=== PATIENT | female | born 1940 | race Caucasian/White ===

== ENCOUNTER → 2019-08-15 14:27 | Outpatient (BNVA) | payer MEDICARE, OTHER, SELFPAY | PROVIDERS: Family Provider Family Medicine; Referring Provider Family Medicine; Visit Provider Otolaryngology | DX: R22.1 Localized swelling, mass and lump, neck (principal) | CPT/HCPCS: 99203; 99214 ==

== ENCOUNTER 2019-08-20 12:14 | Outpatient (CLI) | payer MEDICARE, OTHER, SELFPAY ==
--- NOTE | 2019-08-20 12:45 | US_ITS ---
WS: [id number] ULTRASOUND RENAL TECHNIQUE: Ultrasound examination of both kidneys. CLINICAL INFORMATION: MICROSCOPIC HEMATURIA COMPARISON: None. FINDINGS: RIGHT: Right kidney is normal in size and appearance. Echogenicity: Normal. Cortical thickness: 1.3 cm; Normal. Hydronephrosis: None. Perinephric fluid: None. Right kidney measures: 7.7 cm x 4.4 cm x 4.7 cm. LEFT: Left kidney is normal in size and appearance. Echogenicity: Normal. Cortical thickness: 1.4 cm; Normal. Hydronephrosis: None. Perinephric fluid: None. Left kidney measures: 9.5 cm x 4.4 cm x 5.2 cm. Normal visualized aorta. Normal bladder emptying. US/US renal BI with bladder IMPRESSION: 1. Both kidneys are normal in appearance. No hydronephrosis. 2. Normal bladder.
== END 2019-08-20 12:15 | disposition home or self-care (01) ==
LOC: US 12:16
PROVIDERS: Family Provider Family Medicine; PCP Family Medicine; Visit Provider Family Medicine
DX: R31.29 Other microscopic hematuria (principal)
CPT/HCPCS: 76770; 76857

== ENCOUNTER 2019-08-29 09:02 | Outpatient (CLI) | payer MEDICARE, OTHER, SELFPAY ==
[2019-08-29 09:51] LABS: Blood Urea Nitrogen 9 mg/dL (8-23)
--- NOTE | 2019-08-29 10:00 | CT_ITS ---
WS: [id number] CT NECK WITH CONTRAST HISTORY: Localized mass and lump., LEFT submandibular palpable nodule and swelling. TECHNIQUE: Contiguous 5 mm axial images are performed through the neck with intravenous contrast. Sag ittal and coronal reformats are also submitted. All CT scans at [facility] use at least o ne of these dose optimization techniques: automated exposure control; mA and/or kV adjustment per pat ient size (includes targeted exams where dose is matched to clinical indication); or iterative recons truction. CONTRAST: CONTRAST: Omnipaque 300; 95 mL IV. DLP: 424.24 mGy.cm COMPARISON: 09/08/2018 Nasopharynx, oropharynx, hypopharynx and larynx are unremarkable. No soft tissue masses or abnormal e nhancement. Torus tubarius and fossa of Rosenmuller and parapharyngeal fat are normal. No significant lymphadenopathy is identified. Subcentimeter bilateral thyroid nodules and a few scattered calcifications. No interval change. No do minant mass or nodule. No mass identified in the region of the submandibular glands. There is a prominent artery superficial to the LEFT sternocleidomastoid muscle and just lateral to the cricoid which could be palpable. This vein is associated with the superficial surface of the LEFT submandibular gland. Prior anterior cervical fusion from C4 through C6 with interbody spacers. No lucency around the hardw are. Fusion across the disc spaces and the anterior body grafting. C6 anterolisthesis by 3 mm is unch anged. Multilevel bilateral foraminal stenosis throughout the cervical spine. Most significant centra l or foraminal stenosis at C5-6. No abnormality at the skull base. RIGHT A1 is hypoplastic. Intracranial atherosclerosis of the caroti d arteries. Visualized paranasal sinuses and mastoid air cells are normal. Lung apices are clear. CT/CT neck w con* [id number] IMPRESSION: 1. No neck mass or adenopathy. Palpable area over the LEFT submandibular gland may correspond to a prominent vein. 2. Advanced degenerative changes in the cervical spine and prior cervical fusi on from C4 through C6.
[2019-08-29] MEDS: iohexol 300 mg/mL 100 mL Btl IV (10:30)
== END 2019-08-29 09:03 | disposition home or self-care (01) ==
LOC: RAD 09:07
PROVIDERS: Family Provider Family Medicine; PCP Family Medicine; Visit Provider Otolaryngology
DX: R22.1 Localized swelling, mass and lump, neck (principal); Z98.1 Arthrodesis status
CPT/HCPCS: 36415; 70491; 82565; 84520

== ENCOUNTER → 2019-09-04 15:02 | Outpatient (BNVA) | payer MEDICARE, OTHER, SELFPAY | PROVIDERS: Family Provider Family Medicine; PCP Family Medicine; Visit Provider Otolaryngology | DX: R22.1 Localized swelling, mass and lump, neck (principal) | CPT/HCPCS: 99212; 99214 ==

== ENCOUNTER 2019-10-29 08:07 | Outpatient (CLI) | payer MEDICARE, OTHER, SELFPAY ==
--- NOTE | 2019-10-29 08:17 | USCV_ITS ---
Aarti Melchor Age: 79 Gender: F : 1940 Exam Date: 10/29/2019 08:24 Ordering Phys: Elyse Colin MD ([email or web address]) Technologist: Reji Whitfield Exam Location: [facility] [place] Indication: AI BP: / HR: 70 Rhythm: Sinus Technical Quality: Adequate MEASUREMENTS (Male / Female) Normal Values 2D ECHO LV Diastolic Diameter PLAX 3.6 cm 4.2 - 5.9 / 3.9 - 5.3 cm LV Systolic Diameter PLAX 2.2 cm IVS Diastolic Thickness 1.0 cm 0.6 - 1.0 / 0.6 - 0.9 cm IVS Systolic Thickness 1.0 cm LVPW Diastolic Thickness 0.9 cm 0.6 - 1.0 / 0.6 - 0.9 cm LVPW Systolic Thickness 1.2 cm LVOT Diameter 2.1 cm LV Ejection Fraction 2D Teich 70.1 % LV Ejection Fraction MOD 2C 70.0 % LV Ejection Fraction 2C AL 70.6 % LA Diameter 3.7 cm LA Width 3.0 cm LA Height 4.0 cm RA Width 3.0 cm RA Height 3.7 cm Aorta at Sinotubular Diameter 2.4 cm M-MODE LV Diastolic Diameter MM 4.1 cm 4.2 - 5.9 / 3.9 - 5.3 cm LV Systolic Diameter MM 2.5 cm LV Ejection Fraction MM Teich 71.1 % IVS Diastolic Thickness MM 0.8 cm 0.6 - 1.0 / 0.6 - 0.9 cm IVS Systolic Thickness MM 1.2 cm LVPW Diastolic Thickness MM 1.2 cm 0.6 - 1.0 / 0.6 - 0.9 cm LVPW Systolic Thickness MM 1.4 cm RV Diastolic Diameter MM 2.0 cm Aortic Annulus Diameter 2.8 cm LA Ao Ratio MM 1.3 MV E Point Septal Separation 0.9 cm DOPPLER AV Peak Velocity 132.0 cm/s LVOT Peak Velocity 109.0 cm/s AV Area Cont Eq vti 2.8 cm squared AV Area Cont Eq pk 2.8 cm squared MV Area PHT 3.5 cm squared Mitral E to A Ratio 0.6 MV E' Velocity 8.0 cm/s Mitral E to MV E' Ratio 7.4 Mitral E to LV E' Lateral Ratio 7.4 Mitral E to LV E' Septal Ratio 7.4 TR Peak Velocity 234.0 cm/s TR Peak Gradient 21.9 mmHg TV Peak E Velocity 78.0 cm/s Right Atrial Pressure 3.0 mmHg Pulmonary Artery Systolic Pressu 24.9 mmHg PV Peak Velocity 73.0 cm/s FINDINGS Left Ventricle Normal left ventricular cavity size. Normal left ventricular wall thickness. Normal left ventricular systolic function. Left ventricular ejection fraction is estimated at 75 %. No regional wall motion abnormalities. Grade I diastolic dysfunction (abnormal relaxation filling pattern), normal filling pressures. Right Ventricle Normal right ventricular size and systolic function. Right ventricular systolic pressure 24.9 mmHg. Right Atrium Normal right atrial size. Right atrial pressure estimated at 3 mmHg. Left Atrium Normal left atrial size. Mitral Valve Structurally normal mitral valve. No mitral valve stenosis. Trace mitral valve regurgitation. Aortic Valve Thickened trileaflet aortic valve. No aortic valve stenosis. Mild aortic valve regurgitation. Tricuspid Valve Structurally normal tricuspid valve. No tricuspid valve stenosis. Mild tricuspid valve regurgitation. Pulmonic Valve Structurally normal pulmonic valve. Pericardium No pericardial effusion. Aorta Normal size aortic root and proximal ascending aorta. CONCLUSIONS 1. Normal left ventricular cavity size and systolic function. Left ventricular ejection fraction is estimated at 75 %. No regional wall motion abnormalities. Grade I diastolic dysfunction (abnormal relaxation filling pattern), normal elevated filling pressures. 2. Normal right ventricular size and systolic function. 3. Pulmonary artery pressure estimated at 25 mmHg. 4. Mild aortic valve regurgitation. 5. When compared to previous echocardiogram dated 09/01/2016, there may not have been any significant change. Elyse Colin MD (Electronically Signed) Final Date: 29 October 2019 13:14 S
--- NOTE | 2019-10-29 08:17 | USCV_ITS ---
Aarti Melchor Age: 79 Gender: F : 1940 Exam Date: 10/29/2019 08:35 Ordering Phys: Elyse Colin MD ([email or web address]) Technologist: Reji Whitfield Exam Location: [facility] [place] Indication: CCA STENOSIS Risk Factors: Previous Vascular Surgery: Right Brachial BP: / Left Brachial BP: / Right Left Velocity (cm/s) Spectral Plaque Velocity (cm/s) Spectral Plaque Syst/Diast Broadening Syst/Diast Broadening 69.10/ 7.00 Prox CCA 69.20 / 14.50 67.60/ 9.30 Mid CCA 73.50 / 17.10 47.40/ 10.90 Distal CCA 62.40 / 11.10 52.00/ 10.00 Prox ICA 73.50 / 23.90 Homo 103.90/25.00 Mid ICA 83.70 / 20.50 Homo 95.30/ 15.10 Distal ICA 88.90 / 18.80 174.80 ECA 92.30 1.50 ICA/CCA 1.21 Antegrade Vertebral Antegrade 67.50/ 16.20 cm/s 65.80/ 11.10 cm/s Tri Subclavian Tri 105.1 101.7 0 0 FINDINGS Comparison:. 09/05/17. No significant elevation of systolic or diastolic velocities. Waveforms are normal. Minimal bilateral atherosclerosis at the bifurcations. CONCLUSIONS Bilateral ICA stenosis less than 50%. Minimal bilateral atherosclerosis. Dr. Katey Blank DO (Electronically Signed) Final Date: 29 October 2019 09:38 S
== END 2019-10-29 08:08 | disposition home or self-care (01) ==
LOC: RAD 08:09
PROVIDERS: Family Provider Family Medicine; PCP Family Medicine; Visit Provider Internal Medicine Cardiovascular Disease
DX: I35.1 Nonrheumatic aortic (valve) insufficiency (principal); I65.23 Occlusion and stenosis of bilateral carotid arteries
CPT/HCPCS: 93306; 93880

== ENCOUNTER → 2019-11-28 15:37 | Outpatient (BNVA) | payer MEDICARE, OTHER, SELFPAY | PROVIDERS: Family Provider Family Medicine; PCP Family Medicine; Visit Provider Nurse Practitioner Family | DX: R31.29 Other microscopic hematuria (principal) | CPT/HCPCS: 81001; 88112 ==

== ENCOUNTER 2020-01-28 13:05 | Outpatient (CLI) | payer MEDICARE, OTHER, SELFPAY ==
--- NOTE | 2020-01-28 13:16 | USCV_ITS ---
Aarti Melchor Age: 79 Gender: F : 1940 Exam Date: 01/28/2020 13:42 Ordering Phys: Eduardo Lowry MD Technologist: Sergo Bonds Exam Location: [facility] [place] Indication: BILATERAL LEG PAIN Risk Factors: Previous Vascular Surgery: RIGHT LEFT BP: 125.0 / 75.00 BP: 123.0/ 67.00 0 0 Waveform Velocity (cm/s) Velocity (cm/s) Waveform Triphasic 70.6 Iliac Prox 84.9 Triphasic Triphasic 72.1 Iliac Mid 78.9 Triphasic Triphasic 68.2 Iliac Distal 80.7 Triphasic Triphasic 113.6 MACHINE MARKER 74.6 Triphasic Triphasic 90.6 SFA Prox 69.7 Triphasic Triphasic 59.8 SFA Mid 72.2 Triphasic Triphasic SFA Dist Triphasic 61.1 50.6 Triphasic 48.6 POP 39.5 Biphasic Biphasic 46.7 BRASS WIND INSTRUMENT MAKER 52.0 Biphasic Triphasic 67.7 DPA 48.6 Biphasic 1.0 PATRICIA 1.1 FINDINGS Normal resting ABIs bilaterally. Near normal arterial Doppler waveforms. Normal Doppler flow velocity CONCLUSIONS No significant arterial obstruction, based on the above findings Dr Juana Kaplan MD [facility] (Electronically Signed) Final Date: 28 January 2020 22:01 S
== END 2020-01-28 13:06 | disposition home or self-care (01) ==
LOC: RAD 13:09
PROVIDERS: PCP Family Medicine; Visit Provider Family Medicine
DX: M79.604 Pain in right leg (principal); M79.605 Pain in left leg
CPT/HCPCS: 93925

== ENCOUNTER → 2020-03-06 10:09 | Outpatient (BNVA) | payer MEDICARE, OTHER, SELFPAY | PROVIDERS: PCP Family Medicine; Visit Provider Urology | DX: N39.41 Urge incontinence (principal); R31.29 Other microscopic hematuria; Z87.440 Personal history of urinary (tract) infections | CPT/HCPCS: 81001 ==

== ENCOUNTER 2020-04-03 12:20 | Outpatient (CLI) | payer MEDICARE, OTHER, SELFPAY ==
--- NOTE | 2020-04-03 12:57 | XR_ITS ---
WS: [id number] LUMBAR SPINE TECHNIQUE: 3 views of the lumbar spine CLINICAL INFORMATION: BACK PAIN COMPARISON: None. FINDINGS: Five [id number] lumbar vertebral bodies. Cholecystectomy clips. Pedicle screw fixation L4-5 with interconnecting rods. Interbody fusion L4-5. Disc space narrowing throughout the lumbar spine. Mild chronic anterior wedging lower thoracic spine. Aortic calcification. Moderate facet arthropathy L4-L5 and L5-S1. Slight anterolisthesis L4 on L5. XR/XR lumbar spine 2-3V* [id number] IMPRESSION: 1. Mild lumbar curve convex right. 2. Prior postoperative changes pedicle screw fixation L4-5 with interbody fusi on graft. 3. Mild disc space narrowing throughout the lumbar spine. 4. Trace anterolisthesis L4 on L5.
== END 2020-04-03 12:21 | disposition home or self-care (01) ==
PROVIDERS: PCP Family Medicine; Visit Provider Family Medicine
DX: M54.5 Low back pain (principal)
CPT/HCPCS: 72100

== ENCOUNTER 2020-05-05 11:39 | Outpatient (CLI) | payer MEDICARE, OTHER, SELFPAY ==
--- NOTE | 2020-05-05 11:47 | MM_ITS ---
WS: [id number] BILATERAL DIGITAL SCREENING MAMMOGRAPHY WITH CAD CLINICAL INFORMATION: SCREENING HISTORY: Screening mammogram. No current complaints. COMPARISON: TECHNIQUE: Bilateral CC and MLO views. FINDINGS: Scattered fibroglandular densities bilaterally. No suspicious focal mass, asymmetry, calcifications, or architectural distortion. No evidence of malignancy. A few punctate calcifications MM/[id number] IMPRESSION: BI-RADS: 2-Benign FOLLOW UP: 1 Year Follow-up Recommend return to annual screening mammography.
== END 2020-05-05 11:40 | disposition home or self-care (01) ==
PROVIDERS: PCP Family Medicine; Visit Provider Family Medicine
DX: Z12.31 Encounter for screening mammogram for malignant neoplasm of breast (principal)
CPT/HCPCS: 77067

== ENCOUNTER 2020-06-05 10:16 | Outpatient (CLI) | payer MEDICARE, OTHER, SELFPAY ==
--- NOTE | 2020-06-05 10:45 | XR_ITS ---
WS: [id number] CERVICAL SPINE TECHNIQUE: 3 views of the cervical spine CLINICAL INFORMATION: NECK PAIN COMPARISON: December 08, 2009 FINDINGS: Straightening of the normal cervical lordosis. Postoperative changes ACDF C4-C6. Grade 1 anterolisthe sis C6 on C7 measuring 3 mm. Normal C1-C2 articulation. Moderate spondylitic changes. XR/XR cervical spine 3V* [id number] IMPRESSION: 1. Postoperative changes ACDF C4-C6. Hardware appears well seated. 2. Grade 1 anterolisthesis C6 on C7 measuring 3 mm. 3. Osteopenia.
== END 2020-06-05 10:17 | disposition home or self-care (01) ==
LOC: RADWPI 10:21
PROVIDERS: PCP Family Medicine; Visit Provider Family Medicine
DX: M54.2 Cervicalgia (principal); M85.88 Other specified disorders of bone density and structure, other site
CPT/HCPCS: 72040

== ENCOUNTER → 2020-07-17 09:49 | Outpatient (BNVA) | payer MEDICARE, OTHER, SELFPAY | PROVIDERS: PCP Family Medicine; Visit Provider Surgery | DX: Z20.828 Contact with and (suspected) exposure to other viral communicable diseases (principal); K21.9 Gastro-esophageal reflux disease without esophagitis | CPT/HCPCS: 87635 ==

== ENCOUNTER 2020-07-23 07:10 | Day surgery (SDC) | payer MEDICARE, OTHER, SELFPAY ==
[2020-07-23 07:24] VITALS: BP 126/97; PULSE 66; RESP 18; TEMP 36.1; O2SAT 100
[2020-07-23] MEDS: sodium chloride 0.9% 1,000 ML 30 ML IV (07:46)
--- NOTE | 2020-07-23 07:52 | W.PM.OPSUD ---
Surgery/Procedure H&P Update DATE OF PROCEDURE: July 23, 2020 DATE H&P PERFORMED: 06/23/20 H&P UPDATE INFORMATION: I have reviewed H&P completed within last 30 days, I have examined patient prior to procedure and No changes to prior documentation PREOP DIAGNOSIS: Acid reflux disease PRIMARY INDICATION FOR PROCEDURE: The same PLANNED PROCEDURE: Operation Date: 07/23/20 08:15 Proposed Procedures p EGD 89607 K21.9(Not Applicable) - Rikki Dempsey MD
--- NOTE | 2020-07-23 08:11 | P.ANESASSM_ITS ---
Pre-Anesthetic Assessment Pre-Anesthetic Assessment: Height/Weight: Height 1.57 m Weight 56.245 kg Temp Pulse Resp BP Pulse Ox 97.0 F L 66 18 126/97 100 07/23/20 07:24 07/23/20 07:24 07/23/20 07:24 07/23/20 07:24 07/23/20 07:24 Preop Diagnosis: Acid reflux disease Proposed Procedure: Operation Date: 07/23/20 08:15 Proposed Procedures p EGD 65048 K21.9(Not Applicable) - Rikki Dempsey MD Familial anesthetic complications: None Was Beta Poppy taken within 24 hours: N/A Last intake: Intake Last Liquid Date 07/22/20 Last Liquid Time 23:00 Last Solid Date 07/22/20 Last Solid Time 18:00 Social: Social History: No alcohol and No tobacco Exam: Pre-Anes Outpt Exam: alert, oriented x 3, clear to auscultation bilat erally and regular rate & rhythm Airway: Cervical ROM: WNL MP: 3 Dentition: Full Additional comments: submandibular neck mass/gland seen by Dr Rg, CT scan obtained. No intervention was required. CV/HEM: CV/HEM: HTN Comments: Mild AVR on echo 11/04, EF 75% GI: GI: GERD Metabolic: Metabolic: Hyperlipidemia Neuropsych: Comments: B/L ANAM Anesthetic Plan: ASA status: 3 Anesthesia: MAC Risk of > 500 ml blood loss (7ml/kg in children): No Meds/Allergies Current Medications: Current Medications Generic Name Dose Route Start Last Admin Trade Name Freq PRN Reason Stop Dose Admin Sodium Chloride 1,000 mls @ 30 ml s/hr 07/23/20 07:15 07/23/20 07:46 Sodium Chloride 0.9% IV 07/24/20 07:14 30 mls/hr .Q24H CARL Administration PFSH Anesthesia PFSH: Medical History Aortic valve regurgitation Carotid artery stenosis, asymptomatic FH: cholecystectomy History of recurrent UTI (urinary tract infection) Microscopic hematuria Neck mass Urgency incontinence Surgical History H/O neck surgery H/O: hysterectomy Previous back surgery Family History Father Cancer CAD (coronary artery disease) Brother CAD (coronary artery disease) Other Diabetes Heart disease Hypertension Denies family history of Anesthesia complication Bleeding disorder Social History Smoking and tobacco status: never smoked Alcohol intake: never Adopted: No Caregiver/support person: No Lives independently: No Marital status: / Current occupational status: retired History of recent travel: No Current gender identity: Female Data Anesthesia Cardiac Studies: No Data to Display
[2020-07-23 09:05] VITALS: BP 106/61; PULSE 64; RESP 16; TEMP 36.6; O2SAT 95
--- NOTE | 2020-07-23 09:06 | ANE.PACU2 ---
Inpatient post-anesthesia follow up: Airway intact: Yes Vital signs: Temperature 97.8 F Pulse Rate 64 Respiratory Rate 16 Blood Pressure 106/61 Pulse Oximetry 95 Oxygen Delivery Me thod Room Air Oxygen Flow Rate Fraction of Inspir ed Oxygen Hydration adequate: Yes Nausea and vomiting: No Pain level: 1 Mental status: Baseline
== END 2020-07-23 09:38 | disposition home or self-care (01) ==
PROVIDERS: PCP Family Medicine; Visit Provider Surgery
PROC: 0DJ08ZZ Inspection of Upper Intestinal Tract, Via Natural or Artificial Opening Endoscopic (ICD-10-PCS; CPT 43235; principal; 2020-07-23 08:15)
DX: K21.9 Gastro-esophageal reflux disease without esophagitis (principal); K44.9 Diaphragmatic hernia without obstruction or gangrene; K29.70 Gastritis, unspecified, without bleeding; I10 Essential (primary) hypertension; E78.5 Hyperlipidemia, unspecified
CPT/HCPCS: 12345; 43235; J2704; J7030

== ENCOUNTER → 2020-08-04 17:52 | Outpatient (BNVA) | payer MEDICARE, OTHER, SELFPAY | PROVIDERS: PCP Family Medicine; Visit Provider Nurse Practitioner Family | DX: R31.29 Other microscopic hematuria (principal); N39.0 Urinary tract infection, site not specified | CPT/HCPCS: 81003 ==

== ENCOUNTER → 2020-09-17 12:50 | Outpatient (BNVA) | payer MEDICARE, OTHER, SELFPAY | PROVIDERS: PCP Family Medicine; Visit Provider Urology | DX: N39.0 Urinary tract infection, site not specified (principal); R33.9 Retention of urine, unspecified; R31.29 Other microscopic hematuria | CPT/HCPCS: 81003 ==

== ENCOUNTER 2021-01-13 08:16 | Outpatient (CLI) | payer MEDICARE, OTHER, SELFPAY ==
--- NOTE | 2021-01-13 08:49 | MR_ITS ---
WS: [id number] MRI NECK with and without CONTRAST. COMPARISON: Head CT 03/05/2013 Multiplanar, multisequence imaging is performed with and without contrast. History: Left-sided face fullness and LEFT ear pain. Chronic condition. Localized swelling and mass. No enhancing masses or inflammation noted within the neck. The parapharyngeal fat is symmetric bilate rally. Torus tubarius and the eustachian tubes are normal and symmetric. No adenopathy. The visualize d vascular structures are normal. There is some very mild slight inflammation and enhancement involvi ng the uvula. Uvula also appears slightly prominent. Extensive postsurgical changes in the cervical spine. Slight increase in the cervical lordosis. MR/MR orbit face neck wo/w* [id number] IMPRESSION: 1. No neck mass or adenopathy. 2. No abnormality noted in the LEFT face or neck. 3. Very minimal prominence and enhancement of the uvula. If direct visualizati on has not been performed this would provide additional information.
[2021-01-13] MEDS: gadobenate dimeglumine 20 mL vial IV (09:29)
== END 2021-01-13 08:17 | disposition home or self-care (01) ==
PROVIDERS: PCP Family Medicine; Visit Provider Specialist
DX: J32.9 Chronic sinusitis, unspecified (principal); R22.1 Localized swelling, mass and lump, neck
CPT/HCPCS: 70543; A9577

== ENCOUNTER → 2021-01-20 10:21 | Outpatient (BNVA) | payer MEDICARE, OTHER, SELFPAY | PROVIDERS: PCP Family Medicine; Visit Provider Urology | DX: N39.0 Urinary tract infection, site not specified (principal); R33.9 Retention of urine, unspecified; N39.41 Urge incontinence | CPT/HCPCS: 81003 ==

== ENCOUNTER 2021-02-05 11:58 | Outpatient (CLI) | payer MEDICARE, OTHER, SELFPAY ==
--- NOTE | 2021-02-05 12:45 | USCV_ITS ---
Aarti Melchor Age: 80 Gender: F : 1940 Exam Date: 02/05/2021 11:54 Ordering Phys: Elyse Colin MD ([email or web address]) Technologist: Marsha Hand Exam Location: [facility] [place] Indication: PAIN IN RIGHT LEG RIGHT LEFT Brachial 157.00 mmHg Brachial 143.00 mmHg Pressure (mmHg) Waveform Pressure (mmHg) Waveform 156.00 Above Knee 148.00 155.00 Below Knee 165.00 153.00 PETROL TANKER DRIVER 151.00 173.00 DPA 165.00 1.10 Ankle/Brachial Index 1.05 1.13 Post-Exercise Ankle Brachial Index 1.27 124.00 Pre-Exercise Toe Pressure 98.00 0.79 Pre-Exercise Toe/Brachial Index 0.62 FINDINGS Normal resting PATRICIA of 1.1 on the right side and 1.05 on the left side. Post exercise PATRICIA of 1.16 on the right side and 0.66 on the left side Resting TBI 0.79 on the right side and 0.62 on the left side CONCLUSIONS Abnormal resting TBI and post exercise PATRICIA on the left side, suggestive of moderate peripheral artery disease No significant arterial obstruction on the right side No similar previous studies are available for comparison Dr Juana Kaplan MD [facility] (Electronically Signed) Final Date: 05 February 2021 20:42 S
== END 2021-02-05 11:59 | disposition home or self-care (01) ==
LOC: RAD 12:03
PROVIDERS: PCP Family Medicine; Visit Provider Internal Medicine Cardiovascular Disease
DX: M79.604 Pain in right leg (principal)
CPT/HCPCS: 93923

== ENCOUNTER → 2021-03-16 13:24 | Outpatient (BNVA) | payer MEDICARE, OTHER, SELFPAY | PROVIDERS: PCP Family Medicine; Visit Provider Internal Medicine Cardiovascular Disease | DX: Z01.812 Encounter for preprocedural laboratory examination (principal) | CPT/HCPCS: 80048 ==

== ENCOUNTER 2021-03-17 07:58 | Outpatient (CLI) | payer MEDICARE, OTHER, SELFPAY ==
--- NOTE | 2021-03-17 08:00 | CT_ITS ---
WS: [id number] CTA ABDOMINAL AORTA WITH RUNOFF TECHNIQUE: Contrast enhanced CTA of the abdominal aorta with bilateral lower extremity runoff. Multip lanar reformatted images were obtained. MIP reformats were also reviewed. CLINICAL INFORMATION: R68.89 - Other general symptoms and signs COMPARISON: CT 12 DLP: 1195.[address] scans at [facility] use at least one of these dose optimization techniques: automat ed exposure control; mA and/or kV adjustment per patient size (includes targeted exams where dose is matched to clinical indication); or iterative reconstruction. FINDINGS: Moderate calcified aortic atheromatous disease. No aneurysm. Celiac and SMA are patent. Pro ximal renal arteries are patent. Normal renal parenchymal enhancement. JAMEY is patent. RIGHT: Mild stenosis right common iliac artery origin measuring approximately 30%. Right common iliac artery is patent. External and internal iliac arteries are patent. Common femoral artery is patent. Normal superficial femoral artery and deep femoral arteries. Normal popliteal artery. Popliteal is pa tent to the trifurcation. Three-vessel runoff to the ankle. Somewhat diminutive peroneal artery. LEFT: Mild calcified atheromatous disease left common iliac artery which is patent. Dense calcificati on of the internal iliac artery origin which is patent. External iliac artery is patent. Calcified at heromatous disease common femoral artery which is patent. Superficial femoral and deep femoral arteri es are patent. Normal popliteal artery patent to the trifurcation. Three-vessel runoff to the ankle. Somewhat diminutive peroneal artery. Diffuse fatty infiltration of the liver. Vascular anomaly right hepatic lobe likely benign. Cholecyst ectomy clips. Normal portal vein and splenic vein. Small esophageal hiatal hernia. Lung bases are wel l aerated. Normal adrenal glands. Normal renal parenchymal enhancement. No hydronephrosis. Tiny right renal cyst. Sigmoid diverticulosis. No evidence of acute diverticulitis. No evidence of high-grade s mall or large bowel obstruction. Tiny fat-containing umbilical hernia. Pedicle screw fixation L4-5. CT/CT angio abd aorta runof [id number] IMPRESSION: 1. Normal caliber abdominal aorta with moderate calcified atheromatous disease . 2. Mild stenosis right common iliac artery origin measuring approximately 30%. No flow-limiting stenosis right lower extremity. 3. No flow-limiting stenosis left lower extremity. 4. Bilateral three-vessel runoff to the ankles with somewhat diminutive perone al arteries bilaterally. 5. Nonvascular findings described above.
[2021-03-17] MEDS: iohexol 350 mg/mL 100 mL Btl IV (08:35)
== END 2021-03-17 07:59 | disposition home or self-care (01) ==
PROVIDERS: PCP Family Medicine; Visit Provider Internal Medicine Cardiovascular Disease
DX: R68.89 Other general symptoms and signs (principal); I73.9 Peripheral vascular disease, unspecified; M79.605 Pain in left leg; I70.8 Atherosclerosis of other arteries
CPT/HCPCS: 75635; Q9967

== ENCOUNTER → 2021-04-21 13:10 | Outpatient (BNVA) | payer MEDICARE, OTHER, SELFPAY | PROVIDERS: PCP Family Medicine; Visit Provider Urology | DX: N39.0 Urinary tract infection, site not specified (principal); R33.9 Retention of urine, unspecified; R31.29 Other microscopic hematuria | CPT/HCPCS: 81003 ==

== ENCOUNTER 2021-07-01 09:44 | Outpatient (CLI) | payer MEDICARE, OTHER, SELFPAY ==
--- NOTE | 2021-07-01 09:46 | MM_ITS ---
WS: [id number] BILATERAL DIGITAL SCREENING MAMMOGRAPHY WITH CAD CLINICAL INFORMATION: SCREENING HISTORY: Screening mammogram. No current complaints. COMPARISON: May 05, 2020 TECHNIQUE: Bilateral CC and MLO views. FINDINGS: Scattered fibroglandular densities bilaterally. Numerous bilateral punctate calcifications similar to the prior examination. No suspicious focal mass, asymmetry, calcifications, or architectural distort ion. No evidence of malignancy. MM/[id number] IMPRESSION: BI-RADS: 2-Benign FOLLOW UP: 1 Year Follow-up Recommend return to annual screening mammography.
== END 2021-07-01 09:45 | disposition home or self-care (01) ==
LOC: RADSHAW 09:45
PROVIDERS: PCP Family Medicine; Visit Provider Family Medicine
DX: Z12.31 Encounter for screening mammogram for malignant neoplasm of breast (principal)
CPT/HCPCS: 77067

== ENCOUNTER 2021-08-16 15:47 | Emergency (ER) | payer MEDICARE, OTHER, SELFPAY ==
[2021-08-16 15:57] VITALS: BP 160/70; PULSE 74; RESP 16; TEMP 36.7; O2SAT 99; BMI 22.0
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
[2021-08-16 17:03] VITALS: PULSE 66; RESP 16; O2SAT 98
== END 2021-08-16 17:04 | disposition home or self-care (01) ==
PROVIDERS: Emergency Provider Nurse Practitioner Family; PCP Family Medicine
DX: Z04.1 Encounter for examination and observation following transport accident (principal); Z79.82 Long term (current) use of aspirin; V49.40XA Driver injured in collision with unspecified motor vehicles in traffic accident, initial encounter
CPT/HCPCS: 72100; 99282

== ENCOUNTER 2021-11-09 20:51 | Emergency (ER) | payer MEDICARE, OTHER, SELFPAY ==
[2021-11-09 20:54] VITALS: BP 180/89; PULSE 69; RESP 18; TEMP 36.2; O2SAT 98; BMI 22.6
--- NOTE | 2021-11-09 22:18 | ECG_ITS ---
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 Measurements Intervals [place] Rate: 56 P: 22 [place]: 203 QRS: -15 QRSD: 82 T: 34 QT: 410 QTc: 398 Interpretive Statements SINUS BRADYCARDIA LOW QRS VOLTAGE IN PRECORDIAL LEADS [QRS DEFLECTION < 1.0 mV IN CHEST LEADS] No previous ECG available for comparison Electronically Signed On 11-09-2021 23:33:36 CDT by David Moran M.D. [id number]
--- NOTE | 2021-11-09 22:20 | ED_ITS ---
HPI - General Adult General: Chief complaint: General Medical Stated complaint: High Blood pressure Time Seen by Provider: 11/09/21 22:00 Source: patient and family (daughter ) Mode of arrival: ambulatory Limitations: no limitations History of Present Illness: Patient is a nice 81-year-old female who presents to ED today along with her daughter for concerns of elevated blood pressure readings at home (roughly 180s systolic). Patient states she has a history of hypertension and normally takes enalapril 2.5 mg daily. She states she has been having elevated blood pressure readings at home therefore PCP recently increased this to 2.5 mg twice daily. Patient tells me she has not been feeling well over the past several weeks. She reports fatigue. When asked about chest pain she tells me she chronically intermittent has chest pains related to a known hiatal hernia. She often states she will get acid reflux and belching with her discomfort. She is not complaining of shortness of breath or difficulty breathing. Patient does complain of a mild headache. She is not having any visual changes. She has no known cardiac disease. She states her last stress test was many many years ago. Onset (ago): hour(s) Pain Consistency: intermittent Associated symptoms: Reports chest pain (fairly normal for patient given history of hiatal hernia); Deny confusion, dyspnea, headache(s), nausea, rash, palpitations, syncope or vomiting Treatments prior to arrival: none Review of Systems Const: Reports: fatigue; Denies: fever(s), chills, body aches, change in appetite or change in weight Eyes: Denies: change in vision or blurry vision Card: Reports: chest pain (fairly normal for patient given history of hiatal hernia); Denies: palpitations, irregular heart rhythm, edema, swelling of feet/ankles, lightheadedness, syncope, pre-syncope, dyspnea on exertion, orthopnea, leg pain with exertion or acrocyanosis Resp: Denies: dyspnea, productive cough or pain on inspiration GI: Reports: abdominal pain (epigastic-states is chronic/intermittent from hiatal hernia), heartburn and belching; Denies: nausea, vomiting, hematemesis, diarrhea, GI cramping or change in bowel habits : Denies: flank pain or dysuria Musc: Denies: neck pain, back pain, extremity pain or joint pain Skin/Breast: Denies: rash Neuro: Denies: headache(s), numbness in extremities, weakness in extremities, sensory changes, difficulty walking, dizziness or confusion PFSH ED PFSH: Medical History Aortic valve regurgitation Carotid artery stenosis, asymptomatic FH: cholecystectomy Heart disease History of nonmelanoma skin cancer History of recurrent UTI (urinary tract infection) Incomplete bladder emptying Memory loss Microscopic hematuria Mitral valve disease Neck mass Recurrent UTI Urgency incontinence Surgical History H/O colonoscopy 2016 H/O esophagogastroduodenoscopy 2016 H/O neck surgery H/O: hysterectomy Hx of cholecystectomy Previous back surgery Family History Father , in his 70's Cancer CAD (coronary artery disease) Brother CAD (coronary artery disease) Mother , at age 79 Heart disease Other Diabetes Hypertension Denies family history of Anesthesia complication Bleeding disorder Social History Alcohol intake: never Adopted: No Caregiver/support person: No Lives independently: No Marital status: / Current occupational status: retired History of recent travel: No Current gender identity: Female Physical Exam Const: COMMON NORMALS: no acute distress, average body habitus, patient orien sathish x3, no limitations, healthy appearing, alert and well nourished GENERAL APPEARANCE: cooperative ORIENTATION/CONSCIOUSNESS: Yes awake, Yes oriented to person, Yes oriented to place and Yes oriented to time HENMT: COMMON NORMALS: normocephalic and atraumatic HEAD & SCALP: normocephalic and atraumatic Neck/C-Spine: COMMON NORMALS: full ROM, no lymphadenopathy, supple, no meningeal signs and no JVD Chest: COMMONS NORMALS: normal inspection of the chest and normal palpation of entire chest wall Resp: COMMON NORMALS: normal respiratory effort and clear to auscultation bilaterally AUSCULTATION: clear to auscultation bilaterally Cardio: COMMON NORMALS: no JVD, regular rate and regular rhythm RATE: regular rate RHYTHM: regular rhythm GI: COMMON NORMALS: Normal to inspection, nondistended, normoactive bowel s ounds present, Soft to palpation, No hepatosplenomegaly present and no masses PALPATION: Yes Soft to palpation, Yes Tenderness to palpation present (GI) (mild-epigastric ) and Yes No hepatosplenomegaly present Back/Pelvis: COMMON NORMALS: thoracic and lumbar spine normal to inspection Extremity: COMMON NORMALS: normal to inspection, capillary refill normal, no clubbing, cyanosis or edema, no calf tenderness and no pedal edema Neuro: PETTY COMA SCALE: document GCS findings Costa coma scale eye opening: Spontaneous [place] coma scale verbal response: Orientated Costa coma scale motor response: Obey commands Costa coma scale total score: 15 COMMON NORMALS: patient oriented x3, moves all extremities, no focal motor deficits and no sensory deficits noted SENSORIUM/ORIENTATION: Yes alert, Yes oriented to person, Yes oriented to place and Yes oriented to time MENINGEAL SIGNS: Yes no meningeal signs Skin: COMMON NORMALS: no rashes or lesions noted GENERAL SKIN EXAM: no rashes or lesions noted Course Vital Signs: Vital signs: Vital Signs Temperature 97.2 F L 11/09/21 20:54 Pulse Rate 56 L 11/10/21 00:30 Respiratory Rate 18 11/09/21 20:54 Blood Pressure 160/67 11/10/21 00:30 Pulse Oximetry 97 11/10/21 00:[address] [facility] - General Adult Medical Decision Making Patient is a nice 81-year-old female presents to ED today for elevated blood pressure readings. Patient was 180s systolic upon arrival. She had mentioned s ome chest pain but stated she felt this was most likely secondary to her known hiatal hernia as she has had similar pains previously related to this. She states her pains felt similar today. No shortness of breath or difficulty breathing. Blood work overall is unremarkable. Her baseline troponin was 14 with a negative delta. Her CXR is normal. Initial and repeat EKGs show no ischemic changes. Patient currently is taking 2.5 mg twice daily enalapril. Recommended she increase this to 5 mg in the morning and 2.5 mg in the evening continue to monitor blood pressure. This can be further titrated as needed based on response. She does tell me she has a cardiology appointment on 11/11. She can follow-up with them for any further medication adjustments. They can also order her an outpatient stress test if they feel this is necessary. Blood pressure has responded to IV dose of vasotec and currently is 150s/80s. Patient is stable from an ED standpoint at this time. Return to ED precautions given. Lab Data : 11/09/21 22:44 11/09/21 22:44 Radiology Impressions Chest X-Ray 11/09/21 22:28 IMPRESSION: No acute abnormality. Laboratory Results WBC 9.0 10^3/uL (4.0-10.0) 11/09/21 22:44 RBC 4.63 10^6/uL (4.1-5.3) 11/09/21 22:44 Hgb 12.6 g/dL (11.5-15.3) 11/09/21 22:44 Hct 38.5 % (37.0-47.0) 11/09/21 22:44 MCV 83.2 fl (81-99) 11/09/21 22:44 MCH 27.2 pg (28.0-34.0) L 11/09/21: MCHC 32.7 g/dL (30.0-36.0) 11/09/21 22:44 RDW 14.3 % (12.1-15.1) 11/09/21 22:44 Plt Count 223 10^3/cmm (130-400) 11/09/21 22:44 MPV 10.5 fL (7.4-10.4) H 11/09/21 22:44 Neut % (Auto) 58.6 % 11/09/21 22:44 Lymph % (Auto) 29.9 % 11/09/21 22:44 [place] % (Auto) 8.1 % 11/09/21:44 Eos % (Auto) 2.3 % 11/09/21:44 Baso % (Auto) 0.9 % 11/09/21:44 Neut # (Auto) 5.29 10^3/uL (1.8-7.7) 11/09/21 22:44 Lymph # (Auto) 2.7 10^3/uL (0.8-4.8) 11/09/21 22:44 [place] # (Auto) 0.7 10^3/uL (0.2-0.9) 11/09/21 22:44 Eos # (Auto) 0.2 10^3/uL (0.0-0.8) 11/09/21 22:44 Baso # (Auto) 0.1 10^3/uL (0.0-0.1) 11/09/21 22:44 Nucleated RBC % (auto) 0 % 11/09/21 22:44 Nucleated RBCs # 0.0 /100WBC 11/09/21 22:44 Sodium 134 mmol/L (136-145) L 11/09/21 22:44 Potassium 3.8 mmol/L (3.5-5.1) 11/09/21 22:44 Chloride 98 mmol/L (98-107) 11/09/21 22:44 Carbon Dioxide 24 mmol/L (22-29) 11/09/21 22:44 Anion Gap 15.8 (5-19) 11/09/21 22:44 BUN 13 mg/dL (8-23) 11/09/21 22:44 Creatinine 0.7 mg/dL (0.5-0.9) 11/09/21 22:44 GFR Calculation Not Reportable 11/09/21 22:44 Glucose 112 mg/dL (65-115) 11/09/21 22:44 Calculated Osmolality 279 mOsm/kg (285-295) L 11/09/21 22:44 Calcium 8.8 mg/dL (8.5-10.5) 11/09/21 22:44 Total Bilirubin 0.2 mg/dL (0.15-1.2) 11/09/21 22:44 AST 19 U/L (0-32) 11/09/21 22:44 ALT 15 U/L (0-33) 11/09/21 22:44 Alkaline Phosphatase 48 IU/L (35-105) 11/09/21 22:44 Troponin T Baseline 14 ng/L (0-10) H 11/09/21 22:44 Troponin T 120 Minute 13.62 ng/L (0-10) H 11/10/21 00:00 Delta Troponin T -0.38 ABS# (0-10) L 11/10/21 00:00 Total Protein 7.1 g/dL (6.6-8.7) 11/09/21 22:44 Albumin 4.3 g/dL (3.5-5.2) 11/09/21 22:44 Globulin 2.8 g/dL (1.3-4.6) 11/09/21 22:44 Urine Color Straw (Yellow) 11/09/21 22:45 Urine Appearance Clear (CLEAR) 11/09/21 22:45 Urine pH 7 (5-7) 11/09/21 22:45 Ur Specific [place] 1.005 (1.005-1.030) 11/09/21 22:45 Urine Protein Neg (Negative) 11/09/21 22:45 Urine Glucose (UA) Norm (Normal) 11/09/21 22:45 Urine Ketones Negative (Negative) 11/09/21 22:45 Urine Blood Neg (Negative) 11/09/21 22:45 Urine Nitrate Negative (Negative) 11/09/21 22:45 Urine Bilirubin Neg (Negative) 11/09/21 22:45 Urine Urobilinogen Norm mg/dL (Negative) 11/09/21 22:45 Ur Leukocyte Esterase Negative (Negative) 11/09/21 22:45 EKG Data EKG 1: EKG interpretation date: 11/09/21 Interpretation: Sinus bradycardia Rate [address] elevation or depression changes noted Computer generated interpretation: Chest X-Ray 11/09/21 22:28 IMPRESSION: No acute abnormality. EKG 2: EKG interpretation date: 11/09/21 EKG interpretation time: 22:55 Interpretation: Sinus bradycardia Rate [address] elevation or depression changes noted No acute changes were noted when compared to EKG performed earlier on same visit Computer generated interpretation: Chest X-Ray 11/09/21 22:28 IMPRESSION: No acute abnormality. Discharge Plan Discharge Patient Disposition: Home Clinical Impression: Hypertension Qualifiers: Hypertension type: unspecified Qualified Code(s): I10 - Essential (primary) hypertension Condition: Stable Prescriptions: No Action memantine 10 mg tablet 10 mg PO BID 0RF enalapril maleate [Vasotec] 2.5 mg tablet 2.5 mg PO QDAY 0RF pravastatin 80 mg tablet 80 mg PO QDAY 0RF donepezil [Aricept] 10 mg tablet 10 mg PO .bedtime 0RF aspirin 325 mg tablet 162.5 mg PO QDAY 0RF famotidine 40 mg tablet 40 mg PO BID PRN (Reason: Abdominal Discomfort) 0RF vitamin E 200 unit capsule 200 unit PO DAILY 0RF Discharge Orders: Discharge ED (Routine); Ordered 11/10/21 Ordered By: Marita Beaz Referrals: Eduardo Lowry MD [Primary Care Provider] - Coding Level of Care Code ED Treatment Specialist for Chg Fwd Exam Comprehensive
--- NOTE | 2021-11-09 22:28 | XRR_ITS ---
PROCEDURE INFORMATION: Exam: XR Chest Exam date and time: 11/09/2021 10:48 PM Age: 81 years old Clinical indication: Other: High blood pressure TECHNIQUE: Imaging protocol: XR of the chest. Views: 1 view. COMPARISON: CR Chest 2 views* [id number] 08/10/2017 9:59 AM FINDINGS: Lungs: Unremarkable. No consolidation. Pleural spaces: Unremarkable. No pleural effusion. No pneumothorax. Heart/Mediastinum: Unremarkable. No cardiomegaly. Bones/joints: Hardware in the visualized cervical spine. XR/XR chest 1V portable [id number] IMPRESSION: No acute abnormality.
[2021-11-09] MEDS: enalaprilat 1.25 mg/mL Inj 0.625 MG IVP (22:40)
[2021-11-09 22:41] VITALS: BP 166/85
[2021-11-09 22:49] LABS: Basophils # 0.1 10^3/uL (0.0-0.1); Basophils % 0.9 %; Eosinophils # 0.2 10^3/uL (0.0-0.8); Eosinophils % 2.3 %; Hematocrit 38.5 % (37.0-47.0); Hemoglobin 12.6 g/dL (11.5-15.3); Lymphocytes # 2.7 10^3/uL (0.8-4.8); Lymphocytes % 29.9 %; Mean Corpuscular HGB Conc 32.7 g/dL (30.0-36.0); Mean Corpuscular Hemoglobin 27.2 pg (28.0-34.0); Mean Corpuscular Volume 83.2 fl (81-99); Mean Platelet Volume 10.5 fL (7.4-10.4); Monocytes # 0.7 10^3/uL (0.2-0.9); Monocytes % 8.1 %; Neutrophils # 5.29 10^3/uL (1.8-7.7); Neutrophils % 58.6 %; Nucleated Red Blood Cells % 0 %; Platelet Count 223 10^3/cmm (130-400); Red Blood Count 4.63 10^6/uL (4.1-5.3); Red Cell Distribution Width 14.3 % (12.1-15.1)
[2021-11-09 22:52] LABS: Add Urine Microscopic? NO; Charge for UA Resulting for Rev
[2021-11-09 22:55] LABS: Bilirubin Urine Neg (Negative); Blood Urine Neg (Negative); Glucose Urine UA Norm (Normal); Ketones Urine Negative (Negative); Leukocyte Esterase Urine Negative (Negative); Nitrate Urine Negative (Negative); Protein Urine Neg (Negative); Specific Gravity, Urine 1.005 (1.005-1.030); Urine Appearance Clear (CLEAR); Urine Color Straw (Yellow); Urobilinogen Urine Norm (Negative); pH Urine 7 (5-7)
[2021-11-09 23:10] LABS: Alanine Aminotransferase 15 U/L (0-33); Albumin Level 4.3 g/dL (3.5-5.2); Alkaline Phosphatase 48 IU/L (35-105); Anion Gap 15.8 (5-19); Aspartate Amino Transferase 19 U/L (0-32); Blood Urea Nitrogen 13 mg/dL (8-23); Calcium 8.8 mg/dL (8.5-10.5); Carbon Dioxide 24 mmol/L (22-29); Chloride 98 mmol/L (98-107); Globulin 2.8 g/dL (1.3-4.6); Glucose 112 mg/dL (65-115); Osmolality Calculated 279 mOsm/kg (285-295); Potassium 3.8 mmol/L (3.5-5.1); Sodium 134 mmol/L (136-145); Total Bilirubin 0.2 mg/dL (0.15-1.2); Total Protein 7.1 g/dL (6.6-8.7)
[2021-11-09 23:11] LABS: Troponin(5th) Baseline 14 ng/L (0-10)
[2021-11-09 23:30] VITALS: BP 129/76
--- NOTE | 2021-11-10 00:18 | ECG_ITS ---
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 Measurements Intervals [place] Rate: 58 P: 35 [place]: 214 QRS: -7 QRSD: 72 T: 35 QT: 404 QTc: 398 Interpretive Statements SINUS BRADYCARDIA WITH FIRST DEGREE AV BLOCK LOW QRS VOLTAGE IN PRECORDIAL LEADS [QRS DEFLECTION < 1.0 mV IN CHEST LEADS] Compared to ECG 11/09/2021 22:55:02 First degree AV block now present Electronically Signed On 11-10-2021 23:23:50 CDT by Elyse Colin M.D. [id number]
[2021-11-10 00:30] VITALS: BP 160/67; PULSE 56; O2SAT 97
[2021-11-10 00:45] LABS: Troponin 5 2HR 13.62 ng/L (0-10)
[2021-11-10 01:07] LABS: Troponin 5 2HR Delta -0.38 ABS# (0-10)
[2021-11-10 01:36] VITALS: BP 146/83; PULSE 61; RESP 16; O2SAT 95
== END 2021-11-10 01:31 | disposition home or self-care (01) ==
PROVIDERS: Emergency Provider Physician Assistant; PCP Family Medicine
DX: I10 Essential (primary) hypertension (principal)
CPT/HCPCS: 71045; 80053; 81003; 84484; 85025; 93005; 96374; 99283; J3490

== ENCOUNTER → 2021-11-11 12:11 | Outpatient (BNVA) | payer MEDICARE, OTHER, SELFPAY | PROVIDERS: PCP Family Medicine; Visit Provider Internal Medicine Cardiovascular Disease | DX: I10 Essential (primary) hypertension (principal); Z87.891 Personal history of nicotine dependence | CPT/HCPCS: 99213; 99214 ==

== ENCOUNTER → 2021-11-18 14:22 | Outpatient (BNVA) | payer MEDICARE, OTHER, SELFPAY | PROVIDERS: PCP Family Medicine; Visit Provider Nurse Practitioner Family | DX: I10 Essential (primary) hypertension (principal); R53.83 Other fatigue; I73.9 Peripheral vascular disease, unspecified; Z85.828 Personal history of other malignant neoplasm of skin; K21.9 Gastro-esophageal reflux disease without esophagitis; R31.29 Other microscopic hematuria; I35.1 Nonrheumatic aortic (valve) insufficiency; Z87.891 Personal history of nicotine dependence | CPT/HCPCS: 80048; 82306; 83880; 99214 ==

== ENCOUNTER 2021-11-22 13:07 | Emergency (ER) | payer MEDICARE, OTHER, SELFPAY ==
[2021-11-22 13:10] VITALS: BP 188/88; PULSE 65; RESP 16; TEMP 36.8; O2SAT 100
--- NOTE | 2021-11-22 13:20 | ECG_ITS ---
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 Measurements Intervals [place] Rate: 58 P: 38 [place]: 206 QRS: 2 QRSD: 84 T: 43 QT: 411 QTc: 405 Interpretive Statements SINUS BRADYCARDIA LOW QRS VOLTAGE IN PRECORDIAL LEADS [QRS DEFLECTION < 1.0 mV IN CHEST LEADS] POSSIBLE ANTERIOR MYOCARDIAL INFARCTION , PROBABLY OLD [30 ms Q WAVE IN V3/V4, OR R < 0.2 mV IN V4] Compared to ECG 11/10/2021 00:07:26 Myocardial infarct finding now present First degree AV block no longer present Electronically Signed On 11-22-2021 22:45:28 CDT by Juana Kaplan M.D. [id number]
--- NOTE | 2021-11-22 13:24 | ED_ITS ---
HPI - General Adult General: Chief complaint: Weakness Stated complaint: high BP Time Seen by Provider: 11/22/21 13:18 History of Present Illness: CC: Elevated BP HPI: [81]yo patient w/ x hx of HTN on enalapril and metorpolol presenting to the ED with complaints that his BP is not well controlled. Patient is on 2 agents for BP control and is compliant with medication. Earlier today, patient and family noticed her blood pressure was over 200 systolic BP. Reports head fullness but denies any headache and transient light-headedness. Denies chest pain, SOB, palpitation, N/V/D, pain radiating to the shoulder, headache, vision changes, LOC, or focal neurological deficits. Patient also denies syncope, vertigo abdominal pain, back pain. Tolerating PO meds without issues. Onset: earlier today Duration: ongoing Location: home Severity: mild Associated symptoms: Deny chest pain, dyspnea, nausea, rash, palpitations or vomiting Review of Systems Const: Denies: fever(s) or chills Eyes: Denies: change in vision ENMT: Denies: mouth pain Card: Denies: chest pain or palpitations Resp: Denies: dyspnea or non-productive cough GI: Denies: abdominal pain, nausea, vomiting or diarrhea : Denies: dysuria Musc: Denies: extremity pain Skin/Breast: Denies: rash or new lesions Neuro: Reports: other (+light-headedness); Denies: weakness in extremities Psych: Reports: other (Normal mood) Rafi/Lymph: Denies: easy bruising PFSH ED PFSH: Medical History Aortic valve regurgitation Carotid artery stenosis, asymptomatic FH: cholecystectomy Heart disease History of nonmelanoma skin cancer History of recurrent UTI (urinary tract infection) Hypertension Incomplete bladder emptying Memory loss Microscopic hematuria Mitral valve disease Neck mass Recurrent UTI Urgency incontinence Surgical History H/O colonoscopy 2016 H/O esophagogastroduodenoscopy 2016 H/O neck surgery H/O: hysterectomy Hx of cholecystectomy Previous back surgery Family History Father , in his 70's Cancer CAD (coronary artery disease) Brother CAD (coronary artery disease) Mother , at age 79 Heart disease Other Diabetes Hypertension Denies family history of Anesthesia complication Bleeding disorder Social History Smoking and tobacco status: former smoker Alcohol intake: never Adopted: No Caregiver/support person: No Lives independently: No Marital status: / Current occupational status: retired History of recent travel: No Current gender identity: Female Physical Exam Const: COMMON NORMALS: alert HENMT: COMMON NORMALS: atraumatic HEAD & SCALP: atraumatic MOUTH: moist mucous membranes not abnormal Eye: COMMON NORMALS: EOMs intact bilaterally and conjunctivae normal CONJUNCTIVA: Yes conjunctivae normal Neck/C-Spine: COMMON NORMALS: full ROM and supple Resp: COMMON NORMALS: normal respiratory effort and clear to auscultation bilaterally AUSCULTATION: clear to auscultation bilaterally Cardio: COMMON NORMALS: regular rate RATE: regular rate OTHER: 2+ radial pulses GI: COMMON NORMALS: Soft to palpation and non-tender PALPATION: Yes Soft to palpation Extremity: COMMON NORMALS: full ROM OTHER: no lower extremity edema b/l Neuro: SENSORIUM/ORIENTATION: Yes alert MOTOR EXAM: No Abnormal motor strength present and Other motor observations present (no focal motor deficits) OTHER: Mental status? Awake, alert, and oriented to self, year, month, location, and situation.? Following simple axial and appendicular commands.? Has appropriate fund of knowledge, comprehension, and insight.? Able to recall and understands pertinent aspects of medical history and current treatment status.? ? Language? Speech is fluent without word-finding difficulties.? Intact naming, expression, outreach librarian, and repetition.? ? Cranial nerves? 2,3,4,6: PERRL, EOMI with no nystagmus. 5: Intact sensation to light touch, symmetric? 7: Smile symmetrical, no facial droop.? 8: Hearing grossly intact.? 9,10: Normal palate movement.? 11: Normal strength in trapezius bilaterally 12: Tongue protrudes midline.? ? Motor examination? Normal bulk & tone. Strength as follows (R/L): Delts (5/5), Biceps (5/5), Triceps (5/5), Wrist ext (5/5), hip flexors (5/5), plantarflexors (5/5), dorsiflexors (5/5). Sensation? Light Touch: Grossly intact and equal in upper and lower extremities bilaterally? Romberg: Negative.? Distal joint position sense intact ? Coordination? Nppcyx-hn-qyuf-finger movements intact without dysmetria or past-pointing.? Rapid fingertaps: preserved amplitude without decriment.? No tremor, myoclonus or truncal ataxia.? ? Gait/stance? Steady, normal narrow base gait with appropriate arm swing and turning.? Tandem gait without hesitation or loss of balance. Psych: COMMON NORMALS: speech normal SPEECH: Yes normal speech MOOD & AFFECT: Yes euthymic mood Course Vital Signs: Vital signs: Vital Signs Temperature 98 F 11/22/21 16:46 Pulse Rate 60 11/22/21 16:46 Respiratory Rate 16 11/22/21 16:46 Blood Pressure 136/81 11/22/21 16:46 Pulse Oximetry 96 11/22/21 16:46 MDM - General Adult Medical Decision Making [81]yo patient w/ hx of HTN on metoprolol and enalapril presenting to the ED with high BP readings x 1 day without other medical complaints. BP in the ED of 188/88. Rest of exam including full neuro exam intact. Given presentation, history and exam, I do not suspect aortic dissection, hypertensive encephalopathy, intracranial hemorrhage, ACS, TIA/CVA, flash pulmonary edema. Intervention: amlodipine 5mg elevated BP [4:00pm] On reassessment, BP improved. Patient continues to be symptom-free at this time. Do not suspect an emergent cause. Discussed with the patient the importance of logging BPs and following up with his PCP for adjustment of BP if BP continues to be persistently high. Given return instructions. Patient received NS and amlodipine. Patient reports that her sensation of lightheadedness and head fullness has improved. Troponin delta < 5 with nonischemic EKG. Do not suspect ACS at this time. Rx: Amlodipine 5mg QDaily x 14 days Based on history, exam, vital signs, and work up (as indicated) I do not suspect an ongoing emergent medical condition, and I believe the patient is safe for discharge and outpatient follow-up. The plan of care was discussed with the patient and all questions were answered. The patient agrees with the plan of care and is discharged in stable condition with verbal and written instructions, and verbalized understanding and ability to comply. I discussed the diagnosis and treatment plan at length with the patient. The patient understands signs and symptoms (including those which are new or worsening) which should prompt return to the ED. The patient is to seek prompt outpatient follow-up as noted verbally and/or in the discharge instructions. At the time of discharge the patient is well-appearing, well-hydrated, non-toxic, and assures appropriate follow-up as an outpatient. Lab Data : 11/22/21 13:35 11/22/21 13:35 Laboratory Results WBC 9.2 10^3/uL (4.0-10.0) 11/22/21 13:35 RBC 4.72 10^6/uL (4.1-5.3) 11/22/21 13:35 Hgb 12.9 g/dL (11.5-15.3) 11/22/21 13:35 Hct 39.9 % (37.0-47.0) 11/22/21 13:35 MCV 84.5 fl (81-99) 11/22/21 13:35 MCH 27.3 pg (28.0-34.0) L 11/22/21 13:35 MCHC 32.3 g/dL (30.0-36.0) 11/22/21 13:35 RDW 14.5 % (12.1-15.1) 11/22/21 13:35 Plt Count 222 10^3/cmm (130-400) 11/22/21 13:35 MPV 11.5 fL (7.4-10.4) H 11/22/21 13:35 Neut % (Auto) 60.8 % 11/22/21 13:35 Lymph % (Auto) 30.9 % 11/22/21 13:35 Fajardo % (Auto) 6.0 % 11/22/21 13:35 Eos % (Auto) 1.4 % 11/22/21 13:35 Baso % (Auto) 0.8 % 11/22/21 13:35 Neut # (Auto) 5.58 10^3/uL (1.8-7.7) 11/22/21 13:35 Lymph # (Auto) 2.8 10^3/uL (0.8-4.8) 11/22/21 13:35 Fajardo # (Auto) 0.6 10^3/uL (0.2-0.9) 11/22/21 13:35 Eos # (Auto) 0.1 10^3/uL (0.0-0.8) 11/22/21 13:35 Baso # (Auto) 0.1 10^3/uL (0.0-0.1) 11/22/21 13:35 Nucleated RBC % (auto) 0 % 11/22/21 13:35 Nucleated RBCs # 0.0 /100WBC 11/22/21 13:35 Sodium 135 mmol/L (136-145) L 11/22/21 13:35 Potassium 4.3 mmol/L (3.5-5.1) 11/22/21 13:35 Chloride 99 mmol/L (98-107) 11/22/21 13:35 Carbon Dioxide 22 mmol/L (22-29) 11/22/21 13:35 Anion Gap 18.3 (5-19) 11/22/21 13:35 BUN 9 mg/dL (8-23) 11/22/21 13:35 Creatinine 0.5 mg/dL (0.5-0.9) 11/22/21 13:35 GFR Calculation Not Reportable 11/22/21 13:35 Glucose 96 mg/dL (65-115) 11/22/21 13:35 Calculated Osmolality 279 mOsm/kg (285-295) L 11/22/21 13:35 Calcium 9.9 mg/dL (8.5-10.5) 11/22/21 13:35 Total Bilirubin 0.3 mg/dL (0.15-1.2) 11/22/21 13:35 AST 25 U/L (0-32) 11/22/21 13:35 ALT 17 U/L (0-33) 11/22/21 13:35 Alkaline Phosphatase 41 IU/L (35-105) 11/22/21 13:35 Troponin T Baseline 17 ng/L (0-10) H 11/22/21 13:35 Troponin T 120 Minute 16.35 ng/L (0-10) H 11/22/21 15:50 Delta Troponin T -0.65 ABS# (0-10) L 11/22/21 15:50 Total Protein 7.1 g/dL (6.6-8.7) 11/22/21 13:35 Albumin 4.3 g/dL (3.5-5.2) 11/22/21 13:35 Globulin 2.8 g/dL (1.3-4.6) 11/22/21 13:35 Lipase 30 U/L (13-60) 11/22/21 13:35 Discharge Plan Discharge Patient Disposition: Home Clinical Impression: Elevated blood pressure reading Condition: Stable Prescriptions: New amlodipine 5 mg tablet 5 mg PO DAILY 14 Days Qty: 14 0RF No Action enalapril maleate [Vasotec] 2.5 mg tablet 2.5 mg PO QDAY 0RF pravastatin 80 mg tablet 80 mg PO QDAY 0RF donepezil [Aricept] 10 mg tablet 10 mg PO .bedtime 0RF aspirin 325 mg tablet 325 mg PO QDAY 0RF memantine 10 mg tablet 10 mg PO DAILY 0RF famotidine 40 mg tablet 40 mg PO DAILY 0RF loperamide [Anti-Diarrheal (loperamide)] 2 mg tablet 2 mg PO Q6H PRN0RF cholecalciferol (vitamin D3) 25 mcg (1,000 unit) capsule 25 mcg PO DAILY 0RF Tart Steven Extract 1,000 mg capsule PO 0RF calcium citrate-vitamin D3 [Citracal + D Maximum] 315 mg-6.25 mcg (250 unit) tablet 1 tab PO DAILY 0RF metoprolol succinate 25 mg tablet extended release 24 hr 12.5 mg PO DAILY PRN (Reason: hypertension) Qty: 30 3RF Discharge Orders: Discharge ED (Routine); Ordered 11/22/21 Ordered By: Amor House Referrals: Eduardo Lowry MD [Primary Care Provider] - Discharge Diet: Advance as tolerated Discharge Activity: Increase activity as tolerated Patient Instructions: Chronic Hypertension (ED), Hypertension (ED) Activity Restrictions/Additional Instructions: You need to follow-up with your primary care provider for further adjustment of your blood pressure. Your blood pressure puts you at risk for developing strokes and heart attack. Therefore it is very important for you to follow-up with this number to see if the numbers improve gradually. Because blood pressure adjustment is a gradual process, were not able to change it in 1 visit. Therefore please log your blood pressure and follow-up with your primary care provider in the next 72 hours for further adjustment of your blood pressures. Here's a copy of your carotid US report: [facility] [place] [address] Ultrasound Report Signed Patient: Aarti Melchor Unit #: [id number] : 1940 Age/Sex: 81 / F ADM Date: 11/22/21 Loc: ER Room/Bed: Attending Dr: Ordering Provider/Ordering MD: Amor House MD Date of Service: 11/22/21 Procedure(s): CV carotid duplex BI* [id number] Accession Number(s): [id number] Report Number: [id number] ?Aarti Melchor ?Age:? ? 81 ? ? Gender: ? ? F ?:? ? 1940 ?Exam Date: ? ? 11/22/2021 13:46 ?Ordering Phys: ? ? Amor House? ?Technologist:? ? ? Reji Whitfield ?Exam Location:? ? ? [facility] ?MRN:? ? [id number] ?Account Number: ? ? ? [id number] ?Indication:? ? ? cca disease ?Risk Factors:? None ?Previous Vascular Surgery: ?Right Brachial BP:? / ?Left Brachial BP: ? / ?Right? Left ?Velocity (cm/s)? ? Spectral ? ? Plaque? Velocity (cm/s) ? ? Spectral ? ? Plaque ?Syst/Diast ? Broadening ? Syst/Diast? Br oadening ?? 40.80/ 11.00? Prox CCA ? ? 58.30 / 10.50 ?? 45.40/ 8.50 ? Mid CCA? ? ? 62.60 / 8.70 ?? 44.30/ 7.50 ? Distal CCA ? 48.40 / 13.60 ?? 57.20/ 15.10? Prox ICA ? ? 49.00 / 9.90 ?? 74.90/ 17.70? Mid ICA? ? ? 66.35 / 16.40 ?? 78.80/ 23.60? Distal ICA ? 66.50 / 16.10 ? ? ? 88.20? ECA ? 52.70 ? 1.74? ICA/CCA ? 1.03 ?? Antegrade ? Vertebral ? ? Antegrade ?? 49.00/ 19.80? cm/s? 58.90/ 12.90 cm/s ?? ? Bi? Subclavian? ? ? Tri ? ? ? 52.70 ? 73.00 ?FINDINGS ?Mild to moderate plaque at the right bifurcation. ?Minimal plaques of the left bifurcation and proximal internal ?carotid artery. ?Intimal thickening in the common carotid arteries bilaterally. ?Antegrade flow in the vertebral arteries bilaterally. ?Normal Doppler flow velocities in the subclavian arteries ?bilaterally ?CONCLUSIONS ?Mild to moderate plaque at the right bifurcation, suggesting ?less than 50% stenosis ?Minimal plaques at the left bifurcation and proximal internal ?carotid artery, suggesting less than 50% stenosis ?Intimal thickening in the common carotid arteries bilaterally. ?No significant stenosis in the vertebral, subclavian or external ?carotid arteries, based on the above findings. ?Dr Juana Kaplan MD [facility] ?(Electronically Signed) ?Final Date:? ? ? 22 Nov 2021 15:36 S Coding Level of Care Code ED Handicapped Teacher for Chg Fwd Exam Comprehensive
--- NOTE | 2021-11-22 13:38 | USCV_ITS ---
Aarti Melchor Age: 81 Gender: F : 1940 Exam Date: 11/22/2021 13:46 Ordering Phys: Amor House MD Technologist: Reji Whitfield Exam Location: [facility] [place] Indication: cca disease Risk Factors: None Previous Vascular Surgery: Right Brachial BP: / Left Brachial BP: / Right Left Velocity (cm/s) Spectral Plaque Velocity (cm/s) Spectral Plaque Syst/Diast Broadening Syst/Diast Broadening 40.80/ 11.00 Prox CCA 58.30 / 10.50 45.40/ 8.50 Mid CCA 62.60 / 8.70 44.30/ 7.50 Distal CCA 48.40 / 13.60 57.20/ 15.10 Prox ICA 49.00 / 9.90 74.90/ 17.70 Mid ICA 66.35 / 16.40 78.80/ 23.60 Distal ICA 66.50 / 16.10 88.20 ECA 52.70 1.74 ICA/CCA 1.03 Antegrade Vertebral Antegrade 49.00/ 19.80 cm/s 58.90/ 12.90 cm/s Bi Subclavian Tri 52.70 73.00 FINDINGS Mild to moderate plaque at the right bifurcation. Minimal plaques of the left bifurcation and proximal internal carotid artery. Intimal thickening in the common carotid arteries bilaterally. Antegrade flow in the vertebral arteries bilaterally. Normal Doppler flow velocities in the subclavian arteries bilaterally CONCLUSIONS Mild to moderate plaque at the right bifurcation, suggesting less than 50% stenosis Minimal plaques at the left bifurcation and proximal internal carotid artery, suggesting less than 50% stenosis Intimal thickening in the common carotid arteries bilaterally. No significant stenosis in the vertebral, subclavian or external carotid arteries, based on the above findings. Dr Juana Kaplan MD [facility] (Electronically Signed) Final Date: 22 Nov 2021 15:36 S
--- NOTE | 2021-11-22 13:41 | ECG_ITS ---
[facility] Test Date: 2022-02-15 Pat Name: Aarti Melchor Department: Room: Gender: Female Mail Messenger: : 1940 Requested By: Amor House Order Number: [id number] Mita MD: Tello Schmidt M.D. Measurements Intervals [place] Rate: 71 P: 29 NH: 190 QRS: -16 QRSD: 75 T: 53 QT: 380 QTc: 414 Interpretive Statements SINUS RHYTHM WITH SINUS ARRHYTHMIA LOW QRS VOLTAGE IN PRECORDIAL LEADS [QRS DEFLECTION < 1.0 mV IN CHEST LEADS] POSSIBLE ANTERIOR MYOCARDIAL INFARCTION , PROBABLY OLD [30 ms Q WAVE IN V3/V4, OR R < 0.2 mV IN V4] INTERPRETATION BASED ON A DEFAULT AGE OF 40 YEARS Compared to ECG 12/28/2021 15:32:07 No significant changes Electronically Signed On 02-16-2022 7:08:15 CDT by Tello Schmidt M.D. [email or web address]
[2021-11-22] MEDS: amlodipine 5 mg Tablet PO (13:43)
[2021-11-22] MEDS: sodium chloride 0.9% 500 ML IV (13:45)
[2021-11-22 14:00] VITALS: BP 139/81; PULSE 59; RESP 16; O2SAT 99
[2021-11-22 14:03] LABS: Basophils # 0.1 10^3/uL (0.0-0.1); Basophils % 0.8 %; Eosinophils # 0.1 10^3/uL (0.0-0.8); Eosinophils % 1.4 %; Hematocrit 39.9 % (37.0-47.0); Hemoglobin 12.9 g/dL (11.5-15.3); Lymphocytes # 2.8 10^3/uL (0.8-4.8); Lymphocytes % 30.9 %; Mean Corpuscular HGB Conc 32.3 g/dL (30.0-36.0); Mean Corpuscular Hemoglobin 27.3 pg (28.0-34.0); Mean Corpuscular Volume 84.5 fl (81-99); Mean Platelet Volume 11.5 fL (7.4-10.4); Monocytes # 0.6 10^3/uL (0.2-0.9); Neutrophils # 5.58 10^3/uL (1.8-7.7); Neutrophils % 60.8 %; Nucleated Red Blood Cells % 0 %; Platelet Count 222 10^3/cmm (130-400); Red Blood Count 4.72 10^6/uL (4.1-5.3); Red Cell Distribution Width 14.5 % (12.1-15.1); White Blood Count 9.2 10^3/uL (4.0-10.0)
[2021-11-22 14:11] VITALS: BP 149/73; PULSE 59; RESP 16; O2SAT 96
[2021-11-22 14:24] LABS: Alanine Aminotransferase 17 U/L (0-33); Albumin Level 4.3 g/dL (3.5-5.2); Alkaline Phosphatase 41 IU/L (35-105); Blood Urea Nitrogen 9 mg/dL (8-23); Calcium 9.9 mg/dL (8.5-10.5); Carbon Dioxide 22 mmol/L (22-29); Chloride 99 mmol/L (98-107); Globulin 2.8 g/dL (1.3-4.6); Glucose 96 mg/dL (65-115); Lipase 30 U/L (13-60); Osmolality Calculated 279 mOsm/kg (285-295); Sodium 135 mmol/L (136-145); Total Bilirubin 0.3 mg/dL (0.15-1.2); Total Protein 7.1 g/dL (6.6-8.7)
[2021-11-22 14:25] LABS: Troponin(5th) Baseline 17 ng/L (0-10)
[2021-11-22 14:26] LABS: Anion Gap 18.3 (5-19); Aspartate Amino Transferase 25 U/L (0-32); Potassium 4.3 mmol/L (3.5-5.1)
[2021-11-22 15:08] VITALS: BP 136/69; PULSE 60; RESP 18; O2SAT 97
[2021-11-22 15:38] VITALS: BP 139/77; PULSE 58; RESP 16; O2SAT 96
--- NOTE | 2021-11-22 15:41 | ECG_ITS ---
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 Measurements Intervals [place] Rate: 66 P: 34 GA: 196 QRS: -15 QRSD: 76 T: 69 QT: 388 QTc: 408 Interpretive Statements SINUS RHYTHM LOW QRS VOLTAGE IN PRECORDIAL LEADS [QRS DEFLECTION < 1.0 mV IN CHEST LEADS] POSSIBLE ANTERIOR MYOCARDIAL INFARCTION , PROBABLY OLD [30 ms Q WAVE IN V3/V4, OR R < 0.2 mV IN V4] Compared to ECG 02/15/2022 16:14:01 No significant changes Electronically Signed On 02-19-2022 12:53:26 CDT by Elyse Colin M.D. [id number]
[2021-11-22 16:22] LABS: Troponin 5 2HR 16.35 ng/L (0-10)
[2021-11-22 16:23] LABS: Troponin 5 2HR Delta -0.65 ABS# (0-10)
[2021-11-22 16:46] VITALS: BP 136/81; PULSE 60; RESP 16; TEMP 36.6; O2SAT 96
== END 2021-11-22 16:47 | disposition home or self-care (01) ==
PROVIDERS: Emergency Provider Emergency Medicine; PCP Family Medicine
DX: R03.0 Elevated blood-pressure reading, without diagnosis of hypertension (principal); R42 Dizziness and giddiness; I10 Essential (primary) hypertension; Z82.49 Family history of ischemic heart disease and other diseases of the circulatory system; Z79.899 Other long term (current) drug therapy; Z79.82 Long term (current) use of aspirin; Z87.891 Personal history of nicotine dependence
CPT/HCPCS: 80053; 83690; 84484; 85025; 93005; 93880; 96360; 99285; J7040

== ENCOUNTER 2021-11-27 19:25 | Emergency (ER) | payer MEDICARE, OTHER, SELFPAY ==
[2021-11-27 19:37] VITALS: BP 177/90; PULSE 64; RESP 18; O2SAT 98; BMI 22.4
--- NOTE | 2021-11-27 19:39 | ED_ITS ---
HPI - General Adult General: Chief complaint: Headache Stated complaint: High BP Time Seen by Provider: 11/27/21 19:38 History of Present Illness: Ms. Melchor is an 81-year-old lady with history of hypertension, hyperlipidemia, peripheral arterial disease, carotid artery stenosis, aortic valve regurg presenting to the emergency department due to shakiness and headache associated with high blood pressure. Her blood pressure was previously well controlled on her medication regimen however over the past few months it has been increasingly uncontrolled. She has had multiple ER visit s and was trialed with addition of amlodipine however did not tolerate this. She saw her primary care provider few days ago who plans to adjust her medications and have patient keep blood pressure log however she presents today due to symptoms. Symptom onset was subacute approximately 2 to 3 hours ago. She denies known specific provoking factors. She reports headache which is throbbing in nature as well as generalized weakness which is nonfocal. Intensity symptoms is moderate. Course has persisted. She tried taking an extra enalapril without significant relief. No other specific changes in health, exacerbating, or alleviating factors identified. Onset (ago): hour(s) Location: head Severity: moderate Quality: other Relieving factors: none Exacerbating factors: none Associated symptoms: Reports weakness Review of Systems General: Reports: 10 or more systems reviewed and unremarkable except in HPI and below PFSH ED PFSH: Medical History Anxiety about health Aortic valve regurgitation Carotid artery stenosis, asymptomatic Heart disease Hiatal hernia with GERD History of nonmelanoma skin cancer Hypertension Incomplete bladder emptying Memory loss Mitral valve disease Recurrent UTI Surgical History H/O colonoscopy 2016 H/O esophagogastroduodenoscopy 2016 H/O neck surgery H/O: hysterectomy Hx of cholecystectomy Previous back surgery Family History Father , in his 70's Cancer CAD (coronary artery disease) Brother CAD (coronary artery disease) Mother , at age 79 Heart disease Other Diabetes Hypertension Denies family history of Anesthesia complication Bleeding disorder Social History Smoking and tobacco status: never smoked Alcohol intake: never Adopted: No Caregiver/support person: No Lives independently: No Marital status: / Current occupational status: retired History of recent travel: No Current gender identity: Female Physical Exam Const: COMMON NORMALS: patient oriented x3 and alert GENERAL APPEARANCE: cooperative and well developed HENMT: COMMON NORMALS: normocephalic and atraumatic HEAD & SCALP: normocephalic and atraumatic THROAT: posterior oropharynx normal Eye: COMMON NORMALS: conjunctivae normal CONJUNCTIVA: Yes conjunctivae normal SCLERA: sclerae normal Neck/C-Spine: COMMON NORMALS: supple GENERAL: Yes trachea midline Resp: COMMON NORMALS: clear to auscultation bilaterally EFFORT & INSPECTION: Yes able to speak in complete sentences AUSCULTATION: clear to auscultation bilaterally Cardio: COMMON NORMALS: regular rate and regular rhythm RATE: regular rate RHYTHM: regular rhythm GI: COMMON NORMALS: Soft to palpation PALPATION: Yes Soft to palpation and No Tenderness to palpation present (GI) PERCUSSION: normal to percussion Extremity: GENERAL: Yes normal exam except as noted and No edema Neuro: COMMON NORMALS: patient oriented x3, CN's II-XII intact bilaterally, moves all extremities, no focal motor deficits and no sensory deficits noted SENSORIUM/ORIENTATION: Yes alert and No Orientation impaired Psych: COMMON NORMALS: mental status grossly normal and Normal thought process present THOUGHT PROCESS: Normal thought process present Course ED course: - Patient was seen and evaluated by me at bedside - Patient placed on cardiac monitors, IV access obtained - Initial evaluation notable for exam as above. No focal neurologic deficits. - Labs personally interpreted by me. EKG with sinus bradycardia, no STEMI. - Labs notable for minimal leukocytosis, normal hemoglobin. Metabolic panel with likely intravascular dehydration. Small fluid bolus ordered. Delta troponin negative. - Imaging notable for no acute abnormality on CT scan to explain symptoms. -Antihypertensive given - Upon serial reexamination after treatment the patient was improved - Based on patient history, evaluation, and testing as interpreted the most likely cause of the patient's condition is hypertension and headache without e vidence of endorgan damage - The results of ED evaluation were discussed with the patient including prescriptions and/or symptomatic cares (if applicable) including appropriate and responsible use, followup plan, and return precautions. The patient verbalized understanding and felt safe for discharge. - Patient discharged in satisfactory condition. Note: Click bubbles or prepopulated rutherford in note writing are used for assistance with data collection and billing and are inherently more limited than narrative and other text portions of this note. Please use narrative for additional clinic al history and defer to narrative/free test for any case of contradictory information. If information appears in only free text or click bubble it should be considered present or absent as reported. Please contact note group underwriter for clarifications of clinical information or contradictory information. MDM is a brief summary, contradictory or erroneous seeming information should be clarified and full note should be reviewed. Vital Signs: Vital signs: Vital Signs Pulse Rate 65 11/27/21 22:55 Respiratory Rate 15 11/27/21 22:55 Blood Pressure 107/65 11/27/21 22:55 Pulse Oximetry 96 11/27/21 22:55 MDM - General Adult Medical Decision Making 81-year-old lady presenting with headache and high blood pressure. Patient had improvement with 1 dose of hydralazine and no evidence of endorgan dysfunction on laboratory studies. Satisfactory for outpatient management with medication adjustment. Strict return precautions given. Medical Records I reviewed the patient's medical records. Lab Data I reviewed the patient's lab results. : 11/27/21 20:06 11/27/21 20:[address] 11/27/21 20:43 IMPRESSION: No acute intracranial pathology identified by CT. Laboratory Results WBC 10.1 10^3/uL (4.0-10.0) H 11/27/21 20:06 RBC 4.23 10^6/uL (4.1-5.3) 11/27/21 20:06 Hgb 11.7 g/dL (11.5-15.3) 11/27/21 20:06 Hct 35.8 % (37.0-47.0) L 11/27/21 20:06 MCV 84.6 fl (81-99) 11/27/21 20:06 MCH 27.7 pg (28.0-34.0) L 11/27/21 20:06 MCHC 32.7 g/dL (30.0-36.0) 11/27/21 20:06 RDW 14.4 % (12.1-15.1) 11/27/21 20:06 Plt Count 227 10^3/cmm (130-400) 11/27/21 20:06 MPV 11.2 fL (7.4-10.4) H 11/27/21 20:06 Neut % (Auto) 56.7 % 11/27/21 20:06 Lymph % (Auto) 32.7 % 11/27/21 20:06 [place] % (Auto) 7.4 % 11/27/21 20:06 Eos % (Auto) 2.2 % 11/27/21 20:06 Baso % (Auto) 0.7 % 11/27/21 20:06 Neut # (Auto) 5.74 10^3/uL (1.8-7.7) 11/27/21 20:06 Lymph # (Auto) 3.3 10^3/uL (0.8-4.8) 11/27/21 20:06 [place] # (Auto) 0.8 10^3/uL (0.2-0.9) 11/27/21 20:06 Eos # (Auto) 0.2 10^3/uL (0.0-0.8) 11/27/21 20:06 Baso # (Auto) 0.1 10^3/uL (0.0-0.1) 11/27/21 20:06 Nucleated RBC % (auto) 0 % 11/27/21 20:06 Nucleated RBCs # 0.0 /100WBC 11/27/21 20:06 Sodium 129 mmol/L (136-145) L 11/27/21 20:06 Potassium 3.6 mmol/L (3.5-5.1) 11/27/21 20:06 Chloride 96 mmol/L (98-107) L 11/27/21 20:06 Carbon Dioxide 19 mmol/L (22-29) L 11/27/21 20:06 Anion Gap 17.6 (5-19) 11/27/21 20:06 BUN 17 mg/dL (8-23) 11/27/21 20:06 Creatinine 0.6 mg/dL (0.5-0.9) 11/27/21 20:06 GFR Calculation Not Reportable 11/27/21 20:06 Glucose 89 mg/dL (65-115) 11/27/21 20:06 Calculated Osmolality 269 mOsm/kg (285-295) L 11/27/21 20:06 Calcium 9.0 mg/dL (8.5-10.5) 11/27/21 20:06 Magnesium 1.9 mg/dL (1.7-2.3) 11/27/21 20:06 Total Bilirubin 0.2 mg/dL (0.15-1.2) 11/27/21 20:06 AST 19 U/L (0-32) 11/27/21 20:06 ALT 18 U/L (0-33) 11/27/21 20:06 Alkaline Phosphatase 38 IU/L (35-105) 11/27/21 20:06 Troponin T Baseline 17 ng/L (0-10) H 11/27/21 20:06 Troponin T 120 Minute 18.24 ng/L (0-10) H 11/27/21 21:57 Delta Troponin T 1.24 ABS# (0-10) 11/27/21 21:57 Total Protein 6.6 g/dL (6.6-8.7) 11/27/21 20:06 Albumin 4.1 g/dL (3.5-5.2) 11/27/21 20:06 Globulin 2.5 g/dL (1.3-4.6) 11/27/21 20:06 TSH 2.23 uIU/mL (0.27-4.20) 11/27/21 20:06 Discharge Plan Discharge Patient Disposition: Home Clinical Impression: Hypertension, Headache Condition: Stable Prescriptions: New Vasotec 2.5 mg tablet 2.5 mg PO BID Qty: 60 0RF hydralazine 10 mg tablet 10 mg PO TID PRN (Reason: hypertension) Qty: 60 0RF Discontinued enalapril maleate [Vasotec] 2.5 mg tablet 2.5 mg PO QDAY 0RF No Action pravastatin 80 mg tablet 80 mg PO QDAY 0RF donepezil [Aricept] 10 mg tablet 10 mg PO .bedtime 0RF Hold Instructions: Doctor's Order aspirin 325 mg tablet 325 mg PO QDAY 0RF memantine 10 mg tablet 10 mg PO DAILY 0RF Hold Instructions: Doctor's Order famotidine 40 mg tablet 40 mg PO DAILY 0RF loperamide [Anti-Diarrheal (loperamide)] 2 mg tablet 2 mg PO Q6H PRN0RF cholecalciferol (vitamin D3) 25 mcg (1,000 unit) capsule 25 mcg PO DAILY 0RF Tart Steven Extract 1,000 mg capsule PO 0RF calcium citrate-vitamin D3 [Citracal + D Maximum] 315 mg-6.25 mcg (250 unit) tablet 1 tab PO DAILY 0RF baclofen 10 mg tablet 10 mg PO DAILY 0RF buspirone 5 mg tablet 5 mg PO .q6 PRN (Reason: anxiety) Qty: 60 0RF Rx Instructions: 1/2 to 1 tab q 6 hr prn for anxiety attacks. pantoprazole [Protonix] 40 mg tablet,delayed release (DR/EC) 40 mg PO DAILY Qty: 30 3RF guaifenesin 600 mg tablet extended release 12hr 600 mg PO .am Qty: 30 3RF Discharge Orders: Discharge ED (Routine); Ordered 11/27/21 Ordered By: Srinivas Morillo Referrals: Patric Martinez MD [Primary Care Provider] - Discharge Diet: Usual diet Discharge Activity: Increase activity as tolerated Patient Instructions: Enalapril (By mouth), Hydralazine (By mouth) (Apresoline), Acute Headache (ED), Hypertension (ED) Activity Restrictions/Additional Instructions: Thank you for visiting the emergency department. You are seen and evaluated for headache associated with high blood pressure and generalized malaise. The exact cause of your symptoms is unclear as discussed. Your medication will be adjusted to enalapril 2.5 mg twice daily with hydralazine as needed up to 3 times per day spaced out. Please follow-up Tuesday with your primary care provider. Return to the emergency department for worsening symptoms or anything else that you are concerned about a feel needs emergency department evaluation. Coding Level of Care Code ED Poultryman for Aliya Coelho
[2021-11-27 19:44] VITALS: BP 168/72
--- NOTE | 2021-11-27 20:09 | ECG_ITS ---
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 Measurements Intervals [place] Rate: 59 P: 16 MA: 209 QRS: -12 QRSD: 75 T: 25 QT: 397 QTc: 394 Interpretive Statements SINUS BRADYCARDIA LOW QRS VOLTAGE IN PRECORDIAL LEADS [QRS DEFLECTION < 1.0 mV IN CHEST LEADS] ANTEROSEPTAL MYOCARDIAL INFARCTION , OF INDETERMINATE AGE [40+ ms Q WAVE IN V1-V4] Compared to ECG 11/22/2021 14:05:00 No significant changes Electronically Signed On 11-27-2021 20:40:17 CDT by David Moran M.D. [id number]
[2021-11-27 20:26] LABS: Basophils # 0.1 10^3/uL (0.0-0.1); Basophils % 0.7 %; Eosinophils # 0.2 10^3/uL (0.0-0.8); Eosinophils % 2.2 %; Hematocrit 35.8 % (37.0-47.0); Hemoglobin 11.7 g/dL (11.5-15.3); Lymphocytes # 3.3 10^3/uL (0.8-4.8); Lymphocytes % 32.7 %; Mean Corpuscular HGB Conc 32.7 g/dL (30.0-36.0); Mean Corpuscular Hemoglobin 27.7 pg (28.0-34.0); Mean Corpuscular Volume 84.6 fl (81-99); Mean Platelet Volume 11.2 fL (7.4-10.4); Monocytes # 0.8 10^3/uL (0.2-0.9); Monocytes % 7.4 %; Neutrophils # 5.74 10^3/uL (1.8-7.7); Neutrophils % 56.7 %; Nucleated Red Blood Cells % 0 %; Platelet Count 227 10^3/cmm (130-400); Red Blood Count 4.23 10^6/uL (4.1-5.3); Red Cell Distribution Width 14.4 % (12.1-15.1); White Blood Count 10.1 10^3/uL (4.0-10.0)
[2021-11-27] MEDS: hyDRALAzine 20 mg/mL INJ 1 mL 10 MG IVP (20:29)
--- NOTE | 2021-11-27 20:43 | CTR_ITS ---
PROCEDURE INFORMATION: Exam: CT Head Without Contrast Exam date and time: 11/27/2021 9:04 PM Age: 81 years old Clinical indication: Pain; Headache; Vascular; Prior surgery; Surgery type: Cervical fusion; Patient HX: C/O headahce with hypertension. TECHNIQUE: Imaging protocol: Computed tomography of the head without contrast. Radiation optimization: All CT scans at this facility use at least one of these dose optimization techniques: automated exposure control; mA and/or kV adjustment per patient size (includes targeted exams where dose is matched to clinical indication); or iterative reconstruction. COMPARISON: CT head wo con* [id number] 09/05/2017 7:30 AM RADIATION DOSE METRICS: Total DLP (mGy-cm): 762.87 FINDINGS: Brain: There are global involutional changes of the brain which are in keeping with the patient's age. Periventricular hypodensities are nonspecific but most likely reflect chronic microvascular ischemic disease. There is no acute intracranial hemorrhage or abnormal extra-axial fluid collection identified. There is no intracranial mass effect or shift of midline structures. The skaggs-white differentiation is preserved throughout. There is no sulcal effacement. The basilar cisterns are open. Cerebral ventricles: No hydrocephalus or ventricular effacement. Paranasal sinuses: The visualized sinuses are unremarkable. Mastoid air cells: There is no mastoid effusion detected. Bones/joints: No calvarial fracture or destructive osseous lesions are seen. Soft tissues: Unremarkable. CT/CT head wo con* [id number] IMPRESSION: No acute intracranial pathology identified by CT.
[2021-11-27 20:54] LABS: Troponin(5th) Baseline 17 ng/L (0-10)
[2021-11-27 21:05] LABS: Alanine Aminotransferase 18 U/L (0-33); Albumin Level 4.1 g/dL (3.5-5.2); Alkaline Phosphatase 38 IU/L (35-105); Anion Gap 17.6 (5-19); Aspartate Amino Transferase 19 U/L (0-32); Blood Urea Nitrogen 17 mg/dL (8-23); Carbon Dioxide 19 mmol/L (22-29); Chloride 96 mmol/L (98-107); Globulin 2.5 g/dL (1.3-4.6); Glucose 89 mg/dL (65-115); Magnesium 1.9 mg/dL (1.7-2.3); Osmolality Calculated 269 mOsm/kg (285-295); Potassium 3.6 mmol/L (3.5-5.1); Sodium 129 mmol/L (136-145); Thyroid Stimulating Hormone 2.23 uIU/mL (0.27-4.20); Total Bilirubin 0.2 mg/dL (0.15-1.2); Total Protein 6.6 g/dL (6.6-8.7)
[2021-11-27 21:27] VITALS: BP 133/72; PULSE 67; RESP 15; O2SAT 97
[2021-11-27] MEDS: acetaminophen 500 mg Tablet 1000 MG PO (21:29)
[2021-11-27] MEDS: sodium chloride 0.9% 500 ML 999 ML IV (21:29)
--- NOTE | 2021-11-27 22:09 | ECG_ITS ---
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 Measurements Intervals [place] Rate: 57 P: 21 RI: 217 QRS: -15 QRSD: 65 T: 38 QT: 405 QTc: 395 Interpretive Statements SINUS BRADYCARDIA WITH FIRST DEGREE AV BLOCK LOW QRS VOLTAGE IN PRECORDIAL LEADS [QRS DEFLECTION < 1.0 mV IN CHEST LEADS] ANTEROSEPTAL MYOCARDIAL INFARCTION , OF INDETERMINATE AGE [40+ ms Q WAVE IN V1-V4] Compared to ECG 11/27/2021 20:20:11 First degree AV block now present Myocardial infarct finding still present Electronically Signed On 11-28-2021 12:50:05 CDT by Elyse Colin M.D. [id number]
[2021-11-27 22:18] LABS: Troponin 5 2HR 18.24 ng/L (0-10)
[2021-11-27 22:20] LABS: Troponin 5 2HR Delta 1.24 ABS# (0-10)
[2021-11-27 22:28] VITALS: BP 108/66; PULSE 67; RESP 15; O2SAT 95
[2021-11-27 22:55] VITALS: BP 107/65; PULSE 65; RESP 15; O2SAT 96
== END 2021-11-27 22:57 | disposition home or self-care (01) ==
PROVIDERS: Emergency Provider Emergency Medicine; PCP Family Medicine Adult Medicine
DX: I10 Essential (primary) hypertension (principal); R51.9 Headache, unspecified
CPT/HCPCS: 70450; 80053; 83735; 84443; 84484; 85025; 93005; 96374; 99284; J0360; J7040

== ENCOUNTER → 2021-12-02 10:22 | Outpatient (BNVA) | payer MEDICARE, OTHER, SELFPAY | PROVIDERS: PCP Family Medicine Adult Medicine; Referring Provider Family Medicine Adult Medicine; Visit Provider Surgery | DX: K44.9 Diaphragmatic hernia without obstruction or gangrene (principal); K21.9 Gastro-esophageal reflux disease without esophagitis; I73.9 Peripheral vascular disease, unspecified | CPT/HCPCS: 99213 ==

== ENCOUNTER 2021-12-20 20:27 | Emergency (ER) | payer MEDICARE, OTHER, SELFPAY ==
[2021-12-20 20:39] VITALS: BP 137/78; PULSE 89; RESP 18; TEMP 37; O2SAT 97; BMI 21.5
--- NOTE | 2021-12-20 21:17 | XRR_ITS ---
PROCEDURE INFORMATION: Exam: XR Chest Exam date and time: 12/20/2021 9:24 PM Age: 81 years old Clinical indication: Other: Weakness; Additional info: Fatigue TECHNIQUE: Imaging protocol: XR of the chest. Views: 1 view. COMPARISON: CR (CHEST, ) 11/09/2021 10:48 PM FINDINGS: Lungs: Unremarkable. No consolidation. Pleural spaces: Unremarkable. No pleural effusion. No pneumothorax. Heart/Mediastinum: Unremarkable. No cardiomegaly. Bones/joints: Stable postoperative metallic fixation of the cervical spine with or without metallic artifact. Organs: Stable cholecystectomy. XR/XR chest 1V portable [id number] IMPRESSION: No acute findings.
--- NOTE | 2021-12-20 21:17 | ECG_ITS ---
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 Measurements Intervals [place] Rate: 74 P: 44 [place]: 198 QRS: -11 QRSD: 81 T: 61 QT: 376 QTc: 418 Interpretive Statements SINUS RHYTHM POSSIBLE ANTERIOR MYOCARDIAL INFARCTION , PROBABLY OLD [30 ms Q WAVE IN V3/V4, OR R < 0.2 mV IN V4] Compared to ECG 11/27/2021 22:12:00 Sinus bradycardia no longer present First degree AV block no longer present Myocardial infarct finding still present Electronically Signed On 12-21-2021 16:21:16 CDT by Tello Schmidt M.D. [id number]
--- NOTE | 2021-12-20 21:18 | W.ED.WEAKNES ---
HPI - Weakness General: Chief complaint: Weakness Stated complaint: Weakness Time Seen by Provider: 12/20/21 21:12 PFSH ED PFSH: Medical History (Updated 12/15/21 @ 12:47 by Patric Martinez MD) Anxiety about health Aortic valve regurgitation Carotid artery stenosis, asymptomatic Dementia Frequent headaches Heart disease Hiatal hernia with GERD History of nonmelanoma skin cancer Hypertension Incomplete bladder emptying Mitral valve disease Recurrent UTI Surgical History H/O colonoscopy 2015 H/O esophagogastroduodenoscopy 2016 H/O neck surgery H/O: hysterectomy Hx of cholecystectomy Previous back surgery Family History Father , in his 70's Cancer CAD (coronary artery disease) Brother CAD (coronary artery disease) Mother , at age 79 Heart disease Other Diabetes Hypertension Denies family history of Anesthesia complication Bleeding disorder Social History Smoking and tobacco status: never smoked Alcohol intake: never Adopted: No Caregiver/support person: No Lives independently: No Marital status: / Current occupational status: retired History of recent travel: No Current gender identity: Female Course Vital Signs: Vital signs: Vital Signs Temperature 98.6 F 12/20/21 20:39 Pulse Rate 77 12/20/21 21:58 Respiratory Rate 20 H 12/20/21 21:58 Blood Pressure 136/73 12/20/21 21:58 Pulse Oximetry 96 12/20/21 21:58 MDM - Weakness Lab Data : 12/20/21 21:25 12/20/21 21:25 Laboratory Results WBC 10.8 10^3/uL (4.0-10.0) H 12/20/21 21:25 RBC 4.50 10^6/uL (4.1-5.3) 12/20/21 21:25 Hgb 12.3 g/dL (11.5-15.3) 12/20/21 21:25 Hct 37.2 % (37.0-47.0) 12/20/21 21:25 MCV 82.7 fl (81-99) 12/20/21 21:25 MCH 27.3 pg (28.0-34.0) L 12/20/21: MCHC 33.1 g/dL (30.0-36.0) 12/20/21: RDW 13.7 % (12.1-15.1) 12/20/21: Plt Count 228 10^3/cmm (130-400) 12/20/21 21: MPV 10.9 fL (7.4-10.4) H 12/20/21 21: Neut % (Auto) 64.3 % 12/20/21 21:25 Lymph % (Auto) 25.8 % 12/20/21: [place] % (Auto) 7.3 % 12/20/21: Eos % (Auto) 1.7 % 12/20/21: Baso % (Auto) 0.6 % 12/20/21: Neut # (Auto) 6.95 10^3/uL (1.8-7.7) 12/20/21: Lymph # (Auto) 2.8 10^3/uL (0.8-4.8) 12/20/21: [place] # (Auto) 0.8 10^3/uL (0.2-0.9) 12/20/21: Eos # (Auto) 0.2 10^3/uL (0.0-0.8) 12/20/21: Baso # (Auto) 0.1 10^3/uL (0.0-0.1) 12/20/21: Nucleated RBC % (auto) 0 % 12/20/21: Nucleated RBCs # 0.0 /100WBC 12/20/21 21: Sodium 131 mmol/L (136-145) L 12/20/21 21: Potassium 3.8 mmol/L (3.5-5.1) 12/20/21: Chloride 97 mmol/L (98-107) L 12/20/21: Carbon Dioxide 20 mmol/L (22-29) L 12/20/21: Anion Gap 17.8 (5-19) 12/20/21 21:25 BUN 15 mg/dL (8-23) 12/20/21: Creatinine 0.6 mg/dL (0.5-0.9) 12/20/21 21:25 GFR Calculation Not Reportable 12/20/21 21:25 Glucose 125 mg/dL (65-115) H 12/20/21 21:25 Calculated Osmolality 274 mOsm/kg (285-295) L 12/20/21 21:25 Calcium 8.9 mg/dL (8.5-10.5) 12/20/21 21:25 Total Bilirubin 0.2 mg/dL (0.15-1.2) 12/20/21 21:25 AST 17 U/L (0-32) 12/20/21 21:25 ALT 15 U/L (0-33) 12/20/21 21:25 Alkaline Phosphatase 48 IU/L (35-105) 12/20/21 21:25 Troponin T Baseline 12 ng/L (0-10) H 12/20/21 21:25 Total Protein 6.6 g/dL (6.6-8.7) 12/20/21 21:25 Albumin 4.1 g/dL (3.5-5.2) 12/20/21 21:25 Globulin 2.5 g/dL (1.3-4.6) 12/20/21 21:25 Lipase 39 U/L (13-60) 12/20/21 21:25 Discharge Plan Discharge Condition: Stable Prescriptions: No Action pravastatin 80 mg tablet 80 mg PO QDAY 0RF aspirin 325 mg tablet 325 mg PO QDAY 0RF loperamide [Anti-Diarrheal (loperamide)] 2 mg tablet 2 mg PO Q6H PRN0RF cholecalciferol (vitamin D3) 25 mcg (1,000 unit) capsule 25 mcg PO DAILY 0RF Tart Steven Extract 1,000 mg capsule PO 0RF calcium citrate-vitamin D3 [Citracal + D Maximum] 315 mg-6.25 mcg (250 unit) tablet 1 tab PO DAILY 0RF baclofen 10 mg tablet 10 mg PO DAILY 0RF buspirone 5 mg tablet 5 mg PO .q6 PRN (Reason: anxiety) Qty: 60 0RF Rx Instructions: 1/2 to 1 tab q 6 hr prn for anxiety attacks. pantoprazole [Protonix] 40 mg tablet,delayed release (DR/EC) 40 mg PO DAILY Qty: 30 3RF hydralazine 10 mg tablet 10 mg PO TID Qty: 90 2RF guaifenesin 600 mg tablet extended release 12hr 600 mg PO .am Qty: 30 3RF Vasotec 2.5 mg tablet 2.5 mg PO BID Qty: 60 0RF Referrals: Patric Martinez MD [Primary Care Provider] - Coding Level of Care Code ED Pollution Control Chemist for g Laquita
[2021-12-20] MEDS: sodium chloride 0.9% 500 ML IV (21:42)
[2021-12-20 21:43] LABS: Basophils # 0.1 10^3/uL (0.0-0.1); Basophils % 0.6 %; Eosinophils # 0.2 10^3/uL (0.0-0.8); Eosinophils % 1.7 %; Hematocrit 37.2 % (37.0-47.0); Hemoglobin 12.3 g/dL (11.5-15.3); Lymphocytes # 2.8 10^3/uL (0.8-4.8); Lymphocytes % 25.8 %; Mean Corpuscular HGB Conc 33.1 g/dL (30.0-36.0); Mean Corpuscular Hemoglobin 27.3 pg (28.0-34.0); Mean Corpuscular Volume 82.7 fl (81-99); Mean Platelet Volume 10.9 fL (7.4-10.4); Monocytes # 0.8 10^3/uL (0.2-0.9); Monocytes % 7.3 %; Neutrophils # 6.95 10^3/uL (1.8-7.7); Neutrophils % 64.3 %; Nucleated Red Blood Cells % 0 %; Platelet Count 228 10^3/cmm (130-400); Red Cell Distribution Width 13.7 % (12.1-15.1); White Blood Count 10.8 10^3/uL (4.0-10.0)
[2021-12-20 21:58] VITALS: BP 136/73; PULSE 77; RESP 20; O2SAT 96
[2021-12-20 21:59] LABS: Alanine Aminotransferase 15 U/L (0-33); Albumin Level 4.1 g/dL (3.5-5.2); Alkaline Phosphatase 48 IU/L (35-105); Anion Gap 17.8 (5-19); Aspartate Amino Transferase 17 U/L (0-32); Blood Urea Nitrogen 15 mg/dL (8-23); Calcium 8.9 mg/dL (8.5-10.5); Carbon Dioxide 20 mmol/L (22-29); Chloride 97 mmol/L (98-107); Globulin 2.5 g/dL (1.3-4.6); Glucose 125 mg/dL (65-115); Lipase 39 U/L (13-60); Osmolality Calculated 274 mOsm/kg (285-295); Potassium 3.8 mmol/L (3.5-5.1); Sodium 131 mmol/L (136-145); Total Bilirubin 0.2 mg/dL (0.15-1.2); Total Protein 6.6 g/dL (6.6-8.7)
[2021-12-20 22:02] LABS: Troponin(5th) Baseline 12 ng/L (0-10)
--- NOTE | 2021-12-20 22:11 | W.ED.GENADLT ---
Documented by User: Amor House MD 12/20/21 23:06 HPI - General Adult General: Chief complaint: Weakness Stated complaint: Weakness Time Seen by Provider: 12/20/21 21:12 History of Present Illness: Patient is an 81-year-old female with a history of hypertension, fibromyalgia who presents to the emergency room for evaluation of generalized weakness, fatigue x4 days. Patient tells me that she has not been feeling well for the last 3 days. Denies any chest pain, shortness breath, palpitation, nausea/vomiting fever/chills, diarrhea melena/hematochezia. Patient denies any decreased p.o. intake. Patient has no other focal complaints and fatigue. Onset:4 days ago Duration:4 days Location:home Severity:moderate Associated symptoms: Deny chest pain, dyspnea, nausea, rash, palpitations or vomiting Review of Systems Const: Denies: fever(s) or chills Eyes: Denies: change in vision ENMT: Denies: mouth pain Card: Denies: chest pain or palpitations Resp: Denies: dyspnea or non-productive cough GI: Denies: abdominal pain, nausea, vomiting or diarrhea : Denies: dysuria Musc: Denies: extremity pain Skin/Breast: Denies: rash or new lesions Neuro: Denies: weakness in extremities Psych: Reports: other (Normal mood) Rafi/Lymph: Denies: easy bruising PFSH ED PFSH: Medical History Anxiety about health Aortic valve regurgitation Carotid artery stenosis, asymptomatic Dementia Frequent headaches Heart disease Hiatal hernia with GERD History of nonmelanoma skin cancer Hypertension Incomplete bladder emptying Mitral valve disease Recurrent UTI Surgical History H/O colonoscopy 2016 H/O esophagogastroduodenoscopy 2016 H/O neck surgery H/O: hysterectomy Hx of cholecystectomy Previous back surgery Family History Father , in his 70's Cancer CAD (coronary artery disease) Brother CAD (coronary artery disease) Mother , at age 79 Heart disease Other Diabetes Hypertension Denies family history of Anesthesia complication Bleeding disorder Social History Smoking and tobacco status: never smoked Alcohol intake: never Adopted: No Caregiver/support person: No Lives independently: No Marital status: / Current occupational status: retired History of recent travel: No Current gender identity: Female Physical Exam Const: COMMON NORMALS: alert HENMT: COMMON NORMALS: atraumatic HEAD & SCALP: atraumatic MOUTH: moist mucous membranes not abnormal Eye: COMMON NORMALS: EOMs intact bilaterally and conjunctivae normal CONJUNCTIVA: Yes conjunctivae normal Neck/C-Spine: COMMON NORMALS: full ROM and supple Resp: COMMON NORMALS: normal respiratory effort and clear to auscultation bilaterally AUSCULTATION: clear to auscultation bilaterally Cardio: COMMON NORMALS: regular rate RATE: regular rate GI: COMMON NORMALS: Soft to palpation and non-tender PALPATION: Yes Soft to palpation Extremity: COMMON NORMALS: full ROM Neuro: SENSORIUM/ORIENTATION: Yes alert MOTOR EXAM: No Abnormal motor strength present and Other motor observations present (no focal motor deficits) Psych: COMMON NORMALS: speech normal SPEECH: Yes normal speech MOOD & AFFECT: Yes euthymic mood Course Vital Signs: Vital signs: Vital Signs Temperature 98.1 F 12/21/21 02:26 Pulse Rate 71 12/21/21 02:26 Respiratory Rate 16 12/21/21 02:26 Blood Pressure 126/72 12/21/21 02:26 Pulse Oximetry 99 12/21/21 02:26 [facility] - General Adult Medical Decision Making 81-year-old female with a history of fibromyalgia, hypertension presenting to the emergency room for evaluation of generalized weakness x4 days. On physical exam, patient is hemodynamically stable without any focal findings. Lab work showed white count 10.8, sodium 131, troponin of 12, rest of lab within normal limit. EKG is nonischemic. Pending repeat troponin at this time. Patient received IVF and GI cocktail the emergency room. She is able to tolerate PO. Case signed out to Dr. Jones pending reassessment. Lab Data : 12/20/21 21:25 12/20/21 21:25 Radiology Impressions Chest X-Ray 12/20/21 21:17 IMPRESSION: No acute findings. Laboratory Results WBC 10.8 10^3/uL (4.0-10.0) H 12/20/21 21:25 RBC 4.50 10^6/uL (4.1-5.3) 12/20/21: Hgb 12.3 g/dL (11.5-15.3) 12/20/21: Hct 37.2 % (37.0-47.0) 12/20/21: MCV 82.7 fl (81-99) 12/20/21: MCH 27.3 pg (28.0-34.0) L 12/20/21: MCHC 33.1 g/dL (30.0-36.0) 12/20/21: RDW 13.7 % (12.1-15.1) 12/20/21: Plt Count 228 10^3/cmm (130-400) 12/20/21: MPV 10.9 fL (7.4-10.4) H 12/20/21: Neut % (Auto) 64.3 % 12/20/21: Lymph % (Auto) 25.8 % 12/20/21: [place] % (Auto) 7.3 % 12/20/21: Eos % (Auto) 1.7 % 12/20/21: Baso % (Auto) 0.6 % 12/20/21: Neut # (Auto) 6.95 10^3/uL (1.8-7.7) 12/20/21: Lymph # (Auto) 2.8 10^3/uL (0.8-4.8) 12/20/21: [place] # (Auto) 0.8 10^3/uL (0.2-0.9) 12/20/21: Eos # (Auto) 0.2 10^3/uL (0.0-0.8) 12/20/21: Baso # (Auto) 0.1 10^3/uL (0.0-0.1) 12/20/21: Nucleated RBC % (auto) 0 % 12/20/21: Nucleated RBCs # 0.0 /100WBC 12/20/21: Sodium 131 mmol/L (136-145) L 12/20/21: Potassium 3.8 mmol/L (3.5-5.1) 12/20/21 21:25 Chloride 97 mmol/L (98-107) L 12/20/21 21:25 Carbon Dioxide 20 mmol/L (22-29) L 12/20/21 21:25 Anion Gap 17.8 (5-19) 12/20/21 21:25 BUN 15 mg/dL (8-23) 12/20/21 21:25 Creatinine 0.6 mg/dL (0.5-0.9) 12/20/21 21:25 GFR Calculation Not Reportable 12/20/21 21:25 Glucose 125 mg/dL (65-115) H 12/20/21 21:25 Calculated Osmolality 274 mOsm/kg (285-295) L 12/20/21 21:25 Calcium 8.9 mg/dL (8.5-10.5) 12/20/21 21:25 Total Bilirubin 0.2 mg/dL (0.15-1.2) 12/20/21 21:25 AST 17 U/L (0-32) 12/20/21 21:25 ALT 15 U/L (0-33) 12/20/21 21:25 Alkaline Phosphatase 48 IU/L (35-105) 12/20/21 21:25 Troponin T Baseline 12 ng/L (0-10) H 12/20/21 21:25 Troponin T 120 Minute 9.78 ng/L (0-10) 12/20/21 23:40 Delta Troponin T -2.22 ABS# (0-10) L 12/20/21 23:40 Total Protein 6.6 g/dL (6.6-8.7) 12/20/21 21:25 Albumin 4.1 g/dL (3.5-5.2) 12/20/21 21:25 Globulin 2.5 g/dL (1.3-4.6) 12/20/21 21:25 Lipase 39 U/L (13-60) 12/20/21 21:25 TSH 0.85 uIU/mL (0.27-4.20) 12/20/21 21:25 Free T4 1.12 ng/dL (0.82-1.77) 12/20/21 21:25 Urine Color Yellow (Yellow) 12/21/21 01:42 Urine Appearance Clear (CLEAR) 12/21/21 01:42 Urine pH 6 (5-7) 12/21/21 01:42 Ur Specific [place] 1.005 (1.005-1.030) 12/21/21 01:42 Urine Protein Neg (Negative) 12/21/21 01:42 Urine Glucose (UA) Norm (Normal) 12/21/21 01:42 Urine Ketones Negative (Negative) 12/21/21 01:42 Urine Blood Neg (Negative) 12/21/21 01:42 Urine Nitrate Negative (Negative) 12/21/21 01:42 Urine Bilirubin Neg (Negative) 12/21/21 01:42 Urine Urobilinogen Norm mg/dL (Negative) 12/21/21 01:42 Ur Leukocyte Esterase Negative (Negative) 12/21/21 01:42 Discharge Plan Discharge Patient Disposition: Home Clinical Impression: Generalized weakness Condition: Stable Prescriptions: No Action aspirin 325 mg tablet 325 mg PO QDAY 0RF loperamide [Anti-Diarrheal (loperamide)] 2 mg tablet 2 mg PO Q6H PRN0RF cholecalciferol (vitamin D3) 25 mcg (1,000 unit) capsule 25 mcg PO DAILY 0RF Tart Steven Extract 1,000 mg capsule PO 0RF calcium citrate-vitamin D3 [Citracal + D Maximum] 315 mg-6.25 mcg (250 unit) tablet 1 tab PO DAILY 0RF bupropion HCl 100 mg tablet sustained-release 12 hr 100 mg PO QAM Qty: 30 1RF sodium chloride 1 gram tablet 1,000 mg PO DAILY Qty: 30 0RF pantoprazole [Protonix] 40 mg tablet,delayed release (DR/EC) 40 mg PO DAILY Qty: 30 3RF hydralazine 10 mg tablet 10 mg PO TID Qty: 90 2RF pravastatin 80 mg tablet 80 mg PO QDAY 90 Days Qty: 90 0RF Hold Instructions: Home Medication placed on hold at Doctor's office Vasotec 2.5 mg tablet 2.5 mg PO BID Qty: 60 0RF Discharge Orders: Discharge ED (Routine); Ordered 12/21/21 Ordered By: Zoltan Jones Referrals: Patric Martinez MD [Primary Care Provider] - 1-3 days Patient Instructions: Weakness (ED) Activity Restrictions/Additional Instructions: Return for fever greater than 100, worsening mental status, language problems, vision problems, other concerning symptoms. follow-up with your doctor early this week. Coding Level of Care Code ED District Commercial Superintendent for Chg Fwd Exam Comprehensive Documented by User: Zoltan Jones DO 12/25/21 00:54 HPI - General Adult General: Chief complaint: Weakness Stated complaint: Weakness Time Seen by Provider: 12/20/21 21:12 PFSH ED PFSH: Medical History Anxiety about health Aortic valve regurgitation Carotid artery stenosis, asymptomatic Dementia Frequent headaches Heart disease Hiatal hernia with GERD History of nonmelanoma skin cancer Hypertension Incomplete bladder emptying Mitral valve disease Recurrent UTI Surgical History H/O colonoscopy 2015 H/O esophagogastroduodenoscopy 2016 H/O neck surgery H/O: hysterectomy Hx of cholecystectomy Previous back surgery Family History Father , in his 70's Cancer CAD (coronary artery disease) Brother CAD (coronary artery disease) Mother , at age 79 Heart disease Other Diabetes Hypertension Denies family history of Anesthesia complication Bleeding disorder Social History Smoking and tobacco status: never smoked Alcohol intake: never Adopted: No Caregiver/support person: No Lives independently: No Marital status: / Current occupational status: retired History of recent travel: No Current gender identity: Female Course Vital Signs: Vital signs: Vital Signs Temperature 98.1 F 12/21/21 02:26 Pulse Rate 71 12/21/21 02:26 Respiratory Rate 16 12/21/21 02:26 Blood Pressure 126/72 12/21/21 02:26 Pulse Oximetry 99 12/21/21 02:26 MDM - General Adult Medical Decision Making 81-year-old female with a history of fibromyalgia, hypertension presenting to the emergency room for evaluation of generalized weakness x4 days. On physical exam, patient is hemodynamically stable without any focal findings. Lab work showed white count 10.8, sodium 131, troponin of 12, rest of lab within normal limit. EKG is nonischemic. Pending repeat troponin at this time. Patient received IVF and GI cocktail the emergency room. She is able to tolerate PO. Case signed out to Dr. Jones pending reassessment. Received in checkout from Dr. House. This patient is generally weak without much in terms of specific symptoms. Serum labs are essentially negative. Troponin did not change at 2h, and remained normal. CXR is negative. She is feeling somewhat improved. Urinalysis is normal. She is counseled on her lab findings, stable condition, and need for outpt fu. She wishes to go home. Lab Data : 12/20/21 21:25 12/20/21 21: Radiology Impressions Chest X-Ray 12/20/21:17 IMPRESSION: No acute findings. Laboratory Results WBC 10.8 10^3/uL (4.0-10.0) H 12/20/21 21: RBC 4.50 10^6/uL (4.1-5.3) 12/20/21 21: Hgb 12.3 g/dL (11.5-15.3) 12/20/21: Hct 37.2 % (37.0-47.0) 12/20/21 21: MCV 82.7 fl (81-99) 12/20/21 21: MCH 27.3 pg (28.0-34.0) L 12/20/21: MCHC 33.1 g/dL (30.0-36.0) 12/20/21 21: RDW 13.7 % (12.1-15.1) 12/20/21: Plt Count 228 10^3/cmm (130-400) 12/20/21: MPV 10.9 fL (7.4-10.4) H 12/20/21 21:25 Neut % (Auto) 64.3 % 12/20/21: Lymph % (Auto) 25.8 % 12/20/21: [place] % (Auto) 7.3 % 12/20/21 21: Eos % (Auto) 1.7 % 12/20/21 21:25 Baso % (Auto) 0.6 % 12/20/21 21:25 Neut # (Auto) 6.95 10^3/uL (1.8-7.7) 12/20/21 21:25 Lymph # (Auto) 2.8 10^3/uL (0.8-4.8) 12/20/21 21:25 [place] # (Auto) 0.8 10^3/uL (0.2-0.9) 12/20/21 21:25 Eos # (Auto) 0.2 10^3/uL (0.0-0.8) 12/20/21 21:25 Baso # (Auto) 0.1 10^3/uL (0.0-0.1) 12/20/21 21:25 Nucleated RBC % (auto) 0 % 12/20/21 21: Nucleated RBCs # 0.0 /100WBC 12/20/21 21:25 Sodium 131 mmol/L (136-145) L 12/20/21 21:25 Potassium 3.8 mmol/L (3.5-5.1) 12/20/21 21:25 Chloride 97 mmol/L (98-107) L 12/20/21 21:25 Carbon Dioxide 20 mmol/L (22-29) L 12/20/21 21:25 Anion Gap 17.8 (5-19) 12/20/21 21:25 BUN 15 mg/dL (8-23) 12/20/21 21:25 Creatinine 0.6 mg/dL (0.5-0.9) 12/20/21 21:25 GFR Calculation Not Reportable 12/20/21 21:25 Glucose 125 mg/dL (65-115) H 12/20/21 21:25 Calculated Osmolality 274 mOsm/kg (285-295) L 12/20/21:25 Calcium 8.9 mg/dL (8.5-10.5) 12/20/21 21:25 Total Bilirubin 0.2 mg/dL (0.15-1.2) 12/20/21 21:25 AST 17 U/L (0-32) 12/20/21 21:25 ALT 15 U/L (0-33) 12/20/21 21:25 Alkaline Phosphatase 48 IU/L (35-105) 12/20/21 21:25 Troponin T Baseline 12 ng/L (0-10) H 12/20/21 21:25 Troponin T 120 Minute 9.78 ng/L (0-10) 12/20/21 23:40 Delta Troponin T -2.22 ABS# (0-10) L 12/20/21 23:40 Total Protein 6.6 g/dL (6.6-8.7) 12/20/21 21:25 Albumin 4.1 g/dL (3.5-5.2) 12/20/21 21:25 Globulin 2.5 g/dL (1.3-4.6) 12/20/21 21:25 Lipase 39 U/L (13-60) 12/20/21 21:25 TSH 0.85 uIU/mL (0.27-4.20) 12/20/21 21:25 Free T4 1.12 ng/dL (0.82-1.77) 12/20/21 21:25 Urine Color Yellow (Yellow) 12/21/21 01:42 Urine Appearance Clear (CLEAR) 12/21/21 01:42 Urine pH 6 (5-7) 12/21/21 01:42 Ur Specific [place] 1.005 (1.005-1.030) 12/21/21 01:42 Urine Protein Neg (Negative) 12/21/21 01:42 Urine Glucose (UA) Norm (Normal) 12/21/21 01:42 Urine Ketones Negative (Negative) 12/21/21 01:42 Urine Blood Neg (Negative) 12/21/21 01:42 Urine Nitrate Negative (Negative) 12/21/21 01:42 Urine Bilirubin Neg (Negative) 12/21/21 01:42 Urine Urobilinogen Norm mg/dL (Negative) 12/21/21 01:42 Ur Leukocyte Esterase Negative (Negative) 12/21/21 01:42 Discharge Plan Discharge Patient Disposition: Home Clinical Impression: Generalized weakness Condition: Stable Prescriptions: No Action aspirin 325 mg tablet 325 mg PO QDAY 0RF loperamide [Anti-Diarrheal (loperamide)] 2 mg tablet 2 mg PO Q6H PRN0RF cholecalciferol (vitamin D3) 25 mcg (1,000 unit) capsule 25 mcg PO DAILY 0RF Tart Steven Extract 1,000 mg capsule PO 0RF calcium citrate-vitamin D3 [Citracal + D Maximum] 315 mg-6.25 mcg (250 unit) tablet 1 tab PO DAILY 0RF bupropion HCl 100 mg tablet sustained-release 12 hr 100 mg PO QAM Qty: 30 1RF sodium chloride 1 gram tablet 1,000 mg PO DAILY Qty: 30 0RF pantoprazole [Protonix] 40 mg tablet,delayed release (DR/EC) 40 mg PO DAILY Qty: 30 3RF hydralazine 10 mg tablet 10 mg PO TID Qty: 90 2RF pravastatin 80 mg tablet 80 mg PO QDAY 90 Days Qty: 90 0RF Hold Instructions: Home Medication placed on hold at Doctor's office Vasotec 2.5 mg tablet 2.5 mg PO BID Qty: 60 0RF Discharge Orders: Discharge ED (Routine); Ordered 12/21/21 Ordered By: Zoltan Jones Referrals: Patric Martinez MD [Primary Care Provider] - 1-3 days Patient Instructions: Weakness (ED) Activity Restrictions/Additional Instructions: Return for fever greater than 100, worsening mental status, language problems, vision problems, other concerning symptoms. follow-up with your doctor early this week. Coding Level of Care Code ED District Commercial Superintendent for Chg Fwd Exam Comprehensive
[2021-12-20 23:32] LABS: Free T4 Free Thyroxine 1.12 ng/dL (0.82-1.77); Thyroid Stimulating Hormone 0.85 uIU/mL (0.27-4.20)
[2021-12-20] MEDS: lidocaine 2% viscous 15 ML, aluminum-mag hydrox-simethicon 30 ML, sucralfate oral liq 1 GM PO (23:41)
[2021-12-20 23:44] VITALS: BP 126/69; PULSE 85; RESP 18; O2SAT 97
[2021-12-21 00:06] LABS: Troponin 5 2HR 9.78 ng/L (0-10)
[2021-12-21 00:13] LABS: Troponin 5 2HR Delta -2.22 ABS# (0-10)
[2021-12-21 01:46] LABS: Add Urine Microscopic? NO; Charge for UA Resulting for Rev
[2021-12-21 01:54] LABS: Bilirubin Urine Neg (Negative); Blood Urine Neg (Negative); Glucose Urine UA Norm (Normal); Ketones Urine Negative (Negative); Leukocyte Esterase Urine Negative (Negative); Nitrate Urine Negative (Negative); Protein Urine Neg (Negative); Specific Gravity, Urine 1.005 (1.005-1.030); Urine Appearance Clear (CLEAR); Urine Color Yellow (Yellow); Urobilinogen Urine Norm (Negative); pH Urine 6 (5-7)
[2021-12-21 02:26] VITALS: BP 126/72; PULSE 71; RESP 16; TEMP 36.7; O2SAT 99
== END 2021-12-21 02:27 | disposition home or self-care (01) ==
PROVIDERS: Emergency Medicine; Emergency Provider Emergency Medicine; PCP Family Medicine Adult Medicine
DX: R53.1 Weakness (principal); I10 Essential (primary) hypertension; Z79.82 Long term (current) use of aspirin
CPT/HCPCS: 36415; 71045; 80053; 81003; 83690; 84439; 84443; 84484; 85025; 93005; 96360; 99284; J7040

== ENCOUNTER 2021-12-28 08:27 | Observation (INO) | payer MEDICARE, OTHER, SELFPAY ==
[2021-12-28 08:39] VITALS: BP 167/77; PULSE 76; RESP 18; O2SAT 99; BMI 23.2
--- NOTE | 2021-12-28 09:13 | XRR_ITS ---
PROCEDURE INFORMATION: Exam: XR Chest Exam date and time: 12/28/2021 9:29 AM Age: 81 years old Clinical indication: Other: Weakness TECHNIQUE: Imaging protocol: XR of the chest. Views: 1 view. COMPARISON: CR (CHEST, ) 12/20/2021 9:24 PM FINDINGS: Lungs: Unremarkable. No consolidation. Pleural spaces: Unremarkable. No pleural effusion. No pneumothorax. Heart/Mediastinum: Unremarkable. No cardiomegaly. Bones/joints: Unremarkable. XR/XR chest 1V portable [id number] IMPRESSION: No acute findings.
--- NOTE | 2021-12-28 09:13 | CT_ITS ---
WS: [id number] CT HEAD NONCONTRAST HISTORY: generalized weakness TECHNIQUE: Contiguous axial imaging performed through the brain in 2.5 mm imaging. Bone and soft tiss ue windows. Sagittal and coronal reformats reviewed. All CT scans at [facility] use at least one of these dose optimization techniques: automated exposure control; mA and/or kV adjustment per pa tient size (includes targeted exams where dose is matched to clinical indication); or iterative recon struction. DLP: 754.96 mGy.cm COMPARISON: 11/27/2021 No acute intracranial hemorrhage, midline shift or mass effect. Mild atrophy and mild to moderate small vessel ischemic changes. Ischemic changes are diffuse and indra aterally. No prior large territory infarct. Small lacunar type infarcts in the external capsules bila terally are similar to the prior study. Ventricles: Normal size with no hydrocephalus. Paranasal sinuses: As visualized are clear. Mastoid air cells: Well pneumatized. Calvarium and scalp: Skull is intact with no soft tissue edema or swelling. CT/CT head wo con* [id number] IMPRESSION: 1. No acute intracranial hemorrhage or edema. 2. Mild atrophy and mild to moderate small vessel ischemic type changes are si milar to the prior study. No acute interval change.
--- NOTE | 2021-12-28 09:17 | ECG_ITS ---
[facility] Test Date: 2021-12-28 Pat Name: Aarti Melchor Department: Room: Gender: Female Public Health Director: : 1940 Requested By: Marita Baez Order Number: [id number] Fan MD: Juana Kaplan M.D. Measurements Intervals [place] Rate: 73 P: 37 IA: 210 QRS: 18 QRSD: 70 T: 49 QT: 370 QTc: 410 Interpretive Statements SINUS RHYTHM WITH FIRST DEGREE AV BLOCK LOW QRS VOLTAGE IN PRECORDIAL LEADS [QRS DEFLECTION < 1.0 mV IN CHEST LEADS] Compared to ECG 12/20/2021 21:47:59 First degree AV block now present Low QRS voltage now present Myocardial infarct finding no longer present Electronically Signed On 12-28-2021 19:40:45 CDT by Juana Kaplan M.D. [id number]
--- NOTE | 2021-12-28 09:18 | ED_ITS ---
Documented by User: ANTONIO Burns 12/28/21 12:30 HPI - Weakness General: Chief complaint: Weakness Stated complaint: Weakness, Cannot walk Time Seen by Provider: 12/28/21 08:45 Source: patient and family (daughters) Mode of arrival: ambulatory Limitations: no limitations History of Present Illness: Patient is an 81-year-old female who presents to ED today along with two of her daughters for complaints of progressive weakness. Daughters state that this has been a progressive issue for patient over the past few months but states over the last 2 weeks it has profoundly worsened. The daughter states that the patient is normally extremely active and goes 90 to nothing all day long and states it is very difficult to keep her down but states over the past week she has been so weak that she cannot even ambulate or dress herself. Patient normally lives alone and performs all ADLs and is extremely active around her home however over the past 2 weeks she has been having to live with her daughters because she essentially cannot care for herself at home. Patient has had multiple multiple work-ups for her generalized weakness. He has had multiple outpatient/PCP and ED visits. She was being managed by her PCP Dr. Martinez however daughters were dissatisfied with his treatment stating there has to be something that is being missed and recently switched providers. Patient does not complain of pain anywhere. She has not had any recent injuries or trauma. She is not having any vomiting or diarrhea. No urinary complaints. She does have a known hiatal hernia and admittedly cannot eat large amounts. He has not been running fevers. MD Complaint: generalized weakness Associated symptoms: Denies chest pain, chills, diaphoresis, dysuria, fever(s), headache(s), nausea, syncope or vomiting Review of Systems Const: Reports: fatigue and malaise; Denies: fever(s), chills, body aches, night sweats or diaphoresis Eyes: Denies: change in vision or blurry vision ENMT: Denies: throat pain, odynophagia, nasal discharge or nasal congestion Card: Denies: chest pain, palpitations, irregular heart rhythm, edema, swelling of feet/ankles, lightheadedness, syncope, pre-syncope, dyspnea on exertion, orthopnea, leg pain with exertion or acrocyanosis Resp: Denies: dyspnea, productive cough or pain on inspiration GI: Reports: other (decreased appetite/intake stating this is secondary to a hiatal hernia); Denies: abdominal pain, nausea, vomiting, heartburn or diarrhea : Denies: dysuria Musc: Reports: muscle weakness; Denies: neck pain, back pain, extremity pain, extremity swelling, joint pain, joint swelling, joint redness, joint warmth, joint stiffness or limited range of motion Skin/Breast: Denies: rash Neuro: Reports: weakness in extremities and difficulty walking (secondary to weakness); Denies: headache(s), numbness in extremities, sensory changes, lack of coordination, frequent falls, dizziness, Slurred speech present, difficulty communicating thoughts or seizure-like activity Psych: Reports: anxiety PFSH ED PFSH: Medical History Anxiety about health Aortic valve regurgitation Carotid artery stenosis, asymptomatic Dementia Frequent headaches Heart disease Hiatal hernia with GERD History of nonmelanoma skin cancer Hypertension Incomplete bladder emptying Mitral valve disease Recurrent UTI Surgical History H/O colonoscopy 2016 H/O esophagogastroduodenoscopy 2016 H/O neck surgery H/O: hysterectomy Hx of cholecystectomy Previous back surgery Family History Father , in his 70's Cancer CAD (coronary artery disease) Brother CAD (coronary artery disease) Mother , at age 79 Heart disease Other Diabetes Hypertension Denies family history of Anesthesia complication Bleeding disorder Social History Smoking and tobacco status: never smoked Alcohol intake: never Adopted: No Caregiver/support person: No Lives independently: No Marital status: / Current occupational status: retired History of recent travel: No Current gender identity: Female Physical Exam Const: COMMON NORMALS: no acute distress, average body habitus, patient oriented x3, no limitations and alert GENERAL APPEARANCE: cooperative ORIENTATION/CONSCIOUSNESS: Yes awake, Yes oriented to person, Yes oriented to place and Yes oriented to time HENMT: COMMON NORMALS: normocephalic and atraumatic HEAD & SCALP: normal to inspection, normocephalic and atraumatic Neck/C-Spine: COMMON NORMALS: full ROM, no lymphadenopathy and no meningeal signs Resp: COMMON NORMALS: normal respiratory effort and clear to auscultation bilaterally AUSCULTATION: clear to auscultation bilaterally Cardio: COMMON NORMALS: regular rate and regular rhythm RATE: regular rate RHYTHM: regular rhythm GI: COMMON NORMALS: Normal to inspection, nondistended, normoactive bowel sounds present, Soft to palpation and non-tender PALPATION: Yes Soft to palpation : COMMON NORMALS: Yes no CVA tenderness BLADDER/KIDNEY EXAM: Yes no CVA tenderness Back/Pelvis: COMMON NORMALS: no CVA tenderness, thoracic and lumbar spine normal to inspection, no thoracic nor lumbar tenderness and thoraco-lumbar ROM normal Extremity: COMMON NORMALS: full ROM, capillary refill normal, no joint enlargement, no clubbing, cyanosis or edema, no calf tenderness and no pedal edema GENERAL: Yes normal exam except as noted Neuro: MADHU COMA SCALE: document GCS findings [place] coma scale eye opening: Spontaneous Madhu coma scale verbal response: Orientated [place] coma scale motor response: Obey commands Madhu coma scale total score: 15 COMMON NORMALS: patient oriented x3, CN's II-XII intact bilaterally, moves all extremities and no sensory deficits noted SENSORIUM/ORIENTATION: Yes alert, Yes oriented to person, Yes oriented to place and Yes oriented to time MENINGEAL SIGNS: Yes no meningeal signs SPEECH: speech normal GAIT: Yes Unable to assess gait OTHER: strength testing could not be performed as patient displayed very minimal efforts stating she could not even pick her legs or arms off the bed secondary to weakness Skin: COMMON NORMALS: no rashes or lesions noted GENERAL SKIN EXAM: no rashes or lesions noted Course Consultations: Consultation #1: Dr. Pickard-recommends B12, ammonia, and TSH; will admit Vital Signs: Vital signs: Vital Signs Temperature 98.3 F 12/28/21 20:00 Pulse Rate 78 12/28/21 20:00 Respiratory Rate 17 12/28/21 20:00 Blood Pressure 143/74 12/28/21 20:00 Pulse Oximetry 97 12/28/21 20:00 MDM - Weakness Medical Decision Making Spoke to Dr. Morillo who is agreeable to admission for patient. I spoke to Dr. Pickard who will admit. Lab Data : 12/28/21 09:30 12/28/21 09:30 Radiology Impressions Chest X-Ray 12/28/21: IMPRESSION: No acute findings. Head CT 12/28/21:13 IMPRESSION: 1. No acute intracranial hemorrhage or edema. 2. Mild atrophy and mild to moderate small vessel ischemic type changes are similar to the prior study. No acute interval change. Laboratory Results WBC 8.7 10^3/uL (4.0-10.0) 12/28/21 09:30 RBC 4.75 10^6/uL (4.1-5.3) 12/28/21 09:30 Hgb 12.9 g/dL (11.5-15.3) 12/28/21:30 Hct 38.1 % (37.0-47.0) 12/28/21:30 MCV 80.2 fl (81-99) L 12/28/21:30 MCH 27.2 pg (28.0-34.0) L 12/28/21: MCHC 33.9 g/dL (30.0-36.0) 12/28/21: RDW 13.9 % (12.1-15.1) 12/28/21 09: Plt Count 272 10^3/cmm (130-400) 12/28/21:30 MPV 10.4 fL (7.4-10.4) 12/28/21: Neut % (Auto) 63.9 % 12/28/21:30 Lymph % (Auto) 27.1 % 12/28/21:30 [place] % (Auto) 7.6 % 12/28/21: Eos % (Auto) 0.8 % 12/28/21: Baso % (Auto) 0.5 % 12/28/21:30 Neut # (Auto) 5.55 10^3/uL (1.8-7.7) 12/28/21:30 Lymph # (Auto) 2.4 10^3/uL (0.8-4.8) 12/28/21 09:30 [place] # (Auto) 0.7 10^3/uL (0.2-0.9) 12/28/21 09:30 Eos # (Auto) 0.1 10^3/uL (0.0-0.8) 12/28/21 09:30 Baso # (Auto) 0.0 10^3/uL (0.0-0.1) 12/28/21 09:30 Nucleated RBC % (auto) 0 % 12/28/21 09:30 Nucleated RBCs # 0.0 /100WBC 12/28/21 09:30 Sodium 136 mmol/L (136-145) 12/28/21 09:30 Potassium 3.9 mmol/L (3.5-5.1) 12/28/21 09:30 Chloride 99 mmol/L (98-107) 12/28/21 09:30 Carbon Dioxide 23 mmol/L (22-29) 12/28/21 09:30 Anion Gap 17.9 (5-19) 12/28/21 09:30 BUN 13 mg/dL (8-23) 12/28/21 09:30 Creatinine 0.6 mg/dL (0.5-0.9) 12/28/21 09:30 GFR Calculation Not Reportable 12/28/21 09:30 Glucose 95 mg/dL (65-115) 12/28/21 09:30 Calculated Osmolality 282 mOsm/kg (285-295) L 12/28/21 09:30 Calcium 9.8 mg/dL (8.5-10.5) 12/28/21 09:30 Phosphorus 2.8 mg/dL (2.5-4.5) 12/28/21 09:30 Magnesium 2.1 mg/dL (1.7-2.3) 12/28/21 09:30 Total Bilirubin 0.3 mg/dL (0.15-1.2) 12/28/21 09:30 AST 17 U/L (0-32) 12/28/21 09:30 ALT 17 U/L (0-33) 12/28/21 09:30 Alkaline Phosphatase 42 IU/L (35-105) 12/28/21 09:30 Troponin T Baseline 13 ng/L (0-10) H 12/28/21 09:30 Troponin T 120 Minute 13.47 ng/L (0-10) H 12/28/21 11:12 Delta Troponin T 0.47 ABS# (0-10) 12/28/21 11:12 NT-Pro-B Natriuret Pep 48 pg/mL (0-450) 12/28/21 09:30 Total Protein 6.9 g/dL (6.6-8.7) 12/28/21 09:30 Albumin 4.3 g/dL (3.5-5.2) 12/28/21 09:30 Globulin 2.6 g/dL (1.3-4.6) 12/28/21 09:30 Vitamin B12 426 pg/mL (232-1245) 12/28/21 09:30 Procalcitonin 0.13 ng/mL (0-0.5) 12/28/21 09:30 TSH 1.97 uIU/mL (0.27-4.20) 12/28/21 09:30 Urine Color Yellow (Yellow) 12/28/21 10:11 Urine Appearance Clear (CLEAR) 12/28/21 10:11 Urine pH 9 (5-7) H 12/28/21 10:11 Ur Specific [place] 1.015 (1.005-1.030) 12/28/21 10:11 Urine Protein Neg (Negative) 12/28/21 10:11 Urine Glucose (UA) Norm (Normal) 12/28/21 10:11 Urine Ketones Negative (Negative) 12/28/21 10:11 Urine Blood Neg (Negative) 12/28/21 10:11 Urine Nitrate Negative (Negative) 12/28/21 10:11 Urine Bilirubin Neg (Negative) 12/28/21 10:11 Prot Sulfosalicylic Acd Negative (Negative) 12/28/21 10:11 Urine Urobilinogen Norm mg/dL (Negative) 12/28/21 10:11 Ur Leukocyte Esterase Negative (Negative) 12/28/21 10:11 Discharge Plan Discharge Patient Disposition: Admitted As Inpatient Admit Provider: Micaela Pickard Clinical Impression: Generalized weakness Condition: Stable Coding Level of Care Code ED Business Account Executive for Chg Fwd Exam Comprehensive Documented by User: Srinivas Morillo MD 12/28/21 23:48 HPI - Weakness General: Chief complaint: Weakness Stated complaint: Weakness, Cannot walk Time Seen by Provider: 12/28/21 08:45 PFSH ED PFSH: Medical History Anxiety about health Aortic valve regurgitation Carotid artery stenosis, asymptomatic Dementia Frequent headaches Heart disease Hiatal hernia with GERD History of nonmelanoma skin cancer Hypertension Incomplete bladder emptying Mitral valve disease Recurrent UTI Surgical History H/O colonoscopy 2015 H/O esophagogastroduodenoscopy 2016 H/O neck surgery H/O: hysterectomy Hx of cholecystectomy Previous back surgery Family History Father , in his 70's Cancer CAD (coronary artery disease) Brother CAD (coronary artery disease) Mother , at age 79 Heart disease Other Diabetes Hypertension Denies family history of Anesthesia complication Bleeding disorder Social History Smoking and tobacco status: never smoked Alcohol intake: never Adopted: No Caregiver/support person: No Lives independently: No Marital status: / Current occupational status: retired History of recent travel: No Current gender identity: Female Physical Exam Neuro: MADHU COMA SCALE: document GCS findings [place] coma scale total score: 15 Course Vital Signs: Vital signs: Vital Signs Temperature 98.3 F 12/28/21 20:00 Pulse Rate 78 12/28/21 20:00 Respiratory Rate 17 12/28/21 20:00 Blood Pressure 143/74 12/28/21 20:00 Pulse Oximetry 97 12/28/21 20:00 MDM - Weakness Medical Decision Making Spoke to Dr. Morillo who is agreeable to admission for patient. I spoke to Dr. Pickard who will admit. I discussed this case with ANTONIO Burns. I reviewed documentation. Challenging situation as there does not appear to obvious cause of patient's symptoms based on ED evaluation however given progression of symptoms to the point of inability to perform ADLs patient likely is unsafe for discharge from ED at this time. Srinivas Morillo MD Emergency Medicine Lab Data : 12/28/21 09:30 12/28/21 09:30 Radiology Impressions Chest X-Ray 12/28/21 09:13 IMPRESSION: No acute findings. Head CT 12/28/21 09:13 IMPRESSION: 1. No acute intracranial hemorrhage or edema. 2. Mild atrophy and mild to moderate small vessel ischemic type changes are similar to the prior study. No acute interval change. Laboratory Results WBC 8.7 10^3/uL (4.0-10.0) 12/28/21 09:30 RBC 4.75 10^6/uL (4.1-5.3) 12/28/21 09:30 Hgb 12.9 g/dL (11.5-15.3) 12/28/21 09:30 Hct 38.1 % (37.0-47.0) 12/28/21:30 MCV 80.2 fl (81-99) L 12/28/21:30 MCH 27.2 pg (28.0-34.0) L 12/28/21:30 MCHC 33.9 g/dL (30.0-36.0) 12/28/21: RDW 13.9 % (12.1-15.1) 12/28/21 09:30 Plt Count 272 10^3/cmm (130-400) 12/28/21 09:30 MPV 10.4 fL (7.4-10.4) 12/28/21 09:30 Neut % (Auto) 63.9 % 12/28/21 09:30 Lymph % (Auto) 27.1 % 12/28/21 09:30 [place] % (Auto) 7.6 % 12/28/21:30 Eos % (Auto) 0.8 % 12/28/21:30 Baso % (Auto) 0.5 % 12/28/21 09:30 Neut # (Auto) 5.55 10^3/uL (1.8-7.7) 12/28/21 09:30 Lymph # (Auto) 2.4 10^3/uL (0.8-4.8) 12/28/21 09:30 [place] # (Auto) 0.7 10^3/uL (0.2-0.9) 12/28/21 09:30 Eos # (Auto) 0.1 10^3/uL (0.0-0.8) 12/28/21 09:30 Baso # (Auto) 0.0 10^3/uL (0.0-0.1) 12/28/21 09:30 Nucleated RBC % (auto) 0 % 12/28/21 09:30 Nucleated RBCs # 0.0 /100WBC 12/28/21 09:30 Sodium 136 mmol/L (136-145) 12/28/21 09:30 Potassium 3.9 mmol/L (3.5-5.1) 12/28/21 09:30 Chloride 99 mmol/L (98-107) 12/28/21 09:30 Carbon Dioxide 23 mmol/L (22-29) 12/28/21 09:30 Anion Gap 17.9 (5-19) 12/28/21 09:30 BUN 13 mg/dL (8-23) 12/28/21 09:30 Creatinine 0.6 mg/dL (0.5-0.9) 12/28/21 09:30 GFR Calculation Not Reportable 12/28/21 09:30 Glucose 95 mg/dL (65-115) 12/28/21 09:30 Calculated Osmolality 282 mOsm/kg (285-295) L 12/28/21 09:30 Calcium 9.8 mg/dL (8.5-10.5) 12/28/21 09:30 Phosphorus 2.8 mg/dL (2.5-4.5) 12/28/21 09:30 Magnesium 2.1 mg/dL (1.7-2.3) 12/28/21 09:30 Total Bilirubin 0.3 mg/dL (0.15-1.2) 12/28/21 09:30 AST 17 U/L (0-32) 12/28/21 09:30 ALT 17 U/L (0-33) 12/28/21 09:30 Alkaline Phosphatase 42 IU/L (35-105) 12/28/21 09:30 Troponin T Baseline 13 ng/L (0-10) H 12/28/21 09:30 Troponin T 120 Minute 13.47 ng/L (0-10) H 12/28/21 11:12 Delta Troponin T 0.47 ABS# (0-10) 12/28/21 11:12 NT-Pro-B Natriuret Pep 48 pg/mL (0-450) 12/28/21 09:30 Total Protein 6.9 g/dL (6.6-8.7) 12/28/21 09:30 Albumin 4.3 g/dL (3.5-5.2) 12/28/21 09:30 Globulin 2.6 g/dL (1.3-4.6) 12/28/21 09:30 Vitamin B12 426 pg/mL (232-1245) 12/28/21 09:30 Procalcitonin 0.13 ng/mL (0-0.5) 12/28/21 09:30 TSH 1.97 uIU/mL (0.27-4.20) 12/28/21 09:30 Urine Color Yellow (Yellow) 12/28/21 10:11 Urine Appearance Clear (CLEAR) 12/28/21 10:11 Urine pH 9 (5-7) H 12/28/21 10:11 Ur Specific [place] 1.015 (1.005-1.030) 12/28/21 10:11 Urine Protein Neg (Negative) 12/28/21 10:11 Urine Glucose (UA) Norm (Normal) 12/28/21 10:11 Urine Ketones Negative (Negative) 12/28/21 10:11 Urine Blood Neg (Negative) 12/28/21 10:11 Urine Nitrate Negative (Negative) 12/28/21 10:11 Urine Bilirubin Neg (Negative) 12/28/21 10:11 Prot Sulfosalicylic Acd Negative (Negative) 12/28/21 10:11 Urine Urobilinogen Norm mg/dL (Negative) 12/28/21 10:11 Ur Leukocyte Esterase Negative (Negative) 12/28/21 10:11 Discharge Plan Discharge Patient Disposition: Admitted As Inpatient Admit Provider: Micaela Pickard Clinical Impression: Generalized weakness Condition: Stable Coding Level of Care Code ED Business Account Executive for Chg Fwd Exam Comprehensive
--- NOTE | 2021-12-28 09:33 | PC.NURSE ---
EKG done at 0930 and shown to ER doctor
[2021-12-28 09:40] LABS: Basophils % 0.5 %; Eosinophils # 0.1 10^3/uL (0.0-0.8); Eosinophils % 0.8 %; Hematocrit 38.1 % (37.0-47.0); Hemoglobin 12.9 g/dL (11.5-15.3); Lymphocytes # 2.4 10^3/uL (0.8-4.8); Lymphocytes % 27.1 %; Mean Corpuscular HGB Conc 33.9 g/dL (30.0-36.0); Mean Corpuscular Hemoglobin 27.2 pg (28.0-34.0); Mean Corpuscular Volume 80.2 fl (81-99); Mean Platelet Volume 10.4 fL (7.4-10.4); Monocytes # 0.7 10^3/uL (0.2-0.9); Monocytes % 7.6 %; Neutrophils # 5.55 10^3/uL (1.8-7.7); Neutrophils % 63.9 %; Nucleated Red Blood Cells % 0 %; Platelet Count 272 10^3/cmm (130-400); Red Blood Count 4.75 10^6/uL (4.1-5.3); Red Cell Distribution Width 13.9 % (12.1-15.1); White Blood Count 8.7 10^3/uL (4.0-10.0)
--- NOTE | 2021-12-28 10:01 | PC.PHAR ---
pt and pts family verified pts medications-pts family states the pt is not taking bupropion sr 100mg qam filled on 12/23/21 30d/s-donepezil 10mg daily filled 11/22/21 90d/s,buspar 5mg 2.5-5mg po q6h prn filled 12/01/21,memantine 10mg bid filled 11/02/21 90d/s, or oxybutynin 5mg daily filled 10/29/21 30d/s-notes are made in the pharmacy comments
[2021-12-28 10:04] LABS: Troponin(5th) Baseline 13 ng/L (0-10)
[2021-12-28 10:13] LABS: Alanine Aminotransferase 17 U/L (0-33); Albumin Level 4.3 g/dL (3.5-5.2); Alkaline Phosphatase 42 IU/L (35-105); Anion Gap 17.9 (5-19); Aspartate Amino Transferase 17 U/L (0-32); Blood Urea Nitrogen 13 mg/dL (8-23); Calcium 9.8 mg/dL (8.5-10.5); Carbon Dioxide 23 mmol/L (22-29); Chloride 99 mmol/L (98-107); Globulin 2.6 g/dL (1.3-4.6); Glucose 95 mg/dL (65-115); NT Pro B Type Natriuretic Pept 48 pg/mL (0-450); Osmolality Calculated 282 mOsm/kg (285-295); Potassium 3.9 mmol/L (3.5-5.1); Sodium 136 mmol/L (136-145); Total Bilirubin 0.3 mg/dL (0.15-1.2); Total Protein 6.9 g/dL (6.6-8.7)
[2021-12-28 10:18] LABS: Add Urine Microscopic? NO; Charge for UA Resulting for Rev
[2021-12-28 10:54] LABS: Bilirubin Urine Neg (Negative); Blood Urine Neg (Negative); Glucose Urine UA Norm (Normal); Ketones Urine Negative (Negative); Leukocyte Esterase Urine Negative (Negative); Nitrate Urine Negative (Negative); Protein Urine Neg (Negative); Specific Gravity, Urine 1.015 (1.005-1.030); Sulfosalicylic Acid Urine Negative (Negative); Urine Appearance Clear (CLEAR); Urine Color Yellow (Yellow); Urobilinogen Urine Norm (Negative); pH Urine 9 (5-7)
--- NOTE | 2021-12-28 11:17 | ECG_ITS ---
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 Measurements Intervals [place] Rate: 67 P: 48 CO: 205 QRS: 29 QRSD: 84 T: 67 QT: 396 QTc: 419 Interpretive Statements SINUS RHYTHM LOW QRS VOLTAGE IN PRECORDIAL LEADS [QRS DEFLECTION < 1.0 mV IN CHEST LEADS] POSSIBLE ANTERIOR MYOCARDIAL INFARCTION , PROBABLY OLD [30 ms Q WAVE IN V3/V4, OR R < 0.2 mV IN V4] Compared to ECG 12/28/2021 09:29:03 Myocardial infarct finding now present First degree AV block no longer present Electronically Signed On 12-28-2021 19:45:47 CDT by Juana Kaplan M.D. [id number]
--- NOTE | 2021-12-28 11:22 | PC.NURSE ---
EKG done at 1115 and shown to ER doctor
[2021-12-28 11:40] LABS: Troponin 5 2HR 13.47 ng/L (0-10)
[2021-12-28 11:41] LABS: Troponin 5 2HR Delta 0.47 ABS# (0-10)
--- NOTE | 2021-12-28 12:24 | PM.HP ---
Providers/Chief Complaint Primary Care Provider: Patric Martinez MD Chief Complaint: Weakness, Cannot walk History of Present Illness Aarti Melchor is a 81 year old female who has recently changed her PCP because she was not happy with the antidepressant medications related side effects, was scheduled to see Dr. Dempsey for hiatal hernia upper GI endoscopy, presented from Dr. Wong's clinic for chief complaint generalized weakness and lethargy. Daughter is at the bedside who is stating that her mother is very active about 2 months ago she would outrun her anytime of the day. She is considered very active for her age but this has changed in last 2 months. She has not noticed any strokelike symptoms, chest pain, shortness of breath, diarrhea, dysuria. Patient is stating that she was never told she has moderate peripheral vascular disease she has had multiple admissions and investigations for her generalized weakness and lethargy in the last 2 months. She feels extremely cold especially when others are feeling fine even in December she is using centralized heating at home. Patient is stating that she was on dementia medications which were discontinued by Dr. Martinez 2 months ago because of diarrhea and since then she has been feeling extremely fatigued and lethargic. Her TSH has been fine. 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% grade 1 diastolic dysfunction EF 75% Recent Doppler showed less than 50% stenosis January 2021 she was diagnosed with moderate peripheral arterial disease however patient is not endorsing resting or exertional pain of her legs She does endorse heaviness in her head however she would not call her headache, no runny nose or runny eyes, she is denying deafness but endorsing tinnitus No recent travel No tick bite No skin rash No signs of fever No previous diagnosis of HIV or hepatitis She does have advanced degenerative changes cervical spine C4-C6 She also has hiatal hernia Review of Systems Const: Reports: body aches, fatigue, malaise and daytime sleepiness Eyes: Denies: change in vision ENMT: Denies: throat pain Card: Denies: chest pain Resp: Denies: dyspnea GI: Reports: diarrhea : Denies: flank pain Musc: Denies: neck pain Skin/Breast: Denies: rash Neuro: Denies: headache(s) Psych: Denies: anxiety Endo: Reports: cold intolerance; Denies: polyuria Rafi/Lymph: Denies: easy bruising All/Imm: Denies: urticaria Medications/Allergies Home Medications Medication Instructions Recorded Confirmed Last Taken Type aspirin 325 mg tablet 325 mg PO DAILY tab 11/11/21 12/28/21 Unknown History calcium citrate 315 mg 1 tab PO DAILY 11/11/21 12/28/21 Unknown History calcium-vitamin D3 6.25 mcg (250 unit) tablet (Citracal + Vitamin D Maximum) cholecalciferol (vitamin D3) 25 25 mcg PO DAILY 11/11/21 12/28/21 Unknown History mcg (1,000 unit) capsule loperamide 2 mg tablet 2 mg PO Q6H PRN 11/11/21 12/28/21 Unknown History (Anti-Diarrheal (loperamide)) enalapril maleate 2.5 mg tablet 2.5 mg PO BID #60 tab 11/27/21 12/28/21 Unknown Rx (Vasotec) pantoprazole 40 mg tablet,delayed 40 mg PO DAILY #30 tab 12/02/21 12/28/21 Unknown Rx release (Protonix) hydralazine 10 mg tablet 10 mg PO TID #90 tab 12/08/21 12/28/21 Unknown Rx pravastatin 80 mg tablet 80 mg PO QDAY 90 Days #90 tab 12/22/21 12/28/21 Unknown Rx sodium chloride 1 gram tablet 1,000 mg PO DAILY #30 tab 12/23/21 12/28/21 Unknown Rx amlodipine 2.5 mg tablet 2.5 mg PO DAILY 12/28/21 12/28/21 Unknown History famotidine 40 mg tablet 40 mg PO BID 12/28/21 12/28/21 Unknown History metoprolol succinate 25 mg 12.5 mg PO DAILY PRN 12/28/21 12/28/21 Unknown History tablet,extended release 24 hr vit C 30 mg-s.steven 250 mg-celery 1 cap PO DAILY 12/28/21 12/28/21 Unknown History seed 75 mg-grape seed extrt capsule (Tart Steven) Allergies Allergy/AdvReac Type Severity Reaction Status Date / Time Sulfa (Sulfonamide Allergy feels Verified 12/28/21 09:54 Antibiotics) strange all over morphine AdvReac ADR-Nausea Verified 12/28/21 09:54 PFSH Acute PFSH: Medical History Anxiety about health Aortic valve regurgitation Carotid artery stenosis, asymptomatic Dementia Frequent headaches Heart disease Hiatal hernia with GERD History of nonmelanoma skin cancer Hypertension Incomplete bladder emptying Mitral valve disease Recurrent UTI Surgical History H/O colonoscopy 2015 H/O esophagogastroduodenoscopy 2015 H/O neck surgery H/O: hysterectomy Hx of cholecystectomy Previous back surgery Family History Father , in his 70's Cancer CAD (coronary artery disease) Brother CAD (coronary artery disease) Mother , at age 79 Heart disease Other Diabetes Hypertension Denies family history of Anesthesia complication Bleeding disorder Social History Smoking and tobacco status: never smoked Alcohol intake: never Adopted: No Caregiver/support person: No Lives independently: No Marital status: / Current occupational status: retired History of recent travel: No Current gender identity: Female Vitals/I&O/Wt Last Vital Signs Pulse 76 12/28/21 08:39 Resp 18 12/28/21 08:39 BP 167/77 12/28/21 08:39 Pulse Ox 99 12/28/21 08:39 Weight last 48 hrs Weight 53.977 kg Physical Exam Narrative: Very pleasant cooperative female NIH 0 Hand pad machine feeder bilaterally is weak Otherwise no active signs of focal deficit EOMI, PERRLA S1, S2 Hemodynamically stable Heart rate is in 80s Looks euvolemic No ptosis No carotid bruit Abdomen soft Lower extremity no edema Good strength of lower extremities No signs of ulcers Data : 12/28/21 09:30 12/28/21 09:30 A&P Assessment and plan (1) Generalized weakness: Status: Acute (2) Dementia: Status: Acute (3) Frequent headaches: Status: Acute (4) Hypertension: Status: Acute (5) Hiatal hernia with GERD: Status: Acute (6) Anxiety about health: Status: Acute (7) Fatigue: Status: Acute (8) PAD (peripheral artery disease): Status: Acute Plan Gradual decline in functional status Generalized weakness Check B12 and TSH Carotid Doppler showed less than 50% stenosis She is not endorsing resting or exertional pain of her legs Cold intolerance, no signs of UTI Her symptoms correlate with discontinuation of Alzheimer's medication patient is stating that she would like to a trial of donepezil and memantine, I will request PT evaluation Admit as observation She looks euvolemic She takes salt tablets at home currently sodium level is normal Sinus bradycardia with first-degree AV block noted on previous EKGs on 11/22 currently heart rate is in 80s registered nurse cardiac telemetry for now plan to discharge her on event monitor She takes enalapril, hydralazine and amlodipine for now systolic blood pressure 125 diastolic 65 mmhg avoid beta-sundar for first-degree AV block No tick bite No recent travel Attestations Medical Necessity Statement*: Discharge in less than 48 hours will need work-up for generalized weakness Time Spent in Patient Care: 45 Coding Level of Care Code Acute Ultrasound Manager for Chg Fwd Diagnoses Generalized weakness R53.1 Dementia F03.90 Frequent headaches R51.9 Hypertension I10 Hiatal hernia with GERD K44.9; K21.9 Anxiety about health F41.8 Fatigue R53.83 PAD (peripheral artery disease) I73.9
[2021-12-28 12:32] VITALS: BP 113/66; PULSE 69; RESP 19; O2SAT 95
[2021-12-28 13:23] LABS: Ammonia 17 umol/L (11-51)
[2021-12-28 13:40] LABS: Procalcitonin 0.13 ng/mL (0-0.5); Thyroid Stimulating Hormone 1.97 uIU/mL (0.27-4.20); Vitamin B12 426 pg/mL (232-1245)
--- NOTE | 2021-12-28 15:17 | ECG_ITS ---
[facility] Test Date: 2021-12-28 Pat Name: Aarti Melchor Department: Room: Gender: Female Horse Race Timer: : 1940 Requested By: Marita Baez Order Number: [id number] Mita MD: Juana Kaplan M.D. Measurements Intervals [place] Rate: 79 P: 62 TX: 198 QRS: 61 QRSD: 82 T: 61 QT: 357 QTc: 410 Interpretive Statements SINUS RHYTHM LOW QRS VOLTAGE IN PRECORDIAL LEADS [QRS DEFLECTION < 1.0 mV IN CHEST LEADS] POSSIBLE ANTERIOR MYOCARDIAL INFARCTION , PROBABLY OLD [30 ms Q WAVE IN V3/V4, OR R < 0.2 mV IN V4] Compared to ECG 12/28/2021 10:16:24 No significant changes Electronically Signed On 12-28-2021 19:46:51 CDT by Juana Kaplan M.D. [email or web address]
[2021-12-28 16:02] VITALS: BP 114/70; PULSE 80; RESP 18; O2SAT 96
[2021-12-28 16:15] LABS: Troponin 5 6HR 14.81 ng/L (0-10)
[2021-12-28 16:33] LABS: Troponin 5 6HR Delta 1.81 ng/L (0-12)
[2021-12-28 16:41] VITALS: BMI 23.2
[2021-12-28] MEDS: enoxaparin 40 mg/0.4 mL Syringe SUBCUT (17:23)
[2021-12-28] MEDS: memantine 5 mg tablet PO (17:24)
[2021-12-28 18:04] LABS: Magnesium 2.1 mg/dL (1.7-2.3); Phosphorus 2.8 mg/dL (2.5-4.5)
[2021-12-28 18:16] VITALS: PULSE 65; RESP 18; O2SAT 95
[2021-12-28 20:00] VITALS: BP 143/74; PULSE 78; RESP 17; TEMP 36.8; O2SAT 97
[2021-12-28] MEDS: hyDROXYzine 25 mg Capsule PO (20:27)
[2021-12-28] MEDS: donepezil 5 MG Tablet PO (21:21)
[2021-12-29] VITALS: BP 107/59; PULSE 67; RESP 17; TEMP 36.4; O2SAT 97
[2021-12-29 04:00] VITALS: BP 125/75; PULSE 70; RESP 17; TEMP 36.6; O2SAT 97
[2021-12-29 05:37] LABS: Basophils # 0.1 10^3/uL (0.0-0.1); Basophils % 0.7 %; Eosinophils # 0.2 10^3/uL (0.0-0.8); Hemoglobin 12.1 g/dL (11.5-15.3); Lymphocytes % 36.8 %; Mean Corpuscular HGB Conc 31.8 g/dL (30.0-36.0); Mean Corpuscular Hemoglobin 26.5 pg (28.0-34.0); Mean Corpuscular Volume 83.2 fl (81-99); Mean Platelet Volume 10.3 fL (7.4-10.4); Monocytes # 0.7 10^3/uL (0.2-0.9); Monocytes % 8.7 %; Neutrophils # 4.19 10^3/uL (1.8-7.7); Neutrophils % 51.6 %; Nucleated Red Blood Cells % 0 %; Platelet Count 240 10^3/cmm (130-400); Red Blood Count 4.57 10^6/uL (4.1-5.3); Red Cell Distribution Width 14.2 % (12.1-15.1); White Blood Count 8.1 10^3/uL (4.0-10.0)
[2021-12-29 06:01] LABS: Blood Urea Nitrogen 12 mg/dL (8-23); Carbon Dioxide 21 mmol/L (22-29); Chloride 100 mmol/L (98-107); Glucose 105 mg/dL (65-115); Osmolality Calculated 276 mOsm/kg (285-295); Sodium 133 mmol/L (136-145)
[2021-12-29 07:25] LABS: Glucose Point of Care 98 mg/dL (70-110)
[2021-12-29 07:52] VITALS: BP 123/73; PULSE 69; RESP 16; TEMP 37; O2SAT 97
--- NOTE | 2021-12-29 09:30 | FL_ITS ---
WS: [id number] UPPER GI TECHNICAL: Single contrast upper GI. Limited examination performed due to patient's condition and dif ficulty standing for prolonged periods FLUOROSCOPY TIME: 1min [id number] # of spot films: 10 CLINICAL INFORMATION: hiatal hernia COMPARISON: 2018 FINDINGS: Swallowing: Normal oropharyngeal phase. No aspiration. Esophagus: Mild esophageal dysmotility. Mild reflux esophagitis distal esophagus. No high-grade stric ture. Moderate partially reducible reducible esophageal hiatal hernia similar to 2018. Gastroesophageal reflux: Moderate reflux in the supine position. Stomach: Normal stomach emptying. Gastritis. Duodenum: Normal duodenal C-loop. Other findings: Partially visualized postoperative changes in the lumbar spine. Thoracic kyphosis. FL/MS upper GI series [id number] IMPRESSION: 1. Mild esophageal dysmotility with reflux esophagitis in the distal esophagus . 2. Moderate partially reducible reducible esophageal hiatal hernia with modera te reflux in the supine position. 3. No evidence of high-grade stricture or obstructing mass. 4. Normal stomach emptying and duodenal C-loop. 5. Gastritis visualized in the stomach with rugal fold thickening.
--- NOTE | 2021-12-29 10:25 | PC.CHAP ---
Pastoral Care Encounter/Spiritual Assessment Type of Contact [] Declined pack master visit [] Patient/Family/Request visit [] Outpatient visit [] Follow-up visit [] Physician referral [] Code/Alert [x] Routine visit [] Staff referral [] Actively dying [] Patient sleeping [] Family support [] [] Out of room [] Palliative care [] [] Receiving care in room [] Pre-surgical visit [] Trauma [] Long length of stay [] ICU visit [] Other: Relational/Emotional Strength [] Patient feels connected with others/family/visitors/staff [] Distress [] Loneliness/isolation [] Abandonment Spirituality of Patient [x] Person of Rossy [] Attends Orthodoxy of their Rossy [x] Believes in Prayer [] Reads Bible or Cheondoism materials [] There are Spiritual issues to be addressed Cheese Supervisor Interventions [x] Prayer [x] Active listening [x] Non-anxious presence [] Spiritual/emotional support [] Crisis/trauma care [] Spiritual counseling [] Bereavement support [] Provided bereavement packet [] Provided Bible/devotional materials [] Provided toy/stuffed animal, coloring book to patient or family member [] Provided Communion [] Anointing/Britton [] Salvation [x] Completed spiritual assessment [] Other: Impact on Illness or Injury [] Angry [] Fearful [] Anxious [] Often cries [] Exhaustion [] Unable to work [] Unable to attend confucianist [] Unable to walk/stand [] Unable to read [] Unable to drive [] Unable to eat/drink [] Unable to sleep [] Unable to be with family [] Patient intubated [] Other: Summary Time spent with patient 10 min
[2021-12-29] MEDS: pantoprazole DR 40 mg Tablet PO (10:27)
[2021-12-29] MEDS: memantine 5 mg tablet PO (10:27)
[2021-12-29] MEDS: aspirin 325 mg Tablet PO (10:27)
[2021-12-29] MEDS: sodium chloride 1 gm Tablet PO (10:27)
[2021-12-29] MEDS: loperamide 2 mg Capsule PO (11:29)
--- NOTE | 2021-12-29 11:56 | PM.PN ---
Subjective Subjective: I did notify the patient that her symptoms could be related to low blood pressure as earlier this year her blood pressure was ranging between 1 30-1 40s and now it is staying between 110-1 20s Currently she is only getting enalapril once a day She started getting diarrhea again with initiation of donepezil and memantine Which I have discontinued Upper GI series study done Patient is still feeling weak, PT evaluation today Vitals/I&O/Wt Last Vital Signs Temp 98.6 F 12/29/21 07:52 Pulse 69 12/29/21 07:52 Resp 16 12/29/21 07:52 BP 123/73 12/29/21 07:52 Pulse Ox 97 12/29/21 07:52 12/28/21 12/29/21 12/29/21 22:59 06:59 14:59 Intake Total 300 / 300 Balance 300 / 300 Weight last 48 hrs Weight 53.977 kg Weight 53.977 kg Physical Exam Narrative: Nonfocal neuro exam Patient is comfortable in her bed Abdomen soft Euvolemic Normotensive Abdomen is soft Saturating well on room air EOMI, PERRLA Data : 12/29/21 05:20 12/29/21 05:20 A&P Assessment and plan (1) Generalized weakness: Status: Acute (2) Dementia: Status: Acute (3) Frequent headaches: Status: Acute (4) Hypertension: Status: Acute (5) Hiatal hernia with GERD: Status: Acute (6) Anxiety about health: Status: Acute (7) Fatigue: Status: Acute (8) PAD (peripheral artery disease): Status: Acute (9) Acid reflux disease: Status: Acute Plan Generalized weakness I do believe patient would benefit from a blood pressure range of 130s to 140s We should avoid aggressive antihypertensive regimen I have discontinued her hydralazine, amlodipine and only Enalapril once a day I did convey my findings to the patient and she somewhat agreed We will follow-up with upper GI series she has hiatal hernia Continue Protonix PT evaluation today and planning to discharge her tomorrow She seems to be very anxious, would recommend outpatient psych eval for possible generalized anxiety disorder Patient full code I would hold her memantine and donepezil as she started having diarrhea again Continue salt tablets DVT prophylaxis Lovenox For her diarrhea check C. difficile and then use loperamide once C. difficile ruled out Attestations Medical Necessity Statement*: Discharge tomorrow Time Spent in Patient Care: 30 Coding Level of Care Code Acute Nut Dehydrator Operator for Chg Fwd Diagnoses Generalized weakness R53.1 Dementia F03.90 Frequent headaches R51.9 Hypertension I10 Hiatal hernia with GERD K44.9; K21.9 Anxiety about health F41.8 Fatigue R53.83 PAD (peripheral artery disease) I73.9 Acid reflux disease K21.9
[2021-12-29 12:00] VITALS: BP 127/74; PULSE 67; RESP 16; TEMP 36.9; O2SAT 94
[2021-12-29 16:00] VITALS: BP 134/67; PULSE 67; RESP 16; TEMP 36.7; O2SAT 98
[2021-12-29] MEDS: enoxaparin 40 mg/0.4 mL Syringe SUBCUT (17:25)
[2021-12-29 20:00] VITALS: BP 134/67; PULSE 78; RESP 18; TEMP 36.6; O2SAT 95
[2021-12-29] MEDS: LORazepam 0.5 mg Tablet 0.25 MG PO (20:15)
[2021-12-30] VITALS: BP 125/69; PULSE 68; RESP 16; TEMP 36.9; O2SAT 98
[2021-12-30 04:00] VITALS: BP 126/75; PULSE 74; RESP 18; TEMP 36.8; O2SAT 95
[2021-12-30 05:04] LABS: Anion Gap 14.1 (5-19); Blood Urea Nitrogen 15 mg/dL (8-23); Calcium 8.4 mg/dL (8.5-10.5); Carbon Dioxide 21 mmol/L (22-29); Chloride 105 mmol/L (98-107); Glucose 112 mg/dL (65-115); Osmolality Calculated 284 mOsm/kg (285-295); Potassium 4.1 mmol/L (3.5-5.1); Sodium 136 mmol/L (136-145)
[2021-12-30 07:05] VITALS: BP 136/79; PULSE 64; RESP 16; O2SAT 97
[2021-12-30] MEDS: sodium chloride 1 gm Tablet PO (08:44)
[2021-12-30] MEDS: aspirin 325 mg Tablet PO (08:44)
[2021-12-30] MEDS: pantoprazole DR 40 mg Tablet PO (08:44)
[2021-12-30] MEDS: LORazepam 0.5 mg Tablet 0.25 MG PO (08:44)
[2021-12-30 10:00] VITALS: PULSE 82; RESP 18; O2SAT 96
[2021-12-30 11:11] VITALS: BP 123/62; PULSE 62; RESP 16; O2SAT 96
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
== END 2021-12-30 12:56 | disposition home or self-care (01) ==
LOC: ER 12:30 → MEDSURG 15:49
PROVIDERS: Admitting Provider Internal Medicine; Emergency Provider Physician Assistant; PCP Family Medicine Adult Medicine; Visit Provider Internal Medicine
DX: R53.1 Weakness (principal); F03.90 Unspecified dementia, unspecified severity, without behavioral disturbance, psychotic disturbance, mood disturbance, and anxiety; R51.9 Headache, unspecified; I10 Essential (primary) hypertension; K44.9 Diaphragmatic hernia without obstruction or gangrene; K21.9 Gastro-esophageal reflux disease without esophagitis; F41.8 Other specified anxiety disorders; R53.83 Other fatigue; I73.9 Peripheral vascular disease, unspecified; I25.10 Atherosclerotic heart disease of native coronary artery without angina pectoris; R00.1 Bradycardia, unspecified; I44.0 Atrioventricular block, first degree
CPT/HCPCS: 36415; 36416; 70450; 71045; 74240; 80048; 80053; 81003; 82140; 82607; 82962; 83735; 83880; 84100; 84145; 84443; 84484; 85025; 86140; 93005; 96372; 99285; G0378; J1650

== ENCOUNTER 2022-01-04 08:50 | Outpatient (CLI) | payer MEDICARE, OTHER, SELFPAY ==
--- NOTE | 2022-01-04 09:15 | USCV_ITS ---
Aarti Melchor Age: 81 Gender: F : 1940 Exam Date: 01/04/2022 09:30 Ordering Phys: Therese Gorman Technologist: Exam Location: [facility] [place] Indication: weakness dizzy BP: 180 / 100 HR: 72 Rhythm: Sinus Technical Quality: Adequate MEASUREMENTS (Male / Female) Normal Values 2D ECHO LV Diastolic Diameter PLAX 3.5 cm 4.2 - 5.9 / 3.9 - 5.3 cm LV Systolic Diameter PLAX 2.3 cm IVS Diastolic Thickness 1.0 cm 0.6 - 1.0 / 0.6 - 0.9 cm IVS Systolic Thickness 1.1 cm LVPW Diastolic Thickness 1.2 cm 0.6 - 1.0 / 0.6 - 0.9 cm LVPW Systolic Thickness 1.2 cm LVOT Diameter 2.0 cm LV Ejection Fraction 2D Teich 66.3 % LV Ejection Fraction MOD 2C 72.4 % LV Ejection Fraction 2C AL 71.1 % LA Diameter 2.9 cm Aorta at Sinotubular Diameter 2.5 cm IVC Diameter 1.7 cm M-MODE Aortic Annulus Diameter 2.5 cm LA Ao Ratio MM 1.3 DOPPLER AV Peak Velocity 127.0 cm/s LVOT Peak Velocity 96.0 cm/s AV Area Cont Eq vti 2.3 cm squared AV Area Cont Eq pk 2.3 cm squared MV Area PHT 5.0 cm squared Mitral E to A Ratio 0.6 MV E' Velocity 38.0 cm/s Mitral E to MV E' Ratio 9.2 Mitral E to LV E' Lateral Ratio 11.6 Mitral E to LV E' Septal Ratio 7.7 TR Peak Velocity 191.0 cm/s TR Peak Gradient 14.6 mmHg TV Peak E Velocity 88.0 cm/s Right Atrial Pressure 3.0 mmHg Pulmonary Artery Systolic Pressu 17.6 mmHg PV Peak Velocity 84.0 cm/s FINDINGS Left Ventricle Normal left ventricular size and systolic function, EF 67 %. No regional wall motion abnormalities.mild left ventricular hypertrophy. Grade I/IV diastolic dysfunction (abnormal relaxation filling pattern), normal to mildly elevated filling pressures. Right Ventricle The right ventricle is normal in size and function. Right Atrium The right atrium is normal in size. Left Atrium The left atrium is normal in size. Mitral Valve Thickened mitral valve. Mild mitral annular calcification. Aortic Valve Thickened aortic valve. Trace aortic valve regurgitation. Tricuspid Valve Trace tricuspid valve regurgitation. Estimated pulmonary artery peak systolic pressure 18 mmHg Pulmonic Valve Pulmonic valve not well visualized. Pericardium Normal pericardium without effusion. Aorta Dense plaques in the ascending aorta IVC The inferior vena cava pulmonary and hepatic veins appear normal. CONCLUSIONS Normal left ventricular size and systolic function, EF 67 %. No regional wall motion abnormalities.mild left ventricular hypertrophy. Grade I/IV diastolic dysfunction (abnormal relaxation filling pattern), normal to mildly elevated filling pressures. Thickened mitral valve. Mild mitral annular calcification. Thickened aortic valve. Trace aortic valve regurgitation. Trace tricuspid valve regurgitation. Estimated pulmonary artery peak systolic pressure 18 mmHg. There is no pericardial effusion. There are no intracardiac masses. Compared to the study from 10/29/2019, there may not be a significant change Dr Juana Kaplan MD [facility] (Electronically Signed) Final Date: 05 January 2022 06:13 S
== END 2022-01-04 08:51 | disposition home or self-care (01) ==
LOC: RAD 08:51
PROVIDERS: PCP Family Medicine Adult Medicine; Visit Provider Nurse Practitioner Family
DX: I08.3 Combined rheumatic disorders of mitral, aortic and tricuspid valves (principal)
CPT/HCPCS: 93306

== ENCOUNTER 2022-01-06 10:11 | Emergency (ER) | payer MEDICARE, OTHER, SELFPAY ==
[2022-01-06 10:45] VITALS: BP 171/91; PULSE 70; RESP 16; TEMP 36.7; O2SAT 99; BMI 21.5
--- NOTE | 2022-01-06 11:02 | ED_ITS ---
HPI - Weakness General: Chief complaint: Weakness Stated complaint: Weakness Time Seen by Provider: 01/06/22 10:20 Source: patient and family Mode of arrival: ambulatory Limitations: no limitations History of Present Illness: Patient is an 81-year-old female presents to ED today along with her son-in-law for complaints of generalized weakness. This has been an ongoing issue for patient over the last several months. I personally saw her on her last ED visit recently and admitted her to the hospital. She was discharged approximately a week ago. Patient states she had follow-up with her neurologist in [place] yesterday who put her back on a low-dose of her Namenda (this was discontinued while in hospital). She has not had any follow-up with primary care. She was also discharged home with a prescription for lorazepam. They also did some adjustments to her blood pressure medications. Patient states her blood pressures at home have been running 150s/60s. States she has been ambulating and fulfilling ADLs at home which seems to be an improvement since the last time I saw her. Patient's daughter, Courtney, was contacted via phone. She has POA over patient. She feels a lot of patient's symptoms are related to her dementia and anxiety. Daughter states the lorazepam was working well however patient read the side effects of label and began fixating on this blaming the medication for all of her symptoms. MD Complaint: generalized weakness Duration: constant Location: generalized Context: other (recent hospitalization for same) Associated symptoms: Denies chest pain, chills, fever(s), headache(s), syncope or vomiting Review of Systems Const: Denies: fever(s), chills, body aches, fatigue or malaise Eyes: Denies: change in vision or blurry vision Card: Denies: chest pain, palpitations, irregular heart rhythm, edema, swelling of feet/ankles, lightheadedness, syncope, pre-syncope or dyspnea on ex ertion Resp: Denies: dyspnea GI: Denies: abdominal pain, vomiting or diarrhea Musc: Denies: neck pain, back pain, extremity pain or joint pain Skin/Breast: Denies: rash Neuro: Reports: other (reports weakness, shakiness); Denies: headache(s), numbness in extremities, weakness in extremities, sensory changes or dizziness Psych: Reports: anxiety PFSH ED PFSH: Medical History Acid reflux disease Anxiety about health Aortic valve regurgitation Carotid artery stenosis, asymptomatic Dementia Fatigue Frequent headaches Heart disease Hiatal hernia with GERD History of nonmelanoma skin cancer Hypertension Hyponatremia Incomplete bladder emptying Mitral valve disease PAD (peripheral artery disease) Recurrent UTI Surgical History H/O colonoscopy 2015 H/O esophagogastroduodenoscopy 2015 H/O neck surgery H/O: hysterectomy Hx of cholecystectomy Previous back surgery Family History Father , in his 70's Cancer CAD (coronary artery disease) Brother CAD (coronary artery disease) Mother , at age 79 Heart disease Other Diabetes Hypertension Denies family history of Anesthesia complication Bleeding disorder Social History Smoking and tobacco status: never smoked Alcohol intake: never Adopted: No Caregiver/support person: No Lives independently: No Marital status: / Current occupational status: retired History of recent travel: No Current gender identity: Female Physical Exam Const: COMMON NORMALS: no acute distress, average body habitus, patient oriented x3, no limitations, healthy appearing, alert and well nourished GENERAL APPEARANCE: cooperative ORIENTATION/CONSCIOUSNESS: Yes awake, Yes oriented to person, Yes oriented to place and Yes oriented to time HENMT: COMMON NORMALS: normocephalic and atraumatic HEAD & SCALP: normal to inspection, normocephalic and atraumatic Resp: COMMON NORMALS: normal respiratory effort and clear to auscultation bilaterally AUSCULTATION: clear to auscultation bilaterally Cardio: COMMON NORMALS: regular rate and regular rhythm RATE: regular rate RHYTHM: regular rhythm GI: COMMON NORMALS: Normal to inspection, nondistended, normoactive bowel sounds present, Soft to palpation and non-tender PALPATION: Yes Soft to palpation Extremity: COMMON NORMALS: normal to inspection GENERAL: Yes normal exam except as noted Neuro: MADHU COMA SCALE: document GCS findings Madhu coma scale eye opening: Spontaneous [place] coma scale verbal response: Orientated [place] coma scale motor response: Obey commands Madhu coma scale total score: 15 COMMON NORMALS: patient oriented x3, CN's II-XII intact bilaterally, moves all extremities, no focal motor deficits and no sensory deficits noted SENSORIUM/ORIENTATION: Yes alert, Yes oriented to person, Yes oriented to place and Yes oriented to time Skin: COMMON NORMALS: no rashes or lesions noted GENERAL SKIN EXAM: no rashes or lesions noted Course Vital Signs: Vital signs: Vital Signs Temperature 98.1 F 01/06/22 10:45 Pulse Rate 70 01/06/22 10:45 Respiratory Rate 16 01/06/22 10:45 Blood Pressure 171/91 01/06/22 10:45 Pulse Oximetry 99 01/06/22 10:45 MDM - Weakness Medical Decision Making Patient is an 81-year-old female here for generalized weakness. Blood pressure upon repeat examination and upon discharge is 120s/70s. No intervention was given during her ED stay for this. Blood work overall is unremarkable. She has chronic hyponatremia. Daughter states she does have an appointment with endo crinology to follow-up regarding this. Certainly think there is a large component of anxiety/dementia to patient's symptomology. Daughter states she was doing really well while she was on her Namenda and Ativan prescribed upon discharge from the hospital. Her Namenda unfortunately was continued while in the hospital. She was restarted on this medication by her neurologist yesterday. According to daughter patient had googled lorazepam side effects and had convinced herself all of her symptoms were related to this medication however daughter states all of the symptoms were present even before starting the medication. 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 Have contacted [facility] and they stated they would recommend patient come for a walk-in assessment that they can assess need for services and get her set up with a medication provider. I have also placed information with case management so they can get her a sooner appointment with her primary care provider for further evaluation. Recommend continuing following up with her neurologist in [place]. Spoken to daughter via phone several times in regards to her mother's care-she is agreeable to current plan. Lab Data : 01/06/22 11:12 01/06/22 11:12 Laboratory Results WBC 8.9 10^3/uL (4.0-10.0) 01/06/22 11:12 RBC 4.55 10^6/uL (4.1-5.3) 01/06/22 11:12 Hgb 12.5 g/dL (11.5-15.3) 01/06/22 11:12 Hct 36.5 % (37.0-47.0) L 01/06/22 11:12 MCV 80.2 fl (81-99) L 01/06/22 11:12 MCH 27.5 pg (28.0-34.0) L 01/06/22 11:12 MCHC 34.2 g/dL (30.0-36.0) 01/06/22 11:12 RDW 14.1 % (12.1-15.1) 01/06/22 11:12 Plt Count 270 10^3/cmm (130-400) 01/06/22 11:12 MPV 10.3 fL (7.4-10.4) 01/06/22 11:12 Neut % (Auto) 60.9 % 01/06/22 11:12 Lymph % (Auto) 29.5 % 01/06/22 11:12 Reynolds % (Auto) 7.9 % 01/06/22 11:12 Eos % (Auto) 0.9 % 01/06/22 11:12 Baso % (Auto) 0.6 % 01/06/22 11:12 Neut # (Auto) 5.43 10^3/uL (1.8-7.7) 01/06/22 11:12 Lymph # (Auto) 2.6 10^3/uL (0.8-4.8) 01/06/22 11:12 Reynolds # (Auto) 0.7 10^3/uL (0.2-0.9) 01/06/22 11:12 Eos # (Auto) 0.1 10^3/uL (0.0-0.8) 01/06/22 11:12 Baso # (Auto) 0.1 10^3/uL (0.0-0.1) 01/06/22 11:12 Nucleated RBC % (auto) 0 % 01/06/22 11:12 Nucleated RBCs # 0.0 /100WBC 01/06/22 11:12 Sodium 130 mmol/L (136-145) L 01/06/22 11:12 Potassium 4.0 mmol/L (3.5-5.1) 01/06/22 11:12 Chloride 96 mmol/L (98-107) L 01/06/22 11:12 Carbon Dioxide 22 mmol/L (22-29) 01/06/22 11:12 Anion Gap 16.0 (5-19) 01/06/22 11:12 BUN 11 mg/dL (8-23) 01/06/22 11:12 Creatinine 0.6 mg/dL (0.5-0.9) 01/06/22 11:12 GFR Calculation Not Reportable 01/06/22 11:12 Glucose 93 mg/dL (65-115) 01/06/22 11:12 Calculated Osmolality 269 mOsm/kg (285-295) L 01/06/22 11:12 Calcium 9.4 mg/dL (8.5-10.5) 01/06/22 11:12 Total Bilirubin 0.4 mg/dL (0.15-1.2) 01/06/22 11:12 AST 16 U/L (0-32) 01/06/22 11:12 ALT 16 U/L (0-33) 01/06/22 11:12 Alkaline Phosphatase 43 IU/L (35-105) 01/06/22 11:12 Total Protein 7.0 g/dL (6.6-8.7) 01/06/22 11:12 Albumin 4.4 g/dL (3.5-5.2) 01/06/22 11:12 Globulin 2.6 g/dL (1.3-4.6) 01/06/22 11:12 Urine Color Yellow (Yellow) 01/06/22 11:10 Urine Appearance Clear (CLEAR) 01/06/22 11:10 Urine pH 7 (5-7) 01/06/22 11:10 Ur Specific [place] 1.005 (1.005-1.030) 01/06/22 11:10 Urine Protein Neg (Negative) 01/06/22 11:10 Urine Glucose (UA) Norm (Normal) 01/06/22 11:10 Urine Ketones Negative (Negative) 01/06/22 11:10 Urine Blood Neg (Negative) 01/06/22 11:10 Urine Nitrate Negative (Negative) 01/06/22 11:10 Urine Bilirubin Neg (Negative) 01/06/22 11:10 Urine Urobilinogen Norm mg/dL (Negative) 01/06/22 11:10 Ur Leukocyte Esterase Negative (Negative) 01/06/22 11:10 Discharge Plan Discharge Patient Disposition: Home Clinical Impression: Generalized weakness, Anxiety Condition: Stable Prescriptions: New lorazepam 0.5 mg tablet 0.25 mg PO Q12H PRN (Reason: anxiety) Qty: 20 0RF No Action aspirin 325 mg tablet 325 mg PO QAM 0RF loperamide [Anti-Diarrheal (loperamide)] 2 mg tablet 2 mg PO Q6H PRN (Reason: Diarrhea) 0RF cholecalciferol (vitamin D3) 25 mcg (1,000 unit) capsule 25 mcg PO DAILY 0RF calcium citrate-vitamin D3 [Citracal + D Maximum] 315 mg-6.25 mcg (250 unit) tablet 1 tab PO DAILY 0RF sodium chloride 1 gram tablet 1,000 mg PO DAILY Qty: 30 0RF pantoprazole [Protonix] 40 mg tablet,delayed release (DR/EC) 40 mg PO DAILY Qty: 30 3RF famotidine 40 mg tablet 40 mg PO BID 0RF Tart Steven [id number] mg Capsule 1 cap PO DAILY 0RF enalapril maleate [Vasotec] 2.5 mg tablet 2.5 mg PO DAILY Qty: 60 0RF memantine 5 mg tablet 5 mg PO BEDTIME 0RF pravastatin 80 mg tablet 80 mg PO DAILY 0RF Discharge Orders: Discharge ED (Routine); Ordered 01/06/22 Ordered By: Marita Baez Referrals: Patric Martinez MD [Primary Care Provider] - Patient Instructions: Opioid Safety Activity Restrictions/Additional Instructions: As we discussed patient can go to [facility] Tuesday-Tuesday from 7:30-3:00 for a walk-in assessment. This will be the fastest way to get her services through them. She may also speak to her primary care provider as well as her neurologist in regards to her anxiety. I will have case management try and get her a sooner appointment with her primary care provider/nurse practitioner. I spoke to patient and she is agreeable at this time to continue the lorazepam for anxiety. Coding Level of Care Code ED Hospitalist Physician for Chg Fwd Exam Comprehensive
[2022-01-06 11:20] LABS: Add Urine Microscopic? NO; Charge for UA Resulting for Rev
[2022-01-06 11:22] LABS: Basophils # 0.1 10^3/uL (0.0-0.1); Basophils % 0.6 %; Eosinophils # 0.1 10^3/uL (0.0-0.8); Eosinophils % 0.9 %; Hematocrit 36.5 % (37.0-47.0); Hemoglobin 12.5 g/dL (11.5-15.3); Lymphocytes # 2.6 10^3/uL (0.8-4.8); Lymphocytes % 29.5 %; Mean Corpuscular HGB Conc 34.2 g/dL (30.0-36.0); Mean Corpuscular Hemoglobin 27.5 pg (28.0-34.0); Mean Corpuscular Volume 80.2 fl (81-99); Mean Platelet Volume 10.3 fL (7.4-10.4); Monocytes # 0.7 10^3/uL (0.2-0.9); Monocytes % 7.9 %; Neutrophils # 5.43 10^3/uL (1.8-7.7); Neutrophils % 60.9 %; Nucleated Red Blood Cells % 0 %; Platelet Count 270 10^3/cmm (130-400); Red Blood Count 4.55 10^6/uL (4.1-5.3); Red Cell Distribution Width 14.1 % (12.1-15.1); White Blood Count 8.9 10^3/uL (4.0-10.0)
[2022-01-06 11:26] LABS: Bilirubin Urine Neg (Negative); Blood Urine Neg (Negative); Glucose Urine UA Norm (Normal); Ketones Urine Negative (Negative); Leukocyte Esterase Urine Negative (Negative); Nitrate Urine Negative (Negative); Protein Urine Neg (Negative); Specific Gravity, Urine 1.005 (1.005-1.030); Urine Appearance Clear (CLEAR); Urine Color Yellow (Yellow); Urobilinogen Urine Norm (Negative); pH Urine 7 (5-7)
[2022-01-06 11:51] LABS: Alanine Aminotransferase 16 U/L (0-33); Albumin Level 4.4 g/dL (3.5-5.2); Alkaline Phosphatase 43 IU/L (35-105); Aspartate Amino Transferase 16 U/L (0-32); Blood Urea Nitrogen 11 mg/dL (8-23); Calcium 9.4 mg/dL (8.5-10.5); Carbon Dioxide 22 mmol/L (22-29); Chloride 96 mmol/L (98-107); Globulin 2.6 g/dL (1.3-4.6); Glucose 93 mg/dL (65-115); Osmolality Calculated 269 mOsm/kg (285-295); Sodium 130 mmol/L (136-145); Total Bilirubin 0.4 mg/dL (0.15-1.2)
--- NOTE | 2022-01-06 11:55 | PC.PHAR ---
PT STATES SHE TAKES CARE OF HER OWN MEDICATIONS-pt states she is not taking lorazepam 0.25mg q12h prn filled 12/30/21 20d/s pt states it makes her loopy-hydralazine 10mg tid filled 12/25/21 30d/s-metoprolol succinate er 12.5mg daily prn filled 11/19/21 60d/s-amlodipine 2.5mg daily filled 12/15/21 90d/s 5mg daily filled 12/09/21 90d/s-bupropion sr 100mg qam filled on 12/23/21 30d/s-donepezil 10mg daily filled 11/22/21 90d/s,buspar 5mg 2.5-5mg po q6h prn filled 12/01/21,memantine 10mg bid filled 11/02/21 90d/s, or oxybutynin 5mg daily filled 10/29/21 30d/s-notes are made in the pharmacy comments
--- NOTE | 2022-01-07 10:07 | PC.SOCIAL ---
F/u Appointment Appointment scheduled with LISA Cardoso tomorrow, 01/08 at 1030. Spoke with patient's daughter Myrna/COTY and updated her of appointment time. She states that she will make it work and get patient to appointment.
== END 2022-01-06 12:17 | disposition home or self-care (01) ==
PROVIDERS: Emergency Provider Physician Assistant; PCP Family Medicine Adult Medicine
DX: R53.1 Weakness (principal); F41.9 Anxiety disorder, unspecified; Z79.82 Long term (current) use of aspirin; F03.90 Unspecified dementia, unspecified severity, without behavioral disturbance, psychotic disturbance, mood disturbance, and anxiety; I10 Essential (primary) hypertension
CPT/HCPCS: 80053; 81003; 85025; 99283

== ENCOUNTER → 2022-01-13 14:03 | Outpatient (BNVA) | payer MEDICARE, OTHER, SELFPAY | PROVIDERS: PCP Family Medicine; Visit Provider Surgery | DX: Z09 Encounter for follow-up examination after completed treatment for conditions other than malignant neoplasm (principal); K21.9 Gastro-esophageal reflux disease without esophagitis | CPT/HCPCS: 99213 ==

== ENCOUNTER → 2022-01-27 13:20 | Outpatient (BNVA) | payer MEDICARE, OTHER, SELFPAY | PROVIDERS: PCP Family Medicine; Visit Provider Surgery | DX: K21.9 Gastro-esophageal reflux disease without esophagitis (principal) | CPT/HCPCS: 99213 ==

== ENCOUNTER 2022-02-15 12:22 | Observation (INO) | payer MEDICARE, OTHER, SELFPAY ==
[2022-02-15] VITALS (9 sets, daily range): BP systolic 118–158; BP diastolic 68–85; PULSE 66–74; RESP 16–20; TEMP 36.5–36.8; O2SAT 92–99; BMI 21.5; BMI 22.0
--- NOTE | 2022-02-15 12:57 | ED_ITS ---
HPI - General Adult General: Chief complaint: Arrhythmia/Palpitations Stated complaint: weakness Time Seen by Provider: 02/15/22 12:53 History of Present Illness: Patient is a 81-year-old female with a history of GERD, dementia, CAD, aortic regurgitation presenting to the emergency room for concerns of generalized weakness, diarrhea palpitation was started at 1147 this morning. Patient tells me that she has been having shortness of breath with body aches all over. Patient denies any sick contact. Patient denies any fever/chills, reports ongoing cough for the last few days. Patient denies any melena/hematochezia. Patient has a radiating abdominal pain from the right upper quadrant to the mid epigastric area. Patient denies any urinary complaints. Onset:1147am Duration:ongoing Location:home Severity:moderate Associated symptoms: Reports dyspnea and malaise; Deny chest pain, nausea, rash, palpitations or vomiting Review of Systems Const: Reports: body aches, fatigue, malaise and other (+generalized weakness); Denies: fever(s) or chills Eyes: Denies: change in vision ENMT: Denies: mouth pain Card: Denies: chest pain or palpitations Resp: Reports: dyspnea; Denies: non-productive cough GI: Reports: abdominal pain (+RUQ abd pain radiating to the midepigastric area) and diarrhea (+loose stools); Denies: nausea or vomiting : Denies: dysuria Musc: Denies: extremity pain Skin/Breast: Denies: rash or new lesions Neuro: Denies: weakness in extremities Psych: Reports: other (Normal mood) Rafi/Lymph: Denies: easy bruising PFSH ED PFSH: Medical History Acid reflux disease Allergic rhinitis due to allergen Anxiety about health Aortic valve regurgitation Bladder spasm Carotid artery stenosis, asymptomatic Dementia Fatigue Frequent headaches Heart disease Hiatal hernia with GERD History of nonmelanoma skin cancer Hypertension Hyponatremia Incomplete bladder emptying Mitral valve disease PAD (peripheral artery disease) Recurrent UTI bladder spasms Surgical History H/O colonoscopy 2016 H/O esophagogastroduodenoscopy 2016 H/O neck surgery H/O: hysterectomy Hx of cholecystectomy Previous back surgery Family History Father , in his 70's Cancer CAD (coronary artery disease) Brother CAD (coronary artery disease) Mother , at age 79 Heart disease Other Diabetes Hypertension Denies family history of Anesthesia complication Bleeding disorder Social History Smoking and tobacco status: never smoked Alcohol intake: never Adopted: No Caregiver/support person: No Lives independently: No Marital status: / Current occupational status: retired History of recent travel: No Current gender identity: Female Physical Exam Const: COMMON NORMALS: alert HENMT: COMMON NORMALS: atraumatic HEAD & SCALP: atraumatic MOUTH: moist mucous membranes not abnormal Eye: COMMON NORMALS: EOMs intact bilaterally and conjunctivae normal CONJUNCTIVA: Yes conjunctivae normal Neck/C-Spine: COMMON NORMALS: full ROM and supple Resp: COMMON NORMALS: normal respiratory effort and clear to auscultation bilaterally AUSCULTATION: clear to auscultation bilaterally Cardio: COMMON NORMALS: regular rate RATE: regular rate GI: COMMON NORMALS: Soft to palpation PALPATION: Yes Soft to palpation OTHER: No focal TTP. NO guarding rebound, guarding, rigidity. No CVA tenderness to percussion. Neg Arias/Neg McBurney's point tenderness, no suprabupic tenderness to palpation. Extremity: COMMON NORMALS: full ROM Neuro: SENSORIUM/ORIENTATION: Yes alert MOTOR EXAM: No Abnormal motor strength present and Other motor observations present (no focal motor deficits) Psych: COMMON NORMALS: speech normal SPEECH: Yes normal speech MOOD & AFFECT: Yes euthymic mood Course Vital Signs: Vital signs: Vital Signs Temperature 98.1 F 02/15/22 12:43 Pulse Rate 73 02/15/22 17:45 Respiratory Rate 18 02/15/22 17:45 Blood Pressure 130/75 02/15/22 17:45 Pulse Oximetry 92 02/15/22 17:45 Oxygen Delivery Me thod 02/15/22 17:45 MDM - General Adult Medical Decision Making 81-year-old female with history of CAD, hypertension, aortic regurgitation presenting to the emergency room for concerns of generalized weakness, diarrhea, palpitation was started at 1147AM. On exam, patient is afebrile. Lungs appears to be clear. No focal abdominal tenderness palpation. Negative for Arias sign. No guarding or rebound tenderness. XR appears to be clear. Troponin x 2 wnl. Patient continues to have intermittent palpitation will observe the emergency room. Patient will admitted to the hospital for further work-up. Disposition: admission Lab Data : 02/15/22 14:25 02/15/22 14:25 Radiology Impressions Chest X-Ray 02/15/22 13:19 IMPRESSION: No acute findings. Laboratory Results WBC 8.3 10^3/uL (4.0-10.0) 02/15/22 14:25 RBC 4.27 10^6/uL (4.1-5.3) 02/15/22 14:25 Hgb 11.6 g/dL (11.5-15.3) 02/15/22 14:25 Hct 38.1 % (37.0-47.0) 02/15/22 14:25 MCV 89.2 fl (81-99) 02/15/22 14:25 MCH 27.2 pg (28.0-34.0) L 02/15/22 14:25 MCHC 30.4 g/dL (30.0-36.0) 02/15/22 14:25 RDW 14.0 % (12.1-15.1) 02/15/22 14:25 Plt Count 235 10^3/cmm (130-400) 02/15/22 14:25 MPV 10.8 fL (7.4-10.4) H 02/15/22 14:25 Neut % (Auto) 59.0 % 02/15/22 14:25 Lymph % (Auto) 30.2 % 02/15/22 14:25 [place] % (Auto) 9.3 % 02/15/22 14:25 Eos % (Auto) 0.6 % 02/15/22 14:25 Baso % (Auto) 0.7 % 02/15/22 14:25 Neut # (Auto) 4.89 10^3/uL (1.8-7.7) 02/15/22 14:25 Lymph # (Auto) 2.5 10^3/uL (0.8-4.8) 02/15/22 14:25 [place] # (Auto) 0.8 10^3/uL (0.2-0.9) 02/15/22 14:25 Eos # (Auto) 0.1 10^3/uL (0.0-0.8) 02/15/22 14:25 Baso # (Auto) 0.1 10^3/uL (0.0-0.1) 02/15/22 14:25 Nucleated RBC % (auto) 0 % 02/15/22 14:25 Nucleated RBCs # 0.0 /100WBC 02/15/22 14:25 Sodium 140 mmol/L (136-145) 02/15/22 14:25 Potassium 3.4 mmol/L (3.5-5.1) L 02/15/22 14:25 Chloride 105 mmol/L (98-107) 02/15/22 14:25 Carbon Dioxide 24 mmol/L (22-29) 02/15/22 14:25 Anion Gap 14.4 (5-19) 02/15/22 14:25 BUN 8 mg/dL (8-23) 02/15/22 14:25 Creatinine 0.5 mg/dL (0.5-0.9) 02/15/22 14:25 GFR Calculation Not Reportable 02/15/22 14:25 Glucose 82 mg/dL (65-115) 02/15/22 14:25 Calculated Osmolality 287 mOsm/kg (285-295) 02/15/22 14:25 Calcium 8.7 mg/dL (8.5-10.5) 02/15/22 14:25 Magnesium 1.9 mg/dL (1.7-2.3) 02/15/22 14:25 Total Bilirubin 0.2 mg/dL (0.15-1.2) 02/15/22 14:25 AST 12 U/L (0-32) 02/15/22 14:25 ALT 13 U/L (0-33) 02/15/22 14:25 Alkaline Phosphatase 42 IU/L (35-105) 02/15/22 14:25 Troponin T Baseline 12 ng/L (0-10) H 02/15/22 13:18 Troponin T 120 Minute 13.52 ng/L (0-10) H 02/15/22 15:37 Delta Troponin T 1.52 ABS# (0-10) 02/15/22 15:37 Total Protein 6.1 g/dL (6.6-8.7) L 02/15/22 14:25 Albumin 3.6 g/dL (3.5-5.2) 02/15/22 14:25 Globulin 2.5 g/dL (1.3-4.6) 02/15/22 14:25 Lipase 22 U/L (13-60) 02/15/22 14:25 Urine Color Straw (Yellow) 02/15/22 13:18 Urine Appearance Clear (CLEAR) 02/15/22 13:18 Urine pH 7 (5-7) 02/15/22 13:18 Ur Specific [place] 1.005 (1.005-1.030) 02/15/22 13:18 Urine Protein Neg (Negative) 02/15/22 13:18 Urine Glucose (UA) Norm (Normal) 02/15/22 13:18 Urine Ketones Negative (Negative) 02/15/22 13:18 Urine Blood Neg (Negative) 02/15/22 13:18 Urine Nitrate Negative (Negative) 02/15/22 13:18 Urine Bilirubin Neg (Negative) 02/15/22 13:18 Urine Urobilinogen Norm mg/dL (Negative) 02/15/22 13:18 Ur Leukocyte Esterase Negative (Negative) 02/15/22 13:18 Influenza Type A Ag Negative (Negative) 02/15/22 13:25 Influenza Type B Ag Negative (Negative) 02/15/22 13:25 SARS-CoV-2 Ag (Rapid) Negative (Negative) 02/15/22 13:25 Imaging Data Other Imaging: Radiologist's impression: [address] [address] XRay Report Signed Patient: Aarti Melchor Unit #: [id number] : 1940 Age/Sex: 81 / F ADM Date: 02/15/22 Loc: ER Room/Bed: Attending Dr: Ordering Provider/Ordering MD: Amor House MD Date of Service: 02/15/22 Procedure(s): XR chest 1V portable [id number] Accession Number(s): [id number] Report Number: [id number] PROCEDURE INFORMATION: Exam: XR Chest Exam date and time: 02/15/2022 1:37 PM Age: 81 years old Clinical indication: Other: Abd pain; Patient HX: Weakness TECHNIQUE: Imaging protocol: Radiologic exam of the chest. Views: 1 view. COMPARISON: CR XR chest 1V portable [id number] 12/28/2021 9:29 AM FINDINGS: Lungs: Unremarkable. No consolidation. Pleural spaces: Unremarkable. No pleural effusion. No pneumothorax. Heart/Mediastinum: Unremarkable. No cardiomegaly. Bones/joints: Unremarkable. XR/XR chest 1V portable [id number] IMPRESSION: No acute findings. ? Dictated By: Isra Lambert Signed By: Isra Lambert Signed Date/Time: 02/15/22 1406 DD/ 1337 Discharge Plan Discharge Admit Provider: Luis Hanks Condition: Stable Coding Level of Care Code ED Disability Insurance Hearing Officer for Chg Fwd Exam Comprehensive
--- NOTE | 2022-02-15 13:19 | XRR_ITS ---
PROCEDURE INFORMATION: Exam: XR Chest Exam date and time: 02/15/2022 1:37 PM Age: 81 years old Clinical indication: Other: Abd pain; Patient HX: Weakness TECHNIQUE: Imaging protocol: Radiologic exam of the chest. Views: 1 view. COMPARISON: CR XR chest 1V portable [id number] 12/28/2021 9:29 AM FINDINGS: Lungs: Unremarkable. No consolidation. Pleural spaces: Unremarkable. No pleural effusion. No pneumothorax. Heart/Mediastinum: Unremarkable. No cardiomegaly. Bones/joints: Unremarkable. XR/XR chest 1V portable [id number] IMPRESSION: No acute findings.
[2022-02-15 13:27] LABS: Add Urine Microscopic? NO; Charge for UA Resulting for Rev
[2022-02-15] MEDS: sodium chloride 0.9% 500 ML IV (13:36)
[2022-02-15 13:40] LABS: Bilirubin Urine Neg (Negative); Blood Urine Neg (Negative); Glucose Urine UA Norm (Normal); Ketones Urine Negative (Negative); Leukocyte Esterase Urine Negative (Negative); Nitrate Urine Negative (Negative); Protein Urine Neg (Negative); Specific Gravity, Urine 1.005 (1.005-1.030); Urine Appearance Clear (CLEAR); Urine Color Straw (Yellow); Urobilinogen Urine Norm (Negative); pH Urine 7 (5-7)
[2022-02-15 14:08] LABS: SARS Covid-2 Antigen Negative (Negative)
[2022-02-15 14:09] LABS: Influenza A by IFA Negative (Negative); Influenza B by IFA Negative (Negative)
[2022-02-15] MEDS: LORazepam 0.5 mg Tablet PO ×2 (14:32→16:30)
[2022-02-15 14:55] LABS: Basophils # 0.1 10^3/uL (0.0-0.1); Basophils % 0.7 %; Eosinophils # 0.1 10^3/uL (0.0-0.8); Eosinophils % 0.6 %; Hematocrit 38.1 % (37.0-47.0); Hemoglobin 11.6 g/dL (11.5-15.3); Lymphocytes # 2.5 10^3/uL (0.8-4.8); Lymphocytes % 30.2 %; Mean Corpuscular HGB Conc 30.4 g/dL (30.0-36.0); Mean Corpuscular Hemoglobin 27.2 pg (28.0-34.0); Mean Corpuscular Volume 89.2 fl (81-99); Mean Platelet Volume 10.8 fL (7.4-10.4); Monocytes # 0.8 10^3/uL (0.2-0.9); Monocytes % 9.3 %; Neutrophils # 4.89 10^3/uL (1.8-7.7); Nucleated Red Blood Cells % 0 %; Platelet Count 235 10^3/cmm (130-400); Red Blood Count 4.27 10^6/uL (4.1-5.3); White Blood Count 8.3 10^3/uL (4.0-10.0)
--- NOTE | 2022-02-15 14:55 | ECG_ITS ---
[facility] Test Date: 2022-02-15 Pat Name: Aarti Melchor Department: Room: Gender: Female Spanish Tutor: : 1940 Requested By: Amor House Order Number: [id number] Mita MD: Juana Kaplan M.D. Measurements Intervals [place] Rate: 60 P: 26 SD: 210 QRS: -13 QRSD: 77 T: 36 QT: 415 QTc: 416 Interpretive Statements SINUS RHYTHM WITH FIRST DEGREE AV BLOCK LOW QRS VOLTAGE IN PRECORDIAL LEADS [QRS DEFLECTION < 1.0 mV IN CHEST LEADS] POSSIBLE ANTERIOR MYOCARDIAL INFARCTION , PROBABLY OLD [30 ms Q WAVE IN V3/V4, OR R < 0.2 mV IN V4] Compared to ECG 02/15/2022 12:51:57 First degree AV block now present Sinus arrhythmia no longer present Myocardial infarct finding still present Electronically Signed On 02-16-2022 21:21:53 CDT by Juana Kaplan M.D. [id number]
[2022-02-15 15:00] LABS: Troponin(5th) Baseline 12 ng/L (0-10)
[2022-02-15 15:39] LABS: Alanine Aminotransferase 13 U/L (0-33); Albumin Level 3.6 g/dL (3.5-5.2); Alkaline Phosphatase 42 IU/L (35-105); Anion Gap 14.4 (5-19); Aspartate Amino Transferase 12 U/L (0-32); Blood Urea Nitrogen 8 mg/dL (8-23); Calcium 8.7 mg/dL (8.5-10.5); Carbon Dioxide 24 mmol/L (22-29); Chloride 105 mmol/L (98-107); Globulin 2.5 g/dL (1.3-4.6); Glucose 82 mg/dL (65-115); Lipase 22 U/L (13-60); Magnesium 1.9 mg/dL (1.7-2.3); Osmolality Calculated 287 mOsm/kg (285-295); Potassium 3.4 mmol/L (3.5-5.1); Sodium 140 mmol/L (136-145); Total Bilirubin 0.2 mg/dL (0.15-1.2); Total Protein 6.1 g/dL (6.6-8.7)
--- NOTE | 2022-02-15 16:14 | ECG_ITS ---
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 Measurements Intervals [place] Rate: 72 P: [place]: QRS: -12 QRSD: 78 T: 28 QT: 385 QTc: 422 Interpretive Statements Sinus RHYTHM LOW QRS VOLTAGE IN PRECORDIAL LEADS [QRS DEFLECTION < 1.0 mV IN CHEST LEADS] POSSIBLE ANTERIOR MYOCARDIAL INFARCTION , PROBABLY OLD [30 ms Q WAVE IN V3/V4, OR R < 0.2 mV IN V4] ABNORMAL RHYTHM ECG Compared to ECG 02/15/2022 14:55:03 First degree AV block no longer present Myocardial infarct finding still present Electronically Signed On 02-16-2022 7:09:57 CDT by Tello Schmidt M.D. [id number]
[2022-02-15 16:25] LABS: Troponin 5 2HR 13.52 ng/L (0-10)
[2022-02-15 16:27] LABS: Troponin 5 2HR Delta 1.52 ABS# (0-10)
--- NOTE | 2022-02-15 19:49 | P.HP_ITS ---
Providers/Chief Complaint Admitting Physician: Luis Hanks Chief Complaint: weakness History of Present Illness Came in for evaluation to ER due to episodes of palpitations, although says these have been going on for years, but worse this morning, generalized weakness, had an episode of diarrhea, transient episode of right upper quadrant pain. States she is normally very healthy and not having any issues. Reports that she does not have a PCP and unable to get into see 1 for a month. Due to her symptoms and inability to see PCP she is requested for observation in the hospital. Review of Systems Const: Denies: fever(s), chills, body aches or malaise Eyes: Denies: change in vision, eye discomfort or eye redness ENMT: Denies: throat pain, oral sores or ear or mastoid pain Card: Denies: chest pain, edema, pre-syncope or dyspnea on exertion Resp: Denies: dyspnea, productive cough, change in phlegm color or hemoptysis GI: Reports: abdominal pain and diarrhea; Denies: nausea, vomiting, constipation, hematochezia or melena : Denies: flank pain, urinary frequency or hematuria Musc: Denies: back pain, joint swelling or joint redness Skin/Breast: Denies: rash or new lesions Neuro: Reports: dizziness; Denies: headache(s), numbness in extremities, weakness in extremities, confusion or seizure-like activity Endo: Denies: polyuria or polydipsia Rafi/Lymph: Denies: easy bleeding or tender lymph nodes All/Imm: Denies: urticaria or tongue swelling Medications/Allergies Home Medications Medication Instructions Recorded Confirmed Last Taken Type aspirin 325 mg tablet 325 mg PO QA 11/11/21 02/15/22 02/15/22 History calcium citrate 315 mg 1 tab PO DAILY 11/11/21 02/15/22 02/15/22 History calcium-vitamin D3 6.25 mcg (250 unit) tablet (Citracal + Vitamin D Maximum) cholecalciferol (vitamin D3) 25 25 mcg PO DAILY 11/11/21 02/15/22 02/15/22 History mcg (1,000 unit) capsule loperamide 2 mg tablet 2 mg PO Q6H PRN Diarrhea 11/11/21 02/15/22 Unknown History (Anti-Diarrheal (loperamide)) sodium chloride 1 gram tablet 1,000 mg PO DAILY For sodium #30 12/23/21 02/15/22 02/15/22 Rx tabs famotidine 40 mg tablet 40 mg PO BID 12/28/21 02/15/22 02/15/22 History lorazepam 0.5 mg tablet 0.25 mg PO Q12H PRN anxiety #20 01/06/22 02/15/22 Unknown Rx tabs memantine 5 mg tablet 5 mg PO BEDTIME 01/06/22 02/15/22 02/14/22 History pravastatin 80 mg tablet 80 mg PO DAILY 01/06/22 02/15/22 02/15/22 History pantoprazole 40 mg tablet,delayed 40 mg PO BID #30 tabs 01/14/22 02/15/22 02/14/22 Rx release (Protonix) cyanocobalamin (vitamin B-12) 1,000 mcg PO DAILY 02/15/22 02/15/22 02/15/22 History 1,000 mcg tablet (Vitamin B-12) enalapril maleate 5 mg tablet 2.5 mg PO DAILY 02/15/22 02/15/22 02/15/22 History Allergies Allergy/AdvReac Type Severity Reaction Status Date / Time prednisone Allergy ADR-Nausea Verified 02/15/22 13:33 Sulfa (Sulfonamide Allergy feels Verified 02/15/22 13:33 Antibiotics) strange all over morphine AdvReac ADR-Nausea Verified 02/15/22 13:33 PFSH Acute PFSH: Medical History Acid reflux disease Allergic rhinitis due to allergen Anxiety about health Aortic valve regurgitation Bladder spasm Carotid artery stenosis, asymptomatic Dementia Fatigue Frequent headaches Heart disease Hiatal hernia with GERD History of nonmelanoma skin cancer Hypertension Hyponatremia Incomplete bladder emptying Mitral valve disease PAD (peripheral artery disease) Recurrent UTI bladder spasms Surgical History H/O colonoscopy 2016 H/O esophagogastroduodenoscopy 2016 H/O neck surgery H/O: hysterectomy Hx of cholecystectomy Previous back surgery Family History Father , in his 70's Cancer CAD (coronary artery disease) Brother CAD (coronary artery disease) Mother , at age 79 Heart disease Other Diabetes Hypertension Denies family history of Anesthesia complication Bleeding disorder Social History Smoking and tobacco status: never smoked Alcohol intake: never Adopted: No Caregiver/support person: No Lives independently: No Marital status: / Current occupational status: retired History of recent travel: No Current gender identity: Female Vitals/I&O/Wt Last Vital Signs Temp 98.2 F 02/15/22 18:29 Pulse 69 02/15/22 18:29 Resp 16 02/15/22 18:29 BP 147/85 02/15/22 18:29 Pulse Ox 97 02/15/22 18:29 O2 Del Method 02/15/22 18:29 Weight last 48 hrs Weight 54.749 kg Weight 53.524 kg Physical Exam Const: COMMON NORMALS: patient oriented x3 and alert GENERAL APPEARANCE: cooperative ORIENTATION/CONSCIOUSNESS: Yes awake HENMT: COMMON NORMALS: oropharynx normal Neck/C-Spine: COMMON NORMALS: no JVD Resp: COMMON NORMALS: normal respiratory effort and clear to auscultation bilaterally AUSCULTATION: clear to auscultation bilaterally Cardio: COMMON NORMALS: no JVD, regular rhythm, S1 normal heart sound present, S2 normal heart sound present and No murmurs present (Cardio) RHYTHM: regular rhythm HEART SOUNDS: S1 normal heart sound present and S2 normal heart sound present GI: COMMON NORMALS: Normal to inspection, nondistended, normoactive bowel sounds present, Soft to palpation and non-tender PALPATION: Yes Soft to palpation Extremity: COMMON NORMALS: no joint enlargement and no pedal edema Neuro: COMMON NORMALS: patient oriented x3 and moves all extremities SENSORIUM/ORIENTATION: Yes alert Skin: COMMON NORMALS: no rashes or lesions noted GENERAL SKIN EXAM: no rashes or lesions noted Data : 02/15/22 14:25 02/15/22 14:25 A&P Assessment and plan (1) Palpitations: Check TSH. Monitor telemetry. Replace hypokalemia. Recheck magnesium. Consider wheel truing machine tender after discharge. Will need a PCP. Status: Acute (2) Lightheadedness: Some lightheadedness, some generalized weakness. Had an episode of diarrhea, although so far not recurrent. Monitor diarrhea for any further, JETT. Additional assessment of palpitations as above. Check orthostatics. With generalized weakness, statin, check CK, hold statin for now. Status: Acute (3) Hypokalemia: Replace Status: Acute (4) Diarrhea: Reassess Status: Acute (5) Right upper quadrant pain: Liver parameters normal. So far no pain or tenderness. Arias sign negative. Reassess. Status: Acute Attestations Medical Necessity Statement*: Place in observation for additional assessment of episode of palpitations, lightheadedness, generalized weakness, right upper quadrant pain and diarrhea in a lady who will be able to see a PCP for the next month. Coding Level of Care Code Acute Boss Miner for Aliya Coelho Diagnoses Palpitations R00.2 Lightheadedness R42 Hypokalemia E87.6 Diarrhea R19.7 Right upper quadrant pain R10.11
[2022-02-15 20:15] LABS: Creatine Phosphokinase 93 U/L (26-192)
[2022-02-15] MEDS: memantine 5 mg tablet PO (20:24)
[2022-02-15] MEDS: potassium chloride ER 20 mEq Tablet 40 MEQ PO (20:24)
[2022-02-15] MEDS: heparin 5,000 unit/mL INJ 1 mL 5000 UNIT SUBCUT (20:26)
[2022-02-16] VITALS: BP 122/76; PULSE 65; RESP 16; TEMP 37; O2SAT 98
[2022-02-16 04:00] VITALS: BP 135/74; PULSE 67; RESP 16; TEMP 37; O2SAT 96
[2022-02-16] MEDS: aspirin 325 mg Tablet PO (05:15)
[2022-02-16 05:24] LABS: Basophils # 0.1 10^3/uL (0.0-0.1); Basophils % 0.8 %; Eosinophils # 0.2 10^3/uL (0.0-0.8); Eosinophils % 2.1 %; Hematocrit 35.5 % (37.0-47.0); Lymphocytes % 40.2 %; Mean Corpuscular Hemoglobin 26.6 pg (28.0-34.0); Mean Platelet Volume 10.7 fL (7.4-10.4); Monocytes # 0.7 10^3/uL (0.2-0.9); Monocytes % 9.8 %; Neutrophils # 3.56 10^3/uL (1.8-7.7); Nucleated Red Blood Cells % 0 %; Platelet Count 228 10^3/cmm (130-400); Red Blood Count 4.13 10^6/uL (4.1-5.3); Red Cell Distribution Width 14.2 % (12.1-15.1); White Blood Count 7.6 10^3/uL (4.0-10.0)
[2022-02-16 06:00] VITALS: PULSE 66
[2022-02-16 06:01] LABS: Alanine Aminotransferase 13 U/L (0-33); Albumin Level 3.7 g/dL (3.5-5.2); Alkaline Phosphatase 37 IU/L (35-105); Anion Gap 14.2 (5-19); Aspartate Amino Transferase 14 U/L (0-32); Blood Urea Nitrogen 8 mg/dL (8-23); Calcium 8.5 mg/dL (8.5-10.5); Carbon Dioxide 23 mmol/L (22-29); Chloride 106 mmol/L (98-107); Glucose 97 mg/dL (65-115); Osmolality Calculated 286 mOsm/kg (285-295); Potassium 4.2 mmol/L (3.5-5.1); Sodium 139 mmol/L (136-145); Thyroid Stimulating Hormone 2.43 uIU/mL (0.27-4.20); Total Bilirubin 0.2 mg/dL (0.15-1.2); Total Protein 5.7 g/dL (6.6-8.7)
[2022-02-16 07:16] VITALS: BP 169/73; PULSE 69; RESP 18; TEMP 36.8; O2SAT 98
[2022-02-16] MEDS: sodium chloride 1 gm Tablet PO (08:28)
[2022-02-16] MEDS: famotidine 20 mg Tablet 40 MG PO (08:29)
[2022-02-16] MEDS: LORazepam 0.5 mg Tablet 0.25 MG PO (08:31)
--- NOTE | 2022-02-16 09:39 | PC.CHAP ---
Pastoral Care Encounter/Spiritual Assessment Type of Contact [] Declined general claims agent visit [] Patient/Family/Request visit [] Outpatient visit [] Follow-up visit [] Physician referral [] Code/Alert [x] Routine visit [] Staff referral [] Actively dying [] Patient sleeping [] Family support [] [] Out of room [] Palliative care [] [] Receiving care in room [] Pre-surgical visit [] Trauma [] Long length of stay [] ICU visit [] Other: Relational/Emotional Strength [x] Patient feels connected with others/family/visitors/staff [] Distress [] Loneliness/isolation [] Abandonment Spirituality of Patient []xPerson of Rossy [x] Attends Sabianism of their [place] [x Believes in Prayer [] Reads Bible or Scientology materials [] There are Spiritual issues to be addressed Merchandise Worker Interventions [x] Prayer [x] Active listening [x [] Spiritual counseling [] Bereavement support [] Provided bereavement packet [] Provided Bible/devotional materials [] Provided toy/stuffed animal, coloring book to patient or family member [] Provided Communion [] Anointing/[place] [] Salvation [x] Completed spiritual assessment [] Other: Impact on Illness or Injury [] Angry [] Fearful [] Anxious [] Often cries [] Exhaustion [] Unable to work [] Unable to attend islam [] Unable to walk/stand [] Unable to read [] Unable to drive [] Unable to eat/drink [] Unable to sleep [] Unable to be with family [] Patient intubated [] Other: Summary Time spent with patient 10 min
[2022-02-16 11:14] VITALS: BP 153/81; PULSE 68; RESP 16; TEMP 36.7; O2SAT 96
--- NOTE | 2022-02-16 11:52 | P.DS_ITS ---
Discharge Providers Date of Admission: 02/15/22 16:40 Date of Discharge: February 16, 2022 Attending Provider at Admission: Luis Hanks Attending Provider at Discharge: Luis Hanks Diagnoses at Discharge Discharge Diagnosis (1) Palpitations: Status: Acute (2) Lightheadedness: Status: Acute (3) Hypokalemia: Status: Acute (4) Diarrhea: Status: Acute (5) Right upper quadrant pain: Status: Acute Reason for Visit Reason for Visit: weakness Hospital Course Hospital Course Pleasant 81-year-old lady who presented to ER for assessment due to generalized weakness, after having had an episode of transient right upper quadrant pain, diarrhea, palpitations. She was noted to have mild hypokalemia which was replaced. She otherwise was not found to have fever or leukocytosis or other findings suggestive of active infection or sepsis. Her other electrolytes, renal and liver function was within normal limits. She had no recurrence of diarrhea, no recurrence of right upper quadrant pain. Her cardiac enzymes were minimally elevated, without suggestion of acute ischemia on EKG. Her thyroid function was normal. Lipase not elevated. CK was checked and was normal as well. She was monitored on telemetry, without finding of arrhythmia prescription with telemetry staff. She remained afebrile. Her rapid COVID-19 and influenza antigens were negative. Urinalysis unremarkable. Her chest x-ray showed no acute findings. Her orthostatic vitals were unremarkable. She is doing well, although is still feeling under the weather, weaker than usual, mild tremulousness. Due to concern for possible statin induced myopathy she is asked to discontinue pravastatin at this time. She is asked to follow-up for reassessment with primary provider. She is currently in process of establishing with one. She states will return to the hospital in case of any concerning symptoms. She feels that anxiety may be contributing to her symptoms as well, in case of persistence and no other causes for her symptoms consider referral for additional assessment at [facility]. Physical Exam Const: COMMON NORMALS: patient oriented x3 and alert GENERAL APPEARANCE: cooperative ORIENTATION/CONSCIOUSNESS: Yes awake HENMT: COMMON NORMALS: oropharynx normal Neck/C-Spine: COMMON NORMALS: no JVD Resp: COMMON NORMALS: normal respiratory effort and clear to auscultation bilaterally AUSCULTATION: clear to auscultation bilaterally Cardio: COMMON NORMALS: no JVD, regular rhythm, S1 normal heart sound present, S2 normal heart sound present and No murmurs present (Cardio) RHYTHM: regular rhythm HEART SOUNDS: S1 normal heart sound present and S2 normal heart sound present GI: COMMON NORMALS: Normal to inspection, nondistended, normoactive bowel sounds present, Soft to palpation and non-tender PALPATION: Yes Soft to palpation Extremity: COMMON NORMALS: no joint enlargement and no pedal edema Neuro: COMMON NORMALS: patient oriented x3 and moves all extremities SENSORIUM/ORIENTATION: Yes alert Skin: COMMON NORMALS: no rashes or lesions noted GENERAL SKIN EXAM: no rashes or lesions noted Discharge Data Studies Completed and Pending Completed Studies During Hospitalization Category Date Time Status XR chest 1V portable [id number] Stat Exams 02/15/22 13:19 Completed Pending at discharge Category Date Time Status Complete Blood Count w/Auto AM LABS Lab 02/17/22 04:00 Ordered Complete Blood Count w/Auto AM LABS Lab 02/18/22 04:00 Ordered Comprehensive Metabolic Panel AM LABS Lab 02/17/22 04:00 Ordered Comprehensive Metabolic Panel AM LABS Lab 02/18/22 04:00 Ordered Radiology Impressions Chest X-Ray 02/15/22 13:19 IMPRESSION: No acute findings. Laboratory Results WBC 7.6 10^3/uL (4.0-10.0) 02/16/22 05:15 RBC 4.13 10^6/uL (4.1-5.3) 02/16/22 05:15 Hgb 11.0 g/dL (11.5-15.3) L 02/16/22 05:15 Hct 35.5 % (37.0-47.0) L 02/16/22 05:15 MCV 86.0 fl (81-99) 02/16/22 05:15 MCH 26.6 pg (28.0-34.0) L 02/16/22 05:15 MCHC 31.0 g/dL (30.0-36.0) 02/16/22 05:15 RDW 14.2 % (12.1-15.1) 02/16/22 05:15 Plt Count 228 10^3/cmm (130-400) 02/16/22 05:15 MPV 10.7 fL (7.4-10.4) H 02/16/22 05:15 Neut % (Auto) 47.0 % 02/16/22 05:15 Lymph % (Auto) 40.2 % 02/16/22 05:15 [place] % (Auto) 9.8 % 02/16/22 05:15 Eos % (Auto) 2.1 % 02/16/22 05:15 Baso % (Auto) 0.8 % 02/16/22 05:15 Neut # (Auto) 3.56 10^3/uL (1.8-7.7) 02/16/22 05:15 Lymph # (Auto) 3.0 10^3/uL (0.8-4.8) 02/16/22 05:15 [place] # (Auto) 0.7 10^3/uL (0.2-0.9) 02/16/22 05:15 Eos # (Auto) 0.2 10^3/uL (0.0-0.8) 02/16/22 05:15 Baso # (Auto) 0.1 10^3/uL (0.0-0.1) 02/16/22 05:15 Nucleated RBC % (auto) 0 % 02/16/22 05:15 Nucleated RBCs # 0.0 /100WBC 02/16/22 05:15 Sodium 139 mmol/L (136-145) 02/16/22 05:15 Potassium 4.2 mmol/L (3.5-5.1) 02/16/22 05:15 Chloride 106 mmol/L (98-107) 02/16/22 05:15 Carbon Dioxide 23 mmol/L (22-29) 02/16/22 05:15 Anion Gap 14.2 (5-19) 02/16/22 05:15 BUN 8 mg/dL (8-23) 02/16/22 05:15 Creatinine 0.5 mg/dL (0.5-0.9) 02/16/22 05:15 GFR Calculation Not Reportable 02/16/22 05:15 Glucose 97 mg/dL (65-115) 02/16/22 05:15 Calculated Osmolality 286 mOsm/kg (285-295) 02/16/22 05:15 Calcium 8.5 mg/dL (8.5-10.5) 02/16/22 05:15 Magnesium 2.0 mg/dL (1.7-2.3) 02/16/22 05:15 Total Bilirubin 0.2 mg/dL (0.15-1.2) 02/16/22 05:15 AST 14 U/L (0-32) 02/16/22 05:15 ALT 13 U/L (0-33) 02/16/22 05:15 Alkaline Phosphatase 37 IU/L (35-105) 02/16/22 05:15 Creatine Kinase 93 U/L (26-192) 02/15/22 15:37 Troponin T Baseline 12 ng/L (0-10) H 02/15/22 13:18 Troponin T 120 Minute 13.52 ng/L (0-10) H 02/15/22 15:37 Delta Troponin T 1.52 ABS# (0-10) 02/15/22 15:37 Total Protein 5.7 g/dL (6.6-8.7) L 02/16/22 05:15 Albumin 3.7 g/dL (3.5-5.2) 02/16/22 05:15 Globulin 2.0 g/dL (1.3-4.6) 02/16/22 05:15 Lipase 22 U/L (13-60) 02/15/22 14:25 TSH 2.43 uIU/mL (0.27-4.20) 02/16/22 05:15 Urine Color Straw (Yellow) 02/15/22 13:18 Urine Appearance Clear (CLEAR) 02/15/22 13:18 Urine pH 7 (5-7) 02/15/22 13:18 Ur Specific [place] 1.005 (1.005-1.030) 02/15/22 13:18 Urine Protein Neg (Negative) 02/15/22 13:18 Urine Glucose (UA) Norm (Normal) 02/15/22 13:18 Urine Ketones Negative (Negative) 02/15/22 13:18 Urine Blood Neg (Negative) 02/15/22 13:18 Urine Nitrate Negative (Negative) 02/15/22 13:18 Urine Bilirubin Neg (Negative) 02/15/22 13:18 Urine Urobilinogen Norm mg/dL (Negative) 02/15/22 13:18 Ur Leukocyte Esterase Negative (Negative) 02/15/22 13:18 Influenza Type A Ag Negative (Negative) 02/15/22 13:25 Influenza Type B Ag Negative (Negative) 02/15/22 13:25 SARS-CoV-2 Ag (Rapid) Negative (Negative) 02/15/22 13:25 Vitals Last Vital Signs Temp 98.1 F 02/16/22 11:14 Pulse 68 02/16/22 11:14 Resp 16 02/16/22 11:14 BP 153/81 02/16/22 11:14 Pulse Ox 96 02/16/22 11:14 O2 Del Method 02/15/22 18:29 Discharge Plan Discharge Patient Disposition: Home Condition: Stable Prescriptions: Continued aspirin 325 mg tablet 325 mg PO QAM pantoprazole [Protonix] 40 mg tablet,delayed release (DR/EC) 40 mg PO BID Qty: 30 0RF loperamide [Anti-Diarrheal (loperamide)] 2 mg tablet 2 mg PO Q6H PRN (Reason: Diarrhea) cholecalciferol (vitamin D3) 25 mcg (1,000 unit) capsule 25 mcg PO DAILY calcium citrate-vitamin D3 [Citracal + D Maximum] 315 mg-6.25 mcg (250 unit) tablet 1 tab PO DAILY sodium chloride 1 gram tablet 1,000 mg PO DAILY Qty: 30 0RF famotidine 40 mg tablet 40 mg PO BID memantine 5 mg tablet 5 mg PO BEDTIME lorazepam 0.5 mg tablet 0.25 mg PO Q12H PRN (Reason: anxiety) Qty: 20 0RF enalapril maleate 5 mg Tablet 2.5 mg PO DAILY Vitamin B-12 1,000 mcg Tablet 1,000 mcg PO DAILY Discontinued pravastatin 80 mg tablet 80 mg PO DAILY Discharge Orders: Discharge Order (Routine); Ordered 02/16/22 Ordered By: Luis Hanks Referrals: Primary, provider [Other] (As per appointment Sep if no sooner slot is available.) Activity Restrictions/Additional Instructions: Please hold pravastatin until you can be reassessed by your primary care doctor due to concern of statin induced myopathy. Return to ER in case you experience any new concerning symptoms, otherwise please make sure to follow-up with your primary provider. In case of recurrence of palpitations, discussed with your primary doctor for consideration of tray line worker. In case anxiety is also contributing or is persistent, discuss also with your primary doctor consideration of additional assessment by behavioral health care. Please monitor your blood pressures twice daily, write down values. Your blood pressure may benefit from additional optimization. Target blood pressures 120/80. Discharge Attestations Time Spent in Discharge Care*: greater than 30 min Quality Metrics Clinical Quality Measures [ No reported AMI, CVA or VTE this stay] Coding Level of Care Code Acute g FW DC note Diagnoses Palpitations R00.2 Lightheadedness R42 Hypokalemia E87.6 Diarrhea R19.7 Right upper quadrant pain R10.11
--- NOTE | 2022-02-16 13:40 | PC.NURSE ---
Patient daughter is requesting to speak to social service. Jay in case management notified.
[2022-02-16] MEDS: acetaminophen 325 mg Tablet 650 MG PO (14:09)
--- NOTE | 2022-02-16 14:14 | PC.NURSE ---
Patient states, I have a headache that I had before lunch but I forgot to ask for the Tylenol. Patient's daughter would like us not to discharge the patient because she states that the patient will just go home and take whatever medications she wants and then I am going to be right back here with her. She asked you for Tylenol and says has a head which she probably does but she wants it more for her anxiety. I think she needs something more to calm her down. I mean she is giving me anxiety. This nurse notified Jay with case management that the daughter wanted to speak with her.
[2022-02-16 14:49] VITALS: BP 153/81; PULSE 68; RESP 16; TEMP 36.7; O2SAT 96
== END 2022-02-16 14:50 | disposition home or self-care (01) ==
LOC: ER 12:57 → MEDSURG 17:43
PROVIDERS: Admitting Provider Internal Medicine; Emergency Provider Emergency Medicine; Visit Provider Internal Medicine
DX: R00.2 Palpitations (principal); R42 Dizziness and giddiness; E87.6 Hypokalemia; R19.7 Diarrhea, unspecified; R10.11 Right upper quadrant pain; Z79.82 Long term (current) use of aspirin; K21.9 Gastro-esophageal reflux disease without esophagitis; I25.10 Atherosclerotic heart disease of native coronary artery without angina pectoris; F03.90 Unspecified dementia, unspecified severity, without behavioral disturbance, psychotic disturbance, mood disturbance, and anxiety; I11.0 Hypertensive heart disease with heart failure; I50.9 Heart failure, unspecified
CPT/HCPCS: 36415; 71045; 80053; 81003; 82550; 83690; 83735; 84443; 84484; 85025; 87426; 87804; 93005; 96360; 96372; 99285; G0378; J1644; J7040

== ENCOUNTER 2022-02-18 15:51 | Emergency (ER) | payer MEDICARE, OTHER, SELFPAY ==
[2022-02-18 16:20] VITALS: BP 132/75; PULSE 76; RESP 16; TEMP 36.6; O2SAT 97
[2022-02-18 17:52] LABS: Basophils # 0.1 10^3/uL (0.0-0.1); Basophils % 0.5 %; Eosinophils # 0.1 10^3/uL (0.0-0.8); Eosinophils % 1.1 %; Hematocrit 38.2 % (37.0-47.0); Hemoglobin 11.8 g/dL (11.5-15.3); Lymphocytes # 2.9 10^3/uL (0.8-4.8); Lymphocytes % 27.3 %; Mean Corpuscular HGB Conc 30.9 g/dL (30.0-36.0); Mean Corpuscular Hemoglobin 26.8 pg (28.0-34.0); Mean Corpuscular Volume 86.8 fl (81-99); Mean Platelet Volume 10.7 fL (7.4-10.4); Monocytes # 0.8 10^3/uL (0.2-0.9); Monocytes % 7.4 %; Neutrophils # 6.65 10^3/uL (1.8-7.7); Neutrophils % 63.4 %; Nucleated Red Blood Cells % 0 %; Platelet Count 258 10^3/cmm (130-400); Red Cell Distribution Width 14.2 % (12.1-15.1); White Blood Count 10.5 10^3/uL (4.0-10.0)
[2022-02-18 18:26] LABS: Alanine Aminotransferase 15 U/L (0-33); Albumin Level 4.2 g/dL (3.5-5.2); Alkaline Phosphatase 43 IU/L (35-105); Anion Gap 14.3 (5-19); Aspartate Amino Transferase 17 U/L (0-32); Blood Urea Nitrogen 13 mg/dL (8-23); Calcium 9.2 mg/dL (8.5-10.5); Carbon Dioxide 26 mmol/L (22-29); Chloride 102 mmol/L (98-107); Globulin 2.3 g/dL (1.3-4.6); Glucose 112 mg/dL (65-115); Magnesium 2.1 mg/dL (1.7-2.3); Osmolality Calculated 289 mOsm/kg (285-295); Potassium 3.3 mmol/L (3.5-5.1); Sodium 139 mmol/L (136-145); Total Bilirubin 0.2 mg/dL (0.15-1.2); Total Protein 6.5 g/dL (6.6-8.7)
== END 2022-02-18 19:11 | disposition left against medical advice (07) ==
PROVIDERS: Emergency Medicine; Emergency Provider Family Medicine
DX: Z53.21 Procedure and treatment not carried out due to patient leaving prior to being seen by health care provider (principal)
CPT/HCPCS: 36415; 80053; 83735; 85025; 99284

== ENCOUNTER → 2022-02-19 11:00 | Outpatient (BNVA) | payer MEDICARE, OTHER, SELFPAY | PROVIDERS: Visit Provider Internal Medicine Cardiovascular Disease | DX: R00.2 Palpitations (principal); I35.1 Nonrheumatic aortic (valve) insufficiency; I77.9 Disorder of arteries and arterioles, unspecified; E78.5 Hyperlipidemia, unspecified; I11.9 Hypertensive heart disease without heart failure | CPT/HCPCS: 93005; 99214 ==

== ENCOUNTER → 2022-03-12 10:17 | Outpatient (BNVA) | payer MEDICARE, OTHER, SELFPAY | PROVIDERS: Visit Provider Surgery | DX: K21.9 Gastro-esophageal reflux disease without esophagitis (principal) | CPT/HCPCS: 99213 ==

== ENCOUNTER 2022-03-12 12:02 | Outpatient (CLI) | payer MEDICARE, OTHER, SELFPAY ==
[2022-03-12 13:25] LABS: Basophils # 0.1 10^3/uL (0.0-0.1); Basophils % 0.6 %; Eosinophils # 0.1 10^3/uL (0.0-0.8); Eosinophils % 1.4 %; Hematocrit 41.1 % (37.0-47.0); Hemoglobin 12.6 g/dL (11.5-15.3); Lymphocytes # 2.9 10^3/uL (0.8-4.8); Lymphocytes % 30.5 %; Mean Corpuscular HGB Conc 30.7 g/dL (30.0-36.0); Mean Corpuscular Hemoglobin 26.6 pg (28.0-34.0); Mean Corpuscular Volume 86.9 fl (81-99); Mean Platelet Volume 10.4 fL (7.4-10.4); Monocytes # 0.6 10^3/uL (0.2-0.9); Monocytes % 6.3 %; Neutrophils # 5.71 10^3/uL (1.8-7.7); Neutrophils % 60.9 %; Nucleated Red Blood Cells % 0 %; Platelet Count 253 10^3/cmm (130-400); Red Blood Count 4.73 10^6/uL (4.1-5.3); White Blood Count 9.4 10^3/uL (4.0-10.0)
[2022-03-12 13:36] LABS: Add Urine Culture? No; Bilirubin Urine Neg (Negative); Blood Urine Neg (Negative); Glucose Urine UA Norm (Normal); Ketones Urine Negative (Negative); Leukocyte Esterase Urine Negative (Negative); Nitrate Urine Negative (Negative); Protein Urine Neg (Negative); Specific Gravity, Urine 1.005 (1.005-1.030); Squamous Epithelial Cell Urine 0-4 /hpf (0-5); Urine Appearance Clear (CLEAR); Urine Color Yellow (Yellow); Urobilinogen Urine Norm (Negative); pH Urine 6 (5-7)
[2022-03-12 13:41] LABS: Urine Creatinine 22 mg/dL (28-217); Urine Random Sodium 41 mmol/L
[2022-03-12 13:48] LABS: Alanine Aminotransferase 13 U/L (0-33); Albumin Level 4.5 g/dL (3.5-5.2); Alkaline Phosphatase 51 U/L (35-105); Aspartate Amino Transferase 19 U/L (0-32); Blood Urea Nitrogen 9 mg/dL (8-23); Calcium 9.5 mg/dL (8.5-10.5); Carbon Dioxide 20 mmol/L (22-29); Chloride 101 mmol/L (98-107); Globulin 2.6 g/dL (1.3-4.6); Glucose 81 mg/dL (65-115); Iron 48 ug/dL (37-145); Osmolality Calculated 280 mOsm/kg (285-295); Percent Saturation 10.3 % (20-50); Sodium 136 mmol/L (136-145); Total Bilirubin 0.3 mg/dL (0.15-1.2); Total Iron Binding Capacity 466 mcg/dl; Total Protein 7.1 g/dL (6.6-8.7); Unsaturated Iron Binding 418 ug/dL (112-347); Uric Acid 4.7 mg/dL (2.4-5.7)
[2022-03-12 13:56] LABS: Anion Gap 19.4 (5-19); Potassium 4.4 mmol/L (3.5-5.1)
[2022-03-12 14:00] LABS: Calcium 9.8 mg/dL (8.5-10.5)
[2022-03-12 14:19] LABS: Parathyroid Hormone 44.4 pg/mL (15-65)
[2022-03-17 10:07] LABS: Vit D 1,25 (Oh)2, Total 43 pg/mL (18-72); Vit D2 1,25 (Oh)2 <8 pg/mL; Vit D3 1,25 (Oh)2 43 pg/mL
== END 2022-03-12 12:03 | disposition home or self-care (01) ==
PROVIDERS: Visit Provider Internal Medicine Nephrology
DX: E87.1 Hypo-osmolality and hyponatremia (principal)
CPT/HCPCS: 80053; 81001; 82310; 82570; 82652; 83540; 83550; 83970; 84300; 84550; 85025

== ENCOUNTER → 2022-03-25 11:29 | Outpatient (BNVA) | payer MEDICARE, OTHER, SELFPAY | PROVIDERS: PCP Family Medicine; Visit Provider Family Medicine | DX: R47.81 Slurred speech (principal); R53.1 Weakness | CPT/HCPCS: 80053; 81000; 83735; 84443; 85025 ==

== ENCOUNTER 2022-03-26 11:20 | Emergency (ER) | payer MEDICARE, OTHER, SELFPAY ==
--- NOTE | 2022-03-26 11:25 | ECG_ITS ---
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 Measurements Intervals [place] Rate: 68 P: 44 [place]: 194 QRS: -5 QRSD: 88 T: 57 QT: 370 QTc: 396 Interpretive Statements SINUS RHYTHM LOW QRS VOLTAGE IN PRECORDIAL LEADS [QRS DEFLECTION < 1.0 mV IN CHEST LEADS] POSSIBLE ANTERIOR MYOCARDIAL INFARCTION , PROBABLY OLD [30 ms Q WAVE IN V3/V4, OR R < 0.2 mV IN V4] Compared to ECG 02/18/2022 16:19:32 No significant changes Electronically Signed On 03-26-2022 14:38:14 CDT by David Moran M.D. [email or web address].[employer]/store/[id number]
[2022-03-26 11:35] VITALS: BP 159/67; PULSE 76; RESP 16; TEMP 36.6; O2SAT 98; BMI 21.9
[2022-03-26 11:46] VITALS: BP 162/90
--- NOTE | 2022-03-26 11:48 | ED_ITS ---
HPI - Recheck/Abnormal Lab/Rx General: Chief Complaint: Recheck/Abnormal Lab/Rx Stated Complaint: sent in for low sodium Time Seen by Provider: 03/26/22 11:48 History of Present Illness: Ms. Melchor is an 81-year-old lady with complex past medical history including history of hyponatremia on sodium supplementation who presents to the emergency department due to low sodium. She reports number of days ago beginning at half diarrhea and accidentally taking too many of her blood pressure medication. She presented to clinic with weakness, speech slur, and generalized malaise. These symptoms have largely improved however labs yesterday revealed low sodium. Intensity symptoms is currently mild. Course is improved. No other specific changes in health, exacerbating, or alleviating factors identified. Initial visit (ago): day(s) Initial visit for: other Returns today for: other Description of abnormal result: Abnormal sodium Symptoms since prior visit: improved Context: called for abnormal lab result Review of Systems General: Reports: 10 or more systems reviewed and unremarkable except in HPI and below PFSH ED PFSH: Medical History (Updated 04/01/22 @ 19:47 by Amor House MD) Abnormal ankle brachial index (PATRICIA) 02/05/21 Acid reflux disease Allergic rhinitis due to allergen Anxiety Aortic valve regurgitation Carotid artery stenosis, asymptomatic Dementia Diverticulosis Fatty infiltration of liver Heart disease Hiatal hernia with GERD History of nonmelanoma skin cancer Hypertension Hyponatremia Incomplete bladder emptying Mitral valve disease Osteopenia PAD (peripheral artery disease) Postmenopausal Psychiatric care Umbilical hernia Surgical History (Updated 03/31/22 @ 10:50 by Judith Dennis MD) History of cholecystectomy History of colonoscopy History of esophagogastroduodenoscopy (EGD) History of fusion of cervical spine acdf c4-6 History of fusion of lumbar spine L4-5 History of hysterectomy Family History Father , in his 70's Cancer CAD (coronary artery disease) Brother CAD (coronary artery disease) Mother , at age 79 Heart disease Other Diabetes Hypertension Denies family history of Anesthesia complication Bleeding disorder Social History (Updated 03/31/22 @ 10:43 by Judith Dennis MD) Smoking and tobacco status: never smoked Alcohol intake: never Lives independently: No Household members: none Marital status: / Current occupational status: retired Female Reproductive History: Spontaneous abortions: No Physical Exam Const: COMMON NORMALS: patient oriented x3 and alert GENERAL APPEARANCE: cooperative and well developed HENMT: COMMON NORMALS: normocephalic and atraumatic HEAD & SCALP: normocephalic and atraumatic THROAT: posterior oropharynx normal Eye: COMMON NORMALS: conjunctivae normal CONJUNCTIVA: Yes conjunctivae normal SCLERA: sclerae normal Neck/C-Spine: COMMON NORMALS: supple GENERAL: Yes trachea midline Resp: COMMON NORMALS: normal respiratory effort and clear to auscultation bilaterally EFFORT & INSPECTION: Yes able to speak in complete sentences AUSCULTATION: clear to auscultation bilaterally Cardio: COMMON NORMALS: regular rate and regular rhythm RATE: regular rate RHYTHM: regular rhythm GI: COMMON NORMALS: Soft to palpation PALPATION: Yes Soft to palpation and No Tenderness to palpation present (GI) Extremity: GENERAL: Yes normal exam except as noted and No edema Neuro: COMMON NORMALS: patient oriented x3, CN's II-XII intact bilaterally, moves all extremities, no focal motor deficits and no sensory deficits noted SENSORIUM/ORIENTATION: Yes alert and No Orientation impaired Psych: COMMON NORMALS: mental status grossly normal and Normal thought process present THOUGHT PROCESS: Normal thought process present Course ED course: - Patient was seen and evaluated by me at bedside - Patient placed on cardiac monitors, IV access obtained - Initial evaluation notable for exam as above - Labs and xrays personally interpreted by me. EKG shows sinus rhythm with no STEMI -Fluid bolus given - Labs notable for no leukocytosis, normal hemoglobin. Metabolic panel with sodium 127, renal function is preserved. No UTI. -No indication for imaging at this time - Upon serial reexamination after treatment the patient was improved - Based on patient history, evaluation, and testing as interpreted the most likely cause of the patient's condition is mild hyponatremia not requiring hospitalization at this time - The results of ED evaluation were discussed with the patient including prescriptions and/or symptomatic cares (if applicable) including appropriate and responsible use, followup plan, and return precautions. The patient verbalized understanding and felt safe for discharge. - Patient discharged in satisfactory condition. Note: Click bubbles or prepopulated rutherford in note writing are used for assistance with data collection and billing and are inherently more limited than narrative and other text portions of this note. Please use narrative for additional clinical history and defer to narrative/free test for any case of contradictory information. If information appears in only free text or click bubble it should be considered present or absent as reported. Please contact note telegraphic typewriter repairer for clarifications of clinical information or contradictory information. MDM is a brief summary, contradictory or erroneous seeming information should be clarified and full note should be reviewed. Vital Signs: Vital signs: Vital Signs Temperature 97.9 F 03/26/22 11:35 Pulse Rate 76 03/26/22 13:51 Respiratory Rate 18 03/26/22 13:51 Blood Pressure 162/90 03/26/22 13:51 Pulse Oximetry 98 03/26/22 13:51 Oxygen Delivery Me thod 03/26/22 11:35 MDM - Recheck/Abnormal Lab/Rx Medical Decision Making 81-year-old lady presenting with abnormal labs. Sodium mildly low and no improved with IV fluids. Does not require admission at this time. Return precautions and follow-up plan discussed. Medical Records I reviewed the patient's medical records. Lab Data I reviewed the patient's lab results. : 03/26/22 12:00 03/26/22 12:00 Laboratory Results WBC 9.9 10^3/uL (4.0-10.0) 03/26/22 12:00 RBC 4.94 10^6/uL (4.1-5.3) 03/26/22 12:00 Hgb 13.0 g/dL (11.5-15.3) 03/26/22 12:00 Hct 41.6 % (37.0-47.0) 03/26/22 12:00 MCV 84.2 fl (81-99) D 03/26/22 12:00 MCH 26.3 pg (28.0-34.0) L 03/26/22 12:00 MCHC 31.3 g/dL (30.0-36.0) D 03/26/22 12:00 RDW 14.1 % (12.1-15.1) 03/26/22 12:00 Plt Count 265 10^3/cmm (130-400) 03/26/22 12:00 MPV 10.3 fL (7.4-10.4) 03/26/22 12:00 Neut % (Auto) 66.8 % 03/26/22 12:00 Lymph % (Auto) 23.7 % 03/26/22 12:00 Marshall % (Auto) 7.6 % 03/26/22 12:00 Eos % (Auto) 0.9 % 03/26/22 12:00 Baso % (Auto) 0.7 % 03/26/22 12:00 Neut # (Auto) 6.59 10^3/uL (1.8-7.7) 03/26/22 12:00 Lymph # (Auto) 2.3 10^3/uL (0.8-4.8) 03/26/22 12:00 Marshall # (Auto) 0.8 10^3/uL (0.2-0.9) 03/26/22 12:00 Eos # (Auto) 0.1 10^3/uL (0.0-0.8) 03/26/22 12:00 Baso # (Auto) 0.1 10^3/uL (0.0-0.1) 03/26/22 12:00 Nucleated RBC % (auto) 0 % 03/26/22 12:00 Nucleated RBCs # 0.0 /100WBC 03/26/22 12:00 Sodium 133 mmol/L (136-145) L 03/26/22 12:00 Potassium 4.0 mmol/L (3.5-5.1) 03/26/22 12:00 Chloride 98 mmol/L (98-107) 03/26/22 12:00 Carbon Dioxide 20 mmol/L (22-29) L 03/26/22 12:00 Anion Gap 19.0 (5-19) 03/26/22 12:00 BUN 10 mg/dL (8-23) 03/26/22 12:00 Creatinine 0.7 mg/dL (0.5-0.9) 03/26/22 12:00 GFR Calculation Not Reportable 03/26/22 12:00 Glucose 105 mg/dL (65-115) 03/26/22 12:00 Calculated Osmolality 275 mOsm/kg (285-295) L 03/26/22 12:00 Calcium 9.4 mg/dL (8.5-10.5) 03/26/22 12:00 Magnesium 2.0 mg/dL (1.7-2.3) 03/26/22 12:00 Discharge Plan Discharge Patient Disposition: Home Clinical Impression: Hyponatremia Condition: Stable Prescriptions: No Action aspirin 325 mg tablet 325 mg PO QAM potassium chloride 8 mEq capsule, extended release 8 meq PO DAILY Qty: 30 1RF pantoprazole [Protonix] 40 mg tablet,delayed release (DR/EC) 40 mg PO BID 42 Days Qty: 84 0RF enalapril maleate 5 mg tablet 5 mg PO DAILY memantine 5 mg tablet 5 mg PO QAM lorazepam 0.5 mg tablet 0.5 mg PO DAILY PRN (Reason: anxiety) Qty: 42 0RF Rx Instructions: 1 tab tid x 1 week then 1 tab bid x 1 week then 1 tab daily x 1 week then stop calcium citrate-vitamin D3 [Citracal + D Maximum] 315 mg-6.25 mcg (250 unit) tablet 1 tab PO DAILY sertraline 100 mg tablet 100 mg PO DAILY 30 Days Qty: 21 1RF Rx Instructions: 1/2 tab once daily for 2 weeks then 1 tab daily famotidine 40 mg tablet 40 mg PO BID pravastatin 80 mg Tablet 80 mg PO BEDTIME Discharge Orders: Discharge ED (Routine); Ordered 03/26/22 Ordered By: Srinivas Morillo Referrals: Judith Dennis MD [Primary Care Provider] - Discharge Diet: Usual diet Discharge Activity: Resume usual activity Patient Instructions: Hyponatremia (ED) Activity Restrictions/Additional Instructions: Thank you for visiting the emergency department. You were seen and evaluated for abnormal lab. The exact cause of your persistent hyponatremia is unclear though likely exacerbated by recent diarrhea as discussed. We are pleased that you feel improved. I recommend follow-up with your primary care provider for further investigation of the underlying cause of your low sodium. Return to the emergency department for anything that you are concerned about a feel needs emergency department evaluation. Coding Level of Care Code ED Etl Application Developer for Aliya Fwkatie Exam Comprehensive
[2022-03-26 12:04] LABS: Basophils # 0.1 10^3/uL (0.0-0.1); Basophils % 0.7 %; Eosinophils # 0.1 10^3/uL (0.0-0.8); Eosinophils % 0.9 %; Hematocrit 41.6 % (37.0-47.0); Lymphocytes # 2.3 10^3/uL (0.8-4.8); Lymphocytes % 23.7 %; Mean Corpuscular HGB Conc 31.3 g/dL (30.0-36.0); Mean Corpuscular Hemoglobin 26.3 pg (28.0-34.0); Mean Corpuscular Volume 84.2 fl (81-99); Mean Platelet Volume 10.3 fL (7.4-10.4); Monocytes # 0.8 10^3/uL (0.2-0.9); Monocytes % 7.6 %; Neutrophils # 6.59 10^3/uL (1.8-7.7); Neutrophils % 66.8 %; Nucleated Red Blood Cells % 0 %; Platelet Count 265 10^3/cmm (130-400); Red Blood Count 4.94 10^6/uL (4.1-5.3); Red Cell Distribution Width 14.1 % (12.1-15.1); White Blood Count 9.9 10^3/uL (4.0-10.0)
[2022-03-26] MEDS: sodium chloride 0.9% 1,000 ML 999 ML IV (12:19)
[2022-03-26 12:24] LABS: Blood Urea Nitrogen 10 mg/dL (8-23); Calcium 9.4 mg/dL (8.5-10.5); Carbon Dioxide 20 mmol/L (22-29); Chloride 98 mmol/L (98-107); Glucose 105 mg/dL (65-115); Osmolality Calculated 275 mOsm/kg (285-295); Sodium 133 mmol/L (136-145)
--- NOTE | 2022-03-26 12:40 | PC.NURSE ---
Patient is AOx3, resting in bed with bilateral non labored equal breathing.
[2022-03-26 13:51] VITALS: BP 162/90; PULSE 76; RESP 18; O2SAT 98
== END 2022-03-26 13:53 | disposition home or self-care (01) ==
PROVIDERS: Emergency Provider Emergency Medicine; PCP Family Medicine
DX: E87.1 Hypo-osmolality and hyponatremia (principal); Z79.82 Long term (current) use of aspirin; F03.90 Unspecified dementia, unspecified severity, without behavioral disturbance, psychotic disturbance, mood disturbance, and anxiety; I10 Essential (primary) hypertension
CPT/HCPCS: 80048; 83735; 85025; 93005; 96360; 99284; J7030

== ENCOUNTER → 2022-03-31 10:44 | Outpatient (BNVA) | payer MEDICARE, OTHER, SELFPAY | PROVIDERS: PCP Family Medicine; Visit Provider Family Medicine | DX: N39.0 Urinary tract infection, site not specified (principal); F41.9 Anxiety disorder, unspecified; R30.0 Dysuria; K59.00 Constipation, unspecified | CPT/HCPCS: 81000; 87077; 87086; 87184 ==

== ENCOUNTER 2022-04-01 17:07 | Emergency (ER) | payer MEDICARE, OTHER, SELFPAY ==
[2022-04-01 17:21] VITALS: BP 131/71; PULSE 83; RESP 18; TEMP 36.8; O2SAT 94; BMI 21.7
--- NOTE | 2022-04-01 17:24 | XRR_ITS ---
PROCEDURE INFORMATION: Exam: XR Chest Exam date and time: 04/01/2022 5:38 PM Age: 81 years old Clinical indication: Other: AMS TECHNIQUE: Imaging protocol: Radiologic exam of the chest. Views: 1 view. COMPARISON: CR XR chest 1V portable [id number] 02/15/2022 1:37 PM FINDINGS: Lungs: Unremarkable. No consolidation. Pleural spaces: Unremarkable. No pleural effusion. No pneumothorax. Heart/Mediastinum: Unremarkable. No cardiomegaly. Bones/joints: Metallic surgical hardware is seen in the cervical spine XR/XR chest 1V portable [id number] IMPRESSION: No acute findings. Surgical hardware cervical spine
--- NOTE | 2022-04-01 17:41 | ED.C_ITS ---
HPI - Psych General: Chief Complaint: Psychiatric Symptoms Stated Complaint: MHE Time Seen by Provider: 04/01/22 17:11 [facility] ED PFSH: Medical History (Updated 04/01/22 @ 14:33 by Lillian Osullivan) Abnormal ankle brachial index (PATRICIA) 02/05/21 Acid reflux disease Allergic rhinitis due to allergen Anxiety Aortic valve regurgitation Carotid artery stenosis, asymptomatic Dementia Diverticulosis Fatty infiltration of liver Heart disease Hiatal hernia with GERD History of nonmelanoma skin cancer Hypertension Hyponatremia Incomplete bladder emptying Mitral valve disease Osteopenia PAD (peripheral artery disease) Postmenopausal Psychiatric care Umbilical hernia Surgical History (Updated 03/31/22 @ 10:50 by Judith Dennis MD) History of cholecystectomy History of colonoscopy History of esophagogastroduodenoscopy (EGD) History of fusion of cervical spine acdf c4-6 History of fusion of lumbar spine L4-5 History of hysterectomy Family History Father , in his 70's Cancer CAD (coronary artery disease) Brother CAD (coronary artery disease) Mother , at age 79 Heart disease Other Diabetes Hypertension Denies family history of Anesthesia complication Bleeding disorder Social History (Updated 03/31/22 @ 10:43 by Judith Dennis MD) Smoking and tobacco status: never smoked Alcohol intake: never Lives independently: No Household members: none Marital status: / Current occupational status: retired Female Reproductive History: Spontaneous abortions: No Course Vital Signs: Vital signs: Vital Signs Temperature 98.3 F 04/01/22 17:21 Pulse Rate 83 04/01/22 17:21 Respiratory Rate 18 04/01/22 17:21 Blood Pressure 131/71 04/01/22 17:21 Pulse Oximetry 94 04/01/22 17:21 Oxygen Delivery Me thod 04/01/22 17:21 MDM - Psych Lab Data : 04/01/22 17:32 04/01/22 17:32 Discharge Plan Discharge Condition: Stable Prescriptions: No Action aspirin 325 mg tablet 325 mg PO QAM potassium chloride 8 mEq capsule, extended release 8 meq PO DAILY Qty: 30 1RF pantoprazole [Protonix] 40 mg tablet,delayed release (DR/EC) 40 mg PO BID 42 Days Qty: 84 0RF enalapril maleate 5 mg tablet 5 mg PO DAILY memantine 5 mg tablet 5 mg PO QAM lorazepam 0.5 mg tablet 0.5 mg PO DAILY PRN (Reason: anxiety) Qty: 42 0RF Rx Instructions: 1 tab tid x 1 week then 1 tab bid x 1 week then 1 tab daily x 1 week then stop calcium citrate-vitamin D3 [Citracal + D Maximum] 315 mg-6.25 mcg (250 unit) tablet 1 tab PO DAILY sertraline 100 mg tablet 100 mg PO DAILY 30 Days Qty: 21 1RF Rx Instructions: 1/2 tab once daily for 2 weeks then 1 tab daily famotidine 40 mg tablet 40 mg PO BID pravastatin 80 mg Tablet 80 mg PO BEDTIME Referrals: Judith Dennis MD [Primary Care Provider] - Coding Level of Care Code ED Mechanical Engineering Teacher for Aliya Coelho
--- NOTE | 2022-04-01 17:42 | W.ED.GENADLT ---
Documented by User: Amor House MD 04/01/22 21:50 HPI - General Adult General: Chief complaint: Psychiatric Symptoms Stated complaint: MHE Time Seen by Provider: 04/01/22 17:11 History of Present Illness: HPI: [81]yo patient w/ hx of dementia, aortic regurgitation, hypertension, PAD who presents to the emergency room for evaluation of increased aggressive behavior at home and altered mental status. Per family, over the last few weeks, patient has been hiding her medicine and refusing to take some of the medicine. Patient has been lying to family members and being very verbally aggressive with them. On arrival, the patient is AAOx3 and cooperative with my evaluation. No focal complaints of chest pain, shortness of breath, palpitations, N/V, focal GI/ complaints. Currently denies SI/HI. No complaints of hallucinations. Onset: acute on chronic Duration: ongoing Location: home Severity: severe Associated symptoms: Deny chest pain, dyspnea, nausea, rash, palpitations or vomiting Review of Systems Const: Denies: fever(s) or chills Eyes: Denies: change in vision ENMT: Denies: mouth pain Card: Denies: chest pain or palpitations Resp: Denies: dyspnea or non-productive cough GI: Denies: abdominal pain, nausea, vomiting or diarrhea : Denies: dysuria Musc: Denies: extremity pain Skin/Breast: Denies: rash or new lesions Neuro: Denies: weakness in extremities Psych: Reports: other (+aggressive behaviors at home) Rafi/Lymph: Denies: easy bruising PFSH ED PFSH: Medical History (Updated 04/13/22 @ 10:43 by Antonio Rogel MD) Abnormal ankle brachial index (PATRICIA) 02/05/21 Acid reflux disease Allergic rhinitis due to allergen Anxiety Aortic valve regurgitation Carotid artery stenosis, asymptomatic Dementia Diverticulosis Fatty infiltration of liver Heart disease Hiatal hernia with GERD History of nonmelanoma skin cancer Hypertension Hyponatremia Incomplete bladder emptying Mitral valve disease Osteopenia PAD (peripheral artery disease) Postmenopausal Psychiatric care Umbilical hernia Surgical History (Updated 03/31/22 @ 10:50 by Judith Dennis MD) History of cholecystectomy History of colonoscopy History of esophagogastroduodenoscopy (EGD) History of fusion of cervical spine acdf c4-6 History of fusion of lumbar spine L4-5 History of hysterectomy Family History Father , in his 70's Cancer CAD (coronary artery disease) Brother CAD (coronary artery disease) Mother , at age 79 Heart disease Other Diabetes Hypertension Denies family history of Anesthesia complication Bleeding disorder Social History (Updated 04/13/22 @ 09:01 by Srinivas Izaguirre LPN) Smoking and tobacco status: never smoked Second hand smoke exposure: No Smoking risk assessment/counseling performed?: No Alcohol intake: never Desire information about alcohol rehabilitation?: No Counseling given: No Desire information about substance/drug rehabilitation?: No Counseling given: No Lives independently: No Household members: none Marital status: / Current occupational status: retired Physical Exam Const: COMMON NORMALS: alert HENMT: COMMON NORMALS: atraumatic HEAD & SCALP: atraumatic MOUTH: moist mucous membranes not abnormal Eye: COMMON NORMALS: EOMs intact bilaterally and conjunctivae normal CONJUNCTIVA: Yes conjunctivae normal Neck/C-Spine: COMMON NORMALS: full ROM and supple Resp: COMMON NORMALS: normal respiratory effort and clear to auscultation bilaterally AUSCULTATION: clear to auscultation bilaterally Cardio: COMMON NORMALS: regular rate RATE: regular rate GI: COMMON NORMALS: Soft to palpation and non-tender PALPATION: Yes Soft to palpation Extremity: COMMON NORMALS: full ROM Neuro: SENSORIUM/ORIENTATION: Yes alert MOTOR EXAM: No Abnormal motor strength present and Other motor observations present (no focal motor deficits) OTHER: AAOx3(self, location, and place), no extremity, cranial nerves II through XII grossly intact Psych: COMMON NORMALS: speech normal SPEECH: Yes normal speech MOOD & AFFECT: Yes euthymic mood Course Vital Signs: Vital signs: Vital Signs Temperature 98.3 F 04/01/22 17:21 Pulse Rate 74 04/01/22 23:32 Respiratory Rate 16 04/01/22 23:32 Blood Pressure 109/58 04/01/22 23:32 Pulse Oximetry 98 04/01/22 23:32 Oxygen Delivery Me thod 04/01/22 17:21 MDM - General Adult Medical Decision Making [81]yo patient w/ hx of dementia presenting for worsening dementia and increased agitation.. HDS, exam within normal limit Thoughts are linear and organized, and the patient has no AH/VH, or HI. Clinically the patient displays no overt toxidrome; they are well appearing, with low suspicion for toxic ingestion given history and exam. Symptoms unlikely 2/2 anemia, hypothyroidism, infection, or ICH. Workup: CBC, CMP, Lipase, salicylate/tylenol, TSH/free T4, EKG, covid antigen, XR chest, CT head, UA serum ethanol, UDS Lab findings: wnl, +marijuana and benzo in urine [8:30pm] On reassessment, labs and workup wnl. Patient is hemodynamically stable with no acute medical complaints. Case discussed with psychiatric provider Dr. Kingsley at [facility] inpatient with recommendation for transfer for geriatric psychiatric psychiatry evaluation. Disposition: Xfer to [facility] Lab Data : 04/01/22 17:32 04/01/22 17:32 Radiology Impressions Chest X-Ray 04/01/22 17:24 IMPRESSION: No acute findings. Surgical hardware cervical spine Head CT 04/01/22 18:17 IMPRESSION: Negative for acute intracranial abnormality. Laboratory Results WBC 10.1 10^3/uL (4.0-10.0) H 04/01/22 17:32 RBC 4.34 10^6/uL (4.1-5.3) 04/01/22 17:32 Hgb 11.6 g/dL (11.5-15.3) 04/01/22 17:32 Hct 36.5 % (37.0-47.0) L 04/01/22 17:32 MCV 84.1 fl (81-99) 04/01/22 17:32 MCH 26.7 pg (28.0-34.0) L 04/01/22 17:32 MCHC 31.8 g/dL (30.0-36.0) 04/01/22 17:32 RDW 14.0 % (12.1-15.1) 04/01/22 17:32 Plt Count 268 10^3/cmm (130-400) 04/01/22 17:32 MPV 11.1 fL (7.4-10.4) H 04/01/22 17:32 Neut % (Auto) 61.2 % 04/01/22 17:32 Lymph % (Auto) 28.9 % 04/01/22 17:32 [place] % (Auto) 7.2 % 04/01/22 17:32 Eos % (Auto) 1.8 % 04/01/22 17:32 Baso % (Auto) 0.7 % 04/01/22 17:32 Neut # (Auto) 6.16 10^3/uL (1.8-7.7) 04/01/22 17:32 Lymph # (Auto) 2.9 10^3/uL (0.8-4.8) 04/01/22 17:32 [place] # (Auto) 0.7 10^3/uL (0.2-0.9) 04/01/22 17:32 Eos # (Auto) 0.2 10^3/uL (0.0-0.8) 04/01/22 17:32 Baso # (Auto) 0.1 10^3/uL (0.0-0.1) 04/01/22 17:32 Nucleated RBC % (auto) 0 % 04/01/22 17: Nucleated RBCs # 0.0 /100WBC 04/01/22 17:32 Sodium 136 mmol/L (136-145) 04/01/22 17:32 Potassium 4.1 mmol/L (3.5-5.1) 04/01/22 17:32 Chloride 102 mmol/L (98-107) 04/01/22 17:32 Carbon Dioxide 18 mmol/L (22-29) L 04/01/22 17:32 Anion Gap 20.1 (5-19) H 04/01/22 17:32 BUN 13 mg/dL (8-23) 04/01/22 17:32 Creatinine 0.6 mg/dL (0.5-0.9) 04/01/22 17:32 GFR Calculation Not Reportable 04/01/22 17:32 Glucose 125 mg/dL (65-115) H 04/01/22 17:32 Calculated Osmolality 284 mOsm/kg (285-295) L 04/01/22 17:32 Calcium 9.2 mg/dL (8.5-10.5) 04/01/22 17:32 Total Bilirubin 0.2 mg/dL (0.15-1.2) 04/01/22 17:32 AST 23 U/L (0-32) 04/01/22 17:32 ALT 22 U/L (0-33) 04/01/22 17:32 Alkaline Phosphatase 56 U/L (35-105) 04/01/22 17:32 Troponin T Baseline 15 ng/L (0-10) H 04/01/22 17:32 Troponin T 120 Minute 13.97 ng/L (0-10) H 04/01/22 18:04 Delta Troponin T -1.03 ABS# (0-10) L 04/01/22 18:04 Total Protein 6.6 g/dL (6.6-8.7) 04/01/22 17:32 Albumin 4.3 g/dL (3.5-5.2) 04/01/22 17:32 Globulin 2.3 g/dL (1.3-4.6) 04/01/22 17:32 Lipase 37 U/L (13-60) 04/01/22 17:32 Lipase 37 U/L (13-60) 04/01/22 17:32 TSH 1.85 uIU/mL (0.27-4.20) 04/01/22 17:32 Free T4 1.26 ng/dL (0.82-1.77) 04/01/22 17:32 Urine Color Yellow (Yellow) 04/01/22 20:56 Urine Appearance Clear (CLEAR) 04/01/22 20:56 Urine pH 5 (5-7) 04/01/22 20:56 Ur Specific [place] 1.015 (1.005-1.030) 04/01/22 20:56 Urine Protein Neg (Negative) 04/01/22 20:56 Urine Glucose (UA) Norm (Normal) 04/01/22 20:56 Urine Ketones Negative (Negative) 04/01/22 20:56 Urine Blood Neg (Negative) 04/01/22 20:56 Urine Nitrate Negative (Negative) 04/01/22 20:56 Urine Bilirubin Neg (Negative) 04/01/22 20:56 Urine Urobilinogen Norm mg/dL (Negative) 04/01/22 20:56 Ur Leukocyte Esterase 1+ (Negative) H 04/01/22 20:56 Urine RBC None /hpf (0-2) 04/01/22 20:56 Urine WBC 5-10 /hpf (0-5) H 04/01/22 20:56 Ur Squamous Epith Cells 0-4 /hpf (0-5) H 04/01/22 20:56 Amorphous Sediment Not Reportable 04/01/22 20:56 Urine Bacteria Trace /hpf (NONE) 04/01/22 20:56 Salicylates < 0.3 mg/dL (3-10) L 04/01/22 17:32 Urine Opiates Screen Negative ng/mL (Negative) 04/01/22 18:01 Acetaminophen < 5.0 ug/mL (10-30) L 04/01/22 17:32 Ur Barbiturates Screen Negative ng/mL (Negative) 04/01/22 18:01 Ur Phencyclidine Scrn Negative ng/mL (Negative) 04/01/22 18:01 Ur Amphetamines Screen Negative ng/mL (Negative) 04/01/22 18:01 U Benzodiazepines Scrn Positive ng/mL (Negative) H 04/01/22 18:01 Urine Cocaine Screen Negative ng/mL (Negative) 04/01/22 18:01 U Marijuana (THC) Screen Positive ng/mL (Negative) H 04/01/22 18:01 Ethyl Alcohol < 10 mg/dL (0-10) 04/01/22 17:32 SARS-CoV-2 Ag (Rapid) Negative (Negative) 04/01/22 18:09 Imaging Data Other Imaging: Radiologist's impression: [place] [address] CT Scan Report Signed Patient: Aarti Melchor Unit #: [id number] : 1940 Age/Sex: 81 / F ADM Date: 04/01/22 Loc: ER Room/Bed: Attending Dr: Ordering Provider/Ordering MD: Amor House MD Date of Service: 04/01/22 Procedure(s): CT head wo con* [id number] Accession Number(s): [id number] Report Number: [id number] PROCEDURE INFORMATION: Exam: CT Head Without Contrast Exam date and time: 04/01/2022 7:08 PM Age: 81 years old Clinical indication: Altered mental status/memory loss and other: Some confusion upon arrival from EMS; Additional info: AMS TECHNIQUE: Imaging protocol: Computed tomography of the head without contrast. Radiation optimization: All CT scans at this facility use at least one of these dose optimization techniques: automated exposure control; mA and/or kV adjustment per patient size (includes targeted exams where dose is matched to clinical indication); or iterative reconstruction. COMPARISON: CT head wo con* [id number] 11/27/2021 9:04 PM RADIATION DOSE METRICS: Total DLP (mGy-cm): 1005.18 FINDINGS: Brain: There is mild cerebral atrophy. There is mild diffuse heterogeneity of the white matter attenuation, consistent with chronic white matter ischemic changes. Negative for intracranial hemorrhage. Negative for intracranial mass. Negative for midline shift of the brain. Alejandro matter and white matter differentiation is unremarkable. Cerebral ventricles: No ventriculomegaly. Paranasal sinuses: Visualized sinuses are unremarkable. No fluid levels. Mastoid air cells: Visualized mastoid air cells are well aerated. Bones/joints: Unremarkable. No acute fracture. Soft tissues: Unremarkable. CT/CT head wo con* [id number] IMPRESSION: Negative for acute intracranial abnormality. ? Dictated By: Tello Parham Signed By: Tello Parham Signed Date/Time: 04/01/221938 DD/ [address] [address] XRay Report Signed Patient: Aarti Melchor Unit #: [id number] : 1940 Age/Sex: 81 / F ADM Date: 04/01/22 Loc: ER Room/Bed: Attending Dr: Ordering Provider/Ordering MD: Amor House MD Date of Service: 04/01/22 Procedure(s): XR chest 1V portable [id number] Accession Number(s): [id number] Report Number: [id number] PROCEDURE INFORMATION: Exam: XR Chest Exam date and time: 04/01/2022 5:38 PM Age: 81 years old Clinical indication: Other: AMS TECHNIQUE: Imaging protocol: Radiologic exam of the chest. Views: 1 view. COMPARISON: CR XR chest 1V portable [id number] 02/15/2022 1:37 PM FINDINGS: Lungs: Unremarkable. No consolidation. Pleural spaces: Unremarkable. No pleural effusion. No pneumothorax. Heart/Mediastinum: Unremarkable. No cardiomegaly. Bones/joints:? Metallic surgical hardware is seen in the cervical spine XR/XR chest 1V portable [id number] IMPRESSION: No acute findings. Surgical hardware cervical spine ? Dictated By: Isra Lambert Signed By: Isra Lambert Signed Date/Time: 04/01/22 180 Discharge Plan Discharge Patient Disposition: Transfer to ED Clinical Impression: Aggressive behavior, Agitation Condition: Stable Prescriptions: No Action aspirin 325 mg tablet 325 mg PO QAM potassium chloride 8 mEq capsule, extended release 8 meq PO DAILY Qty: 30 1RF memantine 5 mg tablet 10 mg PO BID enalapril maleate 5 mg tablet 2.5 mg PO DAILY sodium chloride 1 gram tablet 500 mg PO BID pantoprazole [Protonix] 40 mg tablet,delayed release (DR/EC) 40 mg PO QAM trazodone 50 mg tablet 50 mg PO .HS PRN (Reason: insomnia) Qty: 30 1RF risperidone 0.5 mg tablet 0.5 mg PO BID Qty: 60 1RF calcium citrate-vitamin D3 [Citracal + D Maximum] 315 mg-6.25 mcg (250 unit) tablet 1 tab PO DAILY sertraline 100 mg tablet 100 mg PO DAILY 30 Days Qty: 21 1RF Rx Instructions: 1/2 tab once daily for 2 weeks then 1 tab daily famotidine 40 mg tablet 40 mg PO BID Referrals: Judith Dennis MD [Primary Care Provider] - Sign Out Sign Out Data: Patient Sign Out occurred on 04/01/22 at 22:13. Patient's care was discussed, and care was transferred from to Srinivas Morillo MD. Coding Level of Care Code ED Completion Engineer for Chg Fwd Exam Comprehensive Documented by User: Srinivas Morillo MD 04/13/22 18:31 HPI - General Adult General: Chief complaint: Psychiatric Symptoms Stated complaint: MHE Time Seen by Provider: 04/01/22 17:11 [facility] ED PFSH: Medical History (Updated 04/13/22 @ 10:43 by Antonio Rogel MD) Abnormal ankle brachial index (PATRICIA) 02/05/21 Acid reflux disease Allergic rhinitis due to allergen Anxiety Aortic valve regurgitation Carotid artery stenosis, asymptomatic Dementia Diverticulosis Fatty infiltration of liver Heart disease Hiatal hernia with GERD History of nonmelanoma skin cancer Hypertension Hyponatremia Incomplete bladder emptying Mitral valve disease Osteopenia PAD (peripheral artery disease) Postmenopausal Psychiatric care Umbilical hernia Surgical History (Updated 03/31/22 @ 10:50 by Judith Dennis MD) History of cholecystectomy History of colonoscopy History of esophagogastroduodenoscopy (EGD) History of fusion of cervical spine acdf c4-6 History of fusion of lumbar spine L4-5 History of hysterectomy Family History Father , in his 70's Cancer CAD (coronary artery disease) Brother CAD (coronary artery disease) Mother , at age 79 Heart disease Other Diabetes Hypertension Denies family history of Anesthesia complication Bleeding disorder Social History (Updated 04/13/22 @ 09:01 by Srinivas Izaguirre LPN) Smoking and tobacco status: never smoked Second hand smoke exposure: No Smoking risk assessment/counseling performed?: No Alcohol intake: never Desire information about alcohol rehabilitation?: No Counseling given: No Desire information about substance/drug rehabilitation?: No Counseling given: No Lives independently: No Household members: none Marital status: / Current occupational status: retired Course Vital Signs: Vital signs: Vital Signs Temperature 98.3 F 04/01/22 17:21 Pulse Rate 74 04/01/22 23:32 Respiratory Rate 16 04/01/22 23:32 Blood Pressure 109/58 04/01/22 23:32 Pulse Oximetry 98 04/01/22 23:32 Oxygen Delivery Me thod 04/01/22 17:21 MDM - General Adult Medical Decision Making [81]yo patient w/ hx of dementia presenting for worsening dementia and increased agitation.. HDS, exam within normal limit Thoughts are linear and organized, and the patient has no AH/VH, or HI. Clinically the patient displays no overt toxidrome; they are well appearing, with low suspicion for toxic ingestion given history and exam. Symptoms unlikely 2/2 anemia, hypothyroidism, infection, or ICH. Workup: CBC, CMP, Lipase, salicylate/tylenol, TSH/free T4, EKG, covid antigen, XR chest, CT head, UA serum ethanol, UDS Lab findings: wnl, +marijuana and benzo in urine [8:30pm] On reassessment, labs and workup wnl. Patient is hemodynamically stable with no acute medical complaints. Case discussed with psychiatric provider Dr. Kingsley at [facility] inpatient with recommendation for transfer for geriatric psychiatric psychiatry evaluation. Disposition: Xfer to [facility] Patient care discussed with Dr. House pending transfer to inpatient [facility] facility. No acute events during my care of the patient. Srinivas Morillo MD Emergency Medicine Lab Data : 04/01/22 17:32 04/01/22 17:32 Radiology Impressions Chest X-Ray 04/01/22 17:24 IMPRESSION: No acute findings. Surgical hardware cervical spine Head CT 04/01/22 18:17 IMPRESSION: Negative for acute intracranial abnormality. Laboratory Results WBC 10.1 10^3/uL (4.0-10.0) H 04/01/22 17:32 RBC 4.34 10^6/uL (4.1-5.3) 04/01/22 17:32 Hgb 11.6 g/dL (11.5-15.3) 04/01/22 17:32 Hct 36.5 % (37.0-47.0) L 04/01/22 17:32 MCV 84.1 fl (81-99) 04/01/22 17:32 MCH 26.7 pg (28.0-34.0) L 04/01/22 17:32 MCHC 31.8 g/dL (30.0-36.0) 04/01/22 17:32 RDW 14.0 % (12.1-15.1) 04/01/22 17:32 Plt Count 268 10^3/cmm (130-400) 04/01/22 17:32 MPV 11.1 fL (7.4-10.4) H 04/01/22 17:32 Neut % (Auto) 61.2 % 04/01/22 17:32 Lymph % (Auto) 28.9 % 04/01/22 17:32 [place] % (Auto) 7.2 % 04/01/22 17:32 Eos % (Auto) 1.8 % 04/01/22 17:32 Baso % (Auto) 0.7 % 04/01/22 17:32 Neut # (Auto) 6.16 10^3/uL (1.8-7.7) 04/01/22 17:32 Lymph # (Auto) 2.9 10^3/uL (0.8-4.8) 04/01/22 17:32 [place] # (Auto) 0.7 10^3/uL (0.2-0.9) 04/01/22 17:32 Eos # (Auto) 0.2 10^3/uL (0.0-0.8) 04/01/22 17:32 Baso # (Auto) 0.1 10^3/uL (0.0-0.1) 04/01/22 17:32 Nucleated RBC % (auto) 0 % 04/01/22 17:32 Nucleated RBCs # 0.0 /100WBC 04/01/22 17:32 Sodium 136 mmol/L (136-145) 04/01/22 17:32 Potassium 4.1 mmol/L (3.5-5.1) 04/01/22 17:32 Chloride 102 mmol/L (98-107) 04/01/22 17:32 Carbon Dioxide 18 mmol/L (22-29) L 04/01/22 17:32 Anion Gap 20.1 (5-19) H 04/01/22 17:32 BUN 13 mg/dL (8-23) 04/01/22 17:32 Creatinine 0.6 mg/dL (0.5-0.9) 04/01/22 17:32 GFR Calculation Not Reportable 04/01/22 17:32 Glucose 125 mg/dL (65-115) H 04/01/22 17:32 Calculated Osmolality 284 mOsm/kg (285-295) L 04/01/22 17:32 Calcium 9.2 mg/dL (8.5-10.5) 04/01/22 17:32 Total Bilirubin 0.2 mg/dL (0.15-1.2) 04/01/22 17:32 AST 23 U/L (0-32) 04/01/22 17:32 ALT 22 U/L (0-33) 04/01/22 17:32 Alkaline Phosphatase 56 U/L (35-105) 04/01/22 17:32 Troponin T Baseline 15 ng/L (0-10) H 04/01/22 17:32 Troponin T 120 Minute 13.97 ng/L (0-10) H 04/01/22 18:04 Delta Troponin T -1.03 ABS# (0-10) L 04/01/22 18:04 Total Protein 6.6 g/dL (6.6-8.7) 04/01/22 17:32 Albumin 4.3 g/dL (3.5-5.2) 04/01/22 17:32 Globulin 2.3 g/dL (1.3-4.6) 04/01/22 17:32 Lipase 37 U/L (13-60) 04/01/22 17:32 Lipase 37 U/L (13-60) 04/01/22 17:32 TSH 1.85 uIU/mL (0.27-4.20) 04/01/22 17:32 Free T4 1.26 ng/dL (0.82-1.77) 04/01/22 17:32 Urine Color Yellow (Yellow) 04/01/22 20:56 Urine Appearance Clear (CLEAR) 04/01/22 20:56 Urine pH 5 (5-7) 04/01/22 20:56 Ur Specific [place] 1.015 (1.005-1.030) 04/01/22 20:56 Urine Protein Neg (Negative) 04/01/22 20:56 Urine Glucose (UA) Norm (Normal) 04/01/22 20:56 Urine Ketones Negative (Negative) 04/01/22 20:56 Urine Blood Neg (Negative) 04/01/22 20:56 Urine Nitrate Negative (Negative) 04/01/22 20:56 Urine Bilirubin Neg (Negative) 04/01/22 20:56 Urine Urobilinogen Norm mg/dL (Negative) 04/01/22 20:56 Ur Leukocyte Esterase 1+ (Negative) H 04/01/22 20:56 Urine RBC None /hpf (0-2) 04/01/22 20:56 Urine WBC 5-10 /hpf (0-5) H 04/01/22 20:56 Ur Squamous Epith Cells 0-4 /hpf (0-5) H 04/01/22 20:56 Amorphous Sediment Not Reportable 04/01/22 20:56 Urine Bacteria Trace /hpf (NONE) 04/01/22 20:56 Salicylates < 0.3 mg/dL (3-10) L 04/01/22 17:32 Urine Opiates Screen Negative ng/mL (Negative) 04/01/22 18:01 Acetaminophen < 5.0 ug/mL (10-30) L 04/01/22 17:32 Ur Barbiturates Screen Negative ng/mL (Negative) 04/01/22 18:01 Ur Phencyclidine Scrn Negative ng/mL (Negative) 04/01/22 18:01 Ur Amphetamines Screen Negative ng/mL (Negative) 04/01/22 18:01 U Benzodiazepines Scrn Positive ng/mL (Negative) H 04/01/22 18:01 Urine Cocaine Screen Negative ng/mL (Negative) 04/01/22 18:01 U Marijuana (THC) Screen Positive ng/mL (Negative) H 04/01/22 18:01 Ethyl Alcohol < 10 mg/dL (0-10) 04/01/22 17:32 SARS-CoV-2 Ag (Rapid) Negative (Negative) 04/01/22 18:09 Discharge Plan Discharge Patient Disposition: Transfer to ED Clinical Impression: Aggressive behavior, Agitation Condition: Stable Prescriptions: No Action aspirin 325 mg tablet 325 mg PO QAM potassium chloride 8 mEq capsule, extended release 8 meq PO DAILY Qty: 30 1RF memantine 5 mg tablet 10 mg PO BID enalapril maleate 5 mg tablet 2.5 mg PO DAILY sodium chloride 1 gram tablet 500 mg PO BID pantoprazole [Protonix] 40 mg tablet,delayed release (DR/EC) 40 mg PO QAM trazodone 50 mg tablet 50 mg PO .HS PRN (Reason: insomnia) Qty: 30 1RF risperidone 0.5 mg tablet 0.5 mg PO BID Qty: 60 1RF calcium citrate-vitamin D3 [Citracal + D Maximum] 315 mg-6.25 mcg (250 unit) tablet 1 tab PO DAILY sertraline 100 mg tablet 100 mg PO DAILY 30 Days Qty: 21 1RF Rx Instructions: 1/2 tab once daily for 2 weeks then 1 tab daily famotidine 40 mg tablet 40 mg PO BID Referrals: Judith Dennis MD [Primary Care Provider] - Sign Out Sign Out Data: Patient Sign Out occurred on 04/01/22 at 22:13. Patient's care was discussed, and care was transferred from to Srinivas Morillo MD. Coding Level of Care Code ED Completion Engineer for g Fwd Exam Comprehensive
[2022-04-01 17:55] LABS: Troponin(5th) Baseline 15 ng/L (0-10)
[2022-04-01 17:56] LABS: Lipase 37 U/L (13-60)
[2022-04-01 17:57] LABS: Alcohol Level < 10 mg/dL (0-10)
--- NOTE | 2022-04-01 18:03 | ECG_ITS ---
[facility] Test Date: 2022-04-01 Pat Name: Aarti Melchor Department: Room: Gender: Female Paper Carrier: : 1940 Requested By: Amor House Order Number: [id number] Mita MD: David Moran M.D. Measurements Intervals [place] Rate: 76 P: 38 [place]: 196 QRS: -16 QRSD: 80 T: 30 QT: 366 QTc: 413 Interpretive Statements SINUS RHYTHM POSSIBLE LEFT ATRIAL ENLARGEMENT [-0.1mV P-WAVE IN V1/V2] LOW QRS VOLTAGE IN PRECORDIAL LEADS [QRS DEFLECTION < 1.0 mV IN CHEST LEADS] POSSIBLE ANTERIOR MYOCARDIAL INFARCTION , PROBABLY OLD [30 ms Q WAVE IN V3/V4, OR R < 0.2 mV IN V4] Compared to ECG 03/26/2022 12:15:30 No significant changes Electronically Signed On 04-02-2022 0:17:59 CDT by David Moran M.D. [email or web address]
[2022-04-01 18:10] LABS: Basophils # 0.1 10^3/uL (0.0-0.1); Basophils % 0.7 %; Eosinophils # 0.2 10^3/uL (0.0-0.8); Eosinophils % 1.8 %; Hematocrit 36.5 % (37.0-47.0); Hemoglobin 11.6 g/dL (11.5-15.3); Lymphocytes # 2.9 10^3/uL (0.8-4.8); Lymphocytes % 28.9 %; Mean Corpuscular HGB Conc 31.8 g/dL (30.0-36.0); Mean Corpuscular Hemoglobin 26.7 pg (28.0-34.0); Mean Corpuscular Volume 84.1 fl (81-99); Mean Platelet Volume 11.1 fL (7.4-10.4); Monocytes # 0.7 10^3/uL (0.2-0.9); Monocytes % 7.2 %; Neutrophils # 6.16 10^3/uL (1.8-7.7); Neutrophils % 61.2 %; Nucleated Red Blood Cells % 0 %; Platelet Count 268 10^3/cmm (130-400); Red Blood Count 4.34 10^6/uL (4.1-5.3); White Blood Count 10.1 10^3/uL (4.0-10.0)
--- NOTE | 2022-04-01 18:17 | CTR_ITS ---
PROCEDURE INFORMATION: Exam: CT Head Without Contrast Exam date and time: 04/01/2022 7:08 PM Age: 81 years old Clinical indication: Altered mental status/memory loss and other: Some confusion upon arrival from EMS; Additional info: AMS TECHNIQUE: Imaging protocol: Computed tomography of the head without contrast. Radiation optimization: All CT scans at this facility use at least one of these dose optimization techniques: automated exposure control; mA and/or kV adjustment per patient size (includes targeted exams where dose is matched to clinical indication); or iterative reconstruction. COMPARISON: CT head wo con* [id number] 11/27/2021 9:04 PM RADIATION DOSE METRICS: Total DLP (mGy-cm): 1005.18 FINDINGS: Brain: There is mild cerebral atrophy. There is mild diffuse heterogeneity of the white matter attenuation, consistent with chronic white matter ischemic changes. Negative for intracranial hemorrhage. Negative for intracranial mass. Negative for midline shift of the brain. Alejandro matter and white matter differentiation is unremarkable. Cerebral ventricles: No ventriculomegaly. Paranasal sinuses: Visualized sinuses are unremarkable. No fluid levels. Mastoid air cells: Visualized mastoid air cells are well aerated. Bones/joints: Unremarkable. No acute fracture. Soft tissues: Unremarkable. CT/CT head wo con* [id number] IMPRESSION: Negative for acute intracranial abnormality.
[2022-04-01 18:45] LABS: Amphetamines Screen Urine Negative (Negative); Barbiturates Screen Urine Negative (Negative); Benzodiazepines Screen Urine Positive (Negative); Cocaine Screen Urine Negative (Negative); Opiate Screen Urine Negative (Negative); PCP Screen Urine Negative (Negative); THC Screen Urine Positive (Negative)
[2022-04-01 18:46] LABS: Alanine Aminotransferase 22 U/L (0-33); Albumin Level 4.3 g/dL (3.5-5.2); Alkaline Phosphatase 56 U/L (35-105); Blood Urea Nitrogen 13 mg/dL (8-23); Calcium 9.2 mg/dL (8.5-10.5); Carbon Dioxide 18 mmol/L (22-29); Chloride 102 mmol/L (98-107); Globulin 2.3 g/dL (1.3-4.6); Glucose 125 mg/dL (65-115); Lipase 37 U/L (13-60); Osmolality Calculated 284 mOsm/kg (285-295); Sodium 136 mmol/L (136-145); Thyroid Stimulating Hormone 1.85 uIU/mL (0.27-4.20); Total Bilirubin 0.2 mg/dL (0.15-1.2); Total Protein 6.6 g/dL (6.6-8.7)
[2022-04-01 18:47] LABS: Acetaminophen < 5.0 ug/mL (10-30); Anion Gap 20.1 (5-19); Potassium 4.1 mmol/L (3.5-5.1); Salicylate < 0.3 mg/dL (3-10)
[2022-04-01 18:48] LABS: Aspartate Amino Transferase 23 U/L (0-32)
[2022-04-01 19:01] LABS: SARS Covid-2 Antigen Negative (Negative)
[2022-04-01 19:28] LABS: Troponin 5 2HR 13.97 ng/L (0-10)
[2022-04-01 19:34] LABS: Troponin 5 2HR Delta -1.03 ABS# (0-10)
[2022-04-01] MEDS: LORazepam 0.5 mg Tablet PO (20:55)
[2022-04-01 21:16] LABS: Add Urine Microscopic? YES; Bilirubin Urine Neg (Negative); Blood Urine Neg (Negative); Glucose Urine UA Norm (Normal); Ketones Urine Negative (Negative); Leukocyte Esterase Urine 1+ (Negative); Nitrate Urine Negative (Negative); Protein Urine Neg (Negative); Specific Gravity, Urine 1.015 (1.005-1.030); Urine Appearance Clear (CLEAR); Urine Color Yellow (Yellow); Urobilinogen Urine Norm (Negative); pH Urine 5 (5-7)
[2022-04-01 21:29] LABS: Bacteria Urine TRACE /hpf; Squamous Epithelial Cell Urine 0-4 /hpf (0-5)
[2022-04-01 21:30] LABS: Add Urine Culture? No
[2022-04-01 23:32] VITALS: BP 109/58; PULSE 74; RESP 16; O2SAT 98
--- NOTE | 2022-04-01 23:33 | PC.NURSE ---
called report to Kalen De Santiago RN
[2022-04-02 00:11] LABS: Free T4 Free Thyroxine 1.26 ng/dL (0.82-1.77)
== END 2022-04-02 00:30 ==
PROVIDERS: Emergency Medicine; Emergency Provider Emergency Medicine; PCP Family Medicine
DX: R45.1 Restlessness and agitation (principal); R45.6 Violent behavior; F03.90 Unspecified dementia, unspecified severity, without behavioral disturbance, psychotic disturbance, mood disturbance, and anxiety; I10 Essential (primary) hypertension
CPT/HCPCS: 36415; 70450; 71045; 80053; 80306; 80307; 81001; 83690; 84439; 84443; 84484; 85025; 87426; 93005; 99285

== ENCOUNTER 2022-04-16 07:53 | Day surgery (SDC) | payer MEDICARE, OTHER, SELFPAY ==
[2022-04-15 12:27] VITALS: BMI 22.4
[2022-04-16 08:18] VITALS: BP 155/81; PULSE 87; RESP 18; TEMP 36.2; O2SAT 96
[2022-04-16] MEDS: sodium chloride 0.9% 1,000 ML 30 ML IV (08:25)
--- NOTE | 2022-04-16 08:34 | ANES.PREANE2 ---
Pre-Anesthetic Assessment Height/Weight: Height 1.57 m Weight 55.792 kg Temp Pulse Resp BP Pulse Ox O2 Del Method 97.1 F L 87 18 155/81 96 04/16/22 08:18 04/16/22 08:18 04/16/22 08:18 04/16/22 08:18 04/16/22 08:18 04/16/22 08:18 Preop Diagnosis: Acid reflux disease Operation Date: 04/16/22 09:15 Proposed Procedures p EGD with biopsy K21.9(Not Applicable) - Jarrod Weeks DO Familial anesthetic complications: none Was Beta Poppy taken within 24 hours: N/A Was Clonidine taken within 24 hours: N/A Last intake: Intake Last Liquid Date 04/15/22 Last Liquid Time 22:30 Last Solid Date 04/15/22 Last Solid Time 17:00 Last Intake: 22:30 Social No alcohol and No tobacco Exam alert, oriented x 3, clear to auscultation bilaterally and regular rate & rhythm (murmor noted) Airway Submandibular: within normal limits Cervical ROM: within normal limits Mallampati: Class II Dentition: full Pulmonary None reported CV/HEM Hypertension and Murmur (aortic regurgitation) None reported Hepatic None reported GI Gastroesophageal Reflux Disease Metabolic None reported Musc/skel Lower Back Pain and Osteoarthritis/DJD Neuropsych Anxiety Anesthetic Plan ASA status: 3 Anesthesia: MAC Medications/Allergies Home Medications Medication Instructions Recorded Confirmed Last Taken Type aspirin 325 mg tablet 325 mg PO QAM 11/11/21 04/16/22 04/12/22 History calcium citrate 315 mg 1 tab PO DAILY 11/11/21 04/15/22 03/26/22 History calcium-vitamin D3 6.25 mcg (250 unit) tablet (Citracal + Vitamin D Maximum) famotidine 40 mg tablet 40 mg PO BID 12/28/21 04/15/22 04/15/22 History potassium chloride 8 mEq 8 meq PO DAILY #30 caps 03/18/22 04/15/22 04/15/22 Rx capsule,extended release sertraline 100 mg tablet 100 mg PO DAILY 30 days #21 tabs 04/01/22 04/15/22 04/15/22 Rx enalapril maleate 5 mg tablet 2.5 mg PO DAILY 04/13/22 04/15/22 04/15/22 History memantine 5 mg tablet 10 mg PO BID 04/13/22 04/15/22 04/15/22 History pantoprazole 40 mg tablet,delayed 40 mg PO QAM 04/13/22 04/15/22 04/15/22 History release (Protonix) risperidone 0.5 mg tablet 0.5 mg PO BID #60 tabs 04/13/22 04/16/22 04/16/22 Rx sodium chloride 1 gram tablet 500 mg PO BID 04/13/22 04/15/22 04/15/22 History trazodone 50 mg tablet 50 mg PO .HS PRN insomnia #30 tabs 04/13/22 04/15/22 04/15/22 Rx Allergies Allergy/AdvReac Type Severity Reaction Status Date / Time prednisone Allergy ADR-Nausea Verified 04/15/22 12:13 Sulfa (Sulfonamide Allergy feels Verified 04/15/22 12:13 Antibiotics) strange all over morphine AdvReac ADR-Nausea Verified 04/15/22 12:13 Current Medications Generic Name Dose Route Start Last Admin Trade Name Freq PRN Reason Stop Dose Admin Sodium Chloride 1,000 mls @ 30 mls/hr 04/16/22 08:00 04/16/22 08:25 Sodium Chloride 0.9% IV 04/17/22 07:59 30 mls/hr .Q24H CARL Administration PFSH Anesthesia Medical History (Updated 04/13/22 @ 10:43 by Antonio Rogel MD) Abnormal ankle brachial index (PATRICIA) 02/05/21 Acid reflux disease Allergic rhinitis due to allergen Anxiety Aortic valve regurgitation Carotid artery stenosis, asymptomatic Dementia Diverticulosis Fatty infiltration of liver Heart disease Hiatal hernia with GERD History of nonmelanoma skin cancer Hypertension Hyponatremia Incomplete bladder emptying Mitral valve disease Osteopenia PAD (peripheral artery disease) Postmenopausal Psychiatric care Umbilical hernia Surgical History (Updated 03/31/22 @ 10:50 by Judith Dennis MD) History of cholecystectomy History of colonoscopy History of esophagogastroduodenoscopy (EGD) History of fusion of cervical spine acdf c4-6 History of fusion of lumbar spine L4-5 History of hysterectomy Family History Father , in his 70's Cancer CAD (coronary artery disease) Brother CAD (coronary artery disease) Mother , at age 79 Heart disease Other Diabetes Hypertension Denies family history of Anesthesia complication Bleeding disorder Social History (Updated 04/13/22 @ 09:01 by Srinivas Izaguirre LPN) Smoking and tobacco status: never smoked Second hand smoke exposure: No Smoking risk assessment/counseling performed?: No Alcohol intake: never Desire information about alcohol rehabilitation?: No Counseling given: No Desire information about substance/drug rehabilitation?: No Counseling given: No Lives independently: No Household members: none Marital status: / Current occupational status: retired Data Anesthesia Cardiac Studies: Echocardiogram 01/04/22 Echocardiogram Ultrasound 10/29/19 Cardiac Event Monitor 02/19/22
--- NOTE | 2022-04-16 09:07 | P.HP_ITS ---
Providers/Chief Complaint Primary Care Provider: Judith Dennis MD Chief Complaint: Abdominal pain History of Present Illness Aarti Melchor is a 81 year old female here for EGD Medications/Allergies Home Medications Medication Instructions Recorded Confirmed Last Taken Type aspirin 325 mg tablet 325 mg PO QAM 11/11/21 04/16/22 04/12/22 History calcium citrate 315 mg 1 tab PO DAILY 11/11/21 04/15/22 03/26/22 History calcium-vitamin D3 6.25 mcg (250 unit) tablet (Citracal + Vitamin D Maximum) famotidine 40 mg tablet 40 mg PO BID 12/28/21 04/15/22 04/15/22 History potassium chloride 8 mEq 8 meq PO DAILY #30 caps 03/18/22 04/15/22 04/15/22 Rx capsule,extended release sertraline 100 mg tablet 100 mg PO DAILY 30 days #21 tabs 04/01/22 04/15/22 04/15/22 Rx enalapril maleate 5 mg tablet 2.5 mg PO DAILY 04/13/22 04/15/22 04/15/22 History memantine 5 mg tablet 10 mg PO BID 04/13/22 04/15/22 04/15/22 History pantoprazole 40 mg tablet,delayed 40 mg PO QAM 04/13/22 04/15/22 04/15/22 History release (Protonix) risperidone 0.5 mg tablet 0.5 mg PO BID #60 tabs 04/13/22 04/16/22 04/16/22 Rx sodium chloride 1 gram tablet 500 mg PO BID 04/13/22 04/15/22 04/15/22 History trazodone 50 mg tablet 50 mg PO .HS PRN insomnia #30 tabs 04/13/22 04/15/22 04/15/22 Rx Allergies Allergy/AdvReac Type Severity Reaction Status Date / Time prednisone Allergy ADR-Nausea Verified 04/15/22 12:13 Sulfa (Sulfonamide Allergy feels Verified 04/15/22 12:13 Antibiotics) strange all over morphine AdvReac ADR-Nausea Verified 04/15/22 12:13 PFSH Acute PFSH: Medical History (Updated 04/13/22 @ 10:43 by Antonio Rogel MD) Abnormal ankle brachial index (PATRICIA) 02/05/21 Acid reflux disease Allergic rhinitis due to allergen Anxiety Aortic valve regurgitation Carotid artery stenosis, asymptomatic Dementia Diverticulosis Fatty infiltration of liver Heart disease Hiatal hernia with GERD History of nonmelanoma skin cancer Hypertension Hyponatremia Incomplete bladder emptying Mitral valve disease Osteopenia PAD (peripheral artery disease) Postmenopausal Psychiatric care Umbilical hernia Surgical History (Updated 03/31/22 @ 10:50 by Judith Dennis MD) History of cholecystectomy History of colonoscopy History of esophagogastroduodenoscopy (EGD) History of fusion of cervical spine acdf c4-6 History of fusion of lumbar spine L4-5 History of hysterectomy Family History Father , in his 70's Cancer CAD (coronary artery disease) Brother CAD (coronary artery disease) Mother , at age 79 Heart disease Other Diabetes Hypertension Denies family history of Anesthesia complication Bleeding disorder Social History (Updated 04/13/22 @ 09:01 by Srinivas Izaguirre LPN) Smoking and tobacco status: never smoked Second hand smoke exposure: No Smoking risk assessment/counseling performed?: No Alcohol intake: never Desire information about alcohol rehabilitation?: No Counseling given: No Desire information about substance/drug rehabilitation?: No Counseling given: No Lives independently: No Household members: none Marital status: / Current occupational status: retired Vitals/I&O/Wt Last Vital Signs Temp 97.1 F L 04/16/22 08:18 Pulse 87 04/16/22 08:18 Resp 18 04/16/22 08:18 BP 155/81 04/16/22 08:18 Pulse Ox 96 04/16/22 08:18 O2 Del Method 04/16/22 08:18 Weight last 48 hrs Weight 123 lb A&P Assessment and plan (1) Acid reflux disease: Plan EGD Attestations Medical Necessity Statement*: home Coding Level of Care Code Acute Skimmer [employer] for Chg Fwd Diagnoses Acid reflux disease K21.9
[2022-04-16 09:27] VITALS: BP 125/67; PULSE 66; RESP 16; TEMP 36.1; O2SAT 98
[2022-04-16 09:44] VITALS: BP 153/78; PULSE 70; RESP 16; O2SAT 98
--- NOTE | 2022-04-16 14:07 | ANE.PACU2 ---
Inpatient post-anesthesia follow up: Airway intact: Yes Vital signs: Temperature 97 F Pulse Rate 70 Respiratory Rate 16 Blood Pressure 153/78 Pulse Oximetry 98 Oxygen Delivery Me thod Room Air Oxygen Flow Rate 3 Fraction of Inspir ed Oxygen Hydration adequate: Yes Nausea and vomiting: No Pain level: 1 Mental status: Baseline
== END 2022-04-16 09:52 | disposition home or self-care (01) ==
PROVIDERS: PCP Family Medicine; Visit Provider Surgery
PROC: 0DJ08ZZ Inspection of Upper Intestinal Tract, Via Natural or Artificial Opening Endoscopic (ICD-10-PCS; CPT 43235; principal; 2022-04-16 09:15)
DX: R10.9 Unspecified abdominal pain (principal); K29.50 Unspecified chronic gastritis without bleeding; B96.81 Helicobacter pylori [H. pylori] as the cause of diseases classified elsewhere; Z79.82 Long term (current) use of aspirin; K21.9 Gastro-esophageal reflux disease without esophagitis; F41.9 Anxiety disorder, unspecified; F03.90 Unspecified dementia, unspecified severity, without behavioral disturbance, psychotic disturbance, mood disturbance, and anxiety; I11.0 Hypertensive heart disease with heart failure; I50.9 Heart failure, unspecified; Z98.1 Arthrodesis status; K44.9 Diaphragmatic hernia without obstruction or gangrene
CPT/HCPCS: 43239; 88305; J2704; J7030

== ENCOUNTER 2022-04-20 22:10 | Emergency (ER) | payer MEDICARE, OTHER, SELFPAY ==
[2022-04-20 22:17] VITALS: BP 173/79; PULSE 76; RESP 16; TEMP 36.6; O2SAT 95
[2022-04-20 22:40] VITALS: BP 153/87; PULSE 67; RESP 16; O2SAT 97
[2022-04-20] MEDS: lidocaine 2% viscous 15 ML, aluminum-mag hydrox-simethicon 30 ML, sucralfate oral liq 1 GM PO (22:53)
[2022-04-20 23:30] VITALS: BP 149/91; O2SAT 96
--- NOTE | 2022-04-20 23:32 | PC.NURSE ---
This RN and [place] Quintero at bedside to speak with mother. Mother still refuses to go by ambulance at this point. IV will be DC'd prior to pt being let go via private vehicle. Vane Everett, updated. Pt will go to ER to check in, per Vane. This was explained to mother.
[2022-04-20] MEDS: CLONazepam 0.5 mg Tablet 0.25 MG PO (23:52)
--- NOTE | 2022-04-21 02:05 | W.ED.GENADLT ---
Documented by User: SARAH Dennison 04/21/22 02:11 HPI - General Adult General: Chief complaint: General Medical Stated complaint: High B/P Time Seen by Provider: 04/20/22 22:25 History of Present Illness: Patient is in today for complaints of burning in her throat and high blood pressure. Patient's daughter brings her in. Patient and daughter state that she has been on trazodone for couple of weeks at 50 mg per night. Just today the doctor had increased her trazodone to 100 mg per night. Patient did doze off in the chair daughter woke her up to move her to the bed and the patient started coughing and having burning throat pain. The daughter took her blood pressure and it was very elevated which is atypical for the patient. Daughter reports that her blood pressure is normally stabilized on current medication regimen. They do offer that patient recently had an EGD and does have esophagitis and reflux. Daughter reports that she normally is stable with that however she normally is not eating out and her diet is controlled at home. Daughter reports today; however, the patient went out to eat. Associated symptoms: Deny chest pain, dyspnea or palpitations Review of Systems Const: Denies: fever(s), chills or body aches ENMT: Reports: throat pain Card: Denies: chest pain or palpitations Resp: Denies: dyspnea GI: Reports: heartburn PFSH ED PFSH: Medical History Abnormal ankle brachial index (PATRICIA) 02/05/21 Acid reflux disease Allergic rhinitis due to allergen Anxiety Aortic valve regurgitation Carotid artery stenosis, asymptomatic Dementia Diverticulosis Fatty infiltration of liver Heart disease Hiatal hernia with GERD History of nonmelanoma skin cancer Hypertension Hyponatremia Incomplete bladder emptying Mitral valve disease Osteopenia PAD (peripheral artery disease) Postmenopausal Psychiatric care Umbilical hernia Surgical History History of cholecystectomy History of colonoscopy History of esophagogastroduodenoscopy (EGD) History of fusion of cervical spine acdf c4-6 History of fusion of lumbar spine L4-5 History of hysterectomy Family History Father , in his 70's Cancer CAD (coronary artery disease) Brother CAD (coronary artery disease) Mother , at age 79 Heart disease Other Diabetes Hypertension Denies family history of Anesthesia complication Bleeding disorder Social History Smoking and tobacco status: never smoked Second hand smoke exposure: No Smoking risk assessment/counseling performed?: No Alcohol intake: never Desire information about alcohol rehabilitation?: No Counseling given: No Desire information about substance/drug rehabilitation?: No Counseling given: No Lives independently: No Household members: none Marital status: / Current occupational status: retired Physical Exam Const: COMMON NORMALS: no acute distress and alert OTHER: Patient has dementia HENMT: THROAT: posterior oropharynx normal Resp: COMMON NORMALS: normal respiratory effort, No use of accessory muscles and clear to auscultation bilaterally AUSCULTATION: clear to auscultation bilaterally Cardio: COMMON NORMALS: regular rate, regular rhythm, S1 normal heart sound present and S2 normal heart sound present RATE: regular rate RHYTHM: regular rhythm HEART SOUNDS: S1 normal heart sound present, S2 normal heart sound present and Murmur heart sound present systolic Neuro: COMMON NORMALS: CN's II-XII intact bilaterally SENSORIUM/ORIENTATION: Yes alert Course Vital Signs: Vital signs: Vital Signs Temperature 97.8 F 04/20/22 22:17 Pulse Rate 67 04/20/22 22:40 Respiratory Rate 16 04/20/22 22:40 Blood Pressure 149/91 04/20/22 23:30 Pulse Oximetry 96 04/20/22 23:30 Oxygen Delivery Me thod 04/20/22 23:30 MDM - General Adult Medical Decision Making 81-year-old patient in [facility] for esophageal burning after waking up and coughing. Patient has a history of acid reflux and a recent EGD. Patient has concerns because her blood pressure was elevated after her coughing fit. In the ER, patient is in no acute distress. She does still report a burning sensation in the back of her throat typical of when she has acid reflux. Her blood pressures are stable in the ER. She is struggling at home to sleep which is why they just increased her trazodone. Patient is very anxious that may be the trazodone because this all to happen. GI cocktail is administered and patient had some resolution of burning throat/esophageal pain. Blood pressures are stable patient is stable for discharge 0.25 mg of Klonopin administered x1 to help patient relax and be able to rest this evening. She has been pretty anxious about the events of tonight. Follow-up with her primary care provider tomorrow. Daughter and patient are both agreeable with plan of care. All questions answered to satisfaction. Patient discharged home stable. Advised her to return to ER for any new or worsening symptoms. Discharge Plan Discharge Patient Disposition: Home Clinical Impression: Acid reflux disease, Hypertension, Anxiety Condition: Stable Prescriptions: No Action aspirin 325 mg tablet 325 mg PO QAM Hold Instructions: Resume on 04/19/22. loperamide 2 mg capsule 2 mg PO Q6H PRN sertraline 100 mg tablet 50 mg PO DAILY Rx Instructions: 1/2 tab once daily for 2 weeks then 1 tab daily sodium chloride 1 gram tablet 500 mg PO BID Qty: 90 0RF potassium chloride 8 mEq capsule, extended release 8 meq PO DAILY Qty: 90 0RF memantine 5 mg tablet 10 mg PO BID enalapril maleate 5 mg tablet 2.5 mg PO DAILY pantoprazole [Protonix] 40 mg tablet,delayed release (DR/EC) 40 mg PO QAM risperidone 0.5 mg tablet 0.5 mg PO BID Qty: 60 1RF calcium citrate-vitamin D3 [Citracal + D Maximum] 315 mg-6.25 mcg (250 unit) tablet 1 tab PO DAILY trazodone 100 mg tablet 200 mg PO .HS PRN (Reason: insomnia) Qty: 60 1RF famotidine 40 mg tablet 40 mg PO BID Discharge Orders: Discharge ED (Routine); Ordered 04/20/22 Ordered By: Carey Sandhu Referrals: Judith Dennis MD [Primary Care Provider] - Discharge Diet: Usual diet Discharge Activity: Resume usual activity Patient Instructions: Clonazepam (By mouth), GERD (Gastroesophageal Reflux Disease) (ED) Activity Restrictions/Additional Instructions: 1 dose of clonazepam was administered tonight to help you with sleep and anxiety. Follow-up with your primary doctor tomorrow. Pay close attention to your diet in order to help reduce acid reflux. Return to the ER as needed for any new or worsening symptoms. Coding Level of Care Code ED Roadway Engineer for Chg Fwd Exam Detailed Documented by User: Demetris Khan DO 04/22/22 17:24 HPI - General Adult General: Chief complaint: General Medical Stated complaint: High B/P Time Seen by Provider: 04/20/22 22:25 PFSH ED PFSH: Medical History Abnormal ankle brachial index (PATRICIA) 02/05/21 Acid reflux disease Allergic rhinitis due to allergen Anxiety Aortic valve regurgitation Carotid artery stenosis, asymptomatic Dementia Diverticulosis Fatty infiltration of liver Heart disease Hiatal hernia with GERD History of nonmelanoma skin cancer Hypertension Hyponatremia Incomplete bladder emptying Mitral valve disease Osteopenia PAD (peripheral artery disease) Postmenopausal Psychiatric care Umbilical hernia Surgical History History of cholecystectomy History of colonoscopy History of esophagogastroduodenoscopy (EGD) History of fusion of cervical spine acdf c4-6 History of fusion of lumbar spine L4-5 History of hysterectomy Family History Father , in his 70's Cancer CAD (coronary artery disease) Brother CAD (coronary artery disease) Mother , at age 79 Heart disease Other Diabetes Hypertension Denies family history of Anesthesia complication Bleeding disorder Social History Smoking and tobacco status: never smoked Second hand smoke exposure: No Smoking risk assessment/counseling performed?: No Alcohol intake: never Desire information about alcohol rehabilitation?: No Counseling given: No Desire information about substance/drug rehabilitation?: No Counseling given: No Lives independently: No Household members: none Marital status: / Current occupational status: retired Course Vital Signs: Vital signs: Vital Signs Temperature 97.8 F 04/20/22 22:17 Pulse Rate 67 04/20/22 22:40 Respiratory Rate 16 04/20/22 22:40 Blood Pressure 149/91 04/20/22 23:30 Pulse Oximetry 96 04/20/22 23:30 Oxygen Delivery Me thod 04/20/22 23:30 MDM - General Adult Medical Decision Making 81-year-old patient in tonight for esophageal burning after waking up and coughing. Patient has a history of acid reflux and a recent EGD. Patient has concerns because her blood pressure was elevated after her coughing fit. In the ER, patient is in no acute distress. She does still report a burning sensation in the back of her throat typical of when she has acid reflux. Her blood pressures are stable in the ER. She is struggling at home to sleep which is why they just increased her trazodone. Patient is very anxious that may be the trazodone because this all to happen. GI cocktail is administered and patient had some resolution of burning throat/esophageal pain. Blood pressures are stable patient is stable for discharge 0.25 mg of Klonopin administered x1 to help patient relax and be able to rest this evening. She has been pretty anxious about the events of tonight. Follow-up with her primary care provider tomorrow. Daughter and patient are both agreeable with plan of care. All questions answered to satisfaction. Patient discharged home stable. Advised her to return to ER for any new or worsening symptoms. Chart reviewed and patient discussed with midlevel. Agree with assessment and plan. Discharge Plan Discharge Patient Disposition: Home Clinical Impression: Acid reflux disease, Hypertension, Anxiety Condition: Stable Prescriptions: No Action aspirin 325 mg tablet 325 mg PO QAM Hold Instructions: Resume on 04/19/22. loperamide 2 mg capsule 2 mg PO Q6H PRN sertraline 100 mg tablet 50 mg PO DAILY Rx Instructions: 1/2 tab once daily for 2 weeks then 1 tab daily sodium chloride 1 gram tablet 500 mg PO BID Qty: 90 0RF potassium chloride 8 mEq capsule, extended release 8 meq PO DAILY Qty: 90 0RF memantine 5 mg tablet 10 mg PO BID enalapril maleate 5 mg tablet 2.5 mg PO DAILY pantoprazole [Protonix] 40 mg tablet,delayed release (DR/EC) 40 mg PO QAM risperidone 0.5 mg tablet 0.5 mg PO BID Qty: 60 1RF calcium citrate-vitamin D3 [Citracal + D Maximum] 315 mg-6.25 mcg (250 unit) tablet 1 tab PO DAILY trazodone 100 mg tablet 200 mg PO .HS PRN (Reason: insomnia) Qty: 60 1RF famotidine 40 mg tablet 40 mg PO BID Discharge Orders: Discharge ED (Routine); Ordered 04/20/22 Ordered By: Carey Sandhu Referrals: Judith Dennis MD [Primary Care Provider] - Discharge Diet: Usual diet Discharge Activity: Resume usual activity Patient Instructions: Clonazepam (By mouth), GERD (Gastroesophageal Reflux Disease) (ED) Activity Restrictions/Additional Instructions: 1 dose of clonazepam was administered tonight to help you with sleep and anxiety. Follow-up with your primary doctor tomorrow. Pay close attention to your diet in order to help reduce acid reflux. Return to the ER as needed for any new or worsening symptoms. Coding Level of Care Code ED Roadway Engineer for Chg Fwd Exam Detailed
== END 2022-04-20 23:59 | disposition home or self-care (01) ==
PROVIDERS: Emergency Provider Nurse Practitioner Family; PCP Family Medicine
DX: K21.9 Gastro-esophageal reflux disease without esophagitis (principal); I11.0 Hypertensive heart disease with heart failure; I50.9 Heart failure, unspecified; F03.90 Unspecified dementia, unspecified severity, without behavioral disturbance, psychotic disturbance, mood disturbance, and anxiety; F41.9 Anxiety disorder, unspecified; Z79.82 Long term (current) use of aspirin
CPT/HCPCS: 99283

== ENCOUNTER 2022-04-28 12:59 | Outpatient (CLI) | payer MEDICARE, OTHER, SELFPAY ==
--- NOTE | 2022-04-28 13:30 | XR_ITS ---
WS: [id number] DEXA (DUAL ENERGY X-RAY ABSORPTIOMETRY) Bone mineral density was performed using a [employer] machine. HISTORY: osteopenia, postmenopausal COMPARISON: 02/08/2019 Left forearm BMD: 0.674 g/cm2. T score: -2.3 Z score: 0.7 Total hip BMD: Left: 0.804 g/cm2. T score: -1.6 Z score: 0.8 Right: 0.828 g/cm2. T score: -1.4 Z score: 0.9 10 year probability of a major osteoporotic fracture is 19.9%. Compared to the prior study from 02/08/2019. Bilateral hips bone mineral density has decreased by 5.7%. XR/XR DEXA axial skeleton* [id number] IMPRESSION: OSTEOPENIA based upon the WHO classification for females. Significant decrease in bone mineral density within the hips since the prior .
== END 2022-04-28 13:00 | disposition home or self-care (01) ==
PROVIDERS: PCP Family Medicine; Visit Provider Family Medicine
DX: M85.80 Other specified disorders of bone density and structure, unspecified site (principal); Z78.0 Asymptomatic menopausal state
CPT/HCPCS: 77080

== ENCOUNTER → 2022-04-30 11:42 | Outpatient (BNVA) | payer MEDICARE, OTHER, SELFPAY | PROVIDERS: PCP Family Medicine; Visit Provider Surgery | DX: Z09 Encounter for follow-up examination after completed treatment for conditions other than malignant neoplasm (principal); K29.70 Gastritis, unspecified, without bleeding; B96.81 Helicobacter pylori [H. pylori] as the cause of diseases classified elsewhere | CPT/HCPCS: 99212 ==

== ENCOUNTER → 2022-05-06 13:11 | Outpatient (BNVA) | payer MEDICARE, OTHER, SELFPAY | PROVIDERS: PCP Family Medicine; Visit Provider Family Medicine | DX: R19.7 Diarrhea, unspecified (principal); K29.70 Gastritis, unspecified, without bleeding; B96.81 Helicobacter pylori [H. pylori] as the cause of diseases classified elsewhere | CPT/HCPCS: 80048 ==

== ENCOUNTER 2022-05-07 23:13 | Inpatient (IN) | payer MEDICARE, OTHER, SELFPAY ==
[2022-05-07 23:16] VITALS: BP 137/72; PULSE 83; RESP 19; TEMP 36.9; O2SAT 93; BMI 23.4
--- NOTE | 2022-05-07 23:53 | ED_ITS ---
Documented by User: ANTONIO Perry 05/08/22 03:31 HPI - Nausea/Vomiting/Diarrhea General: Chief complaint: Abdominal Pain Stated complaint: FEVER/WEAKNESS Time Seen by Provider: 05/07/22 23:14 History of Present Illness: Patient is an 81-year-old female comes to the ED with generalized weakness and diarrhea. Past medical history of hypertension, heart disease, PAD aortic valve regurg and dementia. Patient is currently being treated for H. pylori and is taking antibiotics to treat it. She has been having a lot of diarrhea for the past couple days. She reports having close to 8 episodes of diarrhea a day. Stool is watery. She denies any abdominal pain or cramping in the abdomen. She is able to tolerate p.o. fluids and has been trying to keep up with her fluid intake. Today patient has had increased weakness and it is harder for her to get up and ambulate. Tonight she went to the bathroom and fell asleep on the toilet. Patient's daughter who is her data entry email processor is present here in the ED as well and helping provide history. Her daughter says patient was probably in the bathroom for over an hour. Or her daughter went into the bathroom to check on her she was unable to stand up ambulate. Daughter then called EMS and they brought her here to the ED for evaluation. Denies any chest pain or shortness of breath. Associated nausea: No Associated symtoms: Reports fatigue; Denies change in vision, chest pain, dysuria, headache(s), nausea or palpitations Review of Systems Const: Reports: fatigue; Denies: fever(s) or chills Eyes: Denies: change in vision or eye discomfort ENMT: Denies: throat pain, odynophagia, nasal discharge or nasal congestion Card: Denies: chest pain, palpitations, edema, swelling of feet/ankles, dyspnea on exertion or orthopnea Resp: Denies: dyspnea, productive cough or non-productive cough GI: Reports: diarrhea; Denies: abdominal pain, nausea, vomiting, constipation or hematochezia : Denies: flank pain, dysuria or hematuria Musc: Denies: neck pain, back pain or extremity swelling Skin/Breast: Denies: rash or new lesions Neuro: Denies: headache(s), numbness in extremities or weakness in extremities PFS ED PFSH: Medical History Abnormal ankle brachial index (PATRICIA) 02/05/21 Acid reflux disease Allergic rhinitis due to allergen Anxiety Aortic valve regurgitation Carotid artery stenosis, asymptomatic Dementia Diverticulosis Fatty infiltration of liver Heart disease Helicobacter pylori gastritis Hiatal hernia with GERD History of nonmelanoma skin cancer Hypertension Hyponatremia Incomplete bladder emptying Mitral valve disease Osteopenia PAD (peripheral artery disease) Postmenopausal Psychiatric care Umbilical hernia Surgical History History of cholecystectomy History of colonoscopy History of esophagogastroduodenoscopy (EGD) History of fusion of cervical spine acdf c4-6 History of fusion of lumbar spine L4-5 History of hysterectomy Family History Father , in his 70's Cancer CAD (coronary artery disease) Brother CAD (coronary artery disease) Mother , at age 79 Heart disease Other Diabetes Hypertension Denies family history of Anesthesia complication Bleeding disorder Social History Smoking and tobacco status: never smoked Second hand smoke exposure: No Smoking risk assessment/counseling performed?: No Alcohol intake: never Desire information about alcohol rehabilitation?: No Counseling given: No Desire information about substance/drug rehabilitation?: No Counseling given: No Lives independently: No Household members: none Marital status: / Current occupational status: retired Physical Exam Const: COMMON NORMALS: patient oriented x3 and alert GENERAL APPEARANCE: cooperative HENMT: COMMON NORMALS: normocephalic HEAD & SCALP: normocephalic MOUTH: Normal oral and palatal mucosa present THROAT: posterior oropharynx normal and uvula midline Neck/C-Spine: COMMON NORMALS: supple GENERAL: Yes normal visual inspection Resp: COMMON NORMALS: normal respiratory effort, No retractions, No use of accessory muscles and clear to auscultation bilaterally AUSCULTATION: clear to auscultation bilaterally Cardio: COMMON NORMALS: regular rate, regular rhythm, S1 normal heart sound p resent, S2 normal heart sound present, No gallops present (Cardio), No clicks present (Cardio), No murmurs present (Cardio) and Peripheral pulses 2+ throughout RATE: regular rate RHYTHM: regular rhythm HEART SOUNDS: S1 normal heart sound present and S2 normal heart sound present PERIPHERAL PULSES: Peripheral pulses 2+ throughout GI: COMMON NORMALS: Normal to inspection, nondistended, normoactive bowel sounds present, Soft to palpation, non-tender and no masses PALPATION: Yes Soft to palpation : COMMON NORMALS: Yes no CVA tenderness BLADDER/KIDNEY EXAM: Yes no CVA tenderness Back/Pelvis: COMMON NORMALS: no CVA tenderness Extremity: COMMON NORMALS: normal to inspection Neuro: COMMON NORMALS: patient oriented x3 SENSORIUM/ORIENTATION: Yes alert GAIT: Yes Normal gait present Skin: GENERAL SKIN EXAM: dry skin Course Vital Signs: Vital signs: Vital Signs Temperature 98.5 F 05/07/22 23:16 Pulse Rate 83 05/07/22 23:16 Respiratory Rate 19 H 05/07/22 23:16 Blood Pressure 137/72 05/07/22 23:16 Pulse Oximetry 93 05/07/22 23:16 Oxygen Delivery Me thod 05/07/22 23:16 MDM - Nausea/Vomiting/Diarrhea Medical Decision Making Patient is an 81-year-old female comes to the ED with generalized weakness and diarrhea. Patient was recently diagnosed with chronic H. pylori and was put on 2 antibiotics to treat H. pylori. Since starting the antibiotic she has been having severe diarrhea with over 8 episodes of diarrhea a day for the past couple days. She endorses having some generalized weakness. Vitals are stable. Exam is benign. White blood cell count is 11, hemoglobin of 9.8 and the rest of CBC and CMP were unremarkable. Stool labs are pending. CT of abdomen pending. Patient care signed over to Dr. Jones for further management and dispo of patient. Lab Data I reviewed the patient's lab results. : 05/07/22 23:35 05/07/22 23:35 Radiology Impressions Abdomen/Pelvis CT 05/08/22 02:45 IMPRESSION: 1. Fluid in the ascending colon, transverse colon and descending colon. Poor distension of the sigmoid colon and rectum with relative mild wall prominence. Segmental mild proctocolitis cannot be excluded. Recommend correlation with clinical findings. 2. Other chronic changes, as noted above. Laboratory Results WBC 11.0 10^3/uL (4.0-10.0) H 05/07/22 23:35 RBC 3.90 10^6/uL (4.1-5.3) L 05/07/22 23:35 Hgb 9.8 g/dL (11.5-15.3) L 05/07/22 23:35 Hct 31.8 % (37.0-47.0) L 05/07/22 23:35 MCV 81.5 fl (81-99) 05/07/22 23:35 MCH 25.1 pg (28.0-34.0) L 05/07/22 23:35 MCHC 30.8 g/dL (30.0-36.0) 05/07/22 23:35 RDW 14.7 % (12.1-15.1) 05/07/22 23:35 Plt Count 237 10^3/cmm (130-400) 05/07/22 23:35 MPV 10.9 fL (7.4-10.4) H 05/07/22 23:35 Neut % (Auto) 80.8 % 05/07/22 23:35 Lymph % (Auto) 10.4 % 05/07/22 23:35 [place] % (Auto) 7.3 % 05/07/22 23:35 Eos % (Auto) 0.7 % 05/07/22 23:35 Baso % (Auto) 0.5 % 05/07/22 23:35 Neut # (Auto) 8.90 10^3/uL (1.8-7.7) H 05/07/22 23:35 Lymph # (Auto) 1.1 10^3/uL (0.8-4.8) 05/07/22 23:35 [place] # (Auto) 0.8 10^3/uL (0.2-0.9) 05/07/22 23:35 Eos # (Auto) 0.1 10^3/uL (0.0-0.8) 05/07/22 23:35 Baso # (Auto) 0.1 10^3/uL (0.0-0.1) 05/07/22 23:35 Nucleated RBC % (auto) 0 % 05/07/22:35 Nucleated RBCs # 0.0 /100WBC 05/07/22 23:35 Sodium 134 mmol/L (136-145) L 05/07/22 23:35 Potassium 3.8 mmol/L (3.5-5.1) 05/07/22 23:35 Chloride 101 mmol/L (98-107) 05/07/22 23:35 Carbon Dioxide 19 mmol/L (22-29) L 05/07/22 23:35 Anion Gap 17.8 (5-19) 05/07/22 23:35 BUN 12 mg/dL (8-23) 05/07/22 23:35 Creatinine 0.8 mg/dL (0.5-0.9) 05/07/22 23:35 GFR Calculation Not Reportable 05/07/22 23:35 Glucose 153 mg/dL (65-115) H 05/07/22 23:35 Calculated Osmolality 281 mOsm/kg (285-295) L 05/07/22 23:35 Calcium 9.2 mg/dL (8.5-10.5) 05/07/22 23:35 Total Bilirubin 0.2 mg/dL (0.15-1.2) 05/07/22 23:35 AST 21 U/L (0-32) 05/07/22 23:35 ALT 31 U/L (0-33) 05/07/22 23:35 Alkaline Phosphatase 54 U/L (35-105) 05/07/22 23:35 Total Protein 6.6 g/dL (6.6-8.7) 05/07/22 23:35 Albumin 3.9 g/dL (3.5-5.2) 05/07/22 23:35 Globulin 2.7 g/dL (1.3-4.6) 05/07/22 23:35 Lipase 27 U/L (13-60) 05/07/22 23:35 Urine Color Yellow (Yellow) 05/08/22 00:23 Urine Appearance Clear (CLEAR) 05/08/22 00:23 Urine pH 5 (5-7) 05/08/22 00:23 Ur Specific [place] 1.010 (1.005-1.030) 05/08/22 00:23 Urine Protein Neg (Negative) 05/08/22 00:23 Urine Glucose (UA) Norm (Normal) 05/08/22 00:23 Urine Ketones Negative (Negative) 05/08/22 00:23 Urine Blood Neg (Negative) 05/08/22 00: Urine Nitrate Negative (Negative) 05/08/22 00: Urine Bilirubin Neg (Negative) 05/08/22 00:23 Urine Urobilinogen Norm mg/dL (Negative) 05/08/22 00:23 Ur Leukocyte Esterase Negative (Negative) 05/08/22 00:23 Discharge Plan Discharge Patient Disposition: Admitted As Inpatient Clinical Impression: Colitis Condition: Fair Prescriptions: No Action aspirin 325 mg tablet 325 mg PO QAM Hold Instructions: Resume on 04/19/22. loperamide 2 mg capsule 2 mg PO Q6H PRN sertraline 100 mg tablet 50 mg PO DAILY Rx Instructions: 1/2 tab once daily for 2 weeks then 1 tab daily sodium chloride 1 gram tablet 500 mg PO BID Qty: 90 0RF potassium chloride 8 mEq capsule, extended release 8 meq PO DAILY Qty: 90 0RF memantine 5 mg tablet 10 mg PO BID enalapril maleate 5 mg tablet 2.5 mg PO DAILY risperidone 0.5 mg tablet 0.5 mg PO BID Qty: 60 1RF calcium citrate-vitamin D3 [Citracal + D Maximum] 315 mg-6.25 mcg (250 unit) tablet 1 tab PO DAILY amoxicillin 500 mg capsule 1,000 mg PO BID 14 Days Qty: 56 0RF clarithromycin 500 mg tablet 500 mg PO BID 14 Days Qty: 28 0RF pantoprazole [Protonix] 40 mg tablet,delayed release (DR/EC) 40 mg PO BID 14 Days Qty: 28 0RF trazodone 100 mg tablet 200 mg PO .HS PRN (Reason: insomnia) Qty: 60 1RF famotidine 40 mg tablet 40 mg PO BID Referrals: Judith Dennis MD [Primary Care Provider] - Coding Level of Care Code ED Inventory Assistant for Chg Fwd Exam Comprehensive Documented by User: Zoltan Jones DO 05/08/22 05:58 HPI - Nausea/Vomiting/Diarrhea General: Chief complaint: Abdominal Pain Stated complaint: FEVER/WEAKNESS Time Seen by Provider: 05/07/22 23:14 PFSH ED PFSH: Medical History Abnormal ankle brachial index (PATRICIA) 02/05/21 Acid reflux disease Allergic rhinitis due to allergen Anxiety Aortic valve regurgitation Carotid artery stenosis, asymptomatic Dementia Diverticulosis Fatty infiltration of liver Heart disease Helicobacter pylori gastritis Hiatal hernia with GERD History of nonmelanoma skin cancer Hypertension Hyponatremia Incomplete bladder emptying Mitral valve disease Osteopenia PAD (peripheral artery disease) Postmenopausal Psychiatric care Umbilical hernia Surgical History History of cholecystectomy History of colonoscopy History of esophagogastroduodenoscopy (EGD) History of fusion of cervical spine acdf c4-6 History of fusion of lumbar spine L4-5 History of hysterectomy Family History Father , in his 70's Cancer CAD (coronary artery disease) Brother CAD (coronary artery disease) Mother , at age 79 Heart disease Other Diabetes Hypertension Denies family history of Anesthesia complication Bleeding disorder Social History Smoking and tobacco status: never smoked Second hand smoke exposure: No Smoking risk assessment/counseling performed?: No Alcohol intake: never Desire information about alcohol rehabilitation?: No Counseling given: No Desire information about substance/drug rehabilitation?: No Counseling given: No Lives independently: No Household members: none Marital status: / Current occupational status: retired Course Vital Signs: Vital signs: Vital Signs Temperature 98.5 F 05/07/22 23:16 Pulse Rate 83 05/07/22 23:16 Respiratory Rate 19 H 05/07/22 23:16 Blood Pressure 137/72 05/07/22 23:16 Pulse Oximetry 93 05/07/22 23:16 Oxygen Delivery Me thod 05/07/22 23:16 MDM - Nausea/Vomiting/Diarrhea Medical Decision Making Patient is an 81-year-old female comes to the ED with generalized weakness and diarrhea. Patient was recently diagnosed with chronic H. pylori and was put on 2 antibiotics to treat H. pylori. Since starting the antibiotic she has been having severe diarrhea with over 8 episodes of diarrhea a day for the past couple days. She endorses having some generalized weakness. Vitals are stable. Exam is benign. White blood cell count is 11, hemoglobin of 9.8 and the rest of CBC and CMP were unremarkable. Stool labs are pending. CT of abdomen pending. Patient care signed over to Dr. Jones for further management and dispo of patient. This patient was originally seen by Mr. Georges PA-C.? I agree with his history, evaluation, and treatment. This lady continues to have diarrhea in the ER. She is very weak. She cannot stand on her own. CT shows fluid in a sending transverse and descending colon. Segmental mild proctocolitis cannot be excluded, and is likely the cause given her lactoferrin positive stool. She is negative for C. difficile. She will be covered with Zosyn, IV fluid resuscitated as an inpatient. Hospitalist will see the patient. Lab Data : 05/07/22 23:35 05/07/22 23:35 Radiology Impressions Abdomen/Pelvis CT 05/08/22 02:45 IMPRESSION: 1. Fluid in the ascending colon, transverse colon and descending colon. Poor distension of the sigmoid colon and rectum with relative mild wall prominence. Segmental mild proctocolitis cannot be excluded. Recommend correlation with clinical findings. 2. Other chronic changes, as noted above. Laboratory Results WBC 11.0 10^3/uL (4.0-10.0) H 05/07/22 23:35 RBC 3.90 10^6/uL (4.1-5.3) L 05/07/22 23:35 Hgb 9.8 g/dL (11.5-15.3) L 05/07/22 23:35 Hct 31.8 % (37.0-47.0) L 05/07/22 23:35 MCV 81.5 fl (81-99) 05/07/22 23:35 MCH 25.1 pg (28.0-34.0) L 05/07/22 23:35 MCHC 30.8 g/dL (30.0-36.0) 05/07/22 23:35 RDW 14.7 % (12.1-15.1) 05/07/22 23:35 Plt Count 237 10^3/cmm (130-400) 05/07/22 23:35 MPV 10.9 fL (7.4-10.4) H 05/07/22 23:35 Neut % (Auto) 80.8 % 05/07/22 23:35 Lymph % (Auto) 10.4 % 05/07/22 23:35 [place] % (Auto) 7.3 % 05/07/22 23:35 Eos % (Auto) 0.7 % 05/07/22 23:35 Baso % (Auto) 0.5 % 05/07/22 23:35 Neut # (Auto) 8.90 10^3/uL (1.8-7.7) H 05/07/22 23:35 Lymph # (Auto) 1.1 10^3/uL (0.8-4.8) 05/07/22 23:35 [place] # (Auto) 0.8 10^3/uL (0.2-0.9) 05/07/22 23:35 Eos # (Auto) 0.1 10^3/uL (0.0-0.8) 05/07/22 23:35 Baso # (Auto) 0.1 10^3/uL (0.0-0.1) 05/07/22 23:35 Nucleated RBC % (auto) 0 % 05/07/22 23:35 Nucleated RBCs # 0.0 /100WBC 05/07/22 23:35 Sodium 134 mmol/L (136-145) L 05/07/22 23:35 Potassium 3.8 mmol/L (3.5-5.1) 05/07/22 23:35 Chloride 101 mmol/L (98-107) 05/07/22 23:35 Carbon Dioxide 19 mmol/L (22-29) L 05/07/22 23:35 Anion Gap 17.8 (5-19) 05/07/22 23:35 BUN 12 mg/dL (8-23) 05/07/22 23:35 Creatinine 0.8 mg/dL (0.5-0.9) 05/07/22 23:35 GFR Calculation Not Reportable 05/07/22 23:35 Glucose 153 mg/dL (65-115) H 05/07/22 23:35 Calculated Osmolality 281 mOsm/kg (285-295) L 05/07/22 23:35 Calcium 9.2 mg/dL (8.5-10.5) 05/07/22 23:35 Total Bilirubin 0.2 mg/dL (0.15-1.2) 05/07/22 23:35 AST 21 U/L (0-32) 05/07/22 23:35 ALT 31 U/L (0-33) 05/07/22 23:35 Alkaline Phosphatase 54 U/L (35-105) 05/07/22 23:35 Total Protein 6.6 g/dL (6.6-8.7) 05/07/22 23:35 Albumin 3.9 g/dL (3.5-5.2) 05/07/22 23:35 Globulin 2.7 g/dL (1.3-4.6) 05/07/22 23:35 Lipase 27 U/L (13-60) 05/07/22 23:35 Urine Color Yellow (Yellow) 05/08/22 00:23 Urine Appearance Clear (CLEAR) 05/08/22 00:23 Urine pH 5 (5-7) 05/08/22 00:23 Ur Specific [place] 1.010 (1.005-1.030) 05/08/22 00:23 Urine Protein Neg (Negative) 05/08/22 00:23 Urine Glucose (UA) Norm (Normal) 05/08/22 00:23 Urine Ketones Negative (Negative) 05/08/22 00:23 Urine Blood Neg (Negative) 05/08/22 00:23 Urine Nitrate Negative (Negative) 05/08/22 00:23 Urine Bilirubin Neg (Negative) 05/08/22 00:23 Urine Urobilinogen Norm mg/dL (Negative) 05/08/22 00:23 Ur Leukocyte Esterase Negative (Negative) 05/08/22 00:23 Discharge Plan Discharge Patient Disposition: Admitted As Inpatient Clinical Impression: Colitis Condition: Fair Prescriptions: No Action aspirin 325 mg tablet 325 mg PO QAM Hold Instructions: Resume on 04/19/22. loperamide 2 mg capsule 2 mg PO Q6H PRN sertraline 100 mg tablet 50 mg PO DAILY Rx Instructions: 1/2 tab once daily for 2 weeks then 1 tab daily sodium chloride 1 gram tablet 500 mg PO BID Qty: 90 0RF potassium chloride 8 mEq capsule, extended release 8 meq PO DAILY Qty: 90 0RF memantine 5 mg tablet 10 mg PO BID enalapril maleate 5 mg tablet 2.5 mg PO DAILY risperidone 0.5 mg tablet 0.5 mg PO BID Qty: 60 1RF calcium citrate-vitamin D3 [Citracal + D Maximum] 315 mg-6.25 mcg (250 unit) tablet 1 tab PO DAILY amoxicillin 500 mg capsule 1,000 mg PO BID 14 Days Qty: 56 0RF clarithromycin 500 mg tablet 500 mg PO BID 14 Days Qty: 28 0RF pantoprazole [Protonix] 40 mg tablet,delayed release (DR/EC) 40 mg PO BID 14 Days Qty: 28 0RF trazodone 100 mg tablet 200 mg PO .HS PRN (Reason: insomnia) Qty: 60 1RF famotidine 40 mg tablet 40 mg PO BID Referrals: Judith Dennis MD [Primary Care Provider] - Coding Level of Care Code ED Inventory Assistant for Chg Fwd Exam Comprehensive
[2022-05-07 23:57] LABS: Basophils # 0.1 10^3/uL (0.0-0.1); Basophils % 0.5 %; Eosinophils # 0.1 10^3/uL (0.0-0.8); Eosinophils % 0.7 %; Hematocrit 31.8 % (37.0-47.0); Hemoglobin 9.8 g/dL (11.5-15.3); Lymphocytes # 1.1 10^3/uL (0.8-4.8); Lymphocytes % 10.4 %; Mean Corpuscular HGB Conc 30.8 g/dL (30.0-36.0); Mean Corpuscular Hemoglobin 25.1 pg (28.0-34.0); Mean Corpuscular Volume 81.5 fl (81-99); Mean Platelet Volume 10.9 fL (7.4-10.4); Monocytes # 0.8 10^3/uL (0.2-0.9); Monocytes % 7.3 %; Neutrophils % 80.8 %; Nucleated Red Blood Cells % 0 %; Platelet Count 237 10^3/cmm (130-400); Red Cell Distribution Width 14.7 % (12.1-15.1)
[2022-05-08] VITALS (9 sets, daily range): BP systolic 113–142; BP diastolic 60–81; PULSE 71–79; RESP 17–20; TEMP 36.9–37.1; O2SAT 90–98
[2022-05-08 00:22] LABS: Alanine Aminotransferase 31 U/L (0-33); Albumin Level 3.9 g/dL (3.5-5.2); Alkaline Phosphatase 54 U/L (35-105); Anion Gap 17.8 (5-19); Aspartate Amino Transferase 21 U/L (0-32); Blood Urea Nitrogen 12 mg/dL (8-23); Calcium 9.2 mg/dL (8.5-10.5); Chloride 101 mmol/L (98-107); Globulin 2.7 g/dL (1.3-4.6); Lipase 27 U/L (13-60); Potassium 3.8 mmol/L (3.5-5.1); Total Bilirubin 0.2 mg/dL (0.15-1.2); Total Protein 6.6 g/dL (6.6-8.7)
[2022-05-08 00:28] LABS: Add Urine Microscopic? NO; Charge for UA Resulting for Rev
[2022-05-08 00:36] LABS: Carbon Dioxide 19 mmol/L (22-29); Glucose 153 mg/dL (65-115); Osmolality Calculated 281 mOsm/kg (285-295); Sodium 134 mmol/L (136-145)
[2022-05-08 00:43] LABS: Glucose Urine UA Norm (Normal); Ketones Urine Negative (Negative); Protein Urine Neg (Negative); Urine Appearance Clear (CLEAR); Urine Color Yellow (Yellow); pH Urine 5 (5-7)
[2022-05-08 00:44] LABS: Bilirubin Urine Neg (Negative); Blood Urine Neg (Negative); Leukocyte Esterase Urine Negative (Negative); Nitrate Urine Negative (Negative); Urobilinogen Urine Norm (Negative)
--- NOTE | 2022-05-08 01:22 | PC.NURSE ---
Provider notified that the patient has had 4 bed changes in the last 30 mins d/t liquid diarrhea. Pts Granddaughter informed that a brief and disposable pads will need to stay on the pt and that I will not be able to change her bed out every five mins as pt has large watery bowel movements every time she moves. Granddaughter became upset with this information and loudly told me that she will not let her grandmom lay in this wet bed. Attempted to explain to her that was not what I said and was not arguing with her about it.
--- NOTE | 2022-05-08 02:45 | CTR_ITS ---
PROCEDURE INFORMATION: Exam: CT Abdomen And Pelvis With Contrast Exam date and time: 05/08/2022 3:05 AM Age: 81 years old Clinical indication: Abnormal findings; Abnormal lab test; Prior surgery; Surgery type: Gb. Lumbar fusion; Patient HX: Persistent uncontrolled diarrhea with elevated wbc. ; Additional info: Abdominal pain diarrhea TECHNIQUE: Imaging protocol: Computed tomography of the abdomen and pelvis with contrast. Radiation optimization: All CT scans at this facility use at least one of these dose optimization techniques: automated exposure control; mA and/or kV adjustment per patient size (includes targeted exams where dose is matched to clinical indication); or iterative reconstruction. Contrast material: OMNI 350; Contrast volume: 100 ml; Contrast route: INTRAVENOUS (IV); COMPARISON: CT abdomen pelvis w con* [id number] 07/06/2019 1:33 AM RADIATION DOSE METRICS: Total DLP (mGy-cm): 481.13 FINDINGS: Pleural spaces: Tiny right pleural effusion is seen. Mild right and minimal left basilar atelectasis is seen. The heart size is at the upper limit of normal. Liver: Normal attenuation of the liver is seen. Caudal right hepatic lobe/segment 9 x 9 mm low-attenuation lesion is seen without change. Sonography may be performed for complete assessment. Gallbladder and bile ducts: Status post prior cholecystectomy. No biliary ductal dilatation. Status post prior cholecystectomy. No biliary ductal dilatation. Pancreas: Normal contour and enhancement. No ductal dilation. Spleen: Normal enhancement. No splenomegaly. Adrenal glands: Normal contour. No mass. Kidneys and ureters: Normal enhancement. No mass. No hydronephrosis. Stomach and bowel: The non-contrast opacified stomach is not well distended with relative gastric fold prominence. Assessment is limited. Unchanged medium-sized hiatal hernia is seen. The noncontrast opacified small bowel loops appear unremarkable. The noncontrast opacified loops of colon show fluid in the ascending colon, transverse colon and descending colon. [id number] sigmoid colonic diverticulosis is seen. There is poor distension of the sigmoid colon and rectum with relative mild wall prominence. Segmental mild proctocolitis cannot be excluded. Recommend correlation with clinical findings. Horizontally oriented cecum is seen. Appendix: No CT evidence of appendicitis. Intraperitoneal space: No abdominal ascites. No free air. Some benign phleboliths seen in the pelvis. Vasculature: No abdominal aortic aneurysm. Moderate atherosclerotic vascular calcifications are seen. There are calcifications at the origins of the mesenteric and renal arteries with limited assessment. Inferior vena cava and portal vein appear unremarkable. Lymph nodes: No enlarged lymph nodes. Urinary bladder: Moderately distended bladder. No bladder wall thickening or debris. Reproductive: Unremarkable as visualized. Bones/joints: No acute osseous abnormality seen. Postsurgical changes are seen status post L4-L5 fusion with transpedicular screws and posterior rods. L4-L5 disc space graft material is seen. Severe degenerative disc disease changes are seen in the visualized lower thoracic spine and throughout the remaining lumbar regions. Degenerative facet disease changes are seen throughout the lumbar spine, severe at the L5-S1 level. There is moderate bilateral L5-S1 foraminal stenosis. Mild bilateral hip degenerative changes are seen. Soft tissues: Unremarkable. CT/CT abdomen pelvis w con* [id number] IMPRESSION: 1. Fluid in the ascending colon, transverse colon and descending colon. Poor distension of the sigmoid colon and rectum with relative mild wall prominence. Segmental mild proctocolitis cannot be excluded. Recommend correlation with clinical findings. 2. Other chronic changes, as noted above.
[2022-05-08] MEDS: iohexol 350 mg/mL 100 mL Btl IV (03:08)
[2022-05-08] MEDS: piperacillin-tazobactam 3.375 GM in sodium chloride 0.9% (plus) 50 ML IV ×3 (06:38→20:43)
--- NOTE | 2022-05-08 06:45 | PM.HP ---
Providers/Chief Complaint Admitting Physician: Chanel Montes MD Primary Care Provider: Judith Dennis MD Chief Complaint: FEVER/WEAKNESS History of Present Illness Aarti Melchor is a 81 year old female past medical history as outlined below, chronic diarrhea, recently on treatment with triple therapy for H. pylori gastritis presenting today with worsening diarrhea. Patient stated that starting yesterday she started to have watery brown-colored diarrhea multiple episodes, up to 3 an hour which prompted her visit to the emergency room. She is on day 10 of 14 of her triple antibiotic regimen. No abdominal pain. No nausea vomiting. She is able to currently tolerate p.o. intake, however has had multiple episodes of diarrhea (10-12) since arrival to the emergency room. CT of her abdomen and pelvis showed evidence of colitis. No fever or chills. Review of Systems General: Reports: 10 or more systems reviewed and unremarkable except in HPI and below Const: Denies: fever(s), chills or body aches Eyes: Denies: change in vision, blurry vision or photophobia ENMT: Reports: hoarseness; Denies: throat pain, enlarged tonsils, odynophagia or nasal congestion Card: Denies: chest pain, palpitations, irregular heart rhythm, edema, swelling of feet/ankles, lightheadedness, pre-syncope, dyspnea on exertion or orthopnea Resp: Denies: dyspnea, productive cough, non-productive cough, wheezing, stridor, pain on inspiration, change in phlegm color, hemoptysis or chest congestion GI: Denies: abdominal pain, nausea, vomiting, hematemesis, coffee ground emesis, dysphagia, heartburn, diarrhea, constipation, GI cramping, change in stool character, hematochezia or melena : Denies: flank pain, difficulty voiding, dysuria, urinary frequency, urinary urgency, urinary hesitancy or hematuria Musc: Denies: neck pain, back pain, extremity pain, joint swelling, joint warmth or deformity Neuro: Denies: headache(s), numbness in extremities, weakness in extremities, sensory changes, difficulty walking, frequent falls, dizziness, vertigo, behavioral changes, Slurred speech present or seizure-like activity Psych: Denies: anxiety, depression, suicidal ideation or homicidal ideation Endo: Denies: polyuria, polydipsia, tired all the time, cold intolerance or hot flashes Rafi/Lymph: Denies: easy bruising or easy bleeding Medications/Allergies Home Medications Medication Instructions Recorded Confirmed Last Taken Type aspirin 325 mg tablet 325 mg PO QAM 11/11/21 05/06/22 04/12/22 History calcium citrate 315 mg 1 tab PO DAILY 11/11/21 05/06/22 03/26/22 History calcium-vitamin D3 6.25 mcg (250 unit) tablet (Citracal + Vitamin D Maximum) famotidine 40 mg tablet 40 mg PO BID 12/28/21 05/06/22 04/15/22 History enalapril maleate 5 mg tablet 2.5 mg PO DAILY 04/13/22 05/06/22 04/15/22 History memantine 5 mg tablet 10 mg PO BID 04/13/22 05/06/22 04/15/22 History risperidone 0.5 mg tablet 0.5 mg PO BID #60 tabs 04/13/22 05/06/22 04/16/22 Rx loperamide 2 mg capsule 2 mg PO Q6H PRN 04/19/22 05/06/22 Unknown History potassium chloride 8 mEq 8 meq PO DAILY #90 caps 04/19/22 05/06/22 Unknown Rx capsule,extended release sertraline 100 mg tablet 50 mg PO DAILY 04/19/22 05/06/22 Unknown History sodium chloride 1 gram tablet 500 mg PO BID #90 tabs 04/19/22 05/06/22 Unknown Rx trazodone 100 mg tablet 200 mg PO .HS PRN insomnia #60 tabs 04/20/22 05/06/22 Unknown Rx amoxicillin 500 mg capsule 1,000 mg PO BID 14 days #56 caps 04/30/22 05/06/22 Unknown Rx clarithromycin 500 mg tablet 500 mg PO BID 14 days #28 tabs 04/30/22 05/06/22 Unknown Rx pantoprazole 40 mg tablet,delayed 40 mg PO BID 14 days #28 tabs 04/30/22 05/06/22 Unknown Rx release (Protonix) Allergies Allergy/AdvReac Type Severity Reaction Status Date / Time prednisone Allergy ADR-Nausea Verified 04/30/22 11:38 Sulfa (Sulfonamide Allergy feels Verified 04/30/22 11:38 Antibiotics) strange all over morphine AdvReac ADR-Nausea Verified 04/30/22 11:38 PFSH Acute PFSH: Medical History Abnormal ankle brachial index (PATRICIA) 02/05/21 Acid reflux disease Allergic rhinitis due to allergen Anxiety Aortic valve regurgitation Carotid artery stenosis, asymptomatic Dementia Diverticulosis Fatty infiltration of liver Heart disease Helicobacter pylori gastritis Hiatal hernia with GERD History of nonmelanoma skin cancer Hypertension Hyponatremia Incomplete bladder emptying Mitral valve disease Osteopenia PAD (peripheral artery disease) Postmenopausal Psychiatric care Umbilical hernia Surgical History History of cholecystectomy History of colonoscopy History of esophagogastroduodenoscopy (EGD) History of fusion of cervical spine acdf c4-6 History of fusion of lumbar spine L4-5 History of hysterectomy Family History Father , in his 70's Cancer CAD (coronary artery disease) Brother CAD (coronary artery disease) Mother , at age 79 Heart disease Other Diabetes Hypertension Denies family history of Anesthesia complication Bleeding disorder Social History Smoking and tobacco status: never smoked Second hand smoke exposure: No Smoking risk assessment/counseling performed?: No Alcohol intake: never Desire information about alcohol rehabilitation?: No Counseling given: No Desire information about substance/drug rehabilitation?: No Counseling given: No Lives independently: No Household members: none Marital status: / Current occupational status: retired Vitals/I&O/Wt Last Vital Signs Temp 98.5 F 05/07/22 23:16 Pulse 74 05/08/22 06:38 Resp 20 H 05/08/22 06:38 BP 142/73 05/08/22 06:38 Pulse Ox 94 05/08/22 06:38 O2 Del Method 05/08/22 06:00 Weight last 48 hrs Weight 54.431 kg Physical Exam Narrative: General: No acute distress, AO x3, mildly dehydrated, poor skin turgor HEENT: PERRLA, pupils bilaterally equal and reactive, pallors not present Chest: Normal vesicular breath sounds, no added sounds, equal good air entry bilaterally CVS: S1-S2 regular, no murmurs, no tachycardia, no gallops, no rubs Abdomen: Soft, nontender, no organomegaly, bowel sounds present Neuro: No focal deficits, no facial deformity, AO x3, power 5/5 in all limbs Data : 05/07/22 23:35 05/07/22 23:35 Other Labs: Radiology Impressions Abdomen/Pelvis CT 05/08/22 02:45 IMPRESSION: 1. Fluid in the ascending colon, transverse colon and descending colon. Poor distension of the sigmoid colon and rectum with relative mild wall prominence. Segmental mild proctocolitis cannot be excluded. Recommend correlation with clinical findings. 2. Other chronic changes, as noted above. Laboratory Results WBC 11.0 10^3/uL (4.0-10.0) H 05/07/22 23:35 RBC 3.90 10^6/uL (4.1-5.3) L 05/07/22 23:35 Hgb 9.8 g/dL (11.5-15.3) L 05/07/22 23:35 Hct 31.8 % (37.0-47.0) L 05/07/22 23:35 MCV 81.5 fl (81-99) 05/07/22 23:35 MCH 25.1 pg (28.0-34.0) L 05/07/22 23:35 MCHC 30.8 g/dL (30.0-36.0) 05/07/22 23:35 RDW 14.7 % (12.1-15.1) 05/07/22 23:35 Plt Count 237 10^3/cmm (130-400) 05/07/22 23:35 MPV 10.9 fL (7.4-10.4) H 05/07/22 23:35 Neut % (Auto) 80.8 % 05/07/22 23:35 Lymph % (Auto) 10.4 % 05/07/22 23:35 [place] % (Auto) 7.3 % 05/07/22 23:35 Eos % (Auto) 0.7 % 05/07/22 23:35 Baso % (Auto) 0.5 % 05/07/22 23:35 Neut # (Auto) 8.90 10^3/uL (1.8-7.7) H 05/07/22 23:35 Lymph # (Auto) 1.1 10^3/uL (0.8-4.8) 05/07/22 23:35 [place] # (Auto) 0.8 10^3/uL (0.2-0.9) 05/07/22 23:35 Eos # (Auto) 0.1 10^3/uL (0.0-0.8) 05/07/22 23:35 Baso # (Auto) 0.1 10^3/uL (0.0-0.1) 05/07/22 23:35 Nucleated RBC % (auto) 0 % 05/07/22 23:35 Nucleated RBCs # 0.0 /100WBC 05/07/22 23:35 Sodium 134 mmol/L (136-145) L 05/07/22 23:35 Potassium 3.8 mmol/L (3.5-5.1) 05/07/22 23:35 Chloride 101 mmol/L (98-107) 05/07/22 23:35 Carbon Dioxide 19 mmol/L (22-29) L 05/07/22 23:35 Anion Gap 17.8 (5-19) 05/07/22 23:35 BUN 12 mg/dL (8-23) 05/07/22 23:35 Creatinine 0.8 mg/dL (0.5-0.9) 05/07/22 23:35 GFR Calculation Not Reportable 05/07/22 23:35 Glucose 153 mg/dL (65-115) H 05/07/22 23:35 Calculated Osmolality 281 mOsm/kg (285-295) L 05/07/22 23:35 Calcium 9.2 mg/dL (8.5-10.5) 05/07/22 23:35 Total Bilirubin 0.2 mg/dL (0.15-1.2) 05/07/22 23:35 AST 21 U/L (0-32) 05/07/22 23:35 ALT 31 U/L (0-33) 05/07/22 23:35 Alkaline Phosphatase 54 U/L (35-105) 05/07/22 23:35 Total Protein 6.6 g/dL (6.6-8.7) 05/07/22 23:35 Albumin 3.9 g/dL (3.5-5.2) 05/07/22 23:35 Globulin 2.7 g/dL (1.3-4.6) 05/07/22 23:35 Lipase 27 U/L (13-60) 05/07/22 23:35 Urine Color Yellow (Yellow) 05/08/22 00:23 Urine Appearance Clear (CLEAR) 05/08/22 00:23 Urine pH 5 (5-7) 05/08/22 00:23 Ur Specific [place] 1.010 (1.005-1.030) 05/08/22 00:23 Urine Protein Neg (Negative) 05/08/22 00: Urine Glucose (UA) Norm (Normal) 05/08/22 00: Urine Ketones Negative (Negative) 05/08/22 00: Urine Blood Neg (Negative) 05/08/22 00: Urine Nitrate Negative (Negative) 05/08/22: Urine Bilirubin Neg (Negative) 05/08/22 00: Urine Urobilinogen Norm mg/dL (Negative) 05/08/22 00:23 Ur Leukocyte Esterase Negative (Negative) 05/08/22 00:23 Micro: Microbiology 05/08/22 01:13 Stool Lactoferrin - Final Stool C.difficile Toxin B Gene (PCR) - Final 05/07/22 23:35 Blood Culture - Preliminary Blood SPECIMEN COLLECTED 05/07/22 23:35 Blood Culture - Preliminary Blood SPECIMEN COLLECTED A&P Assessment and plan (1) Colitis: Presenting with multiple episodes of diarrhea, unable to perform ADLs because of severity of diarrhea. Has had 10-12 episodes since presentation to the emergency room. No noted melena, no noted blood or mucus in stools. C. difficile PCR has been tested and negative. Pending enteric PCR bacterial panel. She has been taking loperamide at home without any significant improvement. CT of the abdomen and pelvis showing possible mild proctocolitis. In view of uncontrolled diarrhea and dehydration in elderly patient with suspected proctocolitis we will admit to [facility]. D5 normal saline at 75 cc an hour. N.p.o. except sips chips and meds for now. Stop amoxicillin, stop clarithromycin. Possibility of antibiotic associated diarrhea not excluded at this time. She has received 10 days therapy for H. pylori, should be adequate for now. Continuing empiric Zosyn in view of possible proctocolitis, pending blood cultures. She has not had a colonoscopy in many years (2) Helicobacter pylori gastritis: stop amoxicillin and clarithromycin as may be precipitating symptoms Attestations Medical Necessity Statement*: anticipate >2 midnight admission for proctocolitis, iv fluids, iv abx Coding Level of Care Code Acute Process Engineering Technician for [facility] Diagnoses Colitis K52.9 Helicobacter pylori gastritis K29.70; B96.81
--- NOTE | 2022-05-08 07:15 | PC.NURSE ---
pt incontinent of stool. elsa care provided and chux pad under patient replaced
--- NOTE | 2022-05-08 09:29 | PM.PN ---
Subjective Subjective: Patient is stating that she had diarrhea overnight She is currently on D5 NS, she is asking for food I will start her on bland diet and switch to normal saline Vitals/I&O/Wt Last Vital Signs Temp 98.6 F 05/08/22 07:17 Pulse 74 05/08/22 07:17 Resp 18 05/08/22 07:17 BP 128/71 05/08/22 07:17 Pulse Ox 96 05/08/22 07:17 O2 Del Method 05/08/22 07:17 05/07/22 05/08/22 05/08/22 22:59 06:59 14:59 Intake Total 50 / 50 Balance 50 / 50 Weight last 48 hrs Weight 54.431 kg Physical Exam Narrative: Patient looks dehydrated Awake and alert Pleasant during my evaluation Currently on room air Sinus rhythm Abdomen soft Hyperactive Bowel sounds No signs of peritonitis Data : 05/07/22 23:35 05/07/22 23:35 Micro: Microbiology 05/08/22 01:13 Stool Lactoferrin - Final Stool C.difficile Toxin B Gene (PCR) - Final 05/07/22 23:35 Blood Culture - Preliminary Blood SPECIMEN COLLECTED 05/07/22 23:35 Blood Culture - Preliminary Blood SPECIMEN COLLECTED A&P Assessment and plan (1) Proctocolitis: (2) Colitis: (3) Helicobacter pylori gastritis: (4) Generalized anxiety disorder: (5) Dementia: Plan Acute on chronic diarrhea C. difficile negative Her memantine and donepezil were discontinued for possible side effects She might benefit from a colonoscopy for histopathological diagnosis Her last colonoscopy was 7 years ago I will put her on cholestyramine Imodium as needed basis I will give her a trial of steroids along Zosyn Continue with fluids [place] diet Full code Continue DVT prophylaxis Attestations Medical Necessity Statement*: Continue medical management Time Spent in Patient Care: 30 Coding Level of Care Code Acute Telephone Interviewer for [facility] Diagnoses Proctocolitis K52.9 Colitis K52.9 Helicobacter pylori gastritis K29.70; B96.81 Generalized anxiety disorder F41.1 Dementia F03.90
[2022-05-08] MEDS: aspirin 81 mg EC Tablet PO (10:40)
[2022-05-08] MEDS: risperiDONE 0.25 mg Tablet 0.5 MG PO ×2 (10:42→18:04)
[2022-05-08] MEDS: enoxaparin 40 mg/0.4 mL Syringe SUBCUT (10:42)
[2022-05-08] MEDS: sertraline 50 mg Tablet PO (10:43)
[2022-05-08] MEDS: pantoprazole DR 40 mg Tablet PO (10:45)
[2022-05-08] MEDS: sodium chloride 0.9% 1,000 ML 75 ML IV (14:16)
[2022-05-08] MEDS: cholestyramine powder 4 gm Pkt PO ×3 (14:16→20:43)
[2022-05-08] MEDS: loperamide 2 mg Capsule PO (18:04)
[2022-05-08] MEDS: trazodone 100 mg Tablet PO (20:44)
[2022-05-09] VITALS (7 sets, daily range): BP systolic 116–157; BP diastolic 57–73; PULSE 57–73; RESP 15–20; TEMP 36.4–36.9; O2SAT 93–95
[2022-05-09] MEDS: piperacillin-tazobactam 3.375 GM in sodium chloride 0.9% (plus) 50 ML IV ×3 (04:03→21:26)
[2022-05-09 05:20] LABS: Basophils % 0.2 %; Hematocrit 31.1 % (37.0-47.0); Hemoglobin 9.2 g/dL (11.5-15.3); Lymphocytes # 1.4 10^3/uL (0.8-4.8); Lymphocytes % 12.5 %; Mean Corpuscular HGB Conc 29.6 g/dL (30.0-36.0); Mean Corpuscular Hemoglobin 25.7 pg (28.0-34.0); Mean Corpuscular Volume 86.9 fl (81-99); Mean Platelet Volume 10.9 fL (7.4-10.4); Monocytes % 8.8 %; Neutrophils # 8.43 10^3/uL (1.8-7.7); Neutrophils % 78.2 %; Nucleated Red Blood Cells % 0 %; Platelet Count 214 10^3/cmm (130-400); Red Blood Count 3.58 10^6/uL (4.1-5.3); Red Cell Distribution Width 14.7 % (12.1-15.1); White Blood Count 10.8 10^3/uL (4.0-10.0)
[2022-05-09] MEDS: sodium chloride 0.9% 1,000 ML 75 ML IV (05:39)
[2022-05-09 05:48] LABS: Alanine Aminotransferase 27 U/L (0-33); Albumin Level 3.1 g/dL (3.5-5.2); Alkaline Phosphatase 44 U/L (35-105); Anion Gap 13.8 (5-19); Aspartate Amino Transferase 35 U/L (0-32); Blood Urea Nitrogen 14 mg/dL (8-23); Calcium 8.5 mg/dL (8.5-10.5); Carbon Dioxide 17 mmol/L (22-29); Chloride 107 mmol/L (98-107); Globulin 2.7 g/dL (1.3-4.6); Glucose 125 mg/dL (65-115); Osmolality Calculated 280 mOsm/kg (285-295); Potassium 3.8 mmol/L (3.5-5.1); Sodium 134 mmol/L (136-145); Total Bilirubin 0.2 mg/dL (0.15-1.2); Total Protein 5.8 g/dL (6.6-8.7)
[2022-05-09] MEDS: risperiDONE 0.25 mg Tablet 0.5 MG PO ×2 (09:19→17:05)
[2022-05-09] MEDS: pantoprazole DR 40 mg Tablet PO (09:19)
[2022-05-09] MEDS: sertraline 50 mg Tablet PO (09:19)
[2022-05-09] MEDS: cholestyramine powder 4 gm Pkt PO ×4 (09:21→22:18)
[2022-05-09] MEDS: enoxaparin 40 mg/0.4 mL Syringe SUBCUT (09:22)
[2022-05-09] MEDS: aspirin 81 mg EC Tablet PO (09:22)
[2022-05-09] MEDS: loperamide 2 mg Capsule PO ×2 (09:22→17:04)
--- NOTE | 2022-05-09 09:30 | P.PN_ITS ---
Subjective Subjective: Patient is stating there is an improvement in diarrheal episodes with loperamide She is well-hydrated today as compared to yesterday Sodium is 134 Tolerating her diet I will discontinue IV fluids Plan to discharge her tomorrow Vitals/I&O/Wt Last Vital Signs Temp 98.3 F 05/09/22 08:00 Pulse 71 05/09/22 08:00 Resp 16 05/09/22 08:00 BP 138/63 05/09/22 08:00 Pulse Ox 95 05/09/22 08:00 O2 Del Method 05/09/22 08:00 05/08/22 05/09/22 05/09/22 22:59 06:59 14:59 Intake Total 530 / 770 1050 / 1820 240 / 240 Balance 530 / 770 1050 / 1820 240 / 240 Weight last 48 hrs Weight 54.431 kg Physical Exam Narrative: Pleasant and cooperative Awake and alert Abdomen soft In good mood Nonfocal neuro exam Currently on room air Data : 05/09/22 04:47 05/09/22 04:47 Micro: Microbiology 05/08/22 01:13 Enteric Pathogens (PCR) - Final Stool - Stool Aspirate Parasite Antigen Panel - Final 05/07/22 23:35 Blood Culture - Preliminary Blood NEGATIVE TO DATE 05/07/22 23:35 Blood Culture - Preliminary Blood NEGATIVE TO DATE 05/08/22 01:13 Stool Lactoferrin - Final Stool C.difficile Toxin B Gene (PCR) - Final A&P Assessment and plan (1) Proctocolitis: (2) Colitis: Plan Proctocolitis Chronic diarrhea Colitis Discontinue IV fluids Tolerating diet Responsive to loperamide C. difficile negative 2 cultures negative Discharge tomorrow Continue DVT prophylaxis Awake and alert Advance diet Patient will need outpatient colonoscopy Attestations Medical Necessity Statement*: Discharge tomorrow Time Spent in Patient Care: 30 Coding Level of Care Code Acute Driver Service Technician for [facility] Diagnoses Proctocolitis K52.9 Colitis K52.9
[2022-05-09] MEDS: trazodone 100 mg Tablet PO (21:27)
[2022-05-09] MEDS: acetaminophen 325 mg Tablet 650 MG PO (21:27)
[2022-05-10] MEDS: acetaminophen 325 mg Tablet 650 MG PO (03:33)
[2022-05-10 04:00] VITALS: BP 175/69; PULSE 57; RESP 17; TEMP 36.6; O2SAT 97
--- NOTE | 2022-05-10 04:25 | ECG_ITS ---
[facility] Test Date: 2022-05-10 Pat Name: Aarti Melchor Department: Room: 254 Gender: Female Veterinary Dentist: : 1940 Requested By: Luis Hanks Order Number: [id number] Mita MD: Elyse Colin M.D. Measurements Intervals [place] Rate: 57 P: 28 SC: 201 QRS: 25 QRSD: 80 T: 62 QT: 396 QTc: 388 Interpretive Statements SINUS BRADYCARDIA LOW QRS VOLTAGE IN PRECORDIAL LEADS [QRS DEFLECTION < 1.0 mV IN CHEST LEADS] Compared to ECG 04/01/2022 18:03:31 Sinus rhythm no longer present Myocardial infarct finding no longer present Electronically Signed On 05-10-2022 23:08:06 CDT by Elyse Colin M.D. [email or web address]
[2022-05-10] MEDS: piperacillin-tazobactam 3.375 GM in sodium chloride 0.9% (plus) 50 ML IV (04:37)
--- NOTE | 2022-05-10 04:50 | PC.NURSE ---
Chest Pain. Patient used call light requesting medications. Reports pain that spreads across anterior chest, and between posterior shoulder blades. Pain described as ache worse with using muscles to pull self into bed. Denies shortness of breath, nausea, vomiting, or diaphoresis. PRN tylenol given per patient request. Hospitalist notified of new complaint and EKG and labs orders placed.
[2022-05-10 05:38] LABS: Troponin T (5th) Once 20 ng/L (0-10)
[2022-05-10 05:39] LABS: Creatine Phosphokinase 599 U/L (26-192)
[2022-05-10 08:00] VITALS: BP 156/77; PULSE 57; RESP 16; TEMP 36.4; O2SAT 97
[2022-05-10] MEDS: cholestyramine powder 4 gm Pkt PO (08:00)
[2022-05-10] MEDS: pantoprazole DR 40 mg Tablet PO (08:01)
[2022-05-10] MEDS: aspirin 81 mg EC Tablet PO (08:01)
[2022-05-10] MEDS: risperiDONE 0.25 mg Tablet 0.5 MG PO (08:01)
[2022-05-10] MEDS: loperamide 2 mg Capsule PO (08:01)
[2022-05-10] MEDS: sertraline 50 mg Tablet PO (08:01)
[2022-05-10] MEDS: enoxaparin 40 mg/0.4 mL Syringe SUBCUT (08:01)
--- NOTE | 2022-05-10 10:08 | P.DS_ITS ---
Discharge Providers Date of Admission: 05/08/22 05:56 Date of Discharge: May 10, 2022 Attending Provider at Admission: Chanel Montes MD Attending Provider at Discharge: Micaela Pickard MD Primary Care Provider: Judith Dennis MD Diagnoses at Discharge Discharge Diagnosis (1) Proctocolitis: Status: Acute (2) Colitis: Status: Acute Reason for Visit Reason for Visit: FEVER/WEAKNESS Hospital Course Hospital Course 81-year-old female with history of chronic diarrhea, on memantine donepezil were discontinued to see if diarrhea would improve however her symptoms have progressed, her EGD showed gastritis which was done in the past, no recent colonoscopy, this time she was admitted for worsening of her diarrhea, she was diagnosed with proctocolitis at the time of admission, she required IV fluids and IV antibiotics, C. difficile negative, stool cultures negative her diarrhea resolved with use of Imodium and cholestyramine. Does not need colonoscopy while inpatient, I have counseled her to get colonoscopy outpatient. I have counseled her to try lactose-free and gluten-free diet for now. For her proctocolitis she has received 3 days of IV antibiotics I will give her 4 more days of levofloxacin she remained afebrile, no leukocytosis. She has already completed 10-day course of H. pylori gastritis triple therapy. Physical Exam Narrative: Well-hydrated Euvolemic Awake and alert Pleasant and cooperative Nonfocal neuro exam EOMI, PERRLA Currently on room air Discharge Data Studies Completed and Pending Completed Studies During Hospitalization Category Date Time Status CT abdomen pelvis w con* [id number] Urgent Cat Scan 05/08/22 02:45 Completed Pending at discharge Category Date Time Status Blood Culture Stat Lab 05/07/22 23:35 Results CK [Creatine Phosphokinase] Routine Lab 05/10/22 09:02 Received Radiology Impressions Abdomen/Pelvis CT 05/08/22 02:45 IMPRESSION: 1. Fluid in the ascending colon, transverse colon and descending colon. Poor distension of the sigmoid colon and rectum with relative mild wall prominence. Segmental mild proctocolitis cannot be excluded. Recommend correlation with clinical findings. 2. Other chronic changes, as noted above. Laboratory Results WBC 10.8 10^3/uL (4.0-10.0) H 05/09/22 04:47 RBC 3.58 10^6/uL (4.1-5.3) L 05/09/22 04:47 Hgb 9.2 g/dL (11.5-15.3) L 05/09/22 04:47 Hct 31.1 % (37.0-47.0) L 05/09/22 04:47 MCV 86.9 fl (81-99) D 05/09/22 04:47 MCH 25.7 pg (28.0-34.0) L 05/09/22 04:47 MCHC 29.6 g/dL (30.0-36.0) L 05/09/22 04:47 RDW 14.7 % (12.1-15.1) 05/09/22 04:47 Plt Count 214 10^3/cmm (130-400) 05/09/22 04:47 MPV 10.9 fL (7.4-10.4) H 05/09/22 04:47 Neut % (Auto) 78.2 % 05/09/22 04:47 Lymph % (Auto) 12.5 % 05/09/22 04:47 [place] % (Auto) 8.8 % 05/09/22 04:47 Eos % (Auto) 0.0 % 05/09/22 04:47 Baso % (Auto) 0.2 % 05/09/22 04:47 Neut # (Auto) 8.43 10^3/uL (1.8-7.7) H 05/09/22 04:47 Lymph # (Auto) 1.4 10^3/uL (0.8-4.8) 05/09/22 04:47 [place] # (Auto) 1.0 10^3/uL (0.2-0.9) H 05/09/22 04:47 Eos # (Auto) 0.0 10^3/uL (0.0-0.8) 05/09/22 04:47 Baso # (Auto) 0.0 10^3/uL (0.0-0.1) 05/09/22 04:47 Nucleated RBC % (auto) 0 % 05/09/22 04:47 Nucleated RBCs # 0.0 /100WBC 05/09/22 04:47 Sodium 134 mmol/L (136-145) L 05/09/22 04:47 Potassium 3.8 mmol/L (3.5-5.1) 05/09/22 04:47 Chloride 107 mmol/L (98-107) 05/09/22 04:47 Carbon Dioxide 17 mmol/L (22-29) L 05/09/22 04:47 Anion Gap 13.8 (5-19) 05/09/22 04:47 BUN 14 mg/dL (8-23) 05/09/22 04:47 Creatinine 0.5 mg/dL (0.5-0.9) 05/09/22 04:47 GFR Calculation Not Reportable 05/09/22 04:47 Glucose 125 mg/dL (65-115) H 05/09/22 04:47 Calculated Osmolality 280 mOsm/kg (285-295) L 05/09/22 04:47 Calcium 8.5 mg/dL (8.5-10.5) 05/09/22 04:47 Total Bilirubin 0.2 mg/dL (0.15-1.2) 05/09/22 04:47 AST 35 U/L (0-32) H 05/09/22 04:47 ALT 27 U/L (0-33) 05/09/22 04:47 Alkaline Phosphatase 44 U/L (35-105) 05/09/22 04:47 Creatine Kinase 599 U/L (26-192) H* 05/10/22 04:20 Troponin T Gen 5 ng/L 20 ng/L (0-10) H 05/10/22 04:20 Total Protein 5.8 g/dL (6.6-8.7) L 05/09/22 04:47 Albumin 3.1 g/dL (3.5-5.2) L 05/09/22 04:47 Globulin 2.7 g/dL (1.3-4.6) 05/09/22 04:47 Lipase 27 U/L (13-60) 05/07/22 23:35 Urine Color Yellow (Yellow) 05/08/22 00:23 Urine Appearance Clear (CLEAR) 05/08/22 00:23 Urine pH 5 (5-7) 05/08/22 00:23 Ur Specific [place] 1.010 (1.005-1.030) 05/08/22 00:23 Urine Protein Neg (Negative) 05/08/22 00:23 Urine Glucose (UA) Norm (Normal) 05/08/22 00:23 Urine Ketones Negative (Negative) 05/08/22 00:23 Urine Blood Neg (Negative) 05/08/22 00:23 Urine Nitrate Negative (Negative) 05/08/22 00:23 Urine Bilirubin Neg (Negative) 05/08/22 00:23 Urine Urobilinogen Norm mg/dL (Negative) 05/08/22 00:23 Ur Leukocyte Esterase Negative (Negative) 05/08/22 00:23 Vitals Last Vital Signs Temp 97.6 F 05/10/22 08:00 Pulse 57 L 05/10/22 08:00 Resp 16 05/10/22 08:00 BP 156/77 05/10/22 08:00 Pulse Ox 97 05/10/22 08:00 O2 Del Method 05/09/22 15:59 Discharge Plan Discharge Patient Disposition: Home Condition: Stable Prescriptions: New Cholestyramine Light 4 gram powder 4 g PO BID Qty: 201.6 0RF Rx Instructions: administer w/meal; avoid other meds within 1hr before or 4-6hr after dose levofloxacin 750 mg tablet 750 mg PO DAILY 4 Days Qty: 4 0RF Continued sertraline 100 mg tablet 50 mg PO DAILY Rx Instructions: 1/2 tab once daily for 2 weeks then 1 tab daily sodium chloride 1 gram tablet 500 mg PO BID Qty: 90 0RF potassium chloride 8 mEq capsule, extended release 8 meq PO DAILY Qty: 90 0RF enalapril maleate 5 mg tablet 2.5 mg PO DAILY risperidone 0.5 mg tablet 0.5 mg PO BID Qty: 60 1RF pantoprazole [Protonix] 40 mg tablet,delayed release (DR/EC) 40 mg PO BID 14 Days Qty: 28 0RF trazodone 100 mg tablet 200 mg PO .HS PRN (Reason: insomnia) Qty: 60 1RF famotidine 40 mg tablet 40 mg PO BID lorazepam 0.5 mg tablet 0.5 mg PO BID PRN (Reason: Anxiety) buspirone 10 mg tablet 10 mg PO TID rivastigmine 4.6 mg/24 hour patch 24 hour 4.6 mg transdermal . DIRECTED loperamide 2 mg capsule 2 mg PO Q6H PRN (Reason: Diarrhea) Qty: 60 0RF Discontinued aspirin 325 mg tablet 325 mg PO BID Hold Instructions: Resume on 04/19/22. memantine 5 mg tablet 10 mg PO BID calcium citrate-vitamin D3 [Citracal + D Maximum] 315 mg-6.25 mcg (250 unit) tablet 1 tab PO DAILY amoxicillin 500 mg capsule 1,000 mg PO BID 14 Days Qty: 56 0RF clarithromycin 500 mg tablet 500 mg PO BID 14 Days Qty: 28 0RF pravastatin 80 mg Tablet 80 mg PO DAILY Discharge Orders: Discharge Order (Routine); Ordered 05/10/22 Ordered By: Micaela Pickard Referrals: Judith Dennis MD [Primary Care Provider] - 05/20/22 8:00 am Discharge Diet: As Directed Discharge Activity: Resume usual activity Patient Instructions: Opioid Safety Activity Restrictions/Additional Instructions: You will need colonoscopy for histopathological diagnosis Your stool cultures were negative No signs of C diff You were diagnosed with proctocolitis that is why we are giving you 4 more days of levofloxacin Discharge Attestations Time Spent in Discharge Care*: less than 30 min Quality Metrics Clinical Quality Measures [ No reported AMI, CVA or VTE this stay] Coding Level of Care Code Acute Chg DC note Diagnoses Proctocolitis K52.9 Colitis K52.9
[2022-05-10 10:19] LABS: Creatine Phosphokinase 714 U/L (26-192)
--- NOTE | 2022-05-10 10:29 | PC.NURSE ---
initial rounding pt denies any chest pain or chest discimfort. Her abdomen is tolerably tender to the touch. no needs at this time.
--- NOTE | 2022-05-10 10:42 | PC.CHAP ---
Pastoral Care Encounter/Spiritual Assessment Type of Contact [] Declined technical services librarian visit [] Patient/Family/Request visit [] Outpatient visit [] Follow-up visit [] Physician referral [] Code/Alert [x] Routine visit [] Staff referral [] Actively dying [x] Patient sleeping [] Family support [] [] Out of room [] Palliative care [] [] Receiving care in room [] Pre-surgical visit [] Trauma [] Long length of stay [] ICU visit [] Other: Relational/Emotional Strength [] Patient feels connected with others/family/visitors/staff [] Distress [] Loneliness/isolation [] Abandonment Spirituality of Patient [] Person of Rossy [] Attends Cheondoism of their Rossy [] Believes in Prayer [] Reads Bible or Jainism materials [] There are Spiritual issues to be addressed Drywall Professional Interventions [] Prayer [] Active listening [] Non-anxious presence [] Spiritual/emotional support [] Crisis/trauma care [] Spiritual counseling [] Bereavement support [] Provided bereavement packet [] Provided Bible/devotional materials [] Provided toy/stuffed animal, coloring book to patient or family member [] Provided Communion [] Anointing/[place] [] Salvation [] Completed spiritual assessment [] Other: Impact on Illness or Injury [] Angry [] Fearful [] Anxious [] Often cries [] Exhaustion [] Unable to work [] Unable to attend mandaen [] Unable to walk/stand [] Unable to read [] Unable to drive [] Unable to eat/drink [] Unable to sleep [] Unable to be with family [] Patient intubated [] Other: Summary Time spent with patient
[2022-05-10] MEDS: lactated ringers 500 ML 999 ML IV (11:47)
[2022-05-10 12:00] VITALS: BP 125/70; PULSE 58; RESP 18; TEMP 36.8; O2SAT 95
== END 2022-05-10 13:16 | disposition home or self-care (01) | DRG 392 ==
LOC: ER 05-08 05:58 → MEDSURG 05-08 06:03
PROVIDERS: Internal Medicine; Physician Assistant; Admitting Provider Student in an Organized Health Care Education/Training Program; Emergency Provider Emergency Medicine; PCP Family Medicine; Visit Provider Internal Medicine
DX: K52.9 Noninfective gastroenteritis and colitis, unspecified (principal); F41.1 Generalized anxiety disorder; I08.0 Rheumatic disorders of both mitral and aortic valves; F03.90 Unspecified dementia, unspecified severity, without behavioral disturbance, psychotic disturbance, mood disturbance, and anxiety; K57.90 Diverticulosis of intestine, part unspecified, without perforation or abscess without bleeding; K76.0 Fatty (change of) liver, not elsewhere classified; K44.9 Diaphragmatic hernia without obstruction or gangrene; K21.9 Gastro-esophageal reflux disease without esophagitis; Z85.828 Personal history of other malignant neoplasm of skin; I10 Essential (primary) hypertension; R33.9 Retention of urine, unspecified; M85.80 Other specified disorders of bone density and structure, unspecified site; I73.9 Peripheral vascular disease, unspecified; Z78.0 Asymptomatic menopausal state; Z98.1 Arthrodesis status; R07.9 Chest pain, unspecified; K29.70 Gastritis, unspecified, without bleeding; B96.81 Helicobacter pylori [H. pylori] as the cause of diseases classified elsewhere
CPT/HCPCS: 36415; 74177; 80048; 80053; 81003; 82550; 83630; 83690; 84484; 85025; 87040; 87493; 87506; 93005; 96365; 96372; 99285; J1650; J2543; J2920; J7030; J7120; Q9967

== ENCOUNTER 2022-05-20 19:51 | Observation (INO) | payer MEDICARE, OTHER, SELFPAY ==
[2022-05-20] VITALS (8 sets, daily range): BP systolic 108–128; BP diastolic 58–77; PULSE 65–75; RESP 14–17; TEMP 36.3; O2SAT 90–92; BMI 21.9
--- NOTE | 2022-05-20 19:58 | ED_ITS ---
HPI - Nausea/Vomiting/Diarrhea General: Chief complaint: Nausea/Vomiting/Diarrhea Stated complaint: N/V/D Time Seen by Provider: 05/20/22 19:58 History of Present Illness: Ms. Melchor is an 81-year-old lady with history of hypertension, carotid artery stenosis, valvular heart disease presenting to the emergency department for nausea, vomiting, diarrhea, abdominal pain. She was recently hospitalized for colitis and completed course of antibiotics. She has been on loperamide and fiber powder however symptoms have continued. Tonight they worsened and she has had multiple episodes of nonbilious and nonbloody emesis associated with generalized abdominal cramping. Overall course of symptoms is worsened. She has had poor p.o. intake. Intensity is moderate to severe. No other specific changes in health, exacerbating, or alleviating factors identified. Onset (ago): day(s) Description of vomiting: watery Associated nausea: Yes Associated abdominal pain: Yes Location of pain: Diffuse Radiation: diffuse Severity: moderate Quality: cramping Exacerbating factors: eating, vomiting and movement Associated symtoms: Reports nausea Review of Systems General: Reports: 10 or more systems reviewed and unremarkable except in HPI a nd below GI: Reports: nausea PFSH ED PFSH: Medical History Abnormal ankle brachial index (PATRICIA) 02/05/21 Acid reflux disease Allergic rhinitis due to allergen Anxiety Aortic valve regurgitation Carotid artery stenosis, asymptomatic Colitis Dementia Diverticulosis Fatty infiltration of liver Generalized anxiety disorder Heart disease Helicobacter pylori gastritis Hiatal hernia with GERD History of nonmelanoma skin cancer Hypertension Hyponatremia Incomplete bladder emptying Mitral valve disease Osteopenia PAD (peripheral artery disease) Postmenopausal Proctocolitis Psychiatric care Umbilical hernia Surgical History History of cholecystectomy History of colonoscopy History of esophagogastroduodenoscopy (EGD) History of fusion of cervical spine acdf c4-6 History of fusion of lumbar spine L4-5 History of hysterectomy Family History Father , in his 70's Cancer CAD (coronary artery disease) Brother CAD (coronary artery disease) Mother , at age 79 Heart disease Other Diabetes Hypertension Denies family history of Anesthesia complication Bleeding disorder Social History Smoking and tobacco status: never smoked Second hand smoke exposure: No Smoking risk assessment/counseling performed?: No Alcohol intake: never Desire information about alcohol rehabilitation?: No Counseling given: No Desire information about substance/drug rehabilitation?: No Counseling given: No Lives independently: No Household members: none Marital status: / Current occupational status: retired Physical Exam Const: COMMON NORMALS: alert GENERAL APPEARANCE: cooperative, well developed and ill appearing (somewhat) HENMT: COMMON NORMALS: normocephalic and atraumatic HEAD & SCALP: normocephalic and atraumatic THROAT: posterior oropharynx normal Eye: COMMON NORMALS: conjunctivae normal CONJUNCTIVA: Yes conjunctivae normal SCLERA: sclerae normal Neck/C-Spine: COMMON NORMALS: supple GENERAL: Yes trachea midline Resp: COMMON NORMALS: clear to auscultation bilaterally EFFORT & INSPECTION: Yes able to speak in complete sentences AUSCULTATION: clear to auscultation bilaterally Cardio: COMMON NORMALS: regular rate and regular rhythm RATE: regular rate RHYTHM: regular rhythm GI: COMMON NORMALS: Soft to palpation PALPATION: Yes Soft to palpation, Yes Tenderness to palpation present (GI), No Guarding due to palpation present (GI) and No Rigid due to palpation Extremity: GENERAL: Yes normal exam except as noted and No edema Neuro: COMMON NORMALS: moves all extremities SENSORIUM/ORIENTATION: Yes al ert and No Orientation impaired Psych: COMMON NORMALS: mental status grossly normal and Normal thought process present THOUGHT PROCESS: Normal thought process present Course Vital Signs: Vital signs: Vital Signs Temperature 99.0 F 05/22/22 11:55 Pulse Rate 67 05/22/22 11:55 Respiratory Rate 16 05/22/22 11:55 Blood Pressure 135/67 05/22/22 11:55 Pulse Oximetry 94 05/22/22 11:55 Oxygen Delivery Me thod 05/22/22 11:55 MDM - Nausea/Vomiting/Diarrhea Medical Decision Making 81-year-old lady presenting with GI symptoms. Exam as above. Labs notable for leukocytosis, microcytic anemia end noted. Metabolic panel with evidence of dehydration. CT with evidence of enterocolitis. Fluids and antiemetic given. Upon reassessment patient not significantly improved. Given this as well as clinical history and exam it is reasonable to admit the patient to observation. Antibiotics given. The results of ED evaluation were discussed with the patient including plan for admission due to requirement for level of care not available if discharged to prevent significant worsening/deterioration. Patient agreeable with plan. Discussed with hospitalist service who was agreeable to admit the patient to observation. Medical Records I reviewed the patient's medical records. Lab Data I reviewed the patient's lab results. : 05/22/22 04:39 05/22/22 04:39 Radiology Impressions Abdomen/Pelvis CT 05/20/22 20:27 IMPRESSION: 1. Prominent fluid throughout the small bowel and colon with some terminal ileum wall thickening suggestive of an enterocolitis. 2. Lumbar spine surgical hardware seen in place. 3. Diverticulosis without diverticulitis. 4. Bibasilar atelectasis versus infiltrate. 5. Small to moderate hiatal hernia. 6. Cholecystectomy. 7. Two left kidney nonobstructing calyceal stones. 8. Small amount nonspecific fluid in the pelvis. Laboratory Results WBC 11.7 10^3/uL (4.0-10.0) H 05/20/22 19:58 RBC 4.49 10^6/uL (4.1-5.3) 05/20/22 19:58 Hgb 11.2 g/dL (11.5-15.3) L 05/20/22 19:58 Hct 36.2 % (37.0-47.0) L 05/20/22 19:58 MCV 80.6 fl (81-99) L 05/20/22 19:58 MCH 24.9 pg (28.0-34.0) L 05/20/22 19:58 MCHC 30.9 g/dL (30.0-36.0) 05/20/22 19:58 RDW 15.7 % (12.1-15.1) H 05/20/22 19:58 Plt Count 277 10^3/cmm (130-400) 05/20/22 19:58 MPV 10.9 fL (7.4-10.4) H 05/20/22 19:58 Neut % (Auto) 73.8 % 05/20/22 19:58 Lymph % (Auto) 19.0 % 05/20/22 19:58 [place] % (Auto) 5.8 % 05/20/22 19:58 Eos % (Auto) 0.6 % 05/20/22 19:58 Baso % (Auto) 0.5 % 05/20/22 19:58 Neut # (Auto) 8.66 10^3/uL (1.8-7.7) H 05/20/22 19:58 Lymph # (Auto) 2.2 10^3/uL (0.8-4.8) 05/20/22 19:58 [place] # (Auto) 0.7 10^3/uL (0.2-0.9) 05/20/22 19:58 Eos # (Auto) 0.1 10^3/uL (0.0-0.8) 05/20/22 19:58 Baso # (Auto) 0.1 10^3/uL (0.0-0.1) 05/20/22 19:58 Nucleated RBC % (auto) 0 % 05/20/22 19:58 Nucleated RBCs # 0.0 /100WBC 05/20/22 19:58 Sodium 133 mmol/L (136-145) L 05/20/22 19:58 Potassium 3.8 mmol/L (3.5-5.1) 05/20/22 19:58 Chloride 100 mmol/L (98-107) 05/20/22 19:58 Carbon Dioxide 19 mmol/L (22-29) L 05/20/22 19:58 Anion Gap 17.8 (5-19) 05/20/22 19:58 BUN 16 mg/dL (8-23) 05/20/22 19:58 Creatinine 0.8 mg/dL (0.5-0.9) 05/20/22 19:58 GFR Calculation Not Reportable 05/20/22 19:58 Glucose 142 mg/dL (65-115) H 05/20/22 19:58 Calculated Osmolality 280 mOsm/kg (285-295) L 05/20/22 19:58 Lactate 0.9 mmol/L (0.5-2.2) 05/20/22 21:00 Calcium 9.1 mg/dL (8.5-10.5) 05/20/22 19:58 Total Bilirubin 0.3 mg/dL (0.15-1.2) 05/20/22 19:58 AST 15 U/L (0-32) 05/20/22 19:58 ALT 17 U/L (0-33) 05/20/22 19:58 Alkaline Phosphatase 53 U/L (35-105) 05/20/22 19:58 Total Protein 6.6 g/dL (6.6-8.7) 05/20/22 19:58 Albumin 4.0 g/dL (3.5-5.2) 05/20/22 19:58 Globulin 2.6 g/dL (1.3-4.6) 05/20/22 19:58 Lipase 21 U/L (13-60) 05/20/22 19:58 Discharge Plan Discharge Patient Disposition: Placed in Observation Admit Provider: Chanel Montes Clinical Impression: Enterocolitis, Nausea, vomiting, and diarrhea, Dehydration, mild Discharge Diet: Advance as tolerated, As Directed and Clear Liquid Discharge Activity: Increase activity as tolerated Coding Level of Care Code ED Group Leader [employer] Testing for [employer]
--- NOTE | 2022-05-20 20:27 | CTR_ITS ---
PROCEDURE INFORMATION: Exam: CT Abdomen And Pelvis With Contrast Exam date and time: 05/20/2022 9:04 PM Age: 81 years old Clinical indication: Nausea and vomiting; Abdominal pain; Generalized; Prior surgery; Surgery type: Gb. Lumbar fusion; Patient HX: C/O diffuse abd pain with n/v/d. ; Additional info: N/v/d, diffuse pain TECHNIQUE: Imaging protocol: Computed tomography of the abdomen and pelvis with contrast. Radiation optimization: All CT scans at this facility use at least one of these dose optimization techniques: automated exposure control; mA and/or kV adjustment per patient size (includes targeted exams where dose is matched to clinical indication); or iterative reconstruction. Contrast material: OMNI 350; Contrast volume: 100 ml; Contrast route: INTRAVENOUS (IV); COMPARISON: CT abdomen pelvis w con* [id number] 05/08/2022 3:05 AM RADIATION DOSE METRICS: Total DLP (mGy-cm): 363.63 FINDINGS: Lungs: Bibasilar atelectasis versus infiltrate. Diaphragm: Small to moderate hiatal hernia. Liver: Normal. No mass. Gallbladder and bile ducts: Cholecystectomy. Pancreas: Normal. No ductal dilation. Spleen: Normal. No splenomegaly. Adrenal glands: Normal. No mass. Kidneys and ureters: Two left kidney nonobstructing calyceal stones. Stomach and bowel: Prominent fluid throughout the small bowel and colon with some terminal ileum wall thickening suggestive of an enterocolitis. Diverticulosis without diverticulitis. Appendix: No evidence of appendicitis. Intraperitoneal space: Unremarkable. No free air. Small amount nonspecific fluid in the pelvis. Vasculature: Unremarkable. No abdominal aortic aneurysm. Lymph nodes: Unremarkable. No enlarged lymph nodes. Urinary bladder: Unremarkable as visualized. Reproductive: Unremarkable as visualized. Bones/joints: Lumbar spine surgical hardware seen in place. Soft tissues: Unremarkable. CT/CT abdomen pelvis w con* [id number] IMPRESSION: 1. Prominent fluid throughout the small bowel and colon with some terminal ileum wall thickening suggestive of an enterocolitis. 2. Lumbar spine surgical hardware seen in place. 3. Diverticulosis without diverticulitis. 4. Bibasilar atelectasis versus infiltrate. 5. Small to moderate hiatal hernia. 6. Cholecystectomy. 7. Two left kidney nonobstructing calyceal stones. 8. Small amount nonspecific fluid in the pelvis.
[2022-05-20 20:41] LABS: Basophils # 0.1 10^3/uL (0.0-0.1); Basophils % 0.5 %; Eosinophils # 0.1 10^3/uL (0.0-0.8); Eosinophils % 0.6 %; Hematocrit 36.2 % (37.0-47.0); Hemoglobin 11.2 g/dL (11.5-15.3); Lymphocytes # 2.2 10^3/uL (0.8-4.8); Mean Corpuscular HGB Conc 30.9 g/dL (30.0-36.0); Mean Corpuscular Hemoglobin 24.9 pg (28.0-34.0); Mean Corpuscular Volume 80.6 fl (81-99); Mean Platelet Volume 10.9 fL (7.4-10.4); Monocytes # 0.7 10^3/uL (0.2-0.9); Monocytes % 5.8 %; Neutrophils # 8.66 10^3/uL (1.8-7.7); Neutrophils % 73.8 %; Nucleated Red Blood Cells % 0 %; Platelet Count 277 10^3/cmm (130-400); Red Blood Count 4.49 10^6/uL (4.1-5.3); Red Cell Distribution Width 15.7 % (12.1-15.1); White Blood Count 11.7 10^3/uL (4.0-10.0)
[2022-05-20] MEDS: ondansetron 2 mg/ML SDV 2 mL 4 MG IVP (20:46)
[2022-05-20] MEDS: sodium chloride 0.9% 1,000 ML 999 ML IV (20:46)
[2022-05-20 20:48] LABS: Chloride 100 mmol/L (98-107); Potassium 3.8 mmol/L (3.5-5.1); Sodium 133 mmol/L (136-145)
[2022-05-20] MEDS: iohexol 350 mg/mL 500 mL Btl (per mL) IV (21:06)
[2022-05-20 21:15] LABS: Alanine Aminotransferase 17 U/L (0-33); Alkaline Phosphatase 53 U/L (35-105); Anion Gap 17.8 (5-19); Aspartate Amino Transferase 15 U/L (0-32); Blood Urea Nitrogen 16 mg/dL (8-23); Calcium 9.1 mg/dL (8.5-10.5); Carbon Dioxide 19 mmol/L (22-29); Globulin 2.6 g/dL (1.3-4.6); Glucose 142 mg/dL (65-115); Lipase 21 U/L (13-60); Osmolality Calculated 280 mOsm/kg (285-295); Total Bilirubin 0.3 mg/dL (0.15-1.2); Total Protein 6.6 g/dL (6.6-8.7)
[2022-05-20 21:44] LABS: Lactate (Lactic Acid level) 0.9 mmol/L (0.5-2.2)
[2022-05-20] MEDS: levofloxacin-dextrose 5 % 750 MG/150 ML PREMIX 100 MG IV (23:37)
--- NOTE | 2022-05-20 23:41 | PC.NURSE ---
Report called to [facility].
[2022-05-21] VITALS (7 sets, daily range): BP systolic 111–162; BP diastolic 65–73; PULSE 66–74; RESP 16–17; TEMP 36.7–37.2; O2SAT 93–96
[2022-05-21 01:54] LABS: Add Urine Microscopic? NO; Charge for UA Resulting for Rev
[2022-05-21 02:03] LABS: Bilirubin Urine Neg (Negative); Blood Urine Neg (Negative); Glucose Urine UA Norm (Normal); Ketones Urine 1+ (Negative); Leukocyte Esterase Urine Negative (Negative); Nitrate Urine Negative (Negative); Protein Urine Neg (Negative); Urine Appearance Clear (CLEAR); Urine Color Yellow (Yellow); Urobilinogen Urine Norm (Negative); pH Urine 5 (5-7)
--- NOTE | 2022-05-21 03:03 | P.HP_ITS ---
Providers/Chief Complaint Admitting Physician: Chanel Montes MD Primary Care Provider: Judith Dennis MD Chief Complaint: N/V/D History of Present Illness Aarti Melchor is a 81 year old female with a past medical history of chronic diarrhea, recently diagnosed with H. pylori gastritis in April 2022, for which she was initiated on antibiotic treatment with amoxicillin clarithromycin. On day 10 of the antibiotic she developed profuse diarrhea which necessitated visit to the ER on May 08, 2022. She was unable to tolerate p.o. intake at that time had at least 10-12 episodes of diarrhea per day to the point where she was unable to perform her ADLs because of severity. CT of her abdomen and pelvis performed at that time showed evidence of proctocolitis for which she was treated with antibiotics intravenously for 3 days. Enteric bacterial PCR and C. difficile PCR returned negative during that admission. She was discharged with recommendations to continue levofloxacin for additional 3 days, Imodium and cholestyramine were added and she was referred to get a colonoscopy as outpatient. She states that her symptoms were improving by the time of discharge on May 10 and remained improved until 24 hours ago when she started having profuse diarrhea again. Currently estimates this to be 14-16 episodes over the last 24 hours. Review of Systems General: Reports: 10 or more systems reviewed and unremarkable except in HPI and below Const: Denies: fever(s), chills or body aches Eyes: Denies: change in vision, blurry vision or photophobia ENMT: Reports: hoarseness; Denies: throat pain, enlarged tonsils, odynophagia or nasal congestion Card: Denies: chest pain, palpitations, irregular heart rhythm, edema, swelling of feet/ankles, lightheadedness, pre-syncope, dyspnea on exertion or orthopnea Resp: Denies: dyspnea, productive cough, non-productive cough, wheezing, stridor, pain on inspiration, change in phlegm color, hemoptysis or chest congestion GI: Denies: abdominal pain, nausea, vomiting, hematemesis, coffee ground emesis, dysphagia, heartburn, diarrhea, constipation, GI cramping, change in stool character, hematochezia or melena : Denies: flank pain, difficulty voiding, dysuria, urinary frequency, urinary urgency, urinary hesitancy or hematuria Musc: Denies: neck pain, back pain, extremity pain, joint swelling, joint w armth or deformity Neuro: Denies: headache(s), numbness in extremities, weakness in extremities, sensory changes, difficulty walking, frequent falls, dizziness, vertigo, behavioral changes, Slurred speech present or seizure-like activity Psych: Denies: anxiety, depression, suicidal ideation or homicidal ideation Endo: Denies: polyuria, polydipsia, tired all the time, cold intolerance or hot flashes Rafi/Lymph: Denies: easy bruising or easy bleeding Medications/Allergies Home Medications Medication Instructions Recorded Confirmed Last Taken Type famotidine 40 mg tablet 40 mg PO BID 12/28/21 05/11/22 04/15/22 History enalapril maleate 5 mg tablet 2.5 mg PO DAILY 04/13/22 05/11/22 04/15/22 History potassium chloride 8 mEq 8 meq PO DAILY #90 caps 04/19/22 05/11/22 Unknown Rx capsule,extended release sodium chloride 1 gram tablet 500 mg PO BID #90 tabs 04/19/22 05/11/22 Unknown Rx trazodone 100 mg tablet 200 mg PO .HS PRN insomnia #60 tabs 04/20/22 05/11/22 Unknown Rx pantoprazole 40 mg tablet,delayed 40 mg PO BID 14 days #28 tabs 04/30/22 05/11/22 Unknown Rx release (Protonix) rivastigmine 4.6 mg/24 hour 4.6 mg transdermal . DIRECTED 05/08/22 05/11/22 Unknown History transdermal patch cholestyramine-aspartame 4 gram 4 g PO BID #201.6 grams 05/10/22 05/11/22 Unkn own Rx oral powder (Cholestyramine Light) loperamide 2 mg capsule 2 mg PO Q6H PRN Diarrhea #60 caps 05/10/22 05/11/22 Unknown Rx risperidone 0.5 mg tablet 0.5 mg PO BID #60 tabs 05/11/22 05/11/22 Unknown Rx sertraline 100 mg tablet 100 mg PO DAILY #30 tabs 05/11/22 05/11/22 Unknown Rx levofloxacin 750 mg tablet 750 mg PO DAILY 7 days #7 tabs 05/20/22 Unknown Rx ondansetron 4 mg disintegrating 4 mg PO Q8H PRN nausea and 05/20/22 Unknown Rx tablet vomiting #15 tabs Allergies Allergy/AdvReac Type Severity Reaction Status Date / Time prednisone Allergy ADR-Nausea Verified 05/11/22 10:57 Sulfa (Sulfonamide Allergy feels Verified 05/11/22 10:57 Antibiotics) strange all over lorazepam AdvReac Severe Make mean. Verified 05/11/22 11:06 Behaviours. morphine AdvReac ADR-Nausea Verified 05/11/22 10:57 PFSH Acute PFSH: Medical History Abnormal ankle brachial index (PATRICIA) 02/05/21 Acid reflux disease Allergic rhinitis due to allergen Anxiety Aortic valve regurgitation Carotid artery stenosis, asymptomatic Colitis Dementia Diverticulosis Fatty infiltration of liver Generalized anxiety disorder Heart disease Helicobacter pylori gastritis Hiatal hernia with GERD History of nonmelanoma skin cancer Hypertension Hyponatremia Incomplete bladder emptying Mitral valve disease Osteopenia PAD (peripheral artery disease) Postmenopausal Proctocolitis Psychiatric care Umbilical hernia Surgical History History of cholecystectomy History of colonoscopy History of esophagogastroduodenoscopy (EGD) History of fusion of cervical spine acdf c4-6 History of fusion of lumbar spine L4-5 History of hysterectomy Family History Father , in his 70's Cancer CAD (coronary artery disease) Brother CAD (coronary artery disease) Mother , at age 79 Heart disease Other Diabetes Hypertension Denies family history of Anesthesia complication Bleeding disorder Social History Smoking and tobacco status: never smoked Second hand smoke exposure: No Smoking risk assessment/counseling performed?: No Alcohol intake: never Desire information about alcohol rehabilitation?: No Counseling given: No Desire information about substance/drug rehabilitation?: No Counseling given: No Lives independently: No Household members: none Marital status: / Current occupational status: retired Vitals/I&O/Wt Last Vital Signs Temp 98.1 F 05/21/22 00:34 Pulse 70 05/21/22 00:34 Resp 17 05/21/22 00:34 BP 139/73 05/21/22 00:34 Pulse Ox 95 11/04/22 00:34 O2 Del Method 05/21/22 00:34 05/20/22 05/20/22 05/21/22 14:59 22:59 06:59 Intake Total 1150 / 1150 Balance 1150 / 1150 Weight last 48 hrs Weight 57.969 kg Weight 54.431 kg Physical Exam Narrative: General: No acute distress, AO x3 HEENT: PERRLA, pupils bilaterally equal and reactive, pallors not present Chest: Normal vesicular breath sounds, no added sounds, equal good air entry bilaterally CVS: S1-S2 regular, no murmurs, no tachycardia, no gallops, no rubs Abdomen: Soft, nontender, no organomegaly, bowel sounds present Neuro: No focal deficits, no facial deformity, AO x3, power 5/5 in all limbs Data : 05/20/22 19:58 05/21/22 04:42 A&P Assessment and plan (1) Enterocolitis: Patient: Stable would recommend enterocolitis, having been treated as recently as middle april. She received a week course of antibiotics at that time following which she states that her symptoms resolved. She was asymptomatic for about a week but now returns with recurrent diarrhea. CT of her abdomen and pelvis today shows fluid in the small and large bowel, with overall impression that of enterocolitis. Infectious work-up was negative recently with negative enteric bacterial PCR panel and negative C. difficile. Fecal lactoferrin was positive, however this is nonspecific. She has received levofloxacin both IV and p.o. in the emergency room. We will recheck an enteric bacterial, parasite and C. difficile PCR panel. Holding off on antibiotics for now as symptoms do not appear to be infective in etiology. Patient does not have any significant white count, her abdomen is not distended, she has not had any fever. There are no localizing symptoms or signs of peritonitis. Suspect that patient may have antibiotic associated diarrhea from recent amoxicillin, clarithromycin, piperacillin tazobactam and levofloxacin use. Alternate differentials include microscopic colitis, if C. difficile and enteric panels remain negative, a presumptive trial of steroids may be tried. She will need colonoscopy and biopsies for definitive diagnosis, however at this point it has been deferred for 3 weeks given her CAT scan findings. Noted to have mild dehydration with poor skin turgor. Normal saline 75 cc an hour for now. Will resume loperamide if C. difficile PCR returns negative. Further orders pending results of stool testing. (2) Dehydration, mild: Plan Continue her home medications including enalapril, Zofran, Protonix, risperidone, sertraline and trazodone. Attestations Medical Necessity Statement*: Anticipate less than 2 midnight admission for above defined care Coding Level of Care Code Acute Architectural Model Maker for [facility] Fwd Diagnoses Enterocolitis K52.9 Dehydration, mild E86.0
[2022-05-21] MEDS: sodium chloride 0.9% 1,000 ML 75 ML IV ×2 (03:54→17:11)
[2022-05-21 05:48] LABS: Alanine Aminotransferase 12 U/L (0-33); Alkaline Phosphatase 39 U/L (35-105); Aspartate Amino Transferase 13 U/L (0-32); Blood Urea Nitrogen 11 mg/dL (8-23); Calcium 8.3 mg/dL (8.5-10.5); Carbon Dioxide 20 mmol/L (22-29); Chloride 106 mmol/L (98-107); Globulin 2.2 g/dL (1.3-4.6); Glucose 89 mg/dL (65-115); Osmolality Calculated 281 mOsm/kg (285-295); Sodium 136 mmol/L (136-145); Total Bilirubin 0.3 mg/dL (0.15-1.2); Total Protein 5.2 g/dL (6.6-8.7)
[2022-05-21 05:49] LABS: Anion Gap 13.6 (5-19)
[2022-05-21 05:50] LABS: Potassium 3.6 mmol/L (3.5-5.1)
[2022-05-21] MEDS: risperiDONE 0.25 mg Tablet 0.5 MG PO ×2 (08:15→17:08)
[2022-05-21] MEDS: pantoprazole DR 40 mg Tablet PO (08:15)
[2022-05-21] MEDS: sertraline 100 mg Tablet PO (08:15)
[2022-05-21] MEDS: lisinopril 5 mg Tablet PO (08:16)
[2022-05-21] MEDS: enoxaparin 40 mg/0.4 mL Syringe SUBCUT (08:16)
[2022-05-21 08:51] LABS: C Reactive Protein 11.2 mg/L (0.0-4.9)
--- NOTE | 2022-05-21 09:07 | PC.PHAR ---
pts granddaughter kali verified pts medications-pts granddaughter kali states the pt takes enalapril 2.5mg daily ext med history doesnt show when last filled rx written 04/13/22-pts granddaughter states the pt is still taking memantine 10mg bid ext med history shows last filled 04/09/22 30d/s-pts granddaughter kali states the pt takes pantoprazole and famotidine-rx filled 05/03/22 21d/s for zoloft 50mg daily for 2 weeks then 100mg daily-pts granddaughter kali states the pt takes this medication-rx filled 04/20/22 30d/s for trazodone 200mg hs prn pts granddaughter kali states the pt takes 150mg hs-notes are made in the pharmacy comments
[2022-05-21 10:16] LABS: Erythrocyte Sedimentation Rate 3 mm/hr (0-15)
[2022-05-21 10:23] LABS: C Reactive Protein 11.7 mg/L (0.0-4.9)
--- NOTE | 2022-05-21 10:44 | PC.CHAP ---
Pastoral Care Encounter/Spiritual Assessment Type of Contact [] Declined hollow core door frame assembler visit [] Patient/Family/Request visit [] Outpatient visit [] Follow-up visit [] Physician referral [] Code/Alert [x] Routine visit [] Staff referral [] Actively dying [] Patient sleeping [] Family support [] [] Out of room [] Palliative care [] [] Receiving care in room [] Pre-surgical visit [] Trauma [] Long length of stay [] ICU visit [] Other: Relational/Emotional Strength [x] Patient feels connected with others/family/visitors/staff [] Distress [] Loneliness/isolation [] Abandonment Spirituality of Patient [x] Person of Rossy x[] Attends Buddhist of their [place] [x] Believes in Prayer [x] Reads Bible or Orthodox materials [] There are Spiritual issues to be addressed Loop Cutter Interventions [x] Prayer [x Active listening [x] Non-anxious presence [x] Spiritual/emotional support [] Crisis/trauma care [] Spiritual counseling [] Bereavement support [] Provided bereavement packet [] Provided Bible/devotional materials [] Provided toy/stuffed animal, coloring book to patient or family member [] Provided Communion [] Anointing/[place] [] Salvation []x Completed spiritual assessment [] Other: Impact on Illness or Injury [] Angry [] Fearful [] Anxious [] Often cries [] Exhaustion [] Unable to work [] Unable to attend sabianism [] Unable to walk/stand [] Unable to read [] Unable to drive [] Unable to eat/drink [] Unable to sleep [] Unable to be with family [] Patient intubated [] Other: Summary Time spent with patient 20 min
--- NOTE | 2022-05-21 13:35 | P.PN_ITS ---
Subjective Subjective: Patient was seen this morning, her daughter was on the phone, I spoke to both, she tells me her diarrhea has improved, no abdominal pain, she is a bit upset about not getting her psychotropic medications, she does not that she has had chronic diarrhea, she is status post cholecystectomy many years ago, but recently she has been having episodes of large-volume is diarrhea that com on, her daughter tells me that she has her on a vegan diet, lactose-free diet Vitals/I&O/Wt Last Vital Signs Temp 98.6 F 05/21/22 11:42 Pulse 67 05/21/22 11:42 Resp 16 05/21/22 11:42 BP 137/66 05/21/22 11:42 Pulse Ox 95 05/21/22 11:42 O2 Del Method 05/21/22 11:42 05/20/22 05/21/22 05/21/22 22:59 06:59 14:59 Intake Total 1900 / 1900 240 / 240 Output Total 100 / 100 Balance 1900 / 1900 140 / 140 Weight last 48 hrs Weight 57.969 kg Weight 54.431 kg Physical Exam Const: COMMON NORMALS: no acute distress and patient oriented x3 Resp: COMMON NORMALS: normal respiratory effort, No retractions, No use of accessory muscles and clear to auscultation bilaterally AUSCULTATION: clear to auscultation bilaterally Cardio: COMMON NORMALS: regular rate, regular rhythm, S1 normal heart sound present and S2 normal heart sound present RATE: regular rate RHYTHM: regular rhythm HEART SOUNDS: S1 normal heart sound present and S2 normal heart sound present GI: COMMON NORMALS: Normal to inspection, nondistended, normoactive bowel sounds present and non-tender Extremity: COMMON NORMALS: no pedal edema Neuro: COMMON NORMALS: patient oriented x3 Psych: COMMON NORMALS: mental status grossly normal Data : 05/20/22 19:58 05/21/22 04:42 Micro: Microbiology 05/21/22 09:50 Blood Culture - Preliminary Blood SPECIMEN COLLECTED 05/21/22 09:50 Blood Culture - Preliminary Blood SPECIMEN COLLECTED A&P Assessment and plan (1) Enterocolitis: Patient: Stable would recommend enterocolitis, having been treated as recently as middle april. She received a week course of antibiotics at that time following which she states that her symptoms resolved. She was asymptomatic for about a week but now returns with recurrent diarrhea. CT of her abdomen and pelvis today shows fluid in the small and large bowel, with overall impression that of enterocolitis. Infectious work-up was negative recently with negative enteric bacterial PCR panel and negative C. difficile. Fecal lactoferrin was positive, however this is nonspecific. She has received levofloxacin both IV and p.o. in the emergency room. We will recheck an enteric bacterial, parasite and C. difficile PCR panel. Ho lding off on antibiotics for now as symptoms do not appear to be infective in etiology. Patient does not have any significant white count, her abdomen is not distended, she has not had any fever. There are no localizing symptoms or signs of peritonitis. Suspect that patient may have antibiotic associated diarrhea from recent amoxicillin, clarithromycin, piperacillin tazobactam and levofloxacin use. Alternate differentials include microscopic colitis, if C. difficile and enteric panels remain negative, a presumptive trial of steroids may be tried. She will need colonoscopy and biopsies for definitive diagnosis, however at this point it has been deferred for 3 weeks given her CAT scan findings. Other possibilities include gallbladder dumping syndrome, increase cholestyramine to 4 g every 8 hours, noted to have mild dehydration with poor skin turgor. Normal saline 75 cc an hour for now. Will resume loperamide if C. difficile PCR returns negative. Further orders pending results of stool testing. She is also on quite a few psychotropic medication including risperidone, rivastigmine, sertraline, trazodone, memantine which can cause diarrhea, possible serotonin syndrome (2) Dehydration, mild: Plan Continue her home medications including enalapril, Zofran, Protonix, risperidone, sertraline and trazodone. Attestations Medical Necessity Statement*: Patient requires hospitalization for enterocolitis Coding Level of Care Code Acute [facility] for [facility] Diagnoses Enterocolitis K52.9 Dehydration, mild E86.0
[2022-05-21] MEDS: cholestyramine powder 4 gm Pkt PO ×2 (15:06→22:11)
[2022-05-21] MEDS: memantine 5 mg tablet 10 MG PO (17:08)
[2022-05-21] MEDS: sodium chloride 1 gm Tablet 0.5 GM PO (17:08)
[2022-05-21] MEDS: trazodone 100 mg Tablet 150 MG PO (20:27)
[2022-05-22] VITALS: BP 114/54; PULSE 65; RESP 16; TEMP 37.2; O2SAT 96
[2022-05-22 04:00] VITALS: BP 145/72; PULSE 70; RESP 16; TEMP 36.8; O2SAT 93
[2022-05-22 05:25] LABS: Basophils % 0.5 %; Eosinophils # 0.3 10^3/uL (0.0-0.8); Eosinophils % 3.4 %; Hematocrit 30.6 % (37.0-47.0); Hemoglobin 9.2 g/dL (11.5-15.3); Lymphocytes # 2.6 10^3/uL (0.8-4.8); Lymphocytes % 33.3 %; Mean Corpuscular HGB Conc 30.1 g/dL (30.0-36.0); Mean Corpuscular Hemoglobin 24.5 pg (28.0-34.0); Mean Corpuscular Volume 81.6 fl (81-99); Mean Platelet Volume 10.5 fL (7.4-10.4); Monocytes # 0.8 10^3/uL (0.2-0.9); Monocytes % 10.3 %; Neutrophils # 4.08 10^3/uL (1.8-7.7); Neutrophils % 52.2 %; Nucleated Red Blood Cells % 0 %; Platelet Count 245 10^3/cmm (130-400); Red Blood Count 3.75 10^6/uL (4.1-5.3); Red Cell Distribution Width 15.7 % (12.1-15.1); White Blood Count 7.8 10^3/uL (4.0-10.0)
[2022-05-22] MEDS: sodium chloride 0.9% 1,000 ML 75 ML IV (05:30)
[2022-05-22 05:56] LABS: Procalcitonin 0.07 ng/mL (0-0.5)
[2022-05-22 06:10] LABS: Alanine Aminotransferase 12 U/L (0-33); Albumin Level 3.3 g/dL (3.5-5.2); Alkaline Phosphatase 41 U/L (35-105); Anion Gap 14.3 (5-19); Aspartate Amino Transferase 11 U/L (0-32); Blood Urea Nitrogen 4 mg/dL (8-23); C Reactive Protein 6.2 mg/L (0.0-4.9); Calcium 8.5 mg/dL (8.5-10.5); Carbon Dioxide 22 mmol/L (22-29); Chloride 109 mmol/L (98-107); Globulin 2.1 g/dL (1.3-4.6); Glucose 89 mg/dL (65-115); Magnesium 1.7 mg/dL (1.7-2.3); Osmolality Calculated 290 mOsm/kg (285-295); Potassium 3.3 mmol/L (3.5-5.1); Sodium 142 mmol/L (136-145); Total Bilirubin 0.2 mg/dL (0.15-1.2); Total Protein 5.4 g/dL (6.6-8.7)
[2022-05-22] MEDS: cholestyramine powder 4 gm Pkt PO (06:24)
[2022-05-22] MEDS: saline nasal spray 44mL Btl 1 SPRAY NASAL (06:24)
[2022-05-22] MEDS: aspirin 325 mg Tablet PO (06:24)
[2022-05-22 07:42] VITALS: BP 153/75; PULSE 67; RESP 16; TEMP 37.1; O2SAT 94
[2022-05-22] MEDS: memantine 5 mg tablet 10 MG PO (08:36)
[2022-05-22] MEDS: sertraline 100 mg Tablet PO (08:36)
[2022-05-22] MEDS: pantoprazole DR 40 mg Tablet PO (08:36)
[2022-05-22] MEDS: sodium chloride 1 gm Tablet 0.5 GM PO (08:36)
[2022-05-22] MEDS: risperiDONE 0.25 mg Tablet 0.5 MG PO (08:36)
[2022-05-22] MEDS: lisinopril 5 mg Tablet PO (08:37)
[2022-05-22] MEDS: enoxaparin 40 mg/0.4 mL Syringe SUBCUT (08:37)
[2022-05-22] MEDS: acetaminophen 500 mg Tablet PO (09:46)
[2022-05-22] MEDS: potassium chloride ER 20 mEq Tablet 40 MEQ PO (09:46)
[2022-05-22 11:55] VITALS: BP 135/67; PULSE 67; RESP 16; TEMP 37.2; O2SAT 94
--- NOTE | 2022-05-22 13:11 | P.DS_ITS ---
Discharge Providers Date of Admission: 05/20/22 23:21 Date of Discharge: May 22, 2022 Attending Provider at Admission: Chanel Montes MD Attending Provider at Discharge: Mirza Carlin MD Primary Care Provider: Judith Dennis MD Diagnoses at Discharge Discharge Diagnosis (1) Enterocolitis: Status: Acute (2) Dehydration, mild: Status: Acute Reason for Visit Reason for Visit: N/V/D Hospital Course Hospital Course This is a 81-year-old female, with a past medical history of anxiety, hypertension, who presents to [facility] due to complaints of diarrhea Patient was admitted to [facility], was found to have enterocolitis, received IV fluids, C. difficile negative, blood cultures remain unremarkable, she overall she clinically improved. 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 Other possibilities include ulcerative colitis versus Crohn's disease, Physical Exam Const: COMMON NORMALS: no acute distress and patient oriented x3 Resp: COMMON NORMALS: normal respiratory effort, No retractions, No use of accessory muscles and clear to auscultation bilaterally AUSCULTATION: clear to auscultation bilaterally Cardio: COMMON NORMALS: regular rate, regular rhythm, S1 normal heart sound present and S2 normal heart sound present RATE: regular rate RHYTHM: regular rhythm HEART SOUNDS: S1 normal heart sound present and S2 normal heart sound present GI: COMMON NORMALS: Normal to inspection, nondistended, normoactive bowel sounds present, non-tender and no masses Extremity: COMMON NORMALS: no pedal edema Neuro: COMMON NORMALS: patient oriented x3 Psych: COMMON NORMALS: mental status grossly normal Discharge Data Studies Completed and Pending Completed Studies During Hospitalization Category Date Time Status CT abdomen pelvis w con* [id number] Stat Cat Scan 05/20/22 20:27 Completed Pending at discharge Category Date Time Status ELIZABETH Profile Rheumatology Stat Lab 05/21/22 09:46 Received Blood Culture Stat Lab 05/21/22 09:50 Results C Reactive Protein AM LABS Lab 05/23/22 04:00 Ordered C Reactive Protein AM LABS Lab 05/24/22 04:00 Ordered Celiac Disease Comprenhensive Routine Lab 05/21/22 09:46 Received Comprehensive Metabolic Panel AM LABS Lab 05/23/22 04:00 Ordered Comprehensive Metabolic Panel AM LABS Lab 05/24/22 04:00 Ordered Enteric Bacterial Panel by PCR Routine Lab 05/21/22 14:28 Results Enteric Parasite Panel by PCR Routine Lab 05/21/22 14:28 Results Helicobacter Pylori AG Stool Stat Lab 05/21/22 08:59 Ordered Immunochemical Fecal OCB Routine Lab 05/21/22 14:28 Results Lactoferrin Routine Lab 05/21/22 14:28 Results Magnesium AM LABS Lab 05/23/22 04:00 Ordered Magnesium AM LABS Lab 05/24/22 04:00 Ordered Procalcitonin AM LABS Lab 05/23/22 04:00 Ordered Procalcitonin AM LABS Lab 05/24/22 04:00 Ordered Radiology Impressions Abdomen/Pelvis CT 05/20/22 20:27 IMPRESSION: 1. Prominent fluid throughout the small bowel and colon with some terminal ileum wall thickening suggestive of an enterocolitis. 2. Lumbar spine surgical hardware seen in place. 3. Diverticulosis without diverticulitis. 4. Bibasilar atelectasis versus infiltrate. 5. Small to moderate hiatal hernia. 6. Cholecystectomy. 7. Two left kidney nonobstructing calyceal stones. 8. Small amount nonspecific fluid in the pelvis. Laboratory Results WBC 7.8 10^3/uL (4.0-10.0) 05/22/22 04:39 RBC 3.75 10^6/uL (4.1-5.3) L 05/22/22 04:39 Hgb 9.2 g/dL (11.5-15.3) L 05/22/22 04:39 Hct 30.6 % (37.0-47.0) L 05/22/22 04:39 MCV 81.6 fl (81-99) 05/22/22 04:39 MCH 24.5 pg (28.0-34.0) L 05/22/22 04:39 MCHC 30.1 g/dL (30.0-36.0) 05/22/22 04:39 RDW 15.7 % (12.1-15.1) H 05/22/22 04:39 Plt Count 245 10^3/cmm (130-400) 05/22/22 04:39 MPV 10.5 fL (7.4-10.4) H 05/22/22 04:39 Neut % (Auto) 52.2 % 05/22/22 04:39 Lymph % (Auto) 33.3 % 05/22/22 04:39 [place] % (Auto) 10.3 % 05/22/22 04:39 Eos % (Auto) 3.4 % 05/22/22 04:39 Baso % (Auto) 0.5 % 05/22/22 04:39 Neut # (Auto) 4.08 10^3/uL (1.8-7.7) 05/22/22 04:39 Lymph # (Auto) 2.6 10^3/uL (0.8-4.8) 05/22/22 04:39 [place] # (Auto) 0.8 10^3/uL (0.2-0.9) 05/22/22 04:39 Eos # (Auto) 0.3 10^3/uL (0.0-0.8) 05/22/22 04:39 Baso # (Auto) 0.0 10^3/uL (0.0-0.1) 05/22/22 04:39 Nucleated RBC % (auto) 0 % 05/22/22 04:39 Nucleated RBCs # 0.0 /100WBC 05/22/22 04:39 ESR 3 mm/hr (0-15) 05/21/22 09:46 Sodium 142 mmol/L (136-145) 05/22/22 04:39 Potassium 3.3 mmol/L (3.5-5.1) L 05/22/22 04:39 Chloride 109 mmol/L (98-107) H 05/22/22 04:39 Carbon Dioxide 22 mmol/L (22-29) 05/22/22 04:39 Anion Gap 14.3 (5-19) 05/22/22 04:39 BUN 4 mg/dL (8-23) L 05/22/22 04:39 Creatinine 0.5 mg/dL (0.5-0.9) 05/22/22 04:39 GFR Calculation Not Reportable 05/22/22 04:39 Glucose 89 mg/dL (65-115) 05/22/22 04:39 Calculated Osmolality 290 mOsm/kg (285-295) 05/22/22 04:39 Lactate 0.9 mmol/L (0.5-2.2) 05/20/22 21:00 Calcium 8.5 mg/dL (8.5-10.5) 05/22/22 04:39 Magnesium 1.7 mg/dL (1.7-2.3) 05/22/22 04:39 Total Bilirubin 0.2 mg/dL (0.15-1.2) 05/22/22 04:39 AST 11 U/L (0-32) 05/22/22 04:39 ALT 12 U/L (0-33) 05/22/22 04:39 Alkaline Phosphatase 41 U/L (35-105) 05/22/22 04:39 C-Reactive Protein 6.2 mg/L (0.0-4.9) H 05/22/22 04:39 Total Protein 5.4 g/dL (6.6-8.7) L 05/22/22 04:39 Albumin 3.3 g/dL (3.5-5.2) L 05/22/22 04:39 Globulin 2.1 g/dL (1.3-4.6) 05/22/22 04:39 Lipase 21 U/L (13-60) 05/20/22 19:58 Procalcitonin 0.07 ng/mL (0-0.5) 05/22/22 04:39 Urine Color Yellow (Yellow) 05/21/22 00:28 Urine Appearance Clear (CLEAR) 05/21/22 00:28 Urine pH 5 (5-7) 05/21/22 00:28 Ur Specific [place] 1.010 (1.005-1.030) 05/21/22 00:28 Urine Protein Neg (Negative) 05/21/22 00:28 Urine Glucose (UA) Norm (Normal) 05/21/22 00:28 Urine Ketones 1+ (Negative) H 05/21/22 00:28 Urine Blood Neg (Negative) 05/21/22 00:28 Urine Nitrate Negative (Negative) 05/21/22 00:28 Urine Bilirubin Neg (Negative) 05/21/22 00:28 Urine Urobilinogen Norm mg/dL (Negative) 05/21/22 00:28 Ur Leukocyte Esterase Negative (Negative) 05/21/22 00:28 Vitals Last Vital Signs Temp 99.0 F 05/22/22 11:55 Pulse 67 05/22/22 11:55 Resp 16 05/22/22 11:55 BP 135/67 05/22/22 11:55 Pulse Ox 94 05/22/22 11:55 O2 Del Method 05/22/22 11:55 Discharge Plan Discharge Patient Disposition: Home Condition: Stable Prescriptions: Continued sodium chloride 1 gram tablet 500 mg PO BID Qty: 90 0RF potassium chloride 8 mEq capsule, extended release 8 meq PO DAILY Qty: 90 0RF enalapril maleate 5 mg tablet 2.5 mg PO DAILY pantoprazole [Protonix] 40 mg tablet,delayed release (DR/EC) 40 mg PO BID 14 Days Qty: 28 0RF famotidine 40 mg tablet 40 mg PO BID Cholestyramine Light 4 gram powder 4 g PO BID Qty: 201.6 0RF Rx Instructions: administer w/meal; avoid other meds within 1hr before or 4-6hr after dose rivastigmine tartrate 1.5 mg capsule 1.5 mg PO BID aspirin 325 mg Tablet 325 mg PO QAM acetaminophen 500 mg Tablet 1,000 mg PO BID memantine 10 mg tablet 10 mg PO BID Calcium Citrate + D 315 mg-5 mcg (200 unit) Tablet 1 tab PO DAILY loperamide 2 mg capsule 4 mg PO QID sertraline 100 mg tablet 100 mg PO QPM trazodone 100 mg tablet 150 mg PO BEDTIME@20 risperidone 0.5 mg tablet 0.5 mg PO BID@08,17 Discharge Orders: Discharge Order (Routine); Ordered 05/22/22 Ordered By: Mirza Carlin Referrals: Jarrod Weeks DO [Physician] - 2 weeks (colonoscopy) Judith Dennis MD [Primary Care Provider] - Discharge Diet: Advance as tolerated, As Directed and Clear Liquid Discharge Activity: Increase activity as tolerated Patient Instructions: Dehydration (ED), Colitis (ED), Opioid Safety Activity Restrictions/Additional Instructions: Thank you for visiting the emergency department. You were seen and evaluated for continued GI symptoms. You appear to have continued enterocolitis. Given your history I will treat this with another course of antibiotics. Please continue to follow-up previously given instructions. Follow-up with your primary care provider and for endoscopy. Return to the emergency department for worsening symptoms or anything else that you are concerned about a feel needs emergency department evaluation. -Continue to hydrate well -Advance diet as tolerated -Follow-up with general surgery for consideration of EGD and colonoscopy Discharge Attestations Time Spent in Discharge Care*: less than 30 min Quality Metrics Clinical Quality Measures [ No reported AMI, CVA or VTE this stay] Coding Level of Care Code Acute Chg FW DC note Diagnoses Enterocolitis K52.9 Dehydration, mild E86.0
[2022-05-24 12:19] LABS: COMPLEMENT COMPONENT C3C 135 mg/dL; COMPLEMENT COMPONENT C4C 34 mg/dL
[2022-05-24 13:03] LABS: THYROID PEROXIDASE ANTIBODIES <1 IU/mL (<9)
[2022-05-24 13:42] LABS: CENTROMERE B ANTIBODY <1.0 NEG AI (<1.0 NEG); JO-1 ANTIBODY <1.0 NEG AI (<1.0 NEG); RNP ANTIBODY <1.0 NEG AI (<1.0 NEG); SCL-70 ANTIBODY <1.0 NEG AI (<1.0 NEG); SJOGREN'S ANTIBODY (SS-A) <1.0 NEG AI (<1.0 NEG); SM ANTIBODY <1.0 NEG AI (<1.0 NEG); SS-B <1.0 NEG AI (<1.0 NEG)
[2022-05-24 13:57] LABS: ANA SCREEN, IFA NEGATIVE (NEGATIVE)
[2022-05-24 15:17] LABS: Immunoglobulin A 226 mg/dL (70-320); Tissue Transglutaminase AB IGA <1.0 U/mL
[2022-05-24 15:37] LABS: COMPLEMENT, TOTAL (CH50) >60 U/mL (31-60)
[2022-05-25 15:23] LABS: DNA AB (DS) CRITHIDIA,IFA NEGATIVE (NEGATIVE)
== END 2022-05-22 14:14 | disposition home or self-care (01) ==
LOC: ER 23:37 → MEDSURG 23:38
PROVIDERS: Admitting Provider Student in an Organized Health Care Education/Training Program; Emergency Provider Emergency Medicine; PCP Family Medicine; Visit Provider Family Medicine
DX: K52.9 Noninfective gastroenteritis and colitis, unspecified (principal); E86.0 Dehydration; F41.9 Anxiety disorder, unspecified; I10 Essential (primary) hypertension; K21.9 Gastro-esophageal reflux disease without esophagitis; F03.90 Unspecified dementia, unspecified severity, without behavioral disturbance, psychotic disturbance, mood disturbance, and anxiety
CPT/HCPCS: 36415; 74177; 80053; 81003; 82274; 82784; 83516; 83605; 83630; 83690; 83735; 84145; 85025; 85651; 86140; 86160; 86162; 86235; 86255; 86376; 87040; 87493; 87506; 96365; 96372; 96375; 99285; G0378; J1650; J1956; J2405; J7030; Q9967

== ENCOUNTER → 2022-06-07 11:53 | Outpatient (BNVA) | payer MEDICARE, OTHER, SELFPAY | PROVIDERS: PCP Family Medicine; Visit Provider Family Medicine | DX: R60.9 Edema, unspecified (principal); E87.1 Hypo-osmolality and hyponatremia; R45.89 Other symptoms and signs involving emotional state; F03.90 Unspecified dementia, unspecified severity, without behavioral disturbance, psychotic disturbance, mood disturbance, and anxiety | CPT/HCPCS: 80048; 81000; 83880; 84443 ==

== ENCOUNTER → 2022-06-08 14:02 | Outpatient (BNVA) | payer MEDICARE, OTHER, SELFPAY | PROVIDERS: PCP Family Medicine; Visit Provider Surgery | DX: K52.9 Noninfective gastroenteritis and colitis, unspecified (principal) | CPT/HCPCS: 99213 ==

== ENCOUNTER → 2022-06-25 11:03 | Outpatient (BNVA) | payer MEDICARE, OTHER, SELFPAY | PROVIDERS: PCP Family Medicine; Visit Provider Internal Medicine Cardiovascular Disease | DX: I10 Essential (primary) hypertension (principal); R00.2 Palpitations; I35.1 Nonrheumatic aortic (valve) insufficiency; I77.9 Disorder of arteries and arterioles, unspecified; E78.5 Hyperlipidemia, unspecified | CPT/HCPCS: 99214 ==

== ENCOUNTER 2022-07-07 07:39 | Day surgery (SDC) | payer MEDICARE, OTHER, SELFPAY ==
[2022-07-06 10:03] VITALS: BMI 23.8
[2022-07-07 08:26] VITALS: BP 117/71; PULSE 71; RESP 18; TEMP 36.3; O2SAT 95
[2022-07-07] MEDS: sodium chloride 0.9% 1,000 ML 30 ML IV (08:28)
--- NOTE | 2022-07-07 09:45 | ANES.PREANE2 ---
Pre-Anesthetic Assessment Height/Weight: Height 1.57 m Weight 58.967 kg Temp Pulse Resp BP Pulse Ox O2 Del Method 97.3 F L 71 18 117/71 95 07/07/22 08:26 07/07/22 08:26 07/07/22 08:26 07/07/22 08:26 07/07/22 08:26 07/07/22 08:26 Preop Diagnosis: Acid reflux disease Operation Date: 07/07/22 09:30 Proposed Procedures p 82392 EGD 96315 COlon K52.9,R19.7(Not Applicable) - DO rosalina Macedo Colonoscopy(Not Applicable) - Jarrod Weeks DO Familial anesthetic complications: none Was Beta Poppy taken within 24 hours: N/A Was Clonidine taken within 24 hours: N/A Last intake: Intake Last Liquid Date 07/06/22 Last Liquid Time 22:00 Last Solid Date 07/05/22 Last Solid Time 18:00 Social No alcohol and No tobacco Exam alert, oriented x 3, clear to auscultation bilaterally and regular rate & rhythm Airway Submandibular: within normal limits Cervical ROM: within normal limits Mallampati: Class II Dentition: full CV/HEM Hypertension, Murmur (AI) and Peripheral Vascular Disease GI Gastroesophageal Reflux Disease Musc/skel Weakness Neuropsych Anxiety, Dementia and Depression Anesthetic Plan ASA status: 3 Anesthesia: MAC Medications/Allergies Home Medications Medication Instructions Recorded Confirmed Last Taken Type famotidine 40 mg tablet 40 mg PO BID 12/28/21 07/07/22 07/06/22 History enalapril maleate 5 mg tablet 2.5 mg PO DAILY 04/13/22 07/07/22 07/05/22 History potassium chloride 8 mEq 8 meq PO DAILY #90 caps 04/19/22 07/07/22 07/06/22 Rx capsule,extended release aspirin 325 mg tablet 325 mg PO QAM 05/21/22 07/07/22 07/04/22 History calcium citrate 315 mg-vitamin D3 1 tab PO DAILY 05/21/22 07/07/22 06/30/22 History 5 mcg (200 unit) tablet (Calcium Citrate + D) memantine 10 mg tablet 10 mg PO BID 05/21/22 07/07/22 07/06/22 History risperidone 0.5 mg tablet 0.5 mg PO BID@08,17 11/11/0607/07/22 07/07/22 History rivastigmine tartrate 1.5 mg 1.5 mg PO BID 05/21/22 07/07/22 07/06/22 History capsule sertraline 100 mg tablet 100 mg PO QPM 05/21/22 07/07/22 07/06/22 History trazodone 100 mg tablet 150 mg PO BEDTIME@20 05/21/22 07/07/22 07/06/22 History cholestyramine-aspartame 4 gram See Rx Instructions .Route 06/14/22 07/07/22 07/05/22 Rx oral powder (Prevalite) .COMPLEX #231 grams sodium chloride 1 gram tablet 500 mg PO BID #90 tabs 06/30/22 07/07/22 07/06/22 Rx acetaminophen 650 mg 650 mg PO Q12H 07/06/22 07/07/22 07/06/22 History tablet,extended release loperamide 2 mg capsule 4 mg PO QID 90 days #720 caps 07/06/22 07/07/22 07/05/22 Rx pantoprazole 40 mg tablet,delayed 40 mg PO BID 07/06/22 07/07/22 07/06/22 History release Allergies Allergy/AdvReac Type Severity Reaction Status Date / Time buspirone [From BuSpar] Allergy Unknown Verified 07/07/22 08:25 prednisone Allergy ADR-Nausea Verified 07/07/22 08:25 Sulfa (Sulfonamide Allergy feels Verified 07/07/22 08:25 Antibiotics) strange all over lorazepam AdvReac Severe Make mean. Verified 07/07/22 08:25 Behaviours. morphine AdvReac ADR-Nausea Verified 07/07/22 08:25 Current Medications Generic Name Dose Route Start Last Admin Trade Name Freq PRN Reason Stop Dose Admin Sodium Chloride 1,000 mls @ 30 mls/hr 07/07/22 08:00 07/07/22 08:28 Sodium Chloride 0.9% IV 07/08/22 07:59 30 mls/hr .Q24H CARL Administration PFSH Anesthesia Medical History Abnormal ankle brachial index (PATRICIA) 02/05/21 Acid reflux disease Allergic rhinitis due to allergen Anxiety Aortic valve regurgitation Carotid artery stenosis, asymptomatic Colitis Dementia Diverticulosis Fatty infiltration of liver Generalized anxiety disorder Heart disease Helicobacter pylori gastritis Hiatal hernia with GERD History of nonmelanoma skin cancer Hypertension Hyponatremia Incomplete bladder emptying Mitral valve disease Osteopenia PAD (peripheral artery disease) Postmenopausal Proctocolitis Psychiatric care Umbilical hernia Surgical History History of cholecystectomy History of colonoscopy History of esophagogastroduodenoscopy (EGD) History of fusion of cervical spine acdf c4-6 History of fusion of lumbar spine L4-5 History of hysterectomy Family History Father , in his 70's Cancer CAD (coronary artery disease) Brother CAD (coronary artery disease) Mother , at age 79 Heart disease Other Diabetes Hypertension Denies family history of Anesthesia complication Bleeding disorder Social History Smoking and tobacco status: never smoked Second hand smoke exposure: No Smoking risk assessment/counseling performed?: No Alcohol intake: never Desire information about alcohol rehabilitation?: No Counseling given: No Desire information about substance/drug rehabilitation?: No Counseling given: No Lives independently: No Household members: none Marital status: / Current occupational status: retired Data Anesthesia Cardiac Studies: Echocardiogram 01/04/22 Echocardiogram Ultrasound 10/29/19 Cardiac Event Monitor 02/19/22
--- NOTE | 2022-07-07 09:45 | W.PM.OPSUD ---
Surgery/Procedure H&P Update DATE OF PROCEDURE: July 07, 2022 DATE H&P PERFORMED: 06/08/22 PREOP DIAGNOSIS: Acid reflux disease PLANNED PROCEDURE: Operation Date: 07/07/22 09:30 Proposed Procedures p 85086 EGD 31396 COlon K52.9,R19.7(Not Applicable) - DO rosalina Macedo Colonoscopy(Not Applicable) - Jarrod Weeks DO
[2022-07-07 10:29] VITALS: BP 154/77; PULSE 63; RESP 16; TEMP 36.1; O2SAT 99
[2022-07-07 10:38] VITALS: BP 149/79; PULSE 61; RESP 16; O2SAT 98
--- NOTE | 2022-07-07 15:19 | ANE.PACU2 ---
Inpatient post-anesthesia follow up: Airway intact: Yes Vital signs: Temperature 97 F Pulse Rate 61 Respiratory Rate 16 Blood Pressure 149/79 Pulse Oximetry 98 Oxygen Delivery Me thod Room Air Oxygen Flow Rate Fraction of Inspir ed Oxygen Hydration adequate: Yes Nausea and vomiting: No Pain level: 2 Mental status: Baseline
== END 2022-07-07 10:58 | disposition home or self-care (01) ==
PROVIDERS: PCP Family Medicine; Visit Provider Surgery
PROC: 0DJ08ZZ Inspection of Upper Intestinal Tract, Via Natural or Artificial Opening Endoscopic (ICD-10-PCS; CPT 43235; principal; 2022-07-07 09:30)
PROC: 0DJD8ZZ Inspection of Lower Intestinal Tract, Via Natural or Artificial Opening Endoscopic (ICD-10-PCS; CPT 45378; 2022-07-07 09:30)
DX: K52.9 Noninfective gastroenteritis and colitis, unspecified (principal); R19.7 Diarrhea, unspecified; K57.30 Diverticulosis of large intestine without perforation or abscess without bleeding; K64.8 Other hemorrhoids; K21.9 Gastro-esophageal reflux disease without esophagitis; F02.80 Dementia in other diseases classified elsewhere, unspecified severity, without behavioral disturbance, psychotic disturbance, mood disturbance, and anxiety; I11.0 Hypertensive heart disease with heart failure; I50.9 Heart failure, unspecified
CPT/HCPCS: 43239; 45380; 82274; 83630; 87493; 87506; 88305; J2704; J7030

== ENCOUNTER → 2022-07-21 15:26 | Outpatient (BNVA) | payer MEDICARE, OTHER, SELFPAY | PROVIDERS: PCP Family Medicine; Visit Provider Surgery | DX: Z09 Encounter for follow-up examination after completed treatment for conditions other than malignant neoplasm (principal) | CPT/HCPCS: 99212 ==

== ENCOUNTER 2022-09-12 21:11 | Emergency (ER) | payer MEDICARE, OTHER, SELFPAY ==
[2022-09-12 21:11] VITALS: BP 142/73; PULSE 75; RESP 16; TEMP 37; O2SAT 96; BMI 21.9
--- NOTE | 2022-09-12 21:19 | XRR_ITS ---
PROCEDURE INFORMATION: Exam: XR Chest Exam date and time: 09/12/2022 9:30 PM Age: 82 years old Clinical indication: Other: Near syncope; Weakness TECHNIQUE: Imaging protocol: Radiologic exam of the chest. Views: 1 view. COMPARISON: CR XR chest 1V portable [id number] 04/01/2022 5:38 PM FINDINGS: Lungs: Lungs are clear bilaterally. Pleural spaces: No pleural effusion. No pneumothorax. Heart/Mediastinum: Stable mild enlargement of the cardiac silhouette. Mediastinal contours are unremarkable. Bones/joints: Bones are diffusely osteopenic. Degenerative changes in the spine and shoulders. Patient has had a previous fusion in the lower cervical spine. Organs: Surgical clips in the right upper quadrant, consistent with a previous cholecystectomy. Findings are stable. XR/XR chest 1V portable [id number] IMPRESSION: 1. No acute cardiopulmonary process. 2. Incidental/nonacute findings are listed in the report.
--- NOTE | 2022-09-12 21:19 | CTR_ITS ---
PROCEDURE INFORMATION: Exam: CT Head Without Contrast Exam date and time: 09/12/2022 9:36 PM Age: 82 years old Clinical indication: Speech disturbance; Additional info: Near syncope TECHNIQUE: Imaging protocol: Computed tomography of the head without contrast. Sagittal and coronal reformatted images were created and reviewed. Radiation optimization: All CT scans at this facility use at least one of these dose optimization techniques: automated exposure control; mA and/or kV adjustment per patient size (includes targeted exams where dose is matched to clinical indication); or iterative reconstruction. REPORTING DATA: Count of CT and Cardiac NM exams in prior 12 months: This patient has received 5 known CTs and 0 known cardiac nuclear medicine studies in the 12 months prior to the current study. COMPARISON: CT head wo con* [id number] 04/01/2022 7:08 PM RADIATION DOSE METRICS: Total DLP (mGy-cm): 915.08 FINDINGS: Brain: No acute intracranial hemorrhage. No acute infarct. No intra-axial or extra-axial masses. Alejandro-white matter differentiation is preserved. No cerebral edema. No extra-axial fluid collections. No midline shift. No evidence for Chiari 1 malformation. Stable moderate atrophy of the brain parenchyma. Stable moderately decreased attenuation in the deep white matter, consistent with moderate chronic microangiopathic change. There are multiple foci of pneumocephalus in the cavernous sinus. Cerebral ventricles: No hydrocephalus. Paranasal sinuses: Visualized paranasal sinuses are clear. Mastoid air cells: Visualized mastoid air cells are clear. Orbital cavities: Globes and lenses, extraocular muscles, and optic nerves are intact bilaterally. No acute intraorbital abnormality. Bones/joints: No acute fracture. Soft tissues: No acute abnormality of the extracranial soft tissues. Vasculature: Mild atherosclerotic changes in the visualized arteries. CT/CT head wo con* [id number] IMPRESSION: 1. There are multiple foci of pneumocephalus in the cavernous sinus. This may be due to a previous injection. 2. No evidence for intracranial hemorrhage or infarct. 3. Stable moderate atrophy of the brain parenchyma. 4. Stable moderate chronic white matter microangiopathic change. 5. Incidental/nonacute findings are listed in the report.
[2022-09-12 21:34] LABS: INR 1.04 (0.8-1.2)
[2022-09-12 21:35] LABS: Partial Thromboplastin Time 23.2 SECONDS (23.9-36.7)
[2022-09-12 21:43] LABS: Basophils # 0.1 10^3/uL (0.0-0.1); Basophils % 0.5 %; Eosinophils # 0.3 10^3/uL (0.0-0.8); Eosinophils % 2.8 %; Hematocrit 34.7 % (37.0-47.0); Hemoglobin 10.5 g/dL (11.5-15.3); Lymphocytes # 2.4 10^3/uL (0.8-4.8); Lymphocytes % 22.1 %; Mean Corpuscular HGB Conc 30.3 g/dL (30.0-36.0); Mean Corpuscular Hemoglobin 23.9 pg (28.0-34.0); Mean Platelet Volume 10.6 fL (7.4-10.4); Monocytes # 0.9 10^3/uL (0.2-0.9); Neutrophils # 7.27 10^3/uL (1.8-7.7); Neutrophils % 66.3 %; Nucleated Red Blood Cells % 0 %; Platelet Count 249 10^3/cmm (130-400); Red Blood Count 4.39 10^6/uL (4.1-5.3); Troponin(5th) Baseline 16 ng/L (0-10)
[2022-09-12 21:52] LABS: Alanine Aminotransferase 11 U/L (0-33); Alkaline Phosphatase 56 U/L (35-105); Anion Gap 17.4 (5-19); Aspartate Amino Transferase 14 U/L (0-32); Blood Urea Nitrogen 25 mg/dL (8-23); Calcium 9.5 mg/dL (8.5-10.5); Carbon Dioxide 21 mmol/L (22-29); Chloride 101 mmol/L (98-107); Globulin 2.4 g/dL (1.3-4.6); Glucose 136 mg/dL (65-115); NT Pro B Type Natriuretic Pept 112 pg/mL (0-450); Osmolality Calculated 286 mOsm/kg (285-295); Potassium 4.4 mmol/L (3.5-5.1); Sodium 135 mmol/L (136-145); Total Bilirubin 0.2 mg/dL (0.15-1.2); Total Protein 6.4 g/dL (6.6-8.7)
--- NOTE | 2022-09-12 21:58 | ED_ITS ---
HPI - Syncope General: Chief Complaint: Syncope Stated Complaint: near syncope Time Seen by Provider: 09/12/22 21:13 Source: patient History of Present Illness: 82-year-old female presenting after essentially near syncopal episode at home. She had been needing to use the restroom, and was quite weak generally when getting up to try to get to the restroom. She had a near syncopal episode following urination, and was hard to get back into her chair. Following that, she seemed to be lethargic, and have slurred speech for quite some time. This worried the daughter, so EMS was called. By the time EMS arrived, she seemed to be much more normal. She never had chest pain. She does not complain of headache, specific limb weakness, numbness or tingling, language problems currently, or vision problems MD complaint: felt faint and almost passed out Onset (ago): hour(s) Description of event: other Prodromal symptoms: other (Generalized feeling unwell.) Witnessed: Yes - by Bystander Context: after urination Injuries sustained associated with event: none Associated symptoms: Reports lightheadedness, nausea and weakness; Deny abdominal pain, chest pain, fever(s), headache(s) or short of breath Treatments prior to arrival: none Review of Systems Const: Denies: fever(s) Eyes: Denies: change in vision Card: Reports: lightheadedness; Denies: chest pain Resp: Denies: dyspnea, productive cough, non-productive cough or wheezing GI: Reports: nausea; Denies: abdominal pain : Denies: difficulty voiding Skin/Breast: Denies: rash Neuro: Denies: headache(s) [facility] ED PFS: Medical History Abnormal ankle brachial index (PATRICIA) 02/05/21 Acid reflux disease Allergic rhinitis due to allergen Anxiety Aortic valve regurgitation Carotid artery stenosis, asymptomatic Colitis Dementia Diverticulosis Fatty infiltration of liver Generalized anxiety disorder Heart disease Helicobacter pylori gastritis Hiatal hernia with GERD History of nonmelanoma skin cancer Hypertension Hyponatremia Incomplete bladder emptying Ischemic colitis Mitral valve disease Osteopenia PAD (peripheral artery disease) Postmenopausal Proctocolitis Psychiatric care Umbilical hernia Surgical History History of cholecystectomy History of colonoscopy History of esophagogastroduodenoscopy (EGD) History of fusion of cervical spine acdf c4-6 History of fusion of lumbar spine L4-5 History of hysterectomy Family History Father , in his 70's Cancer CAD (coronary artery disease) Brother CAD (coronary artery disease) Mother , at age 79 Heart disease Other Diabetes Hypertension Denies family history of Anesthesia complication Bleeding disorder Social History Smoking and tobacco status: never smoked Second hand smoke exposure: No Smoking risk assessment/counseling performed?: No Alcohol intake: never Desire information about alcohol rehabilitation?: No Counseling given: No Desire information about substance/drug rehabilitation?: No Counseling given: No Lives independently: No Household members: none Marital status: / Current occupational status: retired Physical Exam Const: COMMON NORMALS: no acute distress and alert GENERAL APPEARANCE: cooperative; not ill appearing and not frail appearing ORIENTATION/CONSCIOUSNESS: Yes oriented to person, Yes oriented to place and Yes oriented to time HENMT: COMMON NORMALS: normocephalic, atraumatic and Normal external nose present HEAD & SCALP: normocephalic and atraumatic FACE & SINUS: normal facial exam and face symmetric NOSE: Normal external nose present Eye: COMMON NORMALS: Equal, round and reactive pupils present and EOMs intact bilaterally PUPIL: Yes Equal, round and reactive pupils present Neck/C-Spine: GENERAL: Yes trachea midline Chest: CHEST: Yes Symmetrical chest wall rise Resp: COMMON NORMALS: normal respiratory effort, No retractions, No use of accessory muscles and clear to auscultation bilaterally AUSCULTATION: clear to auscultation bilaterally Cardio: COMMON NORMALS: regular rate and regular rhythm RATE: regular rate RHYTHM: regular rhythm GI: COMMON NORMALS: Normal to inspection, nondistended, normoactive bowel sounds present Extremity: COMMON NORMALS: no pedal edema Neuro: MADHU COMA SCALE: document GCS findings [place] coma scale eye opening: Spontaneous Madhu coma scale verbal response: Orientated Madhu coma scale motor response: Obey commands [place] coma scale total score: 15 SENSORIUM/ORIENTATION: Yes alert, Yes oriented to person, Yes oriented to place and Yes oriented to time CRANIAL NERVES: Yes CN normal except as noted COORDINATION/BALANCE: [id number] test normal and [id number]-[id number] test normal SPEECH: speech normal GAIT: Yes Shuffling gait present SENSORY EXAM: Yes extremities (intact) MOTOR EXAM: Pronator motor function not present COORDINATION: [id number]-[id number] test normal and [id number] test normal Psych: COMMON NORMALS: speech normal SPEECH: Yes normal speech Skin: COMMON NORMALS: no rashes or lesions noted GENERAL SKIN EXAM: no rashes or lesions noted Course Vital Signs: Vital signs: Vital Signs Temperature 98.6 F 09/12/22 21:11 Pulse Rate 73 09/12/22 23:00 Respiratory Rate 10 L 09/12/22 23:00 Blood Pressure 96/59 09/12/22 23:00 Pulse Oximetry 92 09/12/22 23:00 Oxygen Delivery Me thod 09/12/22 23:00 MDM - Syncope Medical Decision Making 82-year-old female with near syncopal episode at home followed by some lethargy. Symptoms are resolved now. She appears back to baseline. CT shows some air in the cavernous sinus likely from IV infusion, but no acute problems. Chest x-ray is negative. EKG is nonacute. White blood cell count is 11. The patient has urinary tract infection. BUN is 25. Creatinine is 0.9. Laboratories otherwise not remarkable. She is diagnosed with a urinary tract infection and allowed home with abx Lab Data 09/12/22 20:57 09/12/22 20:57 Radiology Impressions Chest X-Ray 09/12/22 21:19 IMPRESSION: 1. No acute cardiopulmonary process. 2. Incidental/nonacute findings are listed in the report. Head CT 09/12/22 21:19 IMPRESSION: 1. There are multiple foci of pneumocephalus in the cavernous sinus. This may be due to a previous injection. 2. No evidence for intracranial hemorrhage or infarct. 3. Stable moderate atrophy of the brain parenchyma. 4. Stable moderate chronic white matter microangiopathic change. 5. Incidental/nonacute findings are listed in the report. Laboratory Results WBC 11.0 10^3/uL (4.0-10.0) H 09/12/22 20:57 RBC 4.39 10^6/uL (4.1-5.3) 09/12/22 20:57 Hgb 10.5 g/dL (11.5-15.3) L 09/12/22 20:57 Hct 34.7 % (37.0-47.0) L 09/12/22 20:57 MCV 79.0 fl (81-99) L 09/12/22 20:57 MCH 23.9 pg (28.0-34.0) L 09/12/22 20:57 MCHC 30.3 g/dL (30.0-36.0) 09/12/22 20:57 RDW 17.0 % (12.1-15.1) H 09/12/22 20:57 Plt Count 249 10^3/cmm (130-400) 09/12/22 20:57 MPV 10.6 fL (7.4-10.4) H 09/12/22 20:57 Neut % (Auto) 66.3 % 09/12/22 20:57 Lymph % (Auto) 22.1 % 09/12/22 20:57 [place] % (Auto) 8.0 % 09/12/22 20:57 Eos % (Auto) 2.8 % 09/12/22 20:57 Baso % (Auto) 0.5 % 09/12/22 20:57 Neut # (Auto) 7.27 10^3/uL (1.8-7.7) 09/12/22 20:57 Lymph # (Auto) 2.4 10^3/uL (0.8-4.8) 09/12/22 20:57 [place] # (Auto) 0.9 10^3/uL (0.2-0.9) 09/12/22 20:57 Eos # (Auto) 0.3 10^3/uL (0.0-0.8) 09/12/22 20:57 Baso # (Auto) 0.1 10^3/uL (0.0-0.1) 09/12/22 20:57 Nucleated RBC % (auto) 0 % 09/12/22 20:57 Nucleated RBCs # 0.0 /100WBC 09/12/22 20:57 PT 14.00 SECONDS (12.1-14.9) 09/12/22 20:57 INR 1.04 (0.8-1.2) 09/12/22 20:57 APTT 23.2 SECONDS (23.9-36.7) L 09/12/22 20:57 Sodium 135 mmol/L (136-145) L 09/12/22 20:57 Potassium 4.4 mmol/L (3.5-5.1) 09/12/22 20:57 Chloride 101 mmol/L (98-107) 09/12/22 20:57 Carbon Dioxide 21 mmol/L (22-29) L 09/12/22 20:57 Anion Gap 17.4 (5-19) 09/12/22 20:57 BUN 25 mg/dL (8-23) H 09/12/22 20:57 Creatinine 0.9 mg/dL (0.5-0.9) 09/12/22 20:57 GFR Calculation Not Reportable 09/12/22 20:57 Glucose 136 mg/dL (65-115) H 09/12/22 20:57 Calculated Osmolality 286 mOsm/kg (285-295) 09/12/22 20:57 Calcium 9.5 mg/dL (8.5-10.5) 09/12/22 20:57 Total Bilirubin 0.2 mg/dL (0.15-1.2) 09/12/22 20:57 AST 14 U/L (0-32) 09/12/22 20:57 ALT 11 U/L (0-33) 09/12/22 20:57 Alkaline Phosphatase 56 U/L (35-105) 09/12/22 20:57 Troponin T Baseline 16 ng/L (0-10) H 09/12/22 20:57 Troponin T 120 Minute 14.31 ng/L (0-10) H 09/12/22 23:08 Delta Troponin T -1.69 ABS# (0-10) L 09/12/22 23:08 NT-Pro-B Natriuret Pep 112 pg/mL (0-450) 09/12/22 20:57 Total Protein 6.4 g/dL (6.6-8.7) L 09/12/22 20:57 Albumin 4.0 g/dL (3.5-5.2) 09/12/22 20:57 Globulin 2.4 g/dL (1.3-4.6) 09/12/22 20:57 Urine Color Yellow (Yellow) 09/13/22 00:17 Urine Appearance Hazy (CLEAR) A 09/13/22 00:17 Urine pH 5 (5-7) 09/13/22 00:17 Ur Specific [place] 1.020 (1.005-1.030) 09/13/22 00:17 Urine Protein Neg (Negative) 09/13/22 00:17 Urine Glucose (UA) Norm (Normal) 09/13/22 00:17 Urine Ketones Negative (Negative) 09/13/22 00:17 Urine Blood Neg (Negative) 09/13/22 00:17 Urine Nitrate Positive (Negative) H 09/13/22 00:17 Urine Bilirubin Neg (Negative) 09/13/22 00:17 Urine Urobilinogen Neg mg/dL (Negative) 09/13/22 00:17 Ur Leukocyte Esterase 1+ (Negative) H 09/13/22 00:17 Urine RBC 0-4 /hpf (0-2) H 09/13/22 00:17 Urine WBC 15-25 /hpf (0-5) H 09/13/22 00:17 Ur Squamous Epith Cells 0-4 /hpf (0-5) H 09/13/22 00:17 Amorphous Sediment Not Reportable 09/13/22 00:17 Urine Bacteria 3+ /hpf (NONE) H 09/13/22 00:17 Hyaline Casts 0-4 /lpf H 09/13/22 00:17 Urine Mucus 1+ /hpf 09/13/22 00:17 Discharge Plan Discharge Patient Disposition: Home Clinical Impression: Pre-syncope, Acute UTI Condition: Stable Prescriptions: New Macrobid 100 mg capsule 100 mg PO BID 7 Days Qty: 14 0RF Rx Instructions: must administer with a meal/food No Action enalapril maleate 5 mg tablet 2.5 mg PO DAILY Prevalite 4 gram powder See Rx Instructions .ROUTE .COMPLEX Qty: 231 3RF Dose Instruction: take FOUR grams BY MOUTH TWICE DAILY * administer with a meal: AVOID other meds WITHIN ONE hour before or 4-6 hours AFTER DOSE * Rx Instructions: take FOUR grams BY MOUTH TWICE DAILY * administer with a meal: AVOID other meds WITHIN ONE hour before or 4-6 hours AFTER DOSE * sodium chloride 1 gram tablet 500 mg PO BID Qty: 90 0RF loperamide 2 mg capsule 4 mg PO QID 90 Days Qty: 720 0RF pantoprazole 40 mg tablet,delayed release (DR/EC) 40 mg PO BID 90 Days Qty: 180 0RF Rx Instructions: TAKE 1 TABLET BY MOUTH TWICE DAILY olanzapine [Zyprexa] 5 mg tablet 5 mg PO .HS Qty: 30 2RF trazodone 100 mg tablet 150 mg PO BEDTIME@20 Qty: 135 0RF risperidone 1 mg tablet 1 mg PO BID Qty: 180 0RF sertraline 100 mg tablet 100 mg PO DAILY Qty: 90 0RF potassium chloride 8 mEq tablet extended release See Rx Instructions .ROUTE .COMPLEX Qty: 90 0RF Dose Instruction: TAKE ONE TABLET BY MOUTH DAILY Rx Instructions: TAKE ONE TABLET BY MOUTH DAILY famotidine 40 mg tablet 40 mg PO BID acetaminophen 650 mg Tablet Extended Release 650 mg PO Q12H Anusol-HC 2.5 % cream with perineal applicator 1 applic ME QID 10 Days Qty: 30 1RF Rx Instructions: May repeat for another 10 days if no resolution rivastigmine tartrate 1.5 mg capsule 1.5 mg PO BID aspirin 325 mg Tablet 325 mg PO QAM Hold Instructions: Resume on 07/10/22. memantine 10 mg tablet 10 mg PO BID calcium citrate-vitamin D3 [Calcium Citrate + D] 315 mg-5 mcg (200 unit) Tablet 1 tab PO DAILY Discharge Orders: Discharge ED (Routine); Ordered 09/13/22 Ordered By: Zoltan Jones Referrals: Judith Dennis MD [Primary Care Provider] - 1-3 days Patient Instructions: Near Syncope (ED), Urinary Tract Infection in Older Adults (ED) Activity Restrictions/Additional Instructions: Return for worsening mental status, worsening weakness, repeated episodes of syncope or passing out, any other concerning symptoms. Follow-up with your doctor this week. Coding Level of Care Code ED Systems Manager for Aliya Coelho
[2022-09-12 22:15] VITALS: BP 107/62; PULSE 72; RESP 17; O2SAT 92
[2022-09-12 22:24] VITALS: BP 109/60; BP 113/71; BP 115/65; PULSE 73; PULSE 78
[2022-09-12 23:00] VITALS: BP 96/59; PULSE 73; RESP 10; O2SAT 92
[2022-09-12 23:40] LABS: Troponin 5 2HR 14.31 ng/L (0-10)
[2022-09-12 23:49] LABS: Troponin 5 2HR Delta -1.69 ABS# (0-10)
[2022-09-13 01:11] LABS: Add Urine Microscopic? YES; Bilirubin Urine Neg (Negative); Blood Urine Neg (Negative); Glucose Urine UA Norm (Normal); Ketones Urine Negative (Negative); Leukocyte Esterase Urine 1+ (Negative); Nitrate Urine Positive (Negative); Protein Urine Neg (Negative); Urine Appearance Hazy (CLEAR); Urine Color Yellow (Yellow); Urobilinogen Urine Neg (Negative); pH Urine 5 (5-7)
[2022-09-13 01:13] LABS: Add Urine Culture? Yes; Bacteria Urine 3+ /hpf; Hyaline Casts Urine 0-4 /lpf; Mucus Urine 1+ /hpf; RBC Urine 0-4 /hpf (0-2); Squamous Epithelial Cell Urine 0-4 /hpf (0-5); WBC Urine 15-25 /hpf (0-5)
== END 2022-09-13 00:35 | disposition home or self-care (01) ==
PROVIDERS: Emergency Provider Emergency Medicine; PCP Family Medicine
DX: R55 Syncope and collapse (principal); N39.0 Urinary tract infection, site not specified; Z79.82 Long term (current) use of aspirin; F03.90 Unspecified dementia, unspecified severity, without behavioral disturbance, psychotic disturbance, mood disturbance, and anxiety; I10 Essential (primary) hypertension
CPT/HCPCS: 70450; 71045; 80053; 81001; 83880; 84484; 85025; 85610; 85730; 87077; 87086; 87186; 99285

== ENCOUNTER → 2022-10-12 14:41 | Outpatient (BNVA) | payer MEDICARE, OTHER, SELFPAY | PROVIDERS: PCP Family Medicine; Visit Provider Family Medicine | DX: R32 Unspecified urinary incontinence (principal) | CPT/HCPCS: 81000 ==

== ENCOUNTER 2022-12-23 16:35 | Outpatient (CLI) | payer MEDICARE, OTHER, SELFPAY ==
--- NOTE | 2022-12-23 16:45 | MR_ITS ---
WS: [id number] MRI BRAIN WITHOUT CONTRAST HISTORY: acute r-sided weakness yesterday, improving COMPARISON: 03/05/2013 and 01/13/2021 TECHNIQUE: Diffusion imaging, multiplanar T1, T2 and FLAIR imaging obtained. No diffusion abnormality. No evidence for an acute infarct. Moderate bilateral small vessel ischemic changes throughout the white matter. Mild progression since the prior study. There is also atrophy an d loss of the normal cortical volume. There is a small amount of increased T1 signal along the RIGHT cerebrum. This is asymmetric to the LEFT. Less prominent on the FLAIR sequences and not evident on th e hemosiderin sensitive sequence. May be an artifact from motion. Small amount of subdural blood is n ot excluded. No prior infarct. Mildly prominent ventricles and extra-axial spaces on the basis of central and peripheral atrophy. No inferior displacement of cerebellar tonsils. The sella turcica and pituitary gland are unremarkabl e. Dural venous sinuses and [place] of [place] demonstrate no abnormality on this unenhanced studies. Paranasal sinuses: Clear. Mastoid air cells: Normal. Calvarium and scalp: Intact. MR/MR head wo con* [id number] IMPRESSION: 1. No diffusion abnormality or acute infarct. 2. Moderate small vessel ischemic disease with mild progression since 3. 3. Small amount of T1 signal along the RIGHT cerebrum, favor this is an artifa ct due to motion. No corresponding findings on additional sequences. Clinically if further evaluation is thought necessary noncontrast head CT to exclude a sm all amount of subdural blood can be obtained.
== END 2022-12-23 16:36 | disposition home or self-care (01) ==
PROVIDERS: PCP Family Medicine; Visit Provider Family Medicine
DX: R53.1 Weakness (principal); G81.91 Hemiplegia, unspecified affecting right dominant side; I67.89 Other cerebrovascular disease; I10 Essential (primary) hypertension; T14.90XA Injury, unspecified, initial encounter; X58.XXXA Exposure to other specified factors, initial encounter
CPT/HCPCS: 70551; 80053; 81000; 83735; 84443; 85025; 85610

== ENCOUNTER → 2022-12-24 09:47 | Outpatient (BNVA) | payer MEDICARE, OTHER, SELFPAY | PROVIDERS: PCP Family Medicine; Visit Provider Internal Medicine Cardiovascular Disease | DX: R00.2 Palpitations (principal); I11.9 Hypertensive heart disease without heart failure; I35.1 Nonrheumatic aortic (valve) insufficiency; I77.9 Disorder of arteries and arterioles, unspecified; E78.5 Hyperlipidemia, unspecified; Z79.82 Long term (current) use of aspirin | CPT/HCPCS: 99214 ==

== ENCOUNTER → 2023-01-03 16:00 | Outpatient (BNVA) | payer MEDICARE, OTHER, SELFPAY | PROVIDERS: PCP Family Medicine; Visit Provider Family Medicine | DX: K21.9 Gastro-esophageal reflux disease without esophagitis (principal); R53.1 Weakness | CPT/HCPCS: 80053; 81000; 82607; 83735; 84443; 85025 ==

== ENCOUNTER 2023-01-05 12:16 | Observation (INO) | payer MEDICARE, OTHER, SELFPAY ==
[2023-01-05] VITALS (8 sets, daily range): BP systolic 109–159; BP diastolic 63–80; PULSE 58–68; RESP 16–18; TEMP 36.7–37.1; O2SAT 91–95; BMI 21.9
--- NOTE | 2023-01-05 12:31 | W.ED.NAVMDI ---
HPI - Nausea/Vomiting/Diarrhea General: Chief complaint: Nausea/Vomiting/Diarrhea Stated complaint: Jeannie sent for possible TIA Time Seen by Provider: 01/05/23 12:31 History of Present Illness: Ms. Melchor is an 82-year-old lady with history of hypertension, hyperlipidemia, arterial disease, GERD presenting the emergency department for abdominal pain with diarrhea. Onset of symptoms yesterday evening without known specific provoking event. Since that time has had numerous episodes of nonbloody watery diarrhea associated with nausea and abdominal cramping. Denies associated fevers. No associated vomiting. Overall course of symptoms has persisted. Intensity is moderate. No other specific changes in health, exacerbating, or alleviating factors identified. Onset (ago): hour(s) Description of diarrhea: watery Associated nausea: Yes Associated abdominal pain: Yes Location of pain: Diffuse Pain consistency: constant Severity: moderate Quality: cramping and aching Exacerbating factors: none Relieving factors: none Associated symtoms: Reports nausea Review of Systems General: Reports: 10 or more systems reviewed and unremarkable except in HPI and below GI: Reports: nausea PFSH ED PFSH: Medical History Abnormal ankle brachial index (PATRICIA) 02/05/21 Acid reflux disease Allergic rhinitis due to allergen Anxiety Aortic valve regurgitation Carotid artery stenosis, asymptomatic Colitis Dementia Depressed mood Diarrhea Diverticulosis Fatty infiltration of liver Generalized anxiety disorder Heart disease Helicobacter pylori gastritis Hiatal hernia with GERD History of nonmelanoma skin cancer Hypertension Hyponatremia Incomplete bladder emptying Intermittent palpitations Ischemic colitis Mitral valve disease Osteopenia PAD (peripheral artery disease) Pancolitis Postmenopausal Proctocolitis Psychiatric care Umbilical hernia Surgical History History of cholecystectomy History of colonoscopy History of esophagogastroduodenoscopy (EGD) History of fusion of cervical spine acdf c4-6 History of fusion of lumbar spine L4-5 History of hysterectomy Family History Father , in his 70's Cancer CAD (coronary artery disease) Brother CAD (coronary artery disease) Mother , at age 79 Heart disease Other Diabetes Hypertension Denies family history of Anesthesia complication Bleeding disorder Social History Smoking and tobacco status: never smoked Second hand smoke exposure: No Smoking risk assessment/counseling performed?: No Alcohol intake: never Desire information about alcohol rehabilitation?: No Counseling given: No Substance/Drug Use: never Desire information about substance/drug rehabilitation?: No Counseling given: No Lives independently: No Household members: none Marital status: / Current occupational status: retired Physical Exam Const: COMMON NORMALS: patient oriented x3 and alert GENERAL APPEARANCE: cooperative and well developed HENMT: COMMON NORMALS: normocephalic and atraumatic HEAD & SCALP: normocephalic and atraumatic Eye: COMMON NORMALS: conjunctivae normal CONJUNCTIVA: Yes conjunctivae normal SCLERA: sclerae normal Neck/C-Spine: COMMON NORMALS: supple GENERAL: Yes trachea midline Resp: COMMON NORMALS: normal respiratory effort and clear to auscultation bilaterally EFFORT & INSPECTION: Yes able to speak in complete sentences AUSCULTATION: clear to auscultation bilaterally Cardio: COMMON NORMALS: regular rate and regular rhythm RATE: regular rate RHYTHM: regular rhythm GI: COMMON NORMALS: Soft to palpation PALPATION: Yes Soft to palpation, Yes Tenderness to palpation present (GI), No Guarding due to palpation present (GI) and No Rigid due to palpation Extremity: GENERAL: Yes normal exam except as noted and No edema Neuro: COMMON NORMALS: patient oriented x3, CN's II-XII intact bilaterally, moves all extremities, no focal motor deficits and no sensory deficits noted SENSORIUM/ORIENTATION: Yes alert and No Orientation impaired Psych: COMMON NORMALS: mental status grossly normal and Normal thought process present THOUGHT PROCESS: Normal thought process present Course Vital Signs: Vital signs: Vital Signs Temperature 98.5 F 01/06/23 14:13 Pulse Rate 63 01/06/23 14:13 Respiratory Rate 16 01/06/23 14:13 Blood Pressure 119/69 01/06/23 14:13 Pulse Oximetry 93 01/06/23 14:13 Oxygen Delivery Me thod Room Air 01/06/23 11:10 MDM - Nausea/Vomiting/Diarrhea Medical Decision Making 82-year-old lady presenting with generalized illness and abdominal symptoms. Exam as above. Nontoxic. Abdominal tenderness with no evidence of acute surgical abdomen. EKG demonstrates sinus rhythm with first-degree AV block, low QRS voltage, no STEMI. Labs with no leukocytosis, microcytic anemia, normal platelet count. Metabolic panel with perhaps mild evidence of dehydration. Urinalysis pending. CT demonstrates pancolitis, incidental findings discussed with patient. During ED course patient treated with antiemetic, analgesia, and antibiotics for colitis. The results of ED evaluation were discussed with the patient including plan for admission due to requirement for level of care not available if discharged to prevent significant worsening/deterioration. Patient agreeable with plan. Discussed with hospitalist service who was agreeable to admit patient. Medical Records I reviewed the patient's medical records. Lab Data I reviewed the patient's lab results. 01/06/23 04:54 01/06/23 04:54 Radiology Impressions Abdomen/Pelvis CT 01/05/23 12:40 IMPRESSION: 1. Diffuse pancolitis worse involving the sigmoid colon most likely infectious or inflammatory. 2. No evidence of high-grade obstruction. 3. Moderate aortic calcification. No aneurysm. Celiac and SMA appear patent. 4. Urine distended bladder. 5. Small esophageal hiatal hernia. 6. Prior cholecystectomy. 7. Diffuse fatty infiltration of the liver. Notified Srinivas Morillo MD at 01/05/2023 2:34 PM. Laboratory Results WBC 8.6 10^3/uL (4.0-10.0) 01/05/23 13:06 RBC 4.07 10^6/uL (4.1-5.3) L 01/05/23 13:06 Hgb 9.6 g/dL (11.5-15.3) L 01/05/23 13:06 Hct 32.1 % (37.0-47.0) L 01/05/23 13:06 MCV 78.9 fl (81-99) L 01/05/23 13:06 MCH 23.6 pg (28.0-34.0) L 01/05/23 13:06 MCHC 29.9 g/dL (30.0-36.0) L 01/05/23 13:06 RDW 15.2 % (12.1-15.1) H 01/05/23 13:06 Plt Count 222 10^3/cmm (130-400) 01/05/23 13:06 MPV 10.6 fL (7.4-10.4) H 01/05/23 13:06 Neut % (Auto) 61.4 % 01/05/23 13:06 Lymph % (Auto) 29.0 % 01/05/23 13:06 [place] % (Auto) 7.1 % 01/05/23 13:06 Eos % (Auto) 2.1 % 01/05/23 13:06 Baso % (Auto) 0.0 % 01/05/23 13:06 Neut # (Auto) 5.26 10^3/uL (1.8-7.7) 01/05/23 13:06 Lymph # (Auto) 2.5 10^3/uL (0.8-4.8) 01/05/23 13:06 [place] # (Auto) 0.6 10^3/uL (0.2-0.9) 01/05/23 13:06 Eos # (Auto) 0.2 10^3/uL (0.0-0.8) 01/05/23 13:06 Baso # (Auto) 0.0 10^3/uL (0.0-0.1) 01/05/23 13:06 Nucleated RBC % (auto) 0 % 01/05/23 13:06 Nucleated RBCs # 0.0 /100WBC 01/05/23 13:06 Sodium 132 mmol/L (136-145) L 01/05/23 13:06 Potassium 4.4 mmol/L (3.5-5.1) 01/05/23 13:06 Chloride 100 mmol/L (98-107) 01/05/23 13:06 Carbon Dioxide 22 mmol/L (22-29) 01/05/23 13:06 Anion Gap 14.4 (5-19) 01/05/23 13:06 BUN 10 mg/dL (8-23) 01/05/23 13:06 Creatinine 0.6 mg/dL (0.5-0.9) 01/05/23 13:06 GFR Calculation Not Reportable 01/05/23 13:06 Glucose 98 mg/dL (65-115) 01/05/23 13:06 Calculated Osmolality 273 mOsm/kg (285-295) L 01/05/23 13:06 Calcium 9.1 mg/dL (8.5-10.5) 01/05/23 13:06 Magnesium 2.1 mg/dL (1.7-2.3) 01/05/23 13:06 Total Bilirubin 0.3 mg/dL (0.15-1.2) 01/05/23 13:06 AST 13 U/L (0-32) 01/05/23 13:06 ALT 12 U/L (0-33) 01/05/23 13:06 Alkaline Phosphatase 61 U/L (35-105) 01/05/23 13:06 Total Protein 6.2 g/dL (6.6-8.7) L 01/05/23 13:06 Albumin 3.7 g/dL (3.5-5.2) 01/05/23 13:06 Globulin 2.5 g/dL (1.3-4.6) 01/05/23 13:06 Lipase 10 U/L (13-60) L 01/05/23 13:06 Discharge Plan Discharge Patient Disposition: Placed in Observation Admit Provider: Micaela Pickard Clinical Impression: Pancolitis Discharge Diet: Regular Discharge Activity: Increase activity as tolerated Coding Level of Care Code ED It Security Manager for Rohang Laquita
--- NOTE | 2023-01-05 12:40 | CT_ITS ---
WS: [id number] CT ABDOMEN PELVIS TECHNIQUE: Contrast-enhanced CT of the abdomen and pelvis with coronal and sagittal reformatted image s. CLINICAL INFORMATION: abd pain, generalized, diarrhea COMPARISON: CT May 20, 2022 DLP: 366.[address] scans at [facility] use at least one of these dose optimization techniques: automated e xposure control; mA and/or kV adjustment per patient size (includes targeted exams where dose is matc hed to clinical indication); or iterative reconstruction. FINDINGS: Prior hysterectomy and cholecystectomy. Diffuse submucosal enhancement and wall thickening worse invo lving the sigmoid colon. Similar-appearing findings involving the RIGHT ascending colon, transverse c olon, and LEFT descending colon. Findings compatible with colitis. No free air. No evidence of high-g rade obstruction. Small esophageal hiatal hernia. Diffuse fatty infiltration liver. Cholecystectomy. Portal vein and s plenic vein are patent. Adrenal glands are normal. Normal renal parenchymal enhancement. No hydroneph rosis. Normal spleen. Fatty atrophy of the pancreas. Celiac and SMA are patent. Moderate aortic calci fication. Urine distended bladder. Prior lumbar fusion. Lung bases are well aerated. Subsegmental atelectasis i n the lower lobes. Prior postoperative changes pedicle screw fixation L4-L5. CT/CT abdomen pelvis w con* [id number] IMPRESSION: 1. Diffuse pancolitis worse involving the sigmoid colon most likely infectious or inflammatory. 2. No evidence of high-grade obstruction. 3. Moderate aortic calcification. No aneurysm. Celiac and SMA appear patent. 4. Urine distended bladder. 5. Small esophageal hiatal hernia. 6. Prior cholecystectomy. 7. Diffuse fatty infiltration of the liver. Notified Srinivas Morillo MD at 01/05/2023 2:34 PM.
--- NOTE | 2023-01-05 12:41 | ECG_ITS ---
[facility] Test Date: 2023-01-05 Pat Name: Aarti Melchor Department: Room: Gender: Female Manager Aviation: : [id number] Requested By: Srinivas Morillo Order Number: [id number] Fan MD: David Moran M.D. Measurements Intervals [place] Rate: 64 P: 35 NM: 217 QRS: 18 QRSD: 74 T: 54 QT: 396 QTc: 409 Interpretive Statements SINUS RHYTHM WITH FIRST DEGREE AV BLOCK LOW QRS VOLTAGE IN PRECORDIAL LEADS [QRS DEFLECTION < 1.0 mV IN CHEST LEADS] Compared to ECG 05/10/2022 04:25:28 First degree AV block now present Sinus bradycardia no longer present Electronically Signed On 01-05-2023 14:58:49 CDT by David Moran M.D. [email or web address]
[2023-01-05] MEDS: iohexol 350 mg/mL 500 mL Btl (per mL) IV (13:09)
[2023-01-05 13:12] LABS: Eosinophils # 0.2 10^3/uL (0.0-0.8); Eosinophils % 2.1 %; Hematocrit 32.1 % (37.0-47.0); Hemoglobin 9.6 g/dL (11.5-15.3); Lymphocytes # 2.5 10^3/uL (0.8-4.8); Mean Corpuscular HGB Conc 29.9 g/dL (30.0-36.0); Mean Corpuscular Hemoglobin 23.6 pg (28.0-34.0); Mean Corpuscular Volume 78.9 fl (81-99); Mean Platelet Volume 10.6 fL (7.4-10.4); Monocytes # 0.6 10^3/uL (0.2-0.9); Monocytes % 7.1 %; Neutrophils # 5.26 10^3/uL (1.8-7.7); Neutrophils % 61.4 %; Nucleated Red Blood Cells % 0 %; Platelet Count 222 10^3/cmm (130-400); Red Blood Count 4.07 10^6/uL (4.1-5.3); Red Cell Distribution Width 15.2 % (12.1-15.1); White Blood Count 8.6 10^3/uL (4.0-10.0)
[2023-01-05 13:42] LABS: Alanine Aminotransferase 12 U/L (0-33); Albumin Level 3.7 g/dL (3.5-5.2); Alkaline Phosphatase 61 U/L (35-105); Anion Gap 14.4 (5-19); Aspartate Amino Transferase 13 U/L (0-32); Blood Urea Nitrogen 10 mg/dL (8-23); Calcium 9.1 mg/dL (8.5-10.5); Carbon Dioxide 22 mmol/L (22-29); Chloride 100 mmol/L (98-107); Globulin 2.5 g/dL (1.3-4.6); Glucose 98 mg/dL (65-115); Lipase 10 U/L (13-60); Magnesium 2.1 mg/dL (1.7-2.3); Osmolality Calculated 273 mOsm/kg (285-295); Potassium 4.4 mmol/L (3.5-5.1); Sodium 132 mmol/L (136-145); Total Bilirubin 0.3 mg/dL (0.15-1.2); Total Protein 6.2 g/dL (6.6-8.7)
--- NOTE | 2023-01-05 14:03 | PC.NURSE ---
PT REFUSED ZOFRAN
--- NOTE | 2023-01-05 14:49 | PM.HP ---
Providers/Chief Complaint Primary Care Provider: Judith Dennis MD Chief Complaint: Jeannie sent for possible TIA History of Present Illness Aarti Melchor is a 82 year old female who has recurrent episodes of diarrhea, colitis presented today with chief complaint of soreness and diarrhea. In the ER she has been diagnosed with pancolitis, no signs of sepsis, she has not noticed any fever, vomiting but she is endorsing nausea she is unable to control her bowel movement. Review of Systems Const: Denies: fever(s) Eyes: Denies: change in vision ENMT: Denies: throat pain Card: Denies: chest pain Resp: Denies: dyspnea GI: Reports: abdominal pain and nausea : Denies: urinary frequency Musc: Denies: neck pain Medications/Allergies Home Medications Medication Instructions Recorded Confirmed Last Taken Type aspirin 325 mg tablet 325 mg PO QAM 05/21/22 01/05/23 01/05/23 07:30 History calcium citrate 315 mg-vitamin D3 1 tab PO QAM 05/21/22 01/05/23 01/05/23 History 5 mcg (200 unit) tablet (Calcium Citrate + D) memantine 10 mg tablet 10 mg PO BID 05/21/22 01/05/23 01/05/23 History acetaminophen 650 mg 650 mg PO Q12H 07/06/22 01/05/23 01/05/23 07:30 History tablet,extended release benzonatate 100 mg capsule 100 mg PO TID PRN cough #30 caps 10/08/22 01/05/23 Unknown Rx cholestyramine-aspartame 4 gram See Rx Instructions .Route 10/11/22 01/05/23 01/05/23 Rx oral powder (Prevalite) .COMPLEX #231 grams 2 doses loperamide 2 mg capsule 4 mg PO QID 90 days #720 caps 10/11/22 01/05/23 01/05/23 Rx risperidone 1 mg tablet 1 mg PO BID #180 tabs 10/29/22 01/05/23 01/05/23 Rx trazodone 100 mg tablet 150 mg PO BEDTIME@20 #135 tabs 10/29/22 01/05/23 01/04/23 Rx hydrochlorothiazide 12.5 mg tablet 12.5 mg PO DAILY PRN leg swelling 12/24/22 01/05/23 Unknown Rx #30 tabs DME: Walker #1 ea 01/03/23 01/05/23 Unknown Rx enalapril maleate 5 mg tablet 2.5 mg PO QAM 01/05/23 01/05/23 01/05/23 History ferrous sulfate 325 mg (65 mg 325 mg PO QPM 01/05/23 01/05/23 01/04/23 History iron) tablet (iron) magnesium oxide 400 mg PO DAILY 01/05/23 01/05/23 Unknown History olanzapine 5 mg tablet (Zyprexa) 5 mg PO DAILY@17 01/05/23 01/05/23 01/04/23 History pantoprazole 40 mg tablet,delayed 40 mg PO BID 01/05/23 01/05/23 01/05/23 History release psyllium husk 0.4 gram capsule 0.4 g PO DAILY@17 01/05/23 01/05/23 Unknown History (Metamucil) rivastigmine tartrate 3 mg capsule 3 mg PO BID 01/05/23 01/05/23 01/05/23 07:30 History sertraline 100 mg tablet 100 mg PO QAM 01/05/23 01/05/23 01/05/23 07:30 History sodium chloride 1,000 mg soluble 500 mg PO BID@08,12 01/05/23 01/05/23 01/05/23 07:30 History tablet Allergies Allergy/AdvReac Type Severity Reaction Status Date / Time buspirone [From BuSpar] Allergy Unknown Verified 01/05/23 12:28 prednisone Allergy ADR-Nausea Verified 01/05/23 12:28 Sulfa (Sulfonamide Allergy feels Verified 01/05/23 12:28 Antibiotics) strange all over lorazepam AdvReac Severe Make mean. Verified 01/05/23 12:28 Behaviours. morphine AdvReac ADR-Nausea Verified 01/05/23 12:28 PFSH Acute PFSH: Medical History Abnormal ankle brachial index (PATRICIA) 02/05/21 Acid reflux disease Allergic rhinitis due to allergen Anxiety Aortic valve regurgitation Carotid artery stenosis, asymptomatic Colitis Dementia Diverticulosis Fatty infiltration of liver Generalized anxiety disorder Heart disease Helicobacter pylori gastritis Hiatal hernia with GERD History of nonmelanoma skin cancer Hypertension Hyponatremia Incomplete bladder emptying Ischemic colitis Mitral valve disease Osteopenia PAD (peripheral artery disease) Postmenopausal Proctocolitis Psychiatric care Umbilical hernia Surgical History History of cholecystectomy History of colonoscopy History of esophagogastroduodenoscopy (EGD) History of fusion of cervical spine acdf c4-6 History of fusion of lumbar spine L4-5 History of hysterectomy Family History Father , in his 70's Cancer CAD (coronary artery disease) Brother CAD (coronary artery disease) Mother , at age 79 Heart disease Other Diabetes Hypertension Denies family history of Anesthesia complication Bleeding disorder Social History Smoking and tobacco status: never smoked Second hand smoke exposure: No Smoking risk assessment/counseling performed?: No Alcohol intake: never Desire information about alcohol rehabilitation?: No Counseling given: No Substance/Drug Use: never Desire information about substance/drug rehabilitation?: No Counseling given: No Lives independently: No Household members: none Marital status: / Current occupational status: retired Vitals/I&O/Wt Last Vital Signs Pulse 65 01/05/23 12:25 Resp 18 01/05/23 12:25 BP 140/78 01/05/23 12:25 Pulse Ox 94 01/05/23 12:25 O2 Del Method Room Air 01/05/23 12:25 Weight last 48 hrs Weight 54.431 kg Physical Exam Narrative: Awake and alert Clinically dehydrated Abdomen soft Nontender GCS 15 Nonfocal neuro exam S1, S2 Currently on room air Pleasant and cooperative Data 01/05/23 13:06 01/05/23 13:06 A&P Assessment and plan (1) Pancolitis: (2) Diarrhea: (3) Depressed mood: (4) Dementia: (5) Generalized anxiety disorder: (6) Osteopenia: (7) Intermittent palpitations: (8) Acid reflux disease: Plan Pancolitis Patent GI vessels Concern for diverticulitis Start on antibiotics Start IV fluids Clear liquids for now No sign of sepsis Previously pathology report did not show any sign malignancy She had duodenal biopsy which showed duodenitis No signs of gastric ulcer she did have H. pylori associated chronic gastritis Colon biopsy showed ischemic colitis changes Full code Admit as observation Attestations Medical Necessity Statement*: Anticipate discharge within 48 hours Diagnoses Pancolitis K51.00 Diarrhea R19.7 Depressed mood R45.89 Dementia F03.90 Generalized anxiety disorder F41.1 Osteopenia M85.80 Intermittent palpitations R00.2 Acid reflux disease K21.9
--- NOTE | 2023-01-05 15:04 | PC.PHAR ---
Addendum entered by Nicole Luna 01/05/23 16:06: pts family brought med list back and verified meds-pts family states the pt just started taking iron yesterday- Original Note: pts family is going to run home and grab the pts med list and then come back-pts family states the pt has a private nurse that sets up meds for the pt and wrote them down for the pts family member that makes sure the pt takes them
--- NOTE | 2023-01-05 15:20 | PC.NURSE ---
UNABLE TO ACHIEVE URINE SAMPLE. PT HAD BOWEL MOVEMENT IN HAT WITH URINE SAMPLE.
[2023-01-05] MEDS: metroNIDAZOLE IV 500 MG/100 ML PREMIX 100 MG IV (15:38)
[2023-01-05] MEDS: ciprofloxacin 400 MG/200 ML PREMIX 200 MG IV (17:17)
[2023-01-05] MEDS: memantine 5 mg tablet 10 MG PO (17:17)
[2023-01-05] MEDS: piperacillin-tazobactam 3.375 GM in sodium chloride 0.9% (plus) 50 ML IV (19:51)
[2023-01-05 20:37] LABS: Add Urine Microscopic? YES; Bilirubin Urine Neg (Negative); Blood Urine Neg (Negative); Glucose Urine UA Norm (Normal); Ketones Urine Negative (Negative); Leukocyte Esterase Urine Negative (Negative); Nitrate Urine Positive (Negative); Protein Urine Neg (Negative); Urine Appearance Clear (CLEAR); Urine Color Colorless (Yellow); Urobilinogen Urine Norm (Negative); pH Urine 6 (5-7)
[2023-01-05 20:38] LABS: Add Urine Culture? Yes; Bacteria Urine 3+ /hpf; RBC Urine 0-4 /hpf (0-2); Squamous Epithelial Cell Urine 0-4 /hpf (0-5); WBC Urine 0-4 /hpf (0-5)
[2023-01-06 03:53] VITALS: BP 135/83; PULSE 62; RESP 16; TEMP 37.1; O2SAT 96
[2023-01-06] MEDS: piperacillin-tazobactam 3.375 GM in sodium chloride 0.9% (plus) 50 ML IV (04:08)
[2023-01-06 05:13] LABS: Basophils % 0.1 %; Eosinophils # 0.2 10^3/uL (0.0-0.8); Hematocrit 31.8 % (37.0-47.0); Hemoglobin 9.4 g/dL (11.5-15.3); Lymphocytes # 2.4 10^3/uL (0.8-4.8); Lymphocytes % 30.2 %; Mean Corpuscular HGB Conc 29.6 g/dL (30.0-36.0); Mean Corpuscular Volume 81.1 fl (81-99); Mean Platelet Volume 10.7 fL (7.4-10.4); Monocytes # 0.7 10^3/uL (0.2-0.9); Monocytes % 8.6 %; Neutrophils # 4.49 10^3/uL (1.8-7.7); Neutrophils % 57.7 %; Nucleated Red Blood Cells % 0 %; Platelet Count 209 10^3/cmm (130-400); Red Blood Count 3.92 10^6/uL (4.1-5.3); Red Cell Distribution Width 15.6 % (12.1-15.1); White Blood Count 7.8 10^3/uL (4.0-10.0)
[2023-01-06 05:31] LABS: Anion Gap 15.3 (5-19); Blood Urea Nitrogen 8 mg/dL (8-23); C Reactive Protein 9.1 mg/L (0.0-4.9); Calcium 8.6 mg/dL (8.5-10.5); Carbon Dioxide 21 mmol/L (22-29); Chloride 106 mmol/L (98-107); Glucose 95 mg/dL (65-115); Magnesium 1.9 mg/dL (1.7-2.3); Osmolality Calculated 284 mOsm/kg (285-295); Potassium 4.3 mmol/L (3.5-5.1); Sodium 138 mmol/L (136-145)
[2023-01-06 07:19] VITALS: BP 137/76; PULSE 62; RESP 18; TEMP 36.9; O2SAT 92
[2023-01-06] MEDS: sodium chloride 1 gm Tablet PO (08:04)
[2023-01-06] MEDS: memantine 5 mg tablet 10 MG PO (08:04)
[2023-01-06] MEDS: lisinopril 10 mg Tablet 2.5 MG PO (08:05)
--- NOTE | 2023-01-06 10:49 | PC.CHAP ---
Pastoral Care Encounter/Spiritual Assessment Type of Contact [] Declined e business manager visit [] Patient/Family/Request visit [] Outpatient visit [] Follow-up visit [] Physician referral [] Code/Alert [x] Routine visit [] Staff referral [] Actively dying [] Patient sleeping [] Family support [] [] Out of room [] Palliative care [] [x] Receiving care in room [] Pre-surgical visit [] Trauma [] Long length of stay [] ICU visit [] Other: Relational/Emotional Strength [x] Patient feels connected with others/family/visitors/staff [] Distress [] Loneliness/isolation [] Abandonment Spirituality of Patient [x] Person of Rossy [] Attends Jain of their Rossy [x] Believes in Prayer [] Reads Bible or Tenriism materials [] There are Spiritual issues to be addressed Stock Repairer Interventions [x] Prayer [x] Active listening [x] Non-anxious presence [x] Spiritual/emotional support [] Crisis/trauma care [x] Spiritual counseling [] Bereavement support [] Provided bereavement packet [] Provided Bible/devotional materials [] Provided toy/stuffed animal, coloring book to patient or family member [] Provided Communion [] Anointing/[place] [] Salvation [x] Completed spiritual assessment [] Other: Impact on Illness or Injury [] Angry [] Fearful [] Anxious [] Often cries [] Exhaustion [] Unable to work [] Unable to attend sikh [] Unable to walk/stand [] Unable to read [] Unable to drive [] Unable to eat/drink [] Unable to sleep [] Unable to be with family [] Patient intubated [] Other: Summary martina infection had tests has a good attitude well go home Time spent with patient 10 mins
--- NOTE | 2023-01-06 10:51 | P.DS_ITS ---
Discharge Providers Date of Admission: 01/05/23 15:27 Date of Discharge: January 06, 2023 Attending Provider at Admission: Micaela Pickard MD Attending Provider at Discharge: Micaela Pickard MD Primary Care Provider: Judith Dennis MD Diagnoses at Discharge Discharge Diagnosis (1) Pancolitis: Status: Acute (2) Diarrhea: Status: Acute (3) Depressed mood: Status: Acute (4) Dementia: Status: Acute (5) Generalized anxiety disorder: Status: Acute (6) Osteopenia: Status: Chronic (7) Intermittent palpitations: Status: Acute (8) Acid reflux disease: Status: Chronic Reason for Visit Reason for Visit: Jeannie sent for possible TIA Hospital Course Hospital Course 82-year-old female who was admitted to the hospital for management evaluation of pancolitis, she remained afebrile no leukocytosis, able to tolerate diet, she was put on IV Zosyn, cultures remain negative, in the ER she was given metronidazole and Flagyl, patient not endorsing worsening abdominal pain, diarrhea, with IV fluid hydration antibiotics feeling slightly better Physical Exam Narrative: Signs of dehydration improving S1, S2 GCS 15 Abdomen soft Doing well on room air Discharge Data Studies Completed and Pending Completed Studies During Hospitalization Category Date Time Status CT abdomen pelvis w con* [id number] Stat Cat Scan 01/05/23 12:40 Completed Pending at discharge Category Date Time Status Blood Culture Stat Lab 01/05/23 15:07 Results Urine Culture Stat Lab 01/05/23 18:10 Received Radiology Impressions Abdomen/Pelvis CT 01/05/23 12:40 IMPRESSION: 1. Diffuse pancolitis worse involving the sigmoid colon most likely infectious or inflammatory. 2. No evidence of high-grade obstruction. 3. Moderate aortic calcification. No aneurysm. Celiac and SMA appear patent. 4. Urine distended bladder. 5. Small esophageal hiatal hernia. 6. Prior cholecystectomy. 7. Diffuse fatty infiltration of the liver. Notified Srinivas Morillo MD at 01/05/2023 2:34 PM. Laboratory Results WBC 7.8 10^3/uL (4.0-10.0) 01/06/23 04:54 RBC 3.92 10^6/uL (4.1-5.3) L 01/06/23 04:54 Hgb 9.4 g/dL (11.5-15.3) L 01/06/23 04:54 Hct 31.8 % (37.0-47.0) L 01/06/23 04:54 MCV 81.1 fl (81-99) 01/06/23 04:54 MCH 24.0 pg (28.0-34.0) L 01/06/23 04:54 MCHC 29.6 g/dL (30.0-36.0) L 01/06/23 04:54 RDW 15.6 % (12.1-15.1) H 01/06/23 04:54 Plt Count 209 10^3/cmm (130-400) 01/06/23 04:54 MPV 10.7 fL (7.4-10.4) H 01/06/23 04:54 Neut % (Auto) 57.7 % 01/06/23 04:54 Lymph % (Auto) 30.2 % 01/06/23 04:54 [place] % (Auto) 8.6 % 01/06/23 04:54 Eos % (Auto) 3.0 % 01/06/23 04:54 Baso % (Auto) 0.1 % 01/06/23 04:54 Neut # (Auto) 4.49 10^3/uL (1.8-7.7) 01/06/23 04:54 Lymph # (Auto) 2.4 10^3/uL (0.8-4.8) 01/06/23 04:54 [place] # (Auto) 0.7 10^3/uL (0.2-0.9) 01/06/23 04:54 Eos # (Auto) 0.2 10^3/uL (0.0-0.8) 01/06/23 04:54 Baso # (Auto) 0.0 10^3/uL (0.0-0.1) 01/06/23 04:54 Nucleated RBC % (auto) 0 % 01/06/23 04:54 Nucleated RBCs # 0.0 /100WBC 01/06/23 04:54 Sodium 138 mmol/L (136-145) 01/06/23 04:54 Potassium 4.3 mmol/L (3.5-5.1) 01/06/23 04:54 Chloride 106 mmol/L (98-107) 01/06/23 04:54 Carbon Dioxide 21 mmol/L (22-29) L 01/06/23 04:54 Anion Gap 15.3 (5-19) 01/06/23 04:54 BUN 8 mg/dL (8-23) 01/06/23 04:54 Creatinine 0.7 mg/dL (0.5-0.9) 01/06/23 04:54 GFR Calculation Not Reportable 01/06/23 04:54 Glucose 95 mg/dL (65-115) 01/06/23 04:54 Calculated Osmolality 284 mOsm/kg (285-295) L 01/06/23 04:54 Calcium 8.6 mg/dL (8.5-10.5) 01/06/23 04:54 Magnesium 1.9 mg/dL (1.7-2.3) 01/06/23 04:54 Total Bilirubin 0.3 mg/dL (0.15-1.2) 01/05/23 13:06 AST 13 U/L (0-32) 01/05/23 13:06 ALT 12 U/L (0-33) 01/05/23 13:06 Alkaline Phosphatase 61 U/L (35-105) 01/05/23 13:06 C-Reactive Protein 9.1 mg/L (0.0-4.9) H 01/06/23 04:54 Total Protein 6.2 g/dL (6.6-8.7) L 01/05/23 13:06 Albumin 3.7 g/dL (3.5-5.2) 01/05/23 13:06 Globulin 2.5 g/dL (1.3-4.6) 01/05/23 13:06 Lipase 10 U/L (13-60) L 01/05/23 13:06 Urine Color Colorless (Yellow) 01/05/23 18:10 Urine Appearance Clear (CLEAR) 01/05/23 18:10 Urine pH 6 (5-7) 01/05/23 18:10 Ur Specific [place] 1.010 (1.005-1.030) 01/05/23 18:10 Urine Protein Neg (Negative) 01/05/23 18:10 Urine Glucose (UA) Norm (Normal) 01/05/23 18:10 Urine Ketones Negative (Negative) 01/05/23 18:10 Urine Blood Neg (Negative) 01/05/23 18:10 Urine Nitrate Positive (Negative) H 01/05/23 18:10 Urine Bilirubin Neg (Negative) 01/05/23 18:10 Urine Urobilinogen Norm mg/dL (Negative) 01/05/23 18:10 Ur Leukocyte Esterase Negative (Negative) 01/05/23 18:10 Urine RBC 0-4 /hpf (0-2) H 01/05/23 18:10 Urine WBC 0-4 /hpf (0-5) H 01/05/23 18:10 Ur Squamous Epith Cells 0-4 /hpf (0-5) H 01/05/23 18:10 Amorphous Sediment Not Reportable 01/05/23 18:10 Urine Bacteria 3+ /hpf (NONE) H 01/05/23 18:10 Vitals Last Vital Signs Temp 98.5 F 01/06/23 07:19 Pulse 62 01/06/23 07:19 Resp 18 01/06/23 07:19 BP 137/76 01/06/23 07:19 Pulse Ox 92 01/06/23 07:19 O2 Del Method Room Air 01/06/23 07:19 Discharge Plan Discharge Patient Disposition: Home Condition: Stable Prescriptions: New metronidazole 500 mg tablet 500 mg PO Q8H 7 Days Qty: 21 0RF ciprofloxacin HCl 500 mg tablet 500 mg PO Q12H Qty: 14 0RF Continued trazodone 100 mg tablet 150 mg PO BEDTIME@20 Qty: 135 0RF risperidone 1 mg tablet 1 mg PO BID Qty: 180 0RF (DME) DME: [facility] See Rx Instructions .Route Qty: 1 0RF Rx Instructions: As directed benzonatate 100 mg capsule 100 mg PO TID PRN (Reason: cough) Qty: 30 0RF Prevalite 4 gram powder See Rx Instructions .ROUTE .COMPLEX Qty: 231 3RF Dose Instruction: take FOUR grams BY MOUTH TWICE DAILY * administer with a meal: AVOID other meds WITHIN ONE hour before or 4-6 hours AFTER DOSE * Rx Instructions: take FOUR grams BY MOUTH TWICE DAILY * administer with a meal: AVOID other meds WITHIN ONE hour before or 4-6 hours AFTER DOSE * loperamide 2 mg capsule 4 mg PO QID 90 Days Qty: 720 0RF acetaminophen 650 mg Tablet Extended Release 650 mg PO Q12H aspirin 325 mg Tablet 325 mg PO QAM Hold Instructions: Resume on 07/10/22. memantine 10 mg tablet 10 mg PO BID calcium citrate-vitamin D3 [Calcium Citrate + D] 315 mg-5 mcg (200 unit) Tablet 1 tab PO QAM ferrous sulfate [iron] 325 mg (65 mg iron) Tablet 325 mg PO QPM magnesium oxide 400 mg magnesium Tablet 400 mg PO DAILY rivastigmine tartrate 3 mg capsule 3 mg PO BID Metamucil 0.4 gram Capsule 0.4 g PO DAILY@17 enalapril maleate 5 mg tablet 2.5 mg PO QAM sertraline 100 mg tablet 100 mg PO QAM Zyprexa 5 mg tablet 5 mg PO DAILY@17 pantoprazole 40 mg tablet,delayed release (DR/EC) 40 mg PO BID sodium chloride 1,000 mg tablet,soluble 500 mg PO BID@08,12 Held hydrochlorothiazide 12.5 mg tablet 12.5 mg PO DAILY PRN (Reason: leg swelling) Qty: 30 6RF Hold Instructions: Resume on 01/13/23. Discharge Orders: Discharge Order (Routine); Ordered 01/06/23 Ordered By: Micaela Pickard Referrals: Judith Dennis MD [Primary Care Provider] - Discharge Diet: Regular Discharge Activity: Increase activity as tolerated Patient Instructions: Ciprofloxacin (By mouth), Metronidazole (By mouth), Helicobacter Pylori (GEN), Colitis (ED), Ischemic Colitis (DC), Opioid Safety Discharge Attestations Time Spent in Discharge Care*: greater than 30 min Quality Metrics Clinical Quality Measures [ No reported AMI, CVA or VTE this stay] Coding Level of Care Code Acute Code for [facility] Fwd Diagnoses Pancolitis K51.00 Diarrhea R19.7 Depressed mood R45.89 Dementia F03.90 Generalized anxiety disorder F41.1 Osteopenia M85.80 Intermittent palpitations R00.2 Acid reflux disease K21.9
[2023-01-06 11:10] VITALS: BP 119/69; PULSE 63; RESP 16; TEMP 36.9; O2SAT 93
--- NOTE | 2023-01-06 12:12 | PM.PN ---
Vitals/I&O/Wt Last Vital Signs Temp 98.5 F 01/06/23 11:10 Pulse 63 01/06/23 11:10 Resp 16 01/06/23 11:10 BP 119/69 01/06/23 11:10 Pulse Ox 93 01/06/23 11:10 O2 Del Method Room Air 01/06/23 11:10 01/05/23 01/06/23 01/06/23 22:59 06:59 14:59 Intake Total 640 / 640 250 / 890 360 / 360 Output Total 500 / 500 700 / 700 Balance 140 / 140 250 / 390 -340 / -340 Weight last 48 hrs Weight 54.431 kg Data 01/06/23 04:54 01/06/23 04:54 Micro: Microbiology 01/05/23 15:07 Blood Culture - Preliminary Blood SPECIMEN COLLECTED 01/05/23 14:59 Blood Culture - Preliminary Blood SPECIMEN COLLECTED Coding Level of Care Code Acute Code for [facility] Fwd Diagnoses
[2023-01-06 14:13] VITALS: BP 119/69; PULSE 63; RESP 16; TEMP 36.9; O2SAT 93
== END 2023-01-06 15:22 | disposition home or self-care (01) ==
LOC: ER 14:45 → MEDSURG 15:27
PROVIDERS: Admitting Provider Internal Medicine; Emergency Provider Emergency Medicine; PCP Family Medicine; Visit Provider Internal Medicine
DX: I44.0 Atrioventricular block, first degree; E86.0 Dehydration; K51.00 Ulcerative (chronic) pancolitis without complications; Z79.82 Long term (current) use of aspirin; I10 Essential (primary) hypertension; E78.5 Hyperlipidemia, unspecified; K21.9 Gastro-esophageal reflux disease without esophagitis; I73.9 Peripheral vascular disease, unspecified; F41.1 Generalized anxiety disorder; R10.9 Unspecified abdominal pain
CPT/HCPCS: 36415; 74177; 80048; 80053; 81001; 83690; 83735; 85025; 86140; 87040; 87086; 93005; 96365; 96367; 99285; G0378; J0744; J2405; J2543; J3490; Q9967

== ENCOUNTER 2023-01-14 08:50 | Emergency (ER) | payer MEDICARE, OTHER, SELFPAY ==
[2023-01-14 08:51] VITALS: BP 155/81; PULSE 68; RESP 14; TEMP 36.9; O2SAT 95; BMI 21.9
--- NOTE | 2023-01-14 09:23 | ED_ITS ---
HPI - Nausea/Vomiting/Diarrhea General: Chief complaint: Nausea/Vomiting/Diarrhea Stated complaint: diarrhea x 1 day Time Seen by Provider: 01/14/23 08:52 Source: patient and family (daughter) Mode of arrival: ambulatory Limitations: no limitations History of Present Illness: Patient is an 82-year-old female presents to ED today along with her daughter for evaluation of loose stools and weakness. Daughter states patient chronically has intermittent weakness. She was recently admitted to the [facility] for diarrhea and diagnosed with pancolitis. She was discharged with Cipro/Flagyl and has finished these antibiotics. Patient is not complaining of any abdominal pain. She feels like her stools are looser than normal and reports having approximately 3 in a 24-hour period. She feels like she does not know when she needs to defecate and will sometimes go when her brief. Patient is not having any back pain or discomfort. She is not having any nausea or vomiting. Daughter states stools have been dark in color but patient is also taking iron. MD elicited complaint: diarrhea (loose stools) and other (weakness) Associated nausea: No Associated abdominal pain: No Location of pain: None Exacerbating factors: none Relieving factors: none Associated symtoms: Denies chest pain, dysuria, fatigue, headache(s), malaise, nausea, palpitations or syncope Treatment prior to arrival: immodium Review of Systems Const: Denies: fever(s), chills, body aches, fatigue or malaise Card: Denies: chest pain, palpitations, irregular heart rhythm, lightheadedness, syncope or dyspnea on exertion Resp: Denies: dyspnea, productive cough or pain on inspiration GI: Reports: diarrhea (loose stools) and melena (reports black stools but also taking iron); Denies: abdominal pain, nausea, vomiting, heartburn, GI cramping, pain on defecation, rectal swelling, rectal itching or hematochezia : Denies: dysuria Musc: Denies: neck pain, back pain or joint pain Skin/Breast: Denies: rash Neuro: Denies: headache(s), numbness in extremities, weakness in extremities or sensory changes PFS ED PFSH: Medical History Abnormal ankle brachial index (PATRICIA) 02/05/21 Acid reflux disease Allergic rhinitis due to allergen Anxiety Aortic valve regurgitation Carotid artery stenosis, asymptomatic Colitis Dementia Depressed mood Diarrhea Diverticulosis Fatty infiltration of liver Generalized anxiety disorder Heart disease Helicobacter pylori gastritis Hiatal hernia with GERD History of nonmelanoma skin cancer Hypertension Hyponatremia Incomplete bladder emptying Intermittent palpitations Ischemic colitis Mitral valve disease Osteopenia PAD (peripheral artery disease) Pancolitis Postmenopausal Proctocolitis Psychiatric care Umbilical hernia Surgical History History of cholecystectomy History of colonoscopy History of esophagogastroduodenoscopy (EGD) History of fusion of cervical spine acdf c4-6 History of fusion of lumbar spine L4-5 History of hysterectomy Family History Father , in his 70's Cancer CAD (coronary artery disease) Brother CAD (coronary artery disease) Mother , at age 79 Heart disease Other Diabetes Hypertension Denies family history of Anesthesia complication Bleeding disorder Social History Smoking and tobacco status: never smoked Second hand smoke exposure: No Smoking risk assessment/counseling performed?: No Alcohol intake: never Desire information about alcohol rehabilitation?: No Counseling given: No Substance/Drug Use: never Desire information about substance/drug rehabilitation?: No Counseling given: No Lives independently: No Household members: none Marital status: / Current occupational status: retired Physical Exam Const: COMMON NORMALS: no acute distress, average body habitus, patient oriented x3, no limitations, healthy appearing, alert and well nourished Resp: COMMON NORMALS: normal respiratory effort and clear to auscultation bilaterally AUSCULTATION: clear to auscultation bilaterally Cardio: COMMON NORMALS: regular rate and regular rhythm RATE: regular rate RHYTHM: regular rhythm GI: COMMON NORMALS: Normal to inspection, nondistended, normoactive bowel sounds present, Soft to palpation, non-tender, No hepatosplenomegaly present and no masses INSPECTION: Yes normal to inspection AUSCULTATION: Yes normoactive bowel sounds PALPATION: Yes Soft to palpation, No Tenderness to palpation present (GI), No Guarding due to palpation present (GI), No Rigid due to palpation and Yes No hepatosplenomegaly present RECTAL EXAM: heme negative stool : COMMON NORMALS: Yes no CVA tenderness BLADDER/KIDNEY EXAM: Yes no CVA tenderness Back/Pelvis: COMMON NORMALS: no CVA tenderness, thoracic and lumbar spine normal to inspection, no thoracic nor lumbar tenderness and thoraco-lumbar ROM normal Extremity: COMMON NORMALS: normal to inspection GENERAL: Yes normal exam except as noted Neuro: MADHU COMA SCALE: document GCS findings Madhu coma scale eye opening: Spontaneous [place] coma scale verbal response: Orientated [place] coma scale motor response: Obey commands [place] coma scale total score: 15 COMMON NORMALS: patient oriented x3, moves all extremities, no sensory deficits noted and gait normal SENSORIUM/ORIENTATION: Yes alert MOTOR EXAM: 5/5 motor strength present throughout Skin: COMMON NORMALS: no rashes or lesions noted GENERAL SKIN EXAM: no rashes or lesions noted Course Vital Signs: Vital signs: Vital Signs Temperature 98.4 F 01/14/23 08:51 Pulse Rate 58 L 01/14/23 11:47 Respiratory Rate 16 01/14/23 11:47 Blood Pressure 160/64 01/14/23 11:47 Pulse Oximetry 97 01/14/23 11:47 Oxygen Delivery Me thod Room Air 01/14/23 11:47 MDM - Nausea/Vomiting/Diarrhea Medical Decision Making Patient here for complaints of loose stools. She states she will have approximately 3 bowel movements in a 24-hour period. Stools have been dark but patient is also on iron supplementation. Hemoccult here was negative. Her vital signs are stable. Blood work is unremarkable. Her hemoglobin today is higher than it was during her hospitalization. She has no complaints of abdominal pain. I do not feel repeat CT imaging is ultimately going to change anything. Stool samples were initially ordered however patient has not been able to have a bowel movement here. Symptoms are less likely related to infectious etiology. She does have a history of chronic ischemic colitis. UA negative. At this time I do not see a reason for hospitalization. Patient is stable to follow-up with her primary care provider. Lab Data 01/14/23 09:19 01/14/23 09:19 Laboratory Results WBC 8.2 10^3/uL (4.0-10.0) 01/14/23 09:19 RBC 4.32 10^6/uL (4.1-5.3) 01/14/23 09:19 Hgb 10.6 g/dL (11.5-15.3) L 01/14/23 09:19 Hct 34.4 % (37.0-47.0) L 01/14/23 09:19 MCV 79.6 fl (81-99) L 01/14/23 09:19 MCH 24.5 pg (28.0-34.0) L 01/14/23 09:19 MCHC 30.8 g/dL (30.0-36.0) 01/14/23 09:19 RDW 16.7 % (12.1-15.1) H 01/14/23 09:19 Plt Count 217 10^3/cmm (130-400) 01/14/23 09:19 MPV 10.1 fL (7.4-10.4) 01/14/23 09:19 Neut % (Auto) 60.5 % 01/14/23 09:19 Lymph % (Auto) 27.0 % 01/14/23 09:19 [place] % (Auto) 9.4 % 01/14/23 09:19 Eos % (Auto) 2.6 % 01/14/23 09:19 Baso % (Auto) 0.1 % 01/14/23 09:19 Neut # (Auto) 4.99 10^3/uL (1.8-7.7) 01/14/23 09:19 Lymph # (Auto) 2.2 10^3/uL (0.8-4.8) 01/14/23 09:19 [place] # (Auto) 0.8 10^3/uL (0.2-0.9) 01/14/23 09:19 Eos # (Auto) 0.2 10^3/uL (0.0-0.8) 01/14/23 09:19 Baso # (Auto) 0.0 10^3/uL (0.0-0.1) 01/14/23 09:19 Nucleated RBC % (auto) 0 % 01/14/23 09:19 Nucleated RBCs # 0.0 /100WBC 01/14/23 09:19 Sodium 134 mmol/L (136-145) L 01/14/23 09:19 Potassium 4.2 mmol/L (3.5-5.1) 01/14/23 09:19 Chloride 102 mmol/L (98-107) 01/14/23 09:19 Carbon Dioxide 20 mmol/L (22-29) L 01/14/23 09:19 Anion Gap 16.2 (5-19) 01/14/23 09:19 BUN 8 mg/dL (8-23) 01/14/23 09:19 Creatinine 0.6 mg/dL (0.5-0.9) 01/14/23 09:19 GFR Calculation Not Reportable 01/14/23 09:19 Glucose 113 mg/dL (65-115) 01/14/23 09:19 Calculated Osmolality 277 mOsm/kg (285-295) L 01/14/23 09:19 Calcium 8.9 mg/dL (8.5-10.5) 01/14/23 09:19 Total Bilirubin 0.2 mg/dL (0.15-1.2) 01/14/23 09:19 AST 16 U/L (0-32) 01/14/23 09:19 ALT 10 U/L (0-33) 01/14/23 09:19 Alkaline Phosphatase 51 U/L (35-105) 01/14/23 09:19 Total Protein 6.0 g/dL (6.6-8.7) L 01/14/23 09:19 Albumin 3.6 g/dL (3.5-5.2) 01/14/23 09:19 Globulin 2.4 g/dL (1.3-4.6) 01/14/23 09:19 Urine Color Light yellow (Yellow) 01/14/23 11:50 Urine Appearance Clear (CLEAR) 01/14/23 11:50 Urine pH 5 (5-7) 01/14/23 11:50 Ur Specific [employer] 1.010 (1.005-1.030) 01/14/23 11:50 Urine Protein Neg (Negative) 01/14/23 11:50 Urine Glucose (UA) Norm (Normal) 01/14/23 11:50 Urine Ketones Negative (Negative) 01/14/23 11:50 Urine Blood Neg (Negative) 01/14/23 11:50 Urine Nitrate Negative (Negative) 01/14/23 11:50 Urine Bilirubin Neg (Negative) 01/14/23 11:50 Urine Urobilinogen Norm mg/dL (Negative) 01/14/23 11:50 Ur Leukocyte Esterase Negative (Negative) 01/14/23 11:50 Discharge Plan Discharge Patient Disposition: Home Clinical Impression: Weakness, Loose stools Condition: Stable Prescriptions: No Action hydrochlorothiazide 12.5 mg tablet 12.5 mg PO DAILY PRN (Reason: leg swelling) Qty: 30 6RF Hold Instructions: Resume on 01/13/23. trazodone 100 mg tablet 150 mg PO BEDTIME@20 Qty: 135 0RF risperidone 1 mg tablet 1 mg PO BID Qty: 180 0RF (DME) DME: [facility] See Rx Instructions .Route Qty: 1 0RF Rx Instructions: As directed benzonatate 100 mg capsule 100 mg PO TID PRN (Reason: cough) Qty: 30 0RF Prevalite 4 gram powder See Rx Instructions .ROUTE .COMPLEX Qty: 231 3RF Dose Instruction: take FOUR grams BY MOUTH TWICE DAILY * administer with a meal: AVOID other meds WITHIN ONE hour before or 4-6 hours AFTER DOSE * Rx Instructions: take FOUR grams BY MOUTH TWICE DAILY * administer with a meal: AVOID other meds WITHIN ONE hour before or 4-6 hours AFTER DOSE * loperamide 2 mg capsule See Rx Instructions .ROUTE .COMPLEX Qty: 720 0RF Dose Instruction: TAKE TWO CAPSULES BY MOUTH FOUR TIMES DAILY Rx Instructions: TAKE TWO CAPSULES BY MOUTH FOUR TIMES DAILY acetaminophen 650 mg Tablet Extended Release 650 mg PO Q12H aspirin 325 mg Tablet 325 mg PO QAM Hold Instructions: Resume on 07/10/22. memantine 10 mg tablet 10 mg PO BID calcium citrate-vitamin D3 [Calcium Citrate + D] 315 mg-5 mcg (200 unit) Tablet 1 tab PO QAM ferrous sulfate [iron] 325 mg (65 mg iron) Tablet 325 mg PO QPM magnesium oxide 400 mg magnesium Tablet 400 mg PO DAILY rivastigmine tartrate 3 mg capsule 3 mg PO BID Metamucil 0.4 gram Capsule 0.4 g PO DAILY@17 enalapril maleate 5 mg tablet 2.5 mg PO QAM sertraline 100 mg tablet 100 mg PO QAM Zyprexa 5 mg tablet 5 mg PO DAILY@17 pantoprazole 40 mg tablet,delayed release (DR/EC) 40 mg PO BID sodium chloride 1,000 mg tablet,soluble 500 mg PO BID@08,12 ciprofloxacin HCl 500 mg tablet 500 mg PO Q12H Qty: 14 0RF Discharge Orders: Discharge ED (Routine); Ordered 01/14/23 Ordered By: Marita Baez Referrals: Judith Dennis MD [Primary Care Provider] - Coding Level of Care Code ED Set 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
[2023-01-14 09:24] LABS: Basophils % 0.1 %; Eosinophils # 0.2 10^3/uL (0.0-0.8); Eosinophils % 2.6 %; Hematocrit 34.4 % (37.0-47.0); Hemoglobin 10.6 g/dL (11.5-15.3); Lymphocytes # 2.2 10^3/uL (0.8-4.8); Mean Corpuscular HGB Conc 30.8 g/dL (30.0-36.0); Mean Corpuscular Hemoglobin 24.5 pg (28.0-34.0); Mean Corpuscular Volume 79.6 fl (81-99); Mean Platelet Volume 10.1 fL (7.4-10.4); Monocytes # 0.8 10^3/uL (0.2-0.9); Monocytes % 9.4 %; Neutrophils # 4.99 10^3/uL (1.8-7.7); Neutrophils % 60.5 %; Nucleated Red Blood Cells % 0 %; Platelet Count 217 10^3/cmm (130-400); Red Blood Count 4.32 10^6/uL (4.1-5.3); Red Cell Distribution Width 16.7 % (12.1-15.1); White Blood Count 8.2 10^3/uL (4.0-10.0)
[2023-01-14 09:50] LABS: Alanine Aminotransferase 10 U/L (0-33); Albumin Level 3.6 g/dL (3.5-5.2); Alkaline Phosphatase 51 U/L (35-105); Anion Gap 16.2 (5-19); Aspartate Amino Transferase 16 U/L (0-32); Blood Urea Nitrogen 8 mg/dL (8-23); Calcium 8.9 mg/dL (8.5-10.5); Carbon Dioxide 20 mmol/L (22-29); Chloride 102 mmol/L (98-107); Globulin 2.4 g/dL (1.3-4.6); Glucose 113 mg/dL (65-115); Osmolality Calculated 277 mOsm/kg (285-295); Potassium 4.2 mmol/L (3.5-5.1); Sodium 134 mmol/L (136-145); Total Bilirubin 0.2 mg/dL (0.15-1.2)
[2023-01-14 11:47] VITALS: BP 160/64; PULSE 58; RESP 16; O2SAT 97
[2023-01-14 11:59] LABS: Add Urine Microscopic? NO; Charge for UA Resulting for Rev
[2023-01-14 12:11] LABS: Bilirubin Urine Neg (Negative); Blood Urine Neg (Negative); Glucose Urine UA Norm (Normal); Ketones Urine Negative (Negative); Leukocyte Esterase Urine Negative (Negative); Nitrate Urine Negative (Negative); Protein Urine Neg (Negative); Urine Appearance Clear (CLEAR); Urine Color Light yellow (Yellow); Urobilinogen Urine Norm (Negative); pH Urine 5 (5-7)
[2023-01-14 12:30] VITALS: BP 150/76; PULSE 59; RESP 20; O2SAT 96
[2023-01-14 12:31] VITALS: BP 150/76; PULSE 59; RESP 20; O2SAT 96
== END 2023-01-14 12:33 | disposition home or self-care (01) ==
PROVIDERS: Family Medicine; Emergency Provider Physician Assistant; PCP Family Medicine
DX: R19.7 Diarrhea, unspecified (principal); R53.1 Weakness; Z79.82 Long term (current) use of aspirin; F03.90 Unspecified dementia, unspecified severity, without behavioral disturbance, psychotic disturbance, mood disturbance, and anxiety; I10 Essential (primary) hypertension
CPT/HCPCS: 80053; 81003; 85025; 99283

== ENCOUNTER 2023-01-22 05:17 | Emergency (ER) | payer MEDICARE, OTHER, SELFPAY ==
[2023-01-22 05:20] VITALS: BP 145/66; PULSE 67; RESP 16; TEMP 36.4; O2SAT 91; BMI 25.6
--- NOTE | 2023-01-22 05:27 | XRR_ITS ---
PROCEDURE INFORMATION: Exam: XR Right Shoulder Exam date and time: 01/22/2023 5:32 AM Age: 82 years old Clinical indication: Injury or trauma; Fall; Blunt trauma (contusions or hematomas); Right; Prior surgery; Surgery date: 6+ months; Surgery type: Cervical fusion; Patient HX: Fell this morning at home, landing on RT shoulder. C/O pain. ; Additional info: Fall R shoulder pain TECHNIQUE: Imaging protocol: Radiologic exam of the right shoulder. Views: 2 or more views. COMPARISON: CR XR chest 1V portable [id number] 09/12/2022 9:30 PM FINDINGS: Bones/joints: Mild bone spurring and capsular swelling is seen within the right acromioclavicular joint compatible with osteoarthritic changes. Soft tissues: See Bones/joints finding. 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
[2023-01-22 05:30] VITALS: BP 155/68; PULSE 61; RESP 16; O2SAT 90
--- NOTE | 2023-01-22 05:40 | XRR_ITS ---
PROCEDURE INFORMATION: Exam: XR Abdomen Exam date and time: 01/22/2023 5:43 AM Age: 82 years old Clinical indication: Bloating and other: Diarrhea; Prior surgery; Surgery date: 6+ months; Surgery type: Gb. Lumbar fusion. Hysterectomy. Patient HX: Abd distention with diarrhea; Additional info: Diarrhea, distension TECHNIQUE: Imaging protocol: Radiologic exam of the abdomen. Views: Frontal supine view of the abdomen. 1 View. COMPARISON: CT abdomen pelvis w con* [id number] 01/05/2023 2:07 PM FINDINGS: Gastrointestinal tract: Normal. No bowel dilation. Bones/joints: Pedicle screws and posterior rods are seen L4-L5. XR/XR KUB portable [id number] IMPRESSION: There are no acute abdominal findings.
--- NOTE | 2023-01-22 05:51 | ED_ITS ---
Documented by User: Zoltan Jones DO 01/22/23 15:53 HPI - Extremity Problem General: Chief complaint: Extremity Injury, Upper Stated complaint: SHOULDER PAIN Time Seen by Provider: 01/22/23 05:24 History of Present Illness: 82-year-old female who lives at home. She has a history of dementia. She was recently treated for colitis and has finished her antibiotics. She presents with a fall in the bathroom this morning she notes she had to go to the bathroom, so she went, but was feeling weak. She fell striking her right shoulder on the ground. She did not hit her head. She notes that she was too weak to get up on her own, so 911 was called. EMS was able to get the patient up, and walk her to the cot. She complains of 2 out of 10 right shoulder pain. She also had filled her adult diaper with loose stool as well. She really has no complaints, but the guardian of the patient has multiple complaints including generalized weakness, continued loose stools, pain to the shoulder. MD Complaint: extremity pain and joint pain Onset (ago): minute(s) Pain Consistency: constant Location: right and upper extremity Radiation: none Exacerbating factors: range of motion Associated symptoms: Deny arthralgias, chest pain, fever(s), myalgias, rash or short of breath Review of Systems Const: Denies: fever(s) Card: Denies: chest pain or palpitations Resp: Denies: dyspnea, productive cough or non-productive cough GI: Reports: abdominal pain, nausea, diarrhea and bloating; Denies: vomiting, hematemesis or hematochezia : Denies: difficulty voiding or dysuria Skin/Breast: Denies: rash Neuro: Reports: weakness in extremities (Symmetric); Denies: headache(s), numbness in extremities or confusion [facility] ED PFSH: Medical History Abnormal ankle brachial index (PATRICIA) 02/05/21 Acid reflux disease Allergic rhinitis due to allergen Anxiety Aortic valve regurgitation Carotid artery stenosis, asymptomatic Colitis Dementia Depressed mood Diarrhea Diverticulosis Fatty infiltration of liver Generalized anxiety disorder Heart disease Helicobacter pylori gastritis Hiatal hernia with GERD History of nonmelanoma skin cancer Hypertension Hyponatremia Incomplete bladder emptying Intermittent palpitations Ischemic colitis Mitral valve disease Osteopenia PAD (peripheral artery disease) Pancolitis Postmenopausal Proctocolitis Psychiatric care Umbilical hernia Surgical History History of cholecystectomy History of colonoscopy History of esophagogastroduodenoscopy (EGD) History of fusion of cervical spine acdf c4-6 History of fusion of lumbar spine L4-5 History of hysterectomy Family History Father , in his 70's Cancer CAD (coronary artery disease) Brother CAD (coronary artery disease) Mother , at age 79 Heart disease Other Diabetes Hypertension Denies family history of Anesthesia complication Bleeding disorder Social History Smoking and tobacco status: never smoked Second hand smoke exposure: No Smoking risk assessment/counseling performed?: No Alcohol intake: never Desire information about alcohol rehabilitation?: No Counseling given: No Substance/Drug Use: never Desire information about substance/drug rehabilitation?: No Counseling given: No Lives independently: No Household members: none Marital status: / Current occupational status: retired Physical Exam HENMT: COMMON NORMALS: normocephalic, atraumatic and Normal external nose present HEAD & SCALP: normocephalic and atraumatic FACE & SINUS: normal facial exam NOSE: Normal external nose present and Normal nares present Eye: COMMON NORMALS: Equal, round and reactive pupils present and EOMs intact bilaterally PUPIL: Yes Equal, round and reactive pupils present Neck/C-Spine: GENERAL: Yes trachea midline Chest: COMMONS NORMALS: normal inspection of the chest and normal palpation of entire chest wall Resp: COMMON NORMALS: normal respiratory effort, No use of accessory muscles and clear to auscultation bilaterally AUSCULTATION: clear to auscultation bilaterally Cardio: COMMON NORMALS: regular rate and regular rhythm RATE: regular rate RHYTHM: regular rhythm GI: COMMON NORMALS: Soft to palpation INSPECTION: Yes abdominal distension PALPATION: Yes Soft to palpation and No Tenderness to palpation present (GI) Extremity: NARRATIVE EXTREMITY EXAM: Right shoulder tenderness to palpation. Some ecchymosis over the lateral shoulder. No deformity. Range of motion is intact and normal. Neuro: MADHU COMA SCALE: document GCS findings Madhu coma scale eye opening: Spontaneous [place] coma scale verbal response: Orientated Madhu coma scale motor response: Obey commands [place] coma scale total score: 15 Skin: COMMON NORMALS: no wounds Course Vital Signs: Vital signs: Vital Signs Temperature 97.5 F L 01/22/23 05:20 Pulse Rate 88 01/22/23 09:44 Respiratory Rate 18 01/22/23 09:44 Blood Pressure 138/72 01/22/23 09:44 Pulse Oximetry 94 01/22/23 09:44 Oxygen Delivery Me thod Room Air 01/22/23 09:01 MDM - Extremity (Nontraumatic) Medical Decision Making This young lady has had 2 loose stools here. Her hemoglobin is 10.6 which is stable. White blood cell count is 7.4. CRP is 3. Bicarbonate level is 19. Her creatinine is 0.6. KUB reveals retained stool. Shoulder x-ray is negative. She is slightly hypertensive with a blood pressure of 160 systolic. I am reminded by her guardian that this is quite high for her. I have ordered stool for C. difficile and lactoferrin. Urinalysis is pending. With the amount of retained stool she has on x-ray, encopresis is on the differential Lab Data 01/22/23 06:00 01/22/23 06:00 Radiology Impressions Shoulder X-Ray 01/22/23 05:27 IMPRESSION: Osteoarthritic changes seen in the right acromioclavicular joint. KUB X-Ray 01/22/23 05:40 IMPRESSION: There are no acute abdominal findings. Laboratory Results WBC 7.4 10^3/uL (4.0-10.0) 01/22/23 06:00 RBC 4.40 10^6/uL (4.1-5.3) 01/22/23 06:00 Hgb 10.6 g/dL (11.5-15.3) L 01/22/23 06:00 Hct 35.5 % (37.0-47.0) L 01/22/23 06:00 MCV 80.7 fl (81-99) L 01/22/23 06:00 MCH 24.1 pg (28.0-34.0) L 01/22/23 06:00 MCHC 29.9 g/dL (30.0-36.0) L 01/22/23 06:00 RDW 17.6 % (12.1-15.1) H 01/22/23 06:00 Plt Count 232 10^3/cmm (130-400) 01/22/23 06:00 MPV 11.0 fL (7.4-10.4) H 01/22/23 06:00 Neut % (Auto) 56.8 % 01/22/23 06:00 Lymph % (Auto) 29.4 % 01/22/23 06:00 [place] % (Auto) 9.0 % 01/22/23 06:00 Eos % (Auto) 4.5 % 01/22/23 06:00 Baso % (Auto) 0.0 % 01/22/23 06:00 Neut # (Auto) 4.18 10^3/uL (1.8-7.7) 01/22/23 06:00 Lymph # (Auto) 2.2 10^3/uL (0.8-4.8) 01/22/23 06:00 [place] # (Auto) 0.7 10^3/uL (0.2-0.9) 01/22/23 06:00 Eos # (Auto) 0.3 10^3/uL (0.0-0.8) 01/22/23 06:00 Baso # (Auto) 0.0 10^3/uL (0.0-0.1) 01/22/23 06:00 Nucleated RBC % (auto) 0 % 01/22/23 06:00 Nucleated RBCs # 0.0 /100WBC 01/22/23 06:00 Sodium 136 mmol/L (136-145) 01/22/23 06:00 Potassium 4.0 mmol/L (3.5-5.1) 01/22/23 06:00 Chloride 105 mmol/L (98-107) 01/22/23 06:00 Carbon Dioxide 19 mmol/L (22-29) L 01/22/23 06:00 Anion Gap 16.0 (5-19) 01/22/23 06:00 BUN 12 mg/dL (8-23) 01/22/23 06:00 Creatinine 0.6 mg/dL (0.5-0.9) 01/22/23 06:00 GFR Calculation Not Reportable 01/22/23 06:00 Glucose 109 mg/dL (65-115) 01/22/23 06:00 Calculated Osmolality 282 mOsm/kg (285-295) L 01/22/23 06:00 Lactic Acid 1.4 mmol/L (0.5-2.2) 01/22/23 06:00 Calcium 8.9 mg/dL (8.5-10.5) 01/22/23 06:00 Total Bilirubin 0.2 mg/dL (0.15-1.2) 01/22/23 06:00 AST 15 U/L (0-32) 01/22/23 06:00 ALT 9 U/L (0-33) 01/22/23 06:00 Alkaline Phosphatase 52 U/L (35-105) 01/22/23 06:00 C-Reactive Protein 3.0 mg/L (0.0-4.9) 01/22/23 06:00 Total Protein 6.3 g/dL (6.6-8.7) L 01/22/23 06:00 Albumin 3.9 g/dL (3.5-5.2) 01/22/23 06:00 Globulin 2.4 g/dL (1.3-4.6) 01/22/23 06:00 Urine Color Colorless (Yellow) 01/22/23 08:20 Urine Appearance Clear (CLEAR) 01/22/23 08:20 Urine pH 5 (5-7) 01/22/23 08:20 Ur Specific [place] 1.010 (1.005-1.030) 01/22/23 08:20 Urine Protein Neg (Negative) 01/22/23 08:20 Urine Glucose (UA) Norm (Normal) 01/22/23 08:20 Urine Ketones Negative (Negative) 01/22/23 08:20 Urine Blood Neg (Negative) 01/22/23 08:20 Urine Nitrate Negative (Negative) 01/22/23 08:20 Urine Bilirubin Neg (Negative) 01/22/23 08:20 Urine Urobilinogen Norm mg/dL (Negative) 01/22/23 08:20 Ur Leukocyte Esterase Negative (Negative) 01/22/23 08:20 Discharge Plan Discharge Patient Disposition: Home Clinical Impression: Fall, Contusion of right shoulder Condition: Stable Prescriptions: No Action hydrochlorothiazide 12.5 mg tablet 12.5 mg PO DAILY PRN (Reason: leg swelling) Qty: 30 6RF Hold Instructions: Resume on 01/13/23. trazodone 100 mg tablet 150 mg PO BEDTIME@20 Qty: 135 0RF risperidone 1 mg tablet 1 mg PO BID Qty: 180 0RF (DME) DME: Walker Unit See Rx Instructions .Route Qty: 1 0RF Rx Instructions: As directed benzonatate 100 mg capsule 100 mg PO TID PRN (Reason: cough) Qty: 30 0RF Prevalite 4 gram powder See Rx Instructions .ROUTE .COMPLEX Qty: 231 3RF Dose Instruction: take FOUR grams BY MOUTH TWICE DAILY * administer with a meal: AVOID other meds WITHIN ONE hour before or 4-6 hours AFTER DOSE * Rx Instructions: take FOUR grams BY MOUTH TWICE DAILY * administer with a meal: AVOID other meds WITHIN ONE hour before or 4-6 hours AFTER DOSE * loperamide 2 mg capsule See Rx Instructions .ROUTE .COMPLEX Qty: 720 0RF Dose Instruction: TAKE TWO CAPSULES BY MOUTH FOUR TIMES DAILY Rx Instructions: TAKE TWO CAPSULES BY MOUTH FOUR TIMES DAILY acetaminophen 650 mg Tablet Extended Release 650 mg PO Q12H aspirin 325 mg Tablet 325 mg PO QAM Hold Instructions: Resume on 07/10/22. memantine 10 mg tablet 10 mg PO BID calcium citrate-vitamin D3 [Calcium Citrate + D] 315 mg-5 mcg (200 unit) Tablet 1 tab PO QAM ferrous sulfate [iron] 325 mg (65 mg iron) Tablet 325 mg PO QPM magnesium oxide 400 mg magnesium Tablet 400 mg PO DAILY rivastigmine tartrate 3 mg capsule 3 mg PO BID Metamucil 0.4 gram Capsule 0.4 g PO DAILY@17 enalapril maleate 5 mg tablet 2.5 mg PO QAM sertraline 100 mg tablet 100 mg PO QAM Zyprexa 5 mg tablet 5 mg PO DAILY@17 pantoprazole 40 mg tablet,delayed release (DR/EC) 40 mg PO BID sodium chloride 1,000 mg tablet,soluble 500 mg PO BID@08,12 ciprofloxacin HCl 500 mg tablet 500 mg PO Q12H Qty: 14 0RF Discharge Orders: Discharge ED (Routine); Ordered 01/22/23 Ordered By: Demetris Khan Referrals: Judith Dennis MD [Primary Care Provider] - Discharge Diet: Usual diet Discharge Activity: Increase activity as tolerated Patient Instructions: Opioid Safety, Pain Management Sign Out Sign Out Data: Patient Sign Out occurred on 01/22/23 at 07:00. Patient's care was discussed, and care was transferred from to Demetris Khan DO. Coding Level of Care Code ED [employer] Wafer Inspector for Chg Fwd Documented by User: Demetris Khan DO 01/22/23 13:04 HPI - Extremity Problem General: Chief complaint: Extremity Injury, Upper Stated complaint: SHOULDER PAIN Time Seen by Provider: 01/22/23 05:24 PFSH ED PFSH: Medical History Abnormal ankle brachial index (PATRICIA) 02/05/21 Acid reflux disease Allergic rhinitis due to allergen Anxiety Aortic valve regurgitation Carotid artery stenosis, asymptomatic Colitis Dementia Depressed mood Diarrhea Diverticulosis Fatty infiltration of liver Generalized anxiety disorder Heart disease Helicobacter pylori gastritis Hiatal hernia with GERD History of nonmelanoma skin cancer Hypertension Hyponatremia Incomplete bladder emptying Intermittent palpitations Ischemic colitis Mitral valve disease Osteopenia PAD (peripheral artery disease) Pancolitis Postmenopausal Proctocolitis Psychiatric care Umbilical hernia Surgical History History of cholecystectomy History of colonoscopy History of esophagogastroduodenoscopy (EGD) History of fusion of cervical spine acdf c4-6 History of fusion of lumbar spine L4-5 History of hysterectomy Family History Father , in his 70's Cancer CAD (coronary artery disease) Brother CAD (coronary artery disease) Mother , at age 79 Heart disease Other Diabetes Hypertension Denies family history of Anesthesia complication Bleeding disorder Social History Smoking and tobacco status: never smoked Second hand smoke exposure: No Smoking risk assessment/counseling performed?: No Alcohol intake: never Desire information about alcohol rehabilitation?: No Counseling given: No Substance/Drug Use: never Desire information about substance/drug rehabilitation?: No Counseling given: No Lives independently: No Household members: none Marital status: / Current occupational status: retired Physical Exam Neuro: MADHU COMA SCALE: document GCS findings [place] coma scale total score: 15 Course Vital Signs: Vital signs: Vital Signs Temperature 97.5 F L 01/22/23 05:20 Pulse Rate 88 01/22/23 09:44 Respiratory Rate 18 01/22/23 09:44 Blood Pressure 138/72 01/22/23 09:44 Pulse Oximetry 94 01/22/23 09:44 Oxygen Delivery Me thod Room Air 01/22/23 09:01 MDM - Extremity (Nontraumatic) Medical Decision Making This young lady has had 2 loose stools here. Her hemoglobin is 10.6 which is stable. White blood cell count is 7.4. CRP is 3. Bicarbonate level is 19. Her creatinine is 0.6. KUB reveals retained stool. Shoulder x-ray is negative. She is slightly hypertensive with a blood pressure of 160 systolic. I am reminded by her guardian that this is quite high for her. I have ordered stool for C. difficile and lactoferrin. Urinalysis is pending. With the amount of retained stool she has on x-ray, encopresis is on the differential Care assumed at change of shift from Dr. Jones. He had prepared the discharge we are waiting on urine urine was negative. Dr. Jones had expressed that family was concerned about syncopal episode I reviewed the chart she is previous had an echo and carotids within the last year that were negative prior to that she had a Holter that did not show any arrhythmias. We will repeat those tests for further syncope both causes. Patient is awake and alert at this time and without symptoms. Family declined to allow repeat exam prior to discharge. Medical Records I reviewed the patient's medical records. Lab Data I reviewed the patient's lab results. 01/22/23 06:00 01/22/23 06:00 Radiology Impressions Shoulder X-Ray 01/22/23 05:27 IMPRESSION: Osteoarthritic changes seen in the right acromioclavicular joint. KUB X-Ray 01/22/23 05:40 IMPRESSION: There are no acute abdominal findings. Laboratory Results WBC 7.4 10^3/uL (4.0-10.0) 01/22/23 06:00 RBC 4.40 10^6/uL (4.1-5.3) 01/22/23 06:00 Hgb 10.6 g/dL (11.5-15.3) L 01/22/23 06:00 Hct 35.5 % (37.0-47.0) L 01/22/23 06:00 MCV 80.7 fl (81-99) L 01/22/23 06:00 MCH 24.1 pg (28.0-34.0) L 01/22/23 06:00 MCHC 29.9 g/dL (30.0-36.0) L 01/22/23 06:00 RDW 17.6 % (12.1-15.1) H 01/22/23 06:00 Plt Count 232 10^3/cmm (130-400) 01/22/23 06:00 MPV 11.0 fL (7.4-10.4) H 01/22/23 06:00 Neut % (Auto) 56.8 % 01/22/23 06:00 Lymph % (Auto) 29.4 % 01/22/23 06:00 [place] % (Auto) 9.0 % 01/22/23 06:00 Eos % (Auto) 4.5 % 01/22/23 06:00 Baso % (Auto) 0.0 % 01/22/23 06:00 Neut # (Auto) 4.18 10^3/uL (1.8-7.7) 01/22/23 06:00 Lymph # (Auto) 2.2 10^3/uL (0.8-4.8) 01/22/23 06:00 [place] # (Auto) 0.7 10^3/uL (0.2-0.9) 01/22/23 06:00 Eos # (Auto) 0.3 10^3/uL (0.0-0.8) 01/22/23 06:00 Baso # (Auto) 0.0 10^3/uL (0.0-0.1) 01/22/23 06:00 Nucleated RBC % (auto) 0 % 01/22/23 06:00 Nucleated RBCs # 0.0 /100WBC 01/22/23 06:00 Sodium 136 mmol/L (136-145) 01/22/23 06:00 Potassium 4.0 mmol/L (3.5-5.1) 01/22/23 06:00 Chloride 105 mmol/L (98-107) 01/22/23 06:00 Carbon Dioxide 19 mmol/L (22-29) L 01/22/23 06:00 Anion Gap 16.0 (5-19) 01/22/23 06:00 BUN 12 mg/dL (8-23) 01/22/23 06:00 Creatinine 0.6 mg/dL (0.5-0.9) 01/22/23 06:00 GFR Calculation Not Reportable 01/22/23 06:00 Glucose 109 mg/dL (65-115) 01/22/23 06:00 Calculated Osmolality 282 mOsm/kg (285-295) L 01/22/23 06:00 Lactic Acid 1.4 mmol/L (0.5-2.2) 01/22/23 06:00 Calcium 8.9 mg/dL (8.5-10.5) 01/22/23 06:00 Total Bilirubin 0.2 mg/dL (0.15-1.2) 01/22/23 06:00 AST 15 U/L (0-32) 01/22/23 06:00 ALT 9 U/L (0-33) 01/22/23 06:00 Alkaline Phosphatase 52 U/L (35-105) 01/22/23 06:00 C-Reactive Protein 3.0 mg/L (0.0-4.9) 01/22/23 06:00 Total Protein 6.3 g/dL (6.6-8.7) L 01/22/23 06:00 Albumin 3.9 g/dL (3.5-5.2) 01/22/23 06:00 Globulin 2.4 g/dL (1.3-4.6) 01/22/23 06:00 Urine Color Colorless (Yellow) 01/22/23 08:20 Urine Appearance Clear (CLEAR) 01/22/23 08:20 Urine pH 5 (5-7) 01/22/23 08:20 Ur Specific [place] 1.010 (1.005-1.030) 01/22/23 08:20 Urine Protein Neg (Negative) 01/22/23 08:20 Urine Glucose (UA) Norm (Normal) 01/22/23 08:20 Urine Ketones Negative (Negative) 01/22/23 08:20 Urine Blood Neg (Negative) 01/22/23 08:20 Urine Nitrate Negative (Negative) 01/22/23 08:20 Urine Bilirubin Neg (Negative) 01/22/23 08:20 Urine Urobilinogen Norm mg/dL (Negative) 01/22/23 08:20 Ur Leukocyte Esterase Negative (Negative) 01/22/23 08:20 Discharge Plan Discharge Patient Disposition: Home Clinical Impression: Fall, Contusion of right shoulder Condition: Stable Prescriptions: No Action hydrochlorothiazide 12.5 mg tablet 12.5 mg PO DAILY PRN (Reason: leg swelling) Qty: 30 6RF Hold Instructions: Resume on 01/13/23. trazodone 100 mg tablet 150 mg PO BEDTIME@20 Qty: 135 0RF risperidone 1 mg tablet 1 mg PO BID Qty: 180 0RF (DME) DME: Walker Unit See Rx Instructions .Route Qty: 1 0RF Rx Instructions: As directed benzonatate 100 mg capsule 100 mg PO TID PRN (Reason: cough) Qty: 30 0RF Prevalite 4 gram powder See Rx Instructions .ROUTE .COMPLEX Qty: 231 3RF Dose Instruction: take FOUR grams BY MOUTH TWICE DAILY * administer with a meal: AVOID other meds WITHIN ONE hour before or 4-6 hours AFTER DOSE * Rx Instructions: take FOUR grams BY MOUTH TWICE DAILY * administer with a meal: AVOID other meds WITHIN ONE hour before or 4-6 hours AFTER DOSE * loperamide 2 mg capsule See Rx Instructions .ROUTE .COMPLEX Qty: 720 0RF Dose Instruction: TAKE TWO CAPSULES BY MOUTH FOUR TIMES DAILY Rx Instructions: TAKE TWO CAPSULES BY MOUTH FOUR TIMES DAILY acetaminophen 650 mg Tablet Extended Release 650 mg PO Q12H aspirin 325 mg Tablet 325 mg PO QAM Hold Instructions: Resume on 07/10/22. memantine 10 mg tablet 10 mg PO BID calcium citrate-vitamin D3 [Calcium Citrate + D] 315 mg-5 mcg (200 unit) Tablet 1 tab PO QAM ferrous sulfate [iron] 325 mg (65 mg iron) Tablet 325 mg PO QPM magnesium oxide 400 mg magnesium Tablet 400 mg PO DAILY rivastigmine tartrate 3 mg capsule 3 mg PO BID Metamucil 0.4 gram Capsule 0.4 g PO DAILY@17 enalapril maleate 5 mg tablet 2.5 mg PO QAM sertraline 100 mg tablet 100 mg PO QAM Zyprexa 5 mg tablet 5 mg PO DAILY@17 pantoprazole 40 mg tablet,delayed release (DR/EC) 40 mg PO BID sodium chloride 1,000 mg tablet,soluble 500 mg PO BID@08,12 ciprofloxacin HCl 500 mg tablet 500 mg PO Q12H Qty: 14 0RF Discharge Orders: Discharge ED (Routine); Ordered 01/22/23 Ordered By: Demetris Khan Referrals: Judith Dennis MD [Primary Care Provider] - Discharge Diet: Usual diet Discharge Activity: Increase activity as tolerated Patient Instructions: Opioid Safety, Pain Management Sign Out Sign Out Data: Patient Sign Out occurred on 01/22/23 at 07:00. Patient's care was discussed, and care was transferred from to Demetris Khan DO. Coding Level of Care Code ED [employer] Wafer Inspector for Aliya Coelho
[2023-01-22 06:00] VITALS: BP 153/79; PULSE 61; RESP 16; O2SAT 92
[2023-01-22] MEDS: sodium chloride 0.9% 500 ML IV (06:04)
[2023-01-22 06:06] LABS: Eosinophils # 0.3 10^3/uL (0.0-0.8); Eosinophils % 4.5 %; Hematocrit 35.5 % (37.0-47.0); Hemoglobin 10.6 g/dL (11.5-15.3); Lymphocytes # 2.2 10^3/uL (0.8-4.8); Lymphocytes % 29.4 %; Mean Corpuscular HGB Conc 29.9 g/dL (30.0-36.0); Mean Corpuscular Hemoglobin 24.1 pg (28.0-34.0); Mean Corpuscular Volume 80.7 fl (81-99); Monocytes # 0.7 10^3/uL (0.2-0.9); Neutrophils # 4.18 10^3/uL (1.8-7.7); Neutrophils % 56.8 %; Nucleated Red Blood Cells % 0 %; Platelet Count 232 10^3/cmm (130-400); Red Cell Distribution Width 17.6 % (12.1-15.1); White Blood Count 7.4 10^3/uL (4.0-10.0)
[2023-01-22 06:26] LABS: Alanine Aminotransferase 9 U/L (0-33); Albumin Level 3.9 g/dL (3.5-5.2); Alkaline Phosphatase 52 U/L (35-105); Aspartate Amino Transferase 15 U/L (0-32); Blood Urea Nitrogen 12 mg/dL (8-23); Calcium 8.9 mg/dL (8.5-10.5); Carbon Dioxide 19 mmol/L (22-29); Chloride 105 mmol/L (98-107); Creatinine Clr Calc Pharmacy 45.8325; Globulin 2.4 g/dL (1.3-4.6); Glucose 109 mg/dL (65-115); Osmolality Calculated 282 mOsm/kg (285-295); Sodium 136 mmol/L (136-145); Total Bilirubin 0.2 mg/dL (0.15-1.2); Total Protein 6.3 g/dL (6.6-8.7)
[2023-01-22 06:27] LABS: Lactic Sepsis W/Reflex 1.4 mmol/L (0.5-2.2)
[2023-01-22] MEDS: enalaprilat 1.25 mg/mL Inj IVP (06:47)
[2023-01-22 08:27] LABS: Add Urine Microscopic? NO; Charge for UA Resulting for Rev
[2023-01-22 08:31] LABS: Urine Appearance Clear (CLEAR); Urine Color Colorless (Yellow)
[2023-01-22 08:32] LABS: Bilirubin Urine Neg (Negative); Blood Urine Neg (Negative); Glucose Urine UA Norm (Normal); Ketones Urine Negative (Negative); Leukocyte Esterase Urine Negative (Negative); Nitrate Urine Negative (Negative); Protein Urine Neg (Negative); Urobilinogen Urine Norm (Negative); pH Urine 5 (5-7)
[2023-01-22 09:01] VITALS: BP 136/67; PULSE 62; RESP 17; O2SAT 94
[2023-01-22 09:44] VITALS: BP 138/72; PULSE 88; RESP 18; O2SAT 94
--- NOTE | 2023-01-24 13:57 | DCPLANNER ---
Addendum entered by Latisha Beal 02/24/23 13:46: Patient attended appointments scheduled for an echo, carotid and the appointment at [facility]. Addendum entered by Latisha Beal 01/25/23 14:49: Patient has a follow up appointment scheduled for Tuesday, February 16, 2023 at 10:00 at [facility]. Original Note: manager pulmonary had message to schedule an outpatient echo and carotid for patient. manager pulmonary faxed signed order to centralized scheduling, who will call patient with appointment information. manager pulmonary had message to schedule an out patient halter monitor for patient. manager pulmonary faxed order to [facility], who will call patient with appointment information.
== END 2023-01-22 09:52 | disposition home or self-care (01) ==
PROVIDERS: Emergency Medicine; Emergency Provider Family Medicine; PCP Family Medicine
DX: S40.011A Contusion of right shoulder, initial encounter (principal); Z79.82 Long term (current) use of aspirin; F03.90 Unspecified dementia, unspecified severity, without behavioral disturbance, psychotic disturbance, mood disturbance, and anxiety; I10 Essential (primary) hypertension; W19.XXXA Unspecified fall, initial encounter
CPT/HCPCS: 51701; 73030; 74018; 80053; 81003; 83605; 83630; 85025; 86140; 87493; 96374; 99284; J3490; J7040

== ENCOUNTER 2023-02-11 11:41 | Outpatient (CLI) | payer MEDICARE, OTHER, SELFPAY ==
--- NOTE | 2023-02-11 11:50 | USCV_ITS ---
Aarti Melchor Age: 82 Gender: F : 1940 Exam Date: 02/11/2023 12:05 Ordering Phys: Demetris Khan DO Technologist: MELISSA Exam Location: [facility] [place] Indication: Syncope Risk Factors: Previous Vascular Surgery: Right Brachial BP: / Left Brachial BP: / Right Left Velocity (cm/s) Spectral Plaque Velocity (cm/s) Spectral Plaque Syst/Diast Broadening Syst/Diast Broadening 74.10/ 12.20 Prox CCA 57.10 / 12.30 60.00/ 10.30 Mid CCA 80.00 / 21.00 55.90/ 10.50 Distal CCA 69.90 / 13.20 37.40/ 6.90 Prox ICA 51.80 / 12.30 56.10/ 16.90 Mid ICA 49.90 / 14.70 59.30/ 17.10 Distal ICA 81.50 / 24.30 49.10 ECA 118.30 0.80 ICA/CCA 1.02 Antegrade Vertebral Antegrade 61.10/ 16.40 cm/s 38.10/ 7.20 cm/s Tri Subclavian Bi 64.90 81.20 CONCLUSIONS Right ICA stenosis <50%. Mild atheromatous plaque right carotid bulb/ICA. Left ICA stenosis <50%. Mild atheromatous plaque left carotid bulb/ICA. Normal antegrade Doppler flow noted in the right vertebral artery. Normal antegrade Doppler flow noted in the left vertebral artery. Kamari Gaitan MD (Electronically Signed) Final Date: 11 February 2023 16:08 S
--- NOTE | 2023-02-11 11:50 | USCV_ITS ---
Aarti Melchor Age: 82 Gender: F : 1940 Exam Date: 02/11/2023 12:29 Ordering Phys: Demetris Khan DO Technologist: VICTOR M [place] [facility] [place]: SYNCOPE BP: 128 / 64 HR: 60 Rhythm: Sinus Technical Quality: Adequate MEASUREMENTS (Male / Female) Normal Values 2D ECHO LVOT Diameter 2.0 cm LV Ejection Fraction MOD 2C 61.8 % LV Ejection Fraction 2C AL 62.3 % LA Diameter 3.2 cm LA Width 2.8 cm LA Height 4.1 cm RA Width 2.6 cm RA Height 4.5 cm Aorta at Sinotubular Diameter 2.5 cm M-MODE Aortic Annulus Diameter 2.3 cm LA Ao Ratio MM 1.2 MV E Point Septal Separation 0.8 cm DOPPLER AV Peak Velocity 111.0 cm/s LVOT Peak Velocity 102.0 cm/s AV Area Cont Eq vti 2.7 cm squared AV Area Cont Eq pk 2.9 cm squared MV Peak Velocity 120.0 cm/s MV Area PHT 2.8 cm squared Mitral E to A Ratio 0.6 MV E' Velocity 38.0 cm/s Mitral E to MV E' Ratio 8.1 Mitral E to LV E' Lateral Ratio 9.4 Mitral E to LV E' Septal Ratio 7.1 TR Peak Velocity 234.3 cm/s TR Peak Gradient 22.0 mmHg TR Mean Velocity 189.0 cm/s TR Mean Gradient 15.1 mmHg TR Velocity Time Integral 78.0 cm TV Peak E Velocity 40.0 cm/s PV Peak Velocity 111.0 cm/s RV Acceleration Time 0.1 s RV Ejection Time 0.3 s RV AcT/ET 0.3 FINDINGS Left Ventricle Left ventricle is normal in size. LV systolic function is normal with EF 60-65%. No regional wall motion abnormalities are seen. Grade 1 diastolic dysfunction Right Ventricle Normal in size and function Right Atrium Normal in size Left Atrium Normal in size Mitral Valve Mild mitral annular calcification seen. Trace mitral regurgitation Aortic Valve Aortic valve is thickened. Mild aortic regurgitation. No aortic stenosis. Tricuspid Valve Trace tricuspid regurgitation. Pulmonary artery systolic pressure is normal. Pulmonic Valve Not well-visualized. Pericardium Normal Aorta Normal in size IVC Appears to be normal CONCLUSIONS LV systolic function is normal with EF of 55 to 60%. Grade 1 diastolic dysfunction Trace mitral regurgitation Mild aortic regurgitation Trace tricuspid regurgitation Compared to prior echocardiogram from 2021, no significant changes are seen. David Moran MD (Electronically Signed) Final Date: 11 February 2023 14:42 S
== END 2023-02-11 11:42 | disposition home or self-care (01) ==
PROVIDERS: PCP Family Medicine; Visit Provider Family Medicine
DX: R55 Syncope and collapse (principal); I35.1 Nonrheumatic aortic (valve) insufficiency; I51.89 Other ill-defined heart diseases; I65.23 Occlusion and stenosis of bilateral carotid arteries
CPT/HCPCS: 93306; 93880

== ENCOUNTER 2023-02-12 20:02 | Emergency (ER) | payer MEDICARE, OTHER, SELFPAY ==
[2023-02-12 20:02] VITALS: BMI 22.8
[2023-02-12 20:04] VITALS: BP 147/78; PULSE 65; RESP 16; O2SAT 92
--- NOTE | 2023-02-12 20:30 | CTR_ITS ---
PROCEDURE INFORMATION: Exam: CT Head Without Contrast Exam date and time: 02/12/2023 8:41 PM Age: 82 years old Clinical indication: Injury or trauma; Fall; Blunt trauma (contusions or hematomas); Patient HX: Patient fell at home. C/O head and neck pain. History of dementia. ; Additional info: Fall head inj TECHNIQUE: Imaging protocol: Computed tomography of the head without contrast. Radiation optimization: All CT scans at this facility use at least one of these dose optimization techniques: automated exposure control; mA and/or kV adjustment per patient size (includes targeted exams where dose is matched to clinical indication); or iterative reconstruction. REPORTING DATA: Count of CT and Cardiac NM exams in prior 12 months: This patient has received 5 known CTs and 0 known cardiac nuclear medicine studies in the 12 months prior to the current study. COMPARISON: MR head wo con* [id number] 12/23/2022 5:57 PM RADIATION DOSE METRICS: Total DLP (mGy-cm): 958.08 FINDINGS: Brain: Moderate diffuse cortical volume loss. Moderate hypodensities in supratentorial periventricular and subcortical white matter, consistent with microangiopathy. No intracranial hemorrhage. Cerebral ventricles: No ventriculomegaly. Paranasal sinuses: Visualized sinuses are unremarkable. No fluid levels. Mastoid air cells: Visualized mastoid air cells are well aerated. Orbital cavities: Cataract surgery. Bones/joints: Unremarkable. No acute fracture. Soft tissues: Unremarkable. Vasculature: No hyperdense artery. CT/CT head wo con* [id number] IMPRESSION: 1. No acute intracranial abnormality.
--- NOTE | 2023-02-12 20:30 | CTR_ITS ---
PROCEDURE INFORMATION: Exam: CT Cervical Spine Without Contrast Exam date and time: 02/12/2023 8:43 PM Age: 82 years old Clinical indication: Injury or trauma; Fall; Blunt trauma; Prior surgery; Surgery date: 6+ months; Surgery type: Cervical fusion; Patient HX: Patient fell at home. C/O head and neck pain. History of dementia. ; Additional info: Fall neck pain TECHNIQUE: Imaging protocol: Computed tomography of the cervical spine without contrast. Radiation optimization: All CT scans at this facility use at least one of these dose optimization techniques: automated exposure control; mA and/or kV adjustment per patient size (includes targeted exams where dose is matched to clinical indication); or iterative reconstruction. REPORTING DATA: Count of CT and Cardiac NM exams in prior 12 months: This patient has received 5 known CTs and 0 known cardiac nuclear medicine studies in the 12 months prior to the current study. COMPARISON: CR XR cervical spine 3V* [id number] 06/05/2020 10:49 AM RADIATION DOSE METRICS: Total DLP (mGy-cm): 138.77 FINDINGS: Bones/joints: The vertebral body stature is maintained. No fracture. Anterior mechanical and bony fusion of C4-C6. 3 mm degenerative anterior subluxation C6 on C7. Trace degenerative anterior subluxations of C2 on C3 and C3 on C4. Facets are intact with hypertrophic degenerative changes, greatest at C6-C7. Degenerative pannus around the odontoid process. Small posterior disc bulge at C3-C4 without central canal stenosis. Bilateral bony foraminal stenosis at C4-C5 and C5-C6. Lungs: Lung apices are normal. Soft tissues: Unremarkable. CT/CT cervical spin wo con* [id number] IMPRESSION: 1. No fracture or acute finding. 2. Intact anterior fusion of C4-C6. 3. Degenerative changes as described.
--- NOTE | 2023-02-12 20:30 | XRR_ITS ---
PROCEDURE INFORMATION: Exam: XR Chest Exam date and time: 02/12/2023 9:13 PM Age: 82 years old Clinical indication: Injury or trauma; Fall; Blunt trauma (contusions or hematomas); Additional info: Fall at home TECHNIQUE: Imaging protocol: Radiologic exam of the chest. Views: 1 view. COMPARISON: CR XR chest 1V portable [id number] 09/12/2022 9:30 PM FINDINGS: Lungs: No consolidation. Pleural spaces: No pleural effusion. No pneumothorax. Heart/Mediastinum: No cardiomegaly. Bones/joints: Mild degenerative spine changes are noted. XR/XR chest 1V portable [id number] IMPRESSION: 1. No acute abnormality demonstrated. 2. There is no interval change from the prior examination.
--- NOTE | 2023-02-12 20:30 | XRR_ITS ---
PROCEDURE INFORMATION: Exam: XR Pelvis Exam date and time: 02/12/2023 9:13 PM Age: 82 years old Clinical indication: Injury or trauma; Fall; Other: Pelvic pain TECHNIQUE: Imaging protocol: Radiologic exam of the pelvis. Views: 1 or 2 view. COMPARISON: CT abdomen pelvis w con* [id number] 01/05/2023 2:07 PM FINDINGS: Bones/joints: Postop change of the lower lumbar spine. Hardware appears intact. No acute fracture or other acute osseous abnormality. Soft tissues: The soft tissues are unremarkable as demonstrated. XR/XR pelvis 1-2V* [id number] IMPRESSION: No acute fracture demonstrated.
--- NOTE | 2023-02-12 21:14 | W.ED.FALL ---
HPI - Fall General: Chief Complaint: Fall Stated Complaint: Fall Time Seen by Provider: 02/12/23 20:11 Source: patient History of Present Illness: 82-year-old female who lives at home with her granddaughter. She fell in the bathroom this evening, striking her head. She has mild posterior head pain. She is not on anticoagulants. She complains of some neck stiffness and pain as well. complaint: fall Onset (ago): minute(s) Fall from: standing Fall witnessed: yes, by family Place fall occurred: home Loss of consciousness: None Prolonged down time: no Context: tripped/slipped Location of injury: head and neck Associated symptoms-after fall: Reports headache(s); Denies abdominal pain or chest pain Review of Systems Const: Denies: fever(s) Card: Denies: chest pain Resp: Denies: dyspnea GI: Denies: abdominal pain or vomiting : Denies: difficulty voiding Neuro: Reports: headache(s) PFS ED PFSH: Medical History Abnormal ankle brachial index (PATRICIA) 02/05/21 Acid reflux disease Allergic rhinitis due to allergen Aortic valve regurgitation Carotid artery stenosis, asymptomatic Colitis Dementia Depressed mood Diarrhea Diverticulosis Fatty infiltration of liver Generalized anxiety disorder Heart disease Helicobacter pylori gastritis Hiatal hernia with GERD History of nonmelanoma skin cancer Hypertension Hyponatremia Incomplete bladder emptying Intermittent palpitations Ischemic colitis Mitral valve disease Osteopenia PAD (peripheral artery disease) Pancolitis Postmenopausal Proctocolitis Psychiatric care Umbilical hernia Surgical History History of cholecystectomy History of colonoscopy History of esophagogastroduodenoscopy (EGD) History of fusion of cervical spine acdf c4-6 History of fusion of lumbar spine L4-5 History of hysterectomy Family History Father , in his 70's Cancer CAD (coronary artery disease) Brother CAD (coronary artery disease) Mother , at age 79 Heart disease Other Diabetes Hypertension Denies family history of Anesthesia complication Bleeding disorder Social History Smoking and tobacco status: never smoked Second hand smoke exposure: No Smoking risk assessment/counseling performed?: No Alcohol intake: never Desire information about alcohol rehabilitation?: No Counseling given: No Substance/Drug Use: never Desire information about substance/drug rehabilitation?: No Counseling given: No Lives independently: No Household members: none Marital status: / Current occupational status: retired Physical Exam Const: COMMON NORMALS: no acute distress GENERAL APPEARANCE: cooperative and frail appearing (Mildly); not ill appearing HENMT: COMMON NORMALS: normocephalic and Normal external nose present HEAD & SCALP: normocephalic and contusion (Occipital scalp) FACE & SINUS: normal facial exam and face symmetric NOSE: Normal external nose present Eye: COMMON NORMALS: Equal, round and reactive pupils present and EOMs intact bilaterally PUPIL: Yes Equal, round and reactive pupils present Neck/C-Spine: GENERAL: Yes trachea midline Chest: CHEST: Yes Symmetrical chest wall rise Resp: COMMON NORMALS: normal respiratory effort, No retractions, No use of accessory muscles and clear to auscultation bilaterally AUSCULTATION: clear to auscultation bilaterally Cardio: COMMON NORMALS: regular rate and regular rhythm RATE: regular rate RHYTHM: regular rhythm GI: COMMON NORMALS: Normal to inspection, nondistended, normoactive bowel sounds present Extremity: COMMON NORMALS: no pedal edema Neuro: MADHU COMA SCALE: document GCS findings Madhu coma scale eye opening: Spontaneous Madhu coma scale verbal response: Orientated [place] coma scale motor response: [place] commands [place] coma scale total score: 15 SENSORY EXAM: Yes extremities (intact) Psych: COMMON NORMALS: speech normal SPEECH: Yes normal speech Skin: COMMON NORMALS: no rashes or lesions noted GENERAL SKIN EXAM: no rashes or lesions noted Course Vital Signs: Vital signs: Vital Signs Pulse Rate 61 02/12/23 22:00 Respiratory Rate 16 02/12/23 22:00 Blood Pressure 127/69 02/12/23 22:00 Pulse Oximetry 92 02/12/23 22:00 MDM - Fall Medical Decision Making X-rays and CT are negative. Vitals are stable here. Patient wishes to go home. She will be allowed discharge. Lab Data Radiology Impressions Cervical Spine CT 02/12/23 20:30 IMPRESSION: 1. No fracture or acute finding. 2. Intact anterior fusion of C4-C6. 3. Degenerative changes as described. Chest X-Ray 02/12/23 20:30 IMPRESSION: 1. No acute abnormality demonstrated. 2. There is no interval change from the prior examination. Head CT 02/12/23 20:30 IMPRESSION: 1. No acute intracranial abnormality. Pelvis X-Ray 02/12/23 20:30 IMPRESSION: No acute fracture demonstrated. Discharge Plan Discharge Patient Disposition: Home Clinical Impression: Fall, Contusion of scalp Condition: Stable Prescriptions: No Action hydrochlorothiazide 12.5 mg tablet 12.5 mg PO DAILY PRN (Reason: leg swelling) Qty: 30 6RF Hold Instructions: Resume on 01/13/23. (DME) DME: [facility] See Rx Instructions .Route Qty: 1 0RF Rx Instructions: As directed risperidone 1 mg tablet 1 mg PO BID Qty: 180 0RF sertraline 100 mg tablet 100 mg PO QAM Qty: 90 0RF trazodone 100 mg tablet 150 mg PO BEDTIME@20 Qty: 135 0RF olanzapine [Zyprexa] 5 mg tablet 5 mg PO DAILY@17 Qty: 90 0RF benzonatate 100 mg capsule 100 mg PO TID PRN (Reason: cough) Qty: 30 0RF loperamide 2 mg capsule See Rx Instructions .ROUTE .COMPLEX Qty: 720 0RF Dose Instruction: TAKE TWO CAPSULES BY MOUTH FOUR TIMES DAILY Rx Instructions: TAKE TWO CAPSULES BY MOUTH FOUR TIMES DAILY Prevalite 4 gram powder See Rx Instructions .ROUTE .COMPLEX Qty: 231 3RF Dose Instruction: take FOUR grams BY MOUTH TWICE DAILY * administer with a meal: AVOID other meds WITHIN ONE hour before or 4-6 hours AFTER DOSE * Rx Instructions: take FOUR grams BY MOUTH TWICE DAILY * administer with a meal: AVOID other meds WITHIN ONE hour before or 4-6 hours AFTER DOSE * acetaminophen 650 mg Tablet Extended Release 650 mg PO Q12H aspirin 325 mg Tablet 325 mg PO QAM Hold Instructions: Resume on 07/10/22. memantine 10 mg tablet 10 mg PO BID calcium citrate-vitamin D3 [Calcium Citrate + D] 315 mg-5 mcg (200 unit) Tablet 1 tab PO QAM ferrous sulfate [iron] 325 mg (65 mg iron) Tablet 325 mg PO QPM magnesium oxide 400 mg magnesium Tablet 400 mg PO DAILY rivastigmine tartrate 3 mg capsule 3 mg PO BID Metamucil 0.4 gram Capsule 0.4 g PO DAILY@17 enalapril maleate 5 mg tablet 2.5 mg PO QAM pantoprazole 40 mg tablet,delayed release (DR/EC) 40 mg PO BID sodium chloride 1,000 mg tablet,soluble 500 mg PO BID@08,12 Discharge Orders: Discharge ED (Routine); Ordered 02/12/23 Ordered By: Zoltan Jones Referrals: Judith Dennis MD [Primary Care Provider] - 4-7 days Patient Instructions: Scalp Contusion in Adults (ED) Activity Restrictions/Additional Instructions: Return for worsening headache, mental status changes, vomiting, fever, any other concerning symptoms. Coding Level of Care Code ED Product Support Engineer for Aliya Coelho
[2023-02-12 22:00] VITALS: BP 127/69; PULSE 61; RESP 16; O2SAT 92
== END 2023-02-12 22:17 | disposition home or self-care (01) ==
PROVIDERS: Emergency Provider Emergency Medicine; PCP Family Medicine
DX: S00.03XA Contusion of scalp, initial encounter (principal); Z79.82 Long term (current) use of aspirin; F03.90 Unspecified dementia, unspecified severity, without behavioral disturbance, psychotic disturbance, mood disturbance, and anxiety; I10 Essential (primary) hypertension; W19.XXXA Unspecified fall, initial encounter
CPT/HCPCS: 70450; 71045; 72125; 72170; 99284

== ENCOUNTER 2023-03-14 13:50 | Observation (INO) | payer MEDICARE, OTHER, SELFPAY ==
[2023-03-14] VITALS (12 sets, daily range): BP systolic 96–154; BP diastolic 44–78; PULSE 58–70; RESP 16–18; TEMP 36.7–36.9; O2SAT 91–98; BMI 21.9
--- NOTE | 2023-03-14 13:59 | CT_ITS ---
WS: [id number] CT HEAD NONCONTRAST HISTORY: AMS TECHNIQUE: Contiguous axial imaging performed through the brain in 2.5 mm imaging. Bone and soft tiss ue windows. Sagittal and coronal reformats reviewed. All CT scans at [facility] use at least one of these dose optimization techniques: automated exposure control; mA and/or kV adjustment per pa tient size (includes targeted exams where dose is matched to clinical indication); or iterative recon struction. DLP: 1010.38 mGy.cm COMPARISON: 02/12/2023 No acute intracranial hemorrhage, midline shift or mass effect. Mild atrophy with moderate small vessel ischemic disease. No prior infarct. No significant progressio n of disease. Ventricles: Normal size with no hydrocephalus. Paranasal sinuses: As visualized are clear. Mastoid air cells: Well pneumatized. Calvarium and scalp: Skull is intact with no soft tissue edema or swelling. IMPRESSION: 1. No acute intracranial hemorrhage or edema. 2. Mild atrophy and moderate small vessel ischemic disease.
--- NOTE | 2023-03-14 14:01 | XR_ITS ---
WS: [id number] Exam: XR chest 1V portable [id number] Date/Time of Exam: 03/14/2023 2:03 PM Reason For Exam: dyspnea/cough Comparison 02/12/2023. Diffuse interstitial infiltrates are noted that may represent interstitial pneumonia or pulmonary pebbles ma. Probable small LEFT pleural effusion. Cardiomediastinal silhouette is unremarkable. Regional bony elements are intact. Hardware partially visualized in the lower C-spine. Monitoring leads superimpos e the chest. IMPRESSION: 1. Diffuse interstitial infiltrates noted throughout both lungs that may represent interstitial pneum onia or pulmonary edema. 2. Probable small LEFT pleural effusion.
--- NOTE | 2023-03-14 14:06 | ECG_ITS ---
[facility] Test Date: 2023-03-14 Pat Name: Aarti Melchor Department: Room: Gender: Female Form Builder: : [id number] Requested By: Fredi Curran Order Number: [id number] Mita MD: David Moran M.D. Measurements Intervals Holder Rate: 60 P: 43 AR: 227 QRS: 20 QRSD: 82 T: 64 QT: 420 QTc: 420 Interpretive Statements SINUS RHYTHM WITH FIRST DEGREE AV BLOCK LOW QRS VOLTAGE IN PRECORDIAL LEADS [QRS DEFLECTION < 1.0 mV IN CHEST LEADS] SEPTAL MYOCARDIAL INFARCTION , OF INDETERMINATE AGE [40+ ms Q WAVE IN V1/V2] INTERPRETATION BASED ON A DEFAULT AGE OF 40 YEARS Compared to ECG 01/05/2023 13:23:39 Myocardial infarct finding now present Electronically Signed On 03-14-2023 20:24:15 CDT by David Moran M.D. [id number]
[2023-03-14 14:17] LABS: Eosinophils # 0.2 10^3/uL (0.0-0.8); Eosinophils % 1.4 %; Lymphocytes # 6.1 10^3/uL (0.8-4.8); Lymphocytes % 48.6 %; Mean Corpuscular HGB Conc 30.5 g/dL (30-55); Mean Corpuscular Hemoglobin 24.3 pg (27-33); Mean Corpuscular Volume 79.5 fl (85-98); Mean Platelet Volume 10.6 fL (7.4-10.4); Monocytes # 0.7 10^3/uL (0.2-0.9); Monocytes % 5.4 %; Neutrophils # 5.56 10^3/uL (1.8-7.7); Neutrophils % 44.3 %; Nucleated Red Blood Cells % 0 %; Platelet Count 269 10^3/cmm (157-399); Red Blood Count 4.78 10^6/uL (3.85-5.65); Red Cell Distribution Width 17.2 % (12.1-15.1); White Blood Count 12.56 10^3/uL (3.29-11.43)
--- NOTE | 2023-03-14 14:19 | ED_ITS ---
HPI - Weakness General: Chief complaint: Weakness Stated complaint: ams Time Seen by Provider: 03/14/23 13:57 History of Present Illness: 82-year-old female brought in by EMS after having a near syncopal episode. Patient had been feeling fatigued throughout the morning but otherwise okay. At around 12:10 PM she began to feel nauseated and lightheaded. She had already finished her lunch. Daughter was there and states that she was extremely weak and could barely get out the words that she was going to be sick. She ended up vomiting up what looked like stomach acid. She got pale and clammy. When EMS arrived her blood pressures were 83/62 and 75/37. IV fluids were started. The patient is here with her daughter who is also her caregiver. The daughter states that this is not her biological mother but is who raised her;she is with her most of the day every day. Daughter states that she has been gone over the last 2 days helping another person in the hospital. The patient has some dementia and relies on daughter to help care for her. Daughter states that she has been out of her routine for the last 2 days and she figured she had just gotten poor sleep. She was also concerned the patient could have gotten dehydrated because she was not there to encourage her to drink fluids and measure how much she took. Daughter says that she was weak all over right when this happened. No facial drooping. No complaint of any chest pain. No recent medication changes. No fevers. No trauma. Currently, patient still feels fatigued but says her nausea is gone. She no longer has any stomach discomfort. Daughter says that she does have a history of chronic bowel ischemia that gives her trouble intermittently. Associated symptoms: Denies chest pain, chills, dysuria, fever(s), headache(s) or syncope Review of Systems General: Reports: 10 or more systems reviewed and unremarkable except in HPI and below Narrative: See HPI. Patient got pale, clammy, nauseated, generally weak. Const: Denies: fever(s), chills or body aches Eyes: Denies: change in vision ENMT: Denies: throat pain Card: Denies: chest pain, edema or syncope Resp: Denies: dyspnea or productive cough GI: Denies: abdominal pain or diarrhea : Denies: flank pain, dysuria or urinary frequency Musc: Denies: neck pain, back pain, extremity pain or extremity swelling Skin/Breast: Denies: rash or erythema Neuro: Denies: headache(s), numbness in extremities or lack of coordination PFSH ED PFSH: Medical History Abnormal ankle brachial index (PATRICIA) 02/05/21 Acid reflux disease Allergic rhinitis due to allergen Aortic valve regurgitation Carotid artery stenosis, asymptomatic Colitis Dementia Depressed mood Diarrhea Diverticulosis Fatty infiltration of liver Generalized anxiety disorder Heart disease Helicobacter pylori gastritis Hiatal hernia with GERD History of nonmelanoma skin cancer Hypertension Hyponatremia Incomplete bladder emptying Intermittent palpitations Ischemic colitis Mitral valve disease Osteopenia PAD (peripheral artery disease) Pancolitis Postmenopausal Proctocolitis Psychiatric care Umbilical hernia Surgical History History of cholecystectomy History of colonoscopy History of esophagogastroduodenoscopy (EGD) History of fusion of cervical spine acdf c4-6 History of fusion of lumbar spine L4-5 History of hysterectomy Family History Father , in his 70's Cancer CAD (coronary artery disease) Brother CAD (coronary artery disease) Mother , at age 79 Heart disease Other Diabetes Hypertension Denies family history of Anesthesia complication Bleeding disorder Social History Smoking and tobacco status: never smoked Second hand smoke exposure: No Smoking risk assessment/counseling performed?: No Alcohol intake: never Desire information about alcohol rehabilitation?: No Counseling given: No Substance/Drug Use: never Desire information about substance/drug rehabilitation?: No Counseling given: No Lives independently: No Household members: none Marital status: / Current occupational status: retired Physical Exam Const: COMMON NORMALS: no limitations and well nourished EXAM LIMITATIONS: no altered mental status OTHER: Patient is resting with her eyes closed. She does answer all my questions and gives 5 out of 5 effort on strength exam. However she does appear fatigued and prefers to rest with her head down. She says she did not sleep well over the last 2 days. HENMT: COMMON NORMALS: normocephalic, atraumatic and external ears normal HEAD & SCALP: normocephalic and atraumatic EXTERNAL EAR: Yes external ears normal MOUTH: no muffled voice Eye: COMMON NORMALS: EOMs intact bilaterally, conjunctivae normal and no scleral icterus CONJUNCTIVA: Yes conjunctivae normal OTHER: Patient has pinpoint pupils bilaterally. Patient and daughter say this is chronic for her. They deny the use of any opiates or sedatives Neck/C-Spine: COMMON NORMALS: no JVD GENERAL: Yes normal visual inspection and Yes trachea midline Resp: COMMON NORMALS: normal respiratory effort, No use of accessory muscles and clear to auscultation bilaterally AUSCULTATION: clear to auscultation bilaterally Cardio: COMMON NORMALS: no JVD, regular rate and regular rhythm RATE: regular rate RHYTHM: regular rhythm GI: COMMON NORMALS: Soft to palpation and non-tender PALPATION: Yes Soft to palpation and No Guarding due to palpation present (GI) Extremity: COMMON NORMALS: normal to inspection Neuro: COMMON NORMALS: moves all extremities, no focal motor deficits and no sensory deficits noted SPEECH: speech normal Psych: COMMON NORMALS: mental status grossly normal, Normal thought process present, cooperative, normal affect and speech normal SPEECH: Yes normal speech THOUGHT PROCESS: Normal thought process present Skin: COMMON NORMALS: no rashes or lesions noted and no jaundice NARRATIVE SKIN EXAM: Pale initially GENERAL SKIN EXAM: no rashes or lesions noted Course Vital Signs: Vital signs: Vital Signs Temperature 98.1 F 03/14/23 13:57 Pulse Rate 65 03/14/23 17:24 Respiratory Rate 16 03/14/23 13:57 Blood Pressure 142/68 03/14/23 17:24 Pulse Oximetry 95 03/14/23 17:00 Oxygen Delivery Me thod Nasal Cannula 03/14/23 17:00 Oxygen Flow Rate 2 03/14/23 17:00 MDM - Weakness Medical Decision Making This is a patient who had near syncope with associated hypotension. The most likely diagnosis would simply be positional change with concomitant hypovolemia. Daughter explains she does not drink very much and with her being absent over the last 2 days she is worried she did not get enough fluid. EMS has given her IV fluid and by the time I finished my examination she had had about 950 cc. Her blood pressure is up to 106/56. Daughter states this is actually her normal despite being relatively low for most people. Patient has not a benign abdominal exam. Her lungs are clear. She does have a little bit of a cardiac murmur. Her skin turgor is decreased and she was relatively pale initially although she pinked up a little bit by the end of the examination. She has no focal neurologic findings. She does not have a temperature. Most cases like this go without a formal diagnosis. However, given her age and risk factors we will go ahead and do a broad work-up to rule out any other life-threatening etiologies that may result in hypotension and near syncope. EKG on my interpretation shows a sinus rhythm, rate 60, first-degree AV block, axis within normal limits, QRS duration of 82 ms, no concerning ST segment elevations or depressions although there is some nonspecific T wave flattening. Patient's white blood cell count came back at 12.5. Troponin was mildly elevated at baseline. A 2-hour troponin came back essentially flat with a mild decrease. Patient was given 1 L of fluid. There has been no hypotension here since the fluid was given starting in the prehospital course. No vomiting here. No complaints of any abdominal pain. CT scan of the head was unremarkable for any acute pathology. Urine analysis was unremarkable. And but is able to support her weight and take several steps in the room. She was placed back on room air and did not have any issues. CTA of the chest was unremarkable. I explained to the patient and grandson that at this point we could try discharge to home or admission for observation in the hospital. She would like to be discharged home and try oral rehydration and see how things go. Lab Data 03/14/23 13:29 03/14/23 13:29 Laboratory Results WBC 12.56 10^3/uL (3.29-11.43) H 03/14/23 13: RBC 4.78 10^6/uL (3.85-5.65) 03/14/23 13: Hgb 11.60 g/dL (11.27-16.99) 03/14/23 13: Hct 38.0 % (36-47) 03/14/23 13: MCV 79.5 fl (85-98) L 03/14/23 13: MCH 24.3 pg (27-33) L 03/14/23 13: MCHC 30.5 g/dL (30-55) 03/14/23 13:29 RDW 17.2 % (12.1-15.1) H 03/14/23 13:29 Plt Count 269 10^3/cmm (157-399) 03/14/23 13:29 MPV 10.6 fL (7.4-10.4) H 03/14/23 13:29 Neut % (Auto) 44.3 % 03/14/23 13:29 Lymph % (Auto) 48.6 % 03/14/23 13:29 [place] % (Auto) 5.4 % 03/14/23 13:29 Eos % (Auto) 1.4 % 03/14/23 13:29 Baso % (Auto) 0.0 % 03/14/23 13:29 Neut # (Auto) 5.56 10^3/uL (1.8-7.7) 03/14/23 13:29 Lymph # (Auto) 6.1 10^3/uL (0.8-4.8) H 03/14/23 13:29 [place] # (Auto) 0.7 10^3/uL (0.2-0.9) 03/14/23 13:29 Eos # (Auto) 0.2 10^3/uL (0.0-0.8) 03/14/23 13:29 Baso # (Auto) 0.0 10^3/uL (0.0-0.1) 03/14/23 13:29 Nucleated RBC % (auto) 0 % 03/14/23 13: Nucleated RBCs # 0.0 /100WBC 03/14/23 13:29 D-Dimer 4.63 ug/mLFEU (0-0.59) H 03/14/23 13:29 Sodium 134 mmol/L (136-145) L 03/14/23 13:29 Potassium 4.5 mmol/L (3.5-5.1) 03/14/23 13:29 Chloride 98 mmol/L (98-107) 03/14/23 13:29 Carbon Dioxide 21 mmol/L (22-29) L 03/14/23 13:29 Anion Gap 19.5 (5-19) H 03/14/23 13:29 BUN 18 mg/dL (8-23) 03/14/23 13:29 Creatinine 0.9 mg/dL (0.5-0.9) 03/14/23 13:29 GFR Calculation Not Reportable 03/14/23 13:29 Glucose 120 mg/dL (65-115) H 03/14/23 13:29 POC Glucose 114 mg/dL (70-110) H 03/14/23 17:34 Calculated Osmolality 281 mOsm/kg (285-295) L 03/14/23 13:29 Calcium 9.4 mg/dL (8.5-10.5) 03/14/23 13:29 Total Bilirubin 0.2 mg/dL (0.15-1.2) 03/14/23 13:29 AST 21 U/L (0-32) 03/14/23 13:29 ALT 18 U/L (0-33) 03/14/23 13:29 Alkaline Phosphatase 73 U/L (35-105) 03/14/23 13:29 Troponin T Baseline 37 ng/L (0-10) H 03/14/23 13:29 Troponin T 120 Minute 34.36 ng/L (0-10) H 03/14/23 15:56 Delta Troponin T -2.64 ABS# (0-10) L 03/14/23 15:56 Total Protein 6.4 g/dL (6.6-8.7) L 03/14/23 13:29 Albumin 4.1 g/dL (3.5-5.2) 03/14/23 13:29 Globulin 2.3 g/dL (1.3-4.6) 03/14/23 13:29 Urine Color Yellow (Yellow) 03/14/23 16:30 Urine Appearance Clear (CLEAR) 03/14/23 16:30 Urine pH 5 (5-7) 03/14/23 16:30 Ur Specific [place] 1.010 (1.005-1.030) 03/14/23 16:30 Urine Protein Neg (Negative) 03/14/23 16:30 Urine Glucose (UA) Norm (Normal) 03/14/23 16:30 Urine Ketones Negative (Negative) 03/14/23 16:30 Urine Blood Neg (Negative) 03/14/23 16:30 Urine Nitrate Negative (Negative) 03/14/23 16:30 Urine Bilirubin Neg (Negative) 03/14/23 16:30 Urine Urobilinogen Norm mg/dL (Negative) 03/14/23 16:30 Ur Leukocyte Esterase Negative (Negative) 03/14/23 16:30 Discharge Plan Discharge Patient Disposition: Home Clinical Impression: Near syncope, Weakness, Hypotension Condition: Stable Prescriptions: No Action hydrochlorothiazide 12.5 mg tablet 12.5 mg PO DAILY PRN (Reason: leg swelling) Qty: 30 6RF Hold Instructions: Resume on 01/13/23. (DME) DME: [facility] See Rx Instructions .Route Qty: 1 0RF Rx Instructions: As directed risperidone 1 mg tablet 1 mg PO BID Qty: 180 0RF sertraline 100 mg tablet 100 mg PO QAM Qty: 90 0RF trazodone 100 mg tablet 150 mg PO BEDTIME@20 Qty: 135 0RF olanzapine [Zyprexa] 5 mg tablet 5 mg PO DAILY@17 Qty: 90 0RF benzonatate 100 mg capsule 100 mg PO TID PRN (Reason: cough) Qty: 30 0RF loperamide 2 mg capsule See Rx Instructions .ROUTE .COMPLEX Qty: 720 0RF Dose Instruction: TAKE TWO CAPSULES BY MOUTH FOUR TIMES DAILY Rx Instructions: TAKE TWO CAPSULES BY MOUTH FOUR TIMES DAILY Prevalite 4 gram powder See Rx Instructions .ROUTE .COMPLEX Qty: 231 3RF Dose Instruction: take FOUR grams BY MOUTH TWICE DAILY * administer with a meal: AVOID other meds WITHIN ONE hour before or 4-6 hours AFTER DOSE * Rx Instructions: take FOUR grams BY MOUTH TWICE DAILY * administer with a meal: AVOID other meds WITHIN ONE hour before or 4-6 hours AFTER DOSE * acetaminophen 650 mg Tablet Extended Release 650 mg PO Q12H aspirin 325 mg Tablet 325 mg PO QAM Hold Instructions: Resume on 07/10/22. memantine 10 mg tablet 10 mg PO BID calcium citrate-vitamin D3 [Calcium Citrate + D] 315 mg-5 mcg (200 unit) Tablet 1 tab PO QAM ferrous sulfate [iron] 325 mg (65 mg iron) Tablet 325 mg PO QPM magnesium oxide 400 mg magnesium Tablet 400 mg PO DAILY rivastigmine tartrate 3 mg capsule 3 mg PO BID Metamucil 0.4 gram Capsule 0.4 g PO DAILY@17 enalapril maleate 5 mg tablet 2.5 mg PO QAM pantoprazole 40 mg tablet,delayed release (DR/EC) 40 mg PO BID sodium chloride 1,000 mg tablet,soluble 500 mg PO BID@08,12 Discharge Orders: Discharge ED (Routine); Ordered 03/14/23 Ordered By: Fredi Curran Referrals: Judith Dennis MD [Primary Care Provider] - Discharge Diet: Advance as tolerated Discharge Activity: Increase activity as tolerated Patient Instructions: Hypotension (ED), Weakness (ED), Lightheadedness (ED) Activity Restrictions/Additional Instructions: You were found to have low blood pressure when EMS arrived. After IV fluids we did not find any further low blood pressure. He did not have any signs of infection, blood clot in your pulmonary arteries, heart attack, stroke, renal failure, or other emergent pathologies. You are deconditioned and weak. Please make sure that you are drinking at least 60 ounces of fluid per day. Keep up your nutrition and exercise is much as possible. Return to the emergency department if you are getting worse or have recurrent symptoms. Coding Level of Care Code ED Registered Medical Transcriptionist for Aliya Coelho
[2023-03-14 14:33] LABS: Troponin(5th) Baseline 37 ng/L (0-10)
[2023-03-14 14:40] LABS: Alanine Aminotransferase 18 U/L (0-33); Albumin Level 4.1 g/dL (3.5-5.2); Alkaline Phosphatase 73 U/L (35-105); Anion Gap 19.5 (5-19); Aspartate Amino Transferase 21 U/L (0-32); Blood Urea Nitrogen 18 mg/dL (8-23); Calcium 9.4 mg/dL (8.5-10.5); Carbon Dioxide 21 mmol/L (22-29); Chloride 98 mmol/L (98-107); Globulin 2.3 g/dL (1.3-4.6); Glucose 120 mg/dL (65-115); Osmolality Calculated 281 mOsm/kg (285-295); Potassium 4.5 mmol/L (3.5-5.1); Sodium 134 mmol/L (136-145); Total Bilirubin 0.2 mg/dL (0.15-1.2); Total Protein 6.4 g/dL (6.6-8.7)
[2023-03-14 14:44] LABS: Slide Review Slide Review Perform
[2023-03-14 14:50] LABS: D Dimer 4.63 ug/mLFEU (0-0.59)
--- NOTE | 2023-03-14 15:02 | CT_ITS ---
WS: [id number] CT CHEST ANGIOGRAPHY WITH REFORMATS HISTORY: near syncope, low bp, mild hypoxia, elevated dimer TECHNIQUE: Contiguous axial images are obtained through the chest during arterial injection of intrav enous contrast. Images are reconstructed to evaluate the pulmonary arteries. MIP imaging also reviewe d. All CT scans at [facility] use at least one of these dose optimization techniques: automat ed exposure control; mA and/or kV adjustment per patient size (includes targeted exams where dose is matched to clinical indication); or iterative reconstruction. CONTRAST: Omnipaque 350; 100 mL IV. DLP: 297.36 mGy.cm COMPARISON: None available. Very good opacification of the pulmonary arteries. No filling defects. No pulmonary embolism. Mild en largement of the pulmonary artery. Moderate atherosclerosis aorta with no aneurysm. No pericardial or pleural effusion. Lung volumes are decreased due to poor inspiration. No pulmonary mass or nodule. N o pneumonia. Mild atelectasis LEFT lower lobe. Moderate size hiatal hernia. There is mild distal esop hageal wall thickening. No mediastinal or hilar adenopathy. Prior cholecystectomy. No adrenal mass. Mild thoracic scoliosis. IMPRESSION: 1. No pulmonary embolism. 2. No pneumonia. 3. Moderate atherosclerosis aorta mild cardiomegaly. 4. Moderate hiatal hernia.
[2023-03-14] MEDS: iohexol 350 mg/mL 500 mL Btl (per mL) IV (15:16)
[2023-03-14] MEDS: sodium chloride 0.9% 1,000 ML 999 ML IV (15:41)
--- NOTE | 2023-03-14 16:06 | ECG_ITS ---
[facility] [place] [facility] Date: 2023-03-14 Pat Name: Aarti Melchor Department: Room: Gender: Female Continuous Drier Helper: : [id number] Requested By: Fredi Curran Order Number: [id number] Fan MD: David Moran M.D. Measurements Intervals [place] Rate: 61 P: 29 FL: 220 QRS: 24 QRSD: 84 T: 52 QT: 416 QTc: 421 Interpretive Statements SINUS RHYTHM WITH FIRST DEGREE AV BLOCK LOW QRS VOLTAGE IN PRECORDIAL LEADS [QRS DEFLECTION < 1.0 mV IN CHEST LEADS] Compared to ECG 03/14/2023 14:04:54 Myocardial infarct finding no longer present Electronically Signed On 03-14-2023 20:38:49 CDT by David Moran M.D. [email or web address]
[2023-03-14 16:30] LABS: Troponin 5 2HR 34.36 ng/L (0-10)
[2023-03-14 16:32] LABS: Troponin 5 2HR Delta -2.64 ABS# (0-10)
[2023-03-14 17:11] LABS: Add Urine Microscopic? NO; Charge for UA Resulting for Rev
[2023-03-14 17:18] LABS: Bilirubin Urine Neg (Negative); Blood Urine Neg (Negative); Glucose Urine UA Norm (Normal); Ketones Urine Negative (Negative); Leukocyte Esterase Urine Negative (Negative); Nitrate Urine Negative (Negative); Protein Urine Neg (Negative); Urine Appearance Clear (CLEAR); Urine Color Yellow (Yellow); Urobilinogen Urine Norm (Negative); pH Urine 5 (5-7)
[2023-03-14 17:38] LABS: Glucose Point of Care 114 mg/dL (70-110)
--- NOTE | 2023-03-14 19:25 | PC.NURSE ---
pt dc this nurse went to dc pt. pt daughter wanted to speak with physician. physician spoke with pt daughter. pt waiting at this time to see hospitalist.
[2023-03-14 19:58] LABS: Troponin 5 6HR 32.14 ng/L (0-10)
[2023-03-14 20:00] LABS: Troponin 5 6HR Delta -4.86 ng/L (0-12)
--- NOTE | 2023-03-14 20:12 | P.HP_ITS ---
Providers/Chief Complaint Admitting Physician: Rylee Primary Care Provider: Judith Dennis MD Chief Complaint: ams History of Present Illness Aarti Melchor is a 82 year old female with dementia and associated psychotic features presents with weakness, hypotension, nausea and vomiting. Patient lives with her granddaughter Vane who is also her guardian, appointed in [facility] 2022. Vane was out of town over the weekend and patient resided with another family member. Today patient was not herself; more sleepy, unable to get up from a chair. She turned pale and then vomited around 1 PM today. When EMS arrived they documented blood pressure systolic 70-80. Patient was given IV fluids blood pressure in the ED 104/50. Work-up is basically negative except for a WBC count of 12.1 and a D-dimer that was elevated. Patient also had a bout of loose stool that she was incontinent of in the emergency room. Review of Systems General: Reports: ROS unobtainable due to mental status (dementia) Medications/Allergies Home Medications Medication Instructions Recorded Confirmed Last Taken Type aspirin 325 mg tablet 325 mg PO QAM 05/21/22 01/28/23 01/05/23 07:30 History calcium citrate 315 mg-vitamin D3 1 tab PO QAM 05/21/22 01/28/23 01/05/23 History 5 mcg (200 unit) tablet (Calcium Citrate + D) memantine 10 mg tablet 10 mg PO BID 05/21/22 01/28/23 01/05/23 History acetaminophen 650 mg 650 mg PO Q12H 07/06/22 01/28/23 01/05/23 07:30 History tablet,extended release benzonatate 100 mg capsule 100 mg PO TID PRN cough #30 caps 10/08/22 01/28/23 Unknown Rx hydrochlorothiazide 12.5 mg tablet 12.5 mg PO DAILY PRN leg swelling 12/24/22 01/28/23 Unknown Rx #30 tabs DME: Walker #1 ea 01/03/23 01/28/23 Unknown Rx enalapril maleate 5 mg tablet 2.5 mg PO QAM 01/05/23 01/28/23 01/05/23 History ferrous sulfate 325 mg (65 mg 325 mg PO QPM 01/05/23 01/28/23 01/04/23 History iron) tablet (iron) magnesium oxide 400 mg PO DAILY 01/05/23 01/28/23 Unknown History pantoprazole 40 mg tablet,delayed 40 mg PO BID 01/05/23 01/28/23 01/05/23 History release psyllium husk 0.4 gram capsule 0.4 g PO DAILY@17 01/05/23 01/28/23 Unknown History (Metamucil) rivastigmine tartrate 3 mg capsule 3 mg PO BID 01/05/23 01/28/23 01/05/23 07:30 History sodium chloride 1,000 mg soluble 500 mg PO BID@08,12 01/05/23 01/28/23 01/05/23 07:30 History tablet loperamide 2 mg capsule See Rx Instructions .Route 01/10/23 01/28/23 Unknown Rx .COMPLEX #720 caps cholestyramine-aspartame 4 gram See Rx Instructions .Route 01/25/23 01/28/23 Unknown Rx oral powder (Prevalite) .COMPLEX #231 grams olanzapine 5 mg tablet (Zyprexa) 5 mg PO DAILY@17 #90 tabs 01/28/23 01/28/23 Unknown Rx risperidone 1 mg tablet 1 mg PO BID #180 tabs 01/28/23 01/28/23 Unknown Rx sertraline 100 mg tablet 100 mg PO QAM #90 tabs 01/28/23 01/28/23 Unknown Rx trazodone 100 mg tablet 150 mg PO BEDTIME@20 #135 tabs 01/28/23 01/28/23 Unknown Rx Allergies Allergy/AdvReac Type Severity Reaction Status Date / Time buspirone [From BuSpar] Allergy Unknown Verified 01/28/23 09:59 prednisone Allergy ADR-Nausea Verified 01/28/23 09:59 Sulfa (Sulfonamide Allergy feels Verified 01/28/23 09:59 Antibiotics) strange all over lorazepam AdvReac Severe Make mean. Verified 01/28/23 09:59 Behaviours. morphine AdvReac ADR-Nausea Verified 01/28/23 09:59 PFSH Acute PFSH: Medical History Abnormal ankle brachial index (PATRICIA) 02/05/21 Acid reflux disease Allergic rhinitis due to allergen Aortic valve regurgitation Carotid artery stenosis, asymptomatic Colitis Dementia Depressed mood Diarrhea Diverticulosis Fatty infiltration of liver Generalized anxiety disorder Heart disease Helicobacter pylori gastritis Hiatal hernia with GERD History of nonmelanoma skin cancer Hypertension Hyponatremia Incomplete bladder emptying Intermittent palpitations Ischemic colitis Mitral valve disease Osteopenia PAD (peripheral artery disease) Pancolitis Postmenopausal Proctocolitis Psychiatric care Umbilical hernia Surgical History History of cholecystectomy History of colonoscopy History of esophagogastroduodenoscopy (EGD) History of fusion of cervical spine acdf c4-6 History of fusion of lumbar spine L4-5 History of hysterectomy Family History Father , in his 70's Cancer CAD (coronary artery disease) Brother CAD (coronary artery disease) Mother , at age 79 Heart disease Other Diabetes Hypertension Denies family history of Anesthesia complication Bleeding disorder Social History Smoking and tobacco status: never smoked Second hand smoke exposure: No Smoking risk assessment/counseling performed?: No Alcohol intake: never Desire information about alcohol rehabilitation?: No Counseling given: No Substance/Drug Use: never Desire information about substance/drug rehabilitation?: No Counseling given: No Lives independently: No Household members: none Marital status: / Current occupational status: retired Vitals/I&O/Wt Last Vital Signs Temp 98.1 F 03/14/23 13:57 Pulse 63 03/14/23 18:00 Resp 16 03/14/23 13:57 BP 132/56 03/14/23 18:00 Pulse Ox 96 03/14/23 18:00 O2 Del Method Room Air 03/14/23 18:00 O2 Flow Rate 2 03/14/23 17:00 03/14/23 03/14/23 03/14/23 06:59 14:59 22:59 Intake Total 1000 / 1000 Balance 1000 / 1000 Weight last 48 hrs Weight 54.431 kg Physical Exam Narrative: 82-year-old female very pale looking. No acute distress at time of exam. Patient was sleepy. Easy to awaken Neurologic: Alert and oriented to person place and Vane. Her exam is nonfocal. She displays overall weakness; she can hold arms and legs against gravity. HEENT: Head is normocephalic atraumatic pupils equal round reactive to light and accommodation extraocular muscles are intact there is no scleral icterus neck is supple no JVD carotid bruits or lymphadenopathy Chest: Rises symmetrically with inspiration Lymphatic no lymphadenopathy palpable in the cervical supraclavicular or inguinal regions Cardiovascular regular rhythm normal S1-S2 mild bradycardia no loud murmur. Respiratory: Normal effort overall weak no wheezes rales or rhonchi Abdomen: Soft mild tenderness in the right upper and lower quadrants. Nondistended. Slightly hyperactive bowel sounds. : Normal female Extremities no clubbing cyanosis or edema Psych: No aggressive behaviors. No delirium. Skin: Pale warm dry to touch Data 03/14/23 13:29 03/14/23 13:29 Other Labs: Negative troponins CTA Chest: Radiologist's impression: IMPRESSION: 1. No pulmonary embolism. 2. No pneumonia. 3. Moderate atherosclerosis aorta mild cardiomegaly. 4. Moderate hiatal hernia. CXR: Radiologist's impression: IMPRESSION: 1. Diffuse interstitial infiltrates noted throughout both lungs that may represent interstitial pneumonia or pulmonary edema. 2. Probable small LEFT pleural effusion. CT Head: Radiologist's impression: IMPRESSION: 1. No acute intracranial hemorrhage or edema. 2. Mild atrophy and moderate small vessel ischemic disease. A&P Assessment and plan (1) Weakness: Weakness worse than baseline patient usually able to walk with a walker. This may be due to to an acute viral gastroenteritis or change in environment. Patient will be placed in observation for case management to see the and arranged home health care. (2) Hypotension: Patient's blood pressure was stable upon arrival to the ED patient could have had a vasovagal response to emesis or this could be progression of neurologic disease with an autonomic nervous system dysfunction. Either way it seems reasonable to stop the enalapril. Patient was never taking hydrochlorothiazide per Vane. (3) Dementia: Upon review of chart and discussion with Vane patient is showing typical decline from dementia. She is getting weaker, she is sleeping more. She is having trouble eating. She is becoming incontinent of bladder and today she is incontinent of bowel. We discussed typical prognosis of dementia. We discussed that while overall dementia is a slow decline there are times when the decline is quicker and then the patient can stabilize again. Although the patient seems to be experiencing an acute viral gastroenteritis that may be the cause of overall weakness and worsening of her dementia symptoms patient may or may not return to her previous baseline. (4) Hyponatremia: Patient carries this to diagnosis and takes salt tablets for control. Her sodium today is 134. (5) Gastroenteritis and colitis, viral: We will treat with IV fluids and supportive care. Plan Patient is being placed under observation. Stop antihypertensives. We will ask for case management to assist with arranging for home health care. I advised the caregiver to select an agency that also has hospice such that the patient could transition to hospice if that is now appropriate with the worsening weakness. Attestations Medical Necessity Statement*: Patient is being admitted under observation at this time. Coding Level of Care Code Acute Code for [facility] Fwd Diagnoses Weakness R53.1 Hypotension I95.9 Dementia F03.90 Hyponatremia E87.1 Gastroenteritis and colitis, viral A08.4
--- NOTE | 2023-03-14 21:29 | ECG_ITS ---
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 Measurements Intervals [place] Rate: 63 P: 38 TN: 215 QRS: 15 QRSD: 72 T: 60 QT: 403 QTc: 415 Interpretive Statements SINUS RHYTHM WITH FIRST DEGREE AV BLOCK LOW QRS VOLTAGE IN PRECORDIAL LEADS [QRS DEFLECTION < 1.0 mV IN CHEST LEADS] SEPTAL MYOCARDIAL INFARCTION , OF INDETERMINATE AGE [40+ ms Q WAVE IN V1/V2] Compared to ECG 03/14/2023 16:11:12 Myocardial infarct finding now present Electronically Signed On 03-16-2023 0:01:41 CDT by Juana Kaplan M.D. [email or web address]
[2023-03-14] MEDS: sodium chloride 0.9% 1,000 ML 75 ML IV (22:53)
[2023-03-14] MEDS: enoxaparin 40 mg/0.4 mL Syringe SUBCUT (22:53)
[2023-03-15] VITALS: BP 86/50; PULSE 67; RESP 18; TEMP 36.8; O2SAT 93
[2023-03-15 05:00] VITALS: BP 110/69; PULSE 77; RESP 18; TEMP 37; O2SAT 91
[2023-03-15 05:13] LABS: Basophils % 0.1 %; Eosinophils # 0.2 10^3/uL (0.0-0.8); Eosinophils % 1.3 %; Hematocrit 32.1 % (36-47); Mean Corpuscular HGB Conc 30.5 g/dL (30-55); Mean Corpuscular Hemoglobin 24.6 pg (27-33); Mean Corpuscular Volume 80.5 fl (85-98); Mean Platelet Volume 10.9 fL (7.4-10.4); Monocytes # 0.9 10^3/uL (0.2-0.9); Neutrophils # 7.31 10^3/uL (1.8-7.7); Neutrophils % 64.4 %; Nucleated Red Blood Cells % 0 %; Platelet Count 211 10^3/cmm (157-399); Red Blood Count 3.99 10^6/uL (3.85-5.65); Red Cell Distribution Width 17.3 % (12.1-15.1); White Blood Count 11.35 10^3/uL (3.29-11.43)
[2023-03-15] MEDS: calcium carb-vit d 600mg/400unit 1 Tablet 1 EACH PO (05:55)
[2023-03-15] MEDS: aspirin 325 mg Tablet PO (05:55)
[2023-03-15] MEDS: sertraline 100 mg Tablet PO (05:55)
[2023-03-15 07:09] VITALS: BP 118/67; PULSE 64; RESP 16; TEMP 36.8; O2SAT 92
[2023-03-15] MEDS: sodium chloride 1 gm Tablet 0.5 GM PO ×2 (10:08→11:33)
[2023-03-15] MEDS: cholestyramine powder 4 gm Pkt PO (10:09)
[2023-03-15] MEDS: risperiDONE 1 mg Tablet PO (10:09)
[2023-03-15] MEDS: loperamide 2 mg Capsule 4 MG PO (10:09)
[2023-03-15] MEDS: memantine 5 mg tablet 10 MG PO (10:10)
[2023-03-15 11:13] VITALS: BP 107/64; PULSE 68; RESP 18; TEMP 36.4; O2SAT 93
[2023-03-15] MEDS: pantoprazole DR 40 mg Tablet PO (11:33)
--- NOTE | 2023-03-15 13:29 | P.DS_ITS ---
Discharge Providers Date of Admission: 03/14/23 20:16 Date of Discharge: March 15, 2023 Attending Provider at Admission: Segundo Mckee DO Attending Provider at Discharge: Reinier Elaine MD Primary Care Provider: Judith Dennis MD Diagnoses at Discharge Discharge Diagnosis (1) Weakness: Status: Acute (2) Hypotension: Status: Acute (3) Dementia: Status: Acute (4) Hyponatremia: Status: Chronic (5) Gastroenteritis and colitis, viral: Status: Acute Reason for Visit Reason for Visit: ams Hospital Course Hospital Course Aarti Melchor is a 82-year-old female with a past medical history significant for carotid artery stenosis, dementia, hypertension, and generalized anxiety disorder who presented with weakness, hypotension, nausea and vomiting, found to have weakness and hypotension secondary to poor oral intake secondary to gastroenteritis. Her enalapril was discontinued. She was treated with IV fluids. Symptoms improved. She is discharged to home with family for further care. Physical Exam Narrative: General: Patient is awake. No acute distress. Head: Normocephalic. Atraumatic. EOM intact. Neck: No JVD. Cardiovascular: RRR. No gallops. No murmurs. No peripheral edema. Lungs: Clear to auscultation, no use of accessory muscles, no crackles or wheezes. Skin: No jaundice. No rashes. Abdomen: Normal bowel sounds, abdomen soft and nontender. Extremities: No cyanosis or clubbing. Musculoskeletal: No erythematous joints. Neurological: Moves all 4 extremities. No myoclonus. Discharge Data Studies Completed and Pending Completed Studies During Hospitalization Category Date Time Status CT head wo con* [id number] Stat Cat Scan 03/14/23 13:59 Completed CTA chest [CT angio chest PE protcl [id number]] Stat Cat Scan 03/14/23 15:02 Completed XR chest 1V portable [id number] Stat Exams 03/14/23 14:01 Completed Laboratory Results WBC 11.35 10^3/uL (3.29-11.43) 03/15/23 04:16 RBC 3.99 10^6/uL (3.85-5.65) 03/15/23 04:16 Hgb 9.80 g/dL (11.27-16.99) L 03/15/23 04:16 Hct 32.1 % (36-47) L 03/15/23 04:16 MCV 80.5 fl (85-98) L 03/15/23 04:16 MCH 24.6 pg (27-33) L 03/15/23 04:16 MCHC 30.5 g/dL (30-55) 03/15/23 04:16 RDW 17.3 % (12.1-15.1) H 03/15/23 04:16 Plt Count 211 10^3/cmm (157-399) 03/15/23 04:16 MPV 10.9 fL (7.4-10.4) H 03/15/23 04:16 Neut % (Auto) 64.4 % 03/15/23 04:16 Lymph % (Auto) 26.0 % 03/15/23 04:16 [place] % (Auto) 8.0 % 03/15/23 04:16 Eos % (Auto) 1.3 % 03/15/23 04:16 Baso % (Auto) 0.1 % 03/15/23 04:16 Neut # (Auto) 7.31 10^3/uL (1.8-7.7) 03/15/23 04:16 Lymph # (Auto) 3.0 10^3/uL (0.8-4.8) 03/15/23 04:16 [place] # (Auto) 0.9 10^3/uL (0.2-0.9) 03/15/23 04:16 Eos # (Auto) 0.2 10^3/uL (0.0-0.8) 03/15/23 04:16 Baso # (Auto) 0.0 10^3/uL (0.0-0.1) 03/15/23 04:16 Nucleated RBC % (auto) 0 % 03/15/23 04:16 Nucleated RBCs # 0.0 /100WBC 03/15/23 04:16 D-Dimer 4.63 ug/mLFEU (0-0.59) H 03/14/23 13:29 Sodium 134 mmol/L (136-145) L 03/14/23 13:29 Potassium 4.5 mmol/L (3.5-5.1) 03/14/23 13:29 Chloride 98 mmol/L (98-107) 03/14/23 13:29 Carbon Dioxide 21 mmol/L (22-29) L 03/14/23 13:29 Anion Gap 19.5 (5-19) H 03/14/23 13:29 BUN 18 mg/dL (8-23) 03/14/23 13:29 Creatinine 0.9 mg/dL (0.5-0.9) 03/14/23 13:29 GFR Calculation Not Reportable 03/14/23 13:29 Glucose 120 mg/dL (65-115) H 03/14/23 13:29 POC Glucose 114 mg/dL (70-110) H 03/14/23 17:34 Calculated Osmolality 281 mOsm/kg (285-295) L 03/14/23 13:29 Calcium 9.4 mg/dL (8.5-10.5) 03/14/23 13:29 Total Bilirubin 0.2 mg/dL (0.15-1.2) 03/14/23 13:29 AST 21 U/L (0-32) 03/14/23 13:29 ALT 18 U/L (0-33) 03/14/23 13:29 Alkaline Phosphatase 73 U/L (35-105) 03/14/23 13:29 Troponin T Baseline 37 ng/L (0-10) H 03/14/23 13:29 Troponin T 120 Minute 34.36 ng/L (0-10) H 03/14/23 15:56 Delta Troponin T -2.64 ABS# (0-10) L 03/14/23 15:56 Troponin T Hi Sens 6Hr 32.14 ng/L (0-10) H 03/14/23 19:31 Troponin T Hi Sens 6Hr Delta -4.86 ng/L (0-12) L 03/14/23 19:31 Total Protein 6.4 g/dL (6.6-8.7) L 03/14/23 13:29 Albumin 4.1 g/dL (3.5-5.2) 03/14/23 13:29 Globulin 2.3 g/dL (1.3-4.6) 03/14/23 13:29 Urine Color Yellow (Yellow) 03/14/23 16:30 Urine Appearance Clear (CLEAR) 03/14/23 16:30 Urine pH 5 (5-7) 03/14/23 16:30 Ur Specific [place] 1.010 (1.005-1.030) 03/14/23 16:30 Urine Protein Neg (Negative) 03/14/23 16:30 Urine Glucose (UA) Norm (Normal) 03/14/23 16:30 Urine Ketones Negative (Negative) 03/14/23 16:30 Urine Blood Neg (Negative) 03/14/23 16:30 Urine Nitrate Negative (Negative) 03/14/23 16:30 Urine Bilirubin Neg (Negative) 03/14/23 16:30 Urine Urobilinogen Norm mg/dL (Negative) 03/14/23 16:30 Ur Leukocyte Esterase Negative (Negative) 03/14/23 16:30 Vitals Last Vital Signs Temp 97.5 F L 03/15/23 11:13 Pulse 68 03/15/23 11:13 Resp 18 03/15/23 11:13 BP 107/64 03/15/23 11:13 Pulse Ox 93 03/15/23 11:13 O2 Del Method Room Air 03/15/23 11:13 O2 Flow Rate 2 03/15/23 08:00 Discharge Plan Discharge Patient Disposition: Home Condition: Stable Prescriptions: Continued (DME) DME: Walker Unit See Rx Instructions .Route Qty: 1 0RF Rx Instructions: As directed risperidone 1 mg tablet 1 mg PO BID Qty: 180 0RF sertraline 100 mg tablet 100 mg PO QAM Qty: 90 0RF trazodone 100 mg tablet 150 mg PO BEDTIME@20 Qty: 135 0RF olanzapine [Zyprexa] 5 mg tablet 5 mg PO DAILY@17 Qty: 90 0RF loperamide 2 mg capsule See Rx Instructions .ROUTE .COMPLEX Qty: 720 0RF Dose Instruction: TAKE TWO CAPSULES BY MOUTH FOUR TIMES DAILY Rx Instructions: TAKE TWO CAPSULES BY MOUTH FOUR TIMES DAILY Prevalite 4 gram powder See Rx Instructions .ROUTE .COMPLEX Qty: 231 3RF Dose Instruction: take FOUR grams BY MOUTH TWICE DAILY * administer with a meal: AVOID other meds WITHIN ONE hour before or 4-6 hours AFTER DOSE * Rx Instructions: take FOUR grams BY MOUTH TWICE DAILY * administer with a meal: AVOID other meds WITHIN ONE hour before or 4-6 hours AFTER DOSE * acetaminophen 650 mg Tablet Extended Release 650 mg PO Q12H aspirin 325 mg Tablet 325 mg PO QAM Hold Instructions: Resume on 07/10/22. memantine 10 mg tablet 10 mg PO BID calcium citrate-vitamin D3 [Calcium Citrate + D] 315 mg-5 mcg (200 unit) Tablet 1 tab PO QAM rivastigmine tartrate 3 mg capsule 3 mg PO BID psyllium husk [Metamucil] 0.4 gram Capsule 0.4 g PO DAILY@17 pantoprazole 40 mg tablet,delayed release (DR/EC) 40 mg PO BID sodium chloride 1,000 mg tablet,soluble 500 mg PO BID@08,12 Discontinued enalapril maleate 5 mg tablet 2.5 mg PO QAM Discharge Orders: Discharge Order (Routine); Ordered 03/15/23 Ordered By: Reinier Elaine Referrals: Judith Dennis MD [Primary Care Provider] - 4-7 days (message sent to clinic for an appointment) Discharge Diet: Advance as tolerated Discharge Activity: Resume usual activity and Increase activity as tolerated Patient Instructions: Hypotension (ED), Weakness (ED), Lightheadedness (ED), Opioid Safety Activity Restrictions/Additional Instructions: You were found to have low blood pressure when EMS arrived. After IV fluids we did not find any further low blood pressure. He did not have any signs of infection, blood clot in your pulmonary arteries, heart attack, stroke, renal failure, or other emergent pathologies. You are deconditioned and weak. Please make sure that you are drinking at least 60 ounces of fluid per day. Keep up your nutrition and exercise is much as possible. Return to the emergency department if you are getting worse or have recurrent symptoms. Discharge Attestations Time Spent in Discharge Care*: greater than 30 min Quality Metrics Clinical Quality Measures [ No reported AMI, CVA or VTE this stay] Coding Level of Care Code Acute Code for [facility] Fwd Diagnoses Weakness R53.1 Hypotension I95.9 Dementia F03.90 Hyponatremia E87.1 Gastroenteritis and colitis, viral A08.4
== END 2023-03-15 14:22 | disposition home or self-care (01) ==
LOC: ER 20:22 → MEDSURG 21:34
PROVIDERS: Family Medicine; Admitting Provider Internal Medicine; Emergency Provider Emergency Medicine; PCP Family Medicine; Visit Provider Internal Medicine
DX: R53.1 Weakness (principal); I95.9 Hypotension, unspecified; F03.90 Unspecified dementia, unspecified severity, without behavioral disturbance, psychotic disturbance, mood disturbance, and anxiety; E87.1 Hypo-osmolality and hyponatremia; A08.4 Viral intestinal infection, unspecified; I25.10 Atherosclerotic heart disease of native coronary artery without angina pectoris; F41.1 Generalized anxiety disorder; I44.0 Atrioventricular block, first degree; I11.0 Hypertensive heart disease with heart failure; I50.9 Heart failure, unspecified; K44.9 Diaphragmatic hernia without obstruction or gangrene
CPT/HCPCS: 36415; 36416; 51701; 70450; 71045; 71275; 80053; 81003; 82962; 84484; 85025; 85378; 93005; 96372; 97110; 97116; 97161; 97166; 99285; G0378; J1650; J7030; Q9967

== ENCOUNTER 2023-03-28 11:58 | Outpatient (CLI) | payer OTHER, SELFPAY ==
[2023-03-28 13:07] LABS: Add Urine Microscopic? YES; Bilirubin Urine Neg (Negative); Blood Urine 3+ (Negative); Glucose Urine UA Norm (Normal); Ketones Urine Negative (Negative); Leukocyte Esterase Urine 2+ (Negative); Nitrate Urine Negative (Negative); Protein Urine Trace (Negative); RBC Urine 0-4 /hpf (0-2); Specific Gravity, Urine 1.015 (1.005-1.030); Urine Appearance Cloudy (CLEAR); Urine Color Yellow (Yellow); Urobilinogen Urine Norm (Negative); pH Urine 5 (5-7)
[2023-03-28 13:08] LABS: Add Urine Culture? Yes; Bacteria Urine 4+ /hpf; Squamous Epithelial Cell Urine 0-4 /hpf (0-5); WBC Urine TOO NUMEROUS TO CNT /hpf (0-5)
== END 2023-03-28 11:59 | disposition home or self-care (01) ==
PROVIDERS: PCP Family Medicine; Visit Provider Internal Medicine
DX: G30.9 Alzheimer's disease, unspecified (principal)
CPT/HCPCS: 81001